=== PATIENT | male | born 1965 | race Caucasian/White ===

== ENCOUNTER → 2016-08-25 | Outpatient (CLI) | payer BC ==
[~2016-08-25] MED LIST: /NITR4TASL SL; /PANT40TA PO; ALTA1CAP2 PO; APIDINJ IJ; APIDINJ2 SC; ASPI81CH PO; ASPI81TA85 PO; CLOP75TA2 PO; CORE25TA PO; CRES40TA PO; CYCL10TA PO; GABA-279 PO; HYDR-3713 PO; INVO300T PO; JANU100T PO; LANTINJ4 SC; LIPI80TA PO; LISI5TAB PO; METF1000 PO; MOME50SP; NEUR300C PO; TYLE325T5 PO; VENTAER IN; VITA10002 PO; VITA200016 PO; XOPEAER INH; ZETI10TA21 PO
[2016-08-25 09:56] LABS: ANION GAP 7 MEQ/L (8-16); BLOOD UREA NITROGEN 10 MG/DL (7-18); CALCIUM LEVEL 9.1 MG/DL (8.5-10.1); CARBON DIOXIDE LEVEL 29 MEQ/L (21-32); CHLORIDE LEVEL 104 MEQ/L (98-107); CHOLESTEROL LEVEL 96 MG/DL (<200); CREATININE FOR GFR 0.88 MG/DL (0.70-1.30); FREE T4 0.91 NG/DL (0.76-1.46); GLOMERULAR FILTRATION RATE > 60.0 (>60); GLUCOSE, FASTING 107 MG/DL (70-105); PHOSPHORUS LEVEL 3.8 MG/DL (2.5-4.9); POTASSIUM SERUM 3.7 MEQ/L (3.5-5.1); SODIUM LEVEL 140 MEQ/L (136-145); TRIGLYCERIDES LEVEL 113 MG/DL (<150)
[2016-08-25 10:26] LABS: VITAMIN B12 LEVEL 637 PG/ML (247-911)
[2016-08-27 11:47] LABS: PRETREATED FOLATE FOR RBCFOL 11.3 NG/ML
== END ==
LOC: M LAB 08:22
PROVIDERS: ATTEND Family Medicine
DX: E78.5 Hyperlipidemia, unspecified (principal); E11.9 Type 2 diabetes mellitus without complications; Z12.5 Encounter for screening for malignant neoplasm of prostate
CPT/HCPCS: 36415; 80061; 80069; 82306; 82607; 82747; 83036; 83970; 84439; 84443; 86140; G0103

== ENCOUNTER → 2016-08-27 | Outpatient (REF) | payer BC | LOC: M SFHCPLAZ 15:42 | PROVIDERS: ATTEND Physician Assistant Medical | DX: N39.0 Urinary tract infection, site not specified (principal) ==

== ENCOUNTER → 2016-08-31 | Outpatient (REF) | payer BC | LOC: M SFHCPLAZ 11:43 | PROVIDERS: ATTEND Physician Assistant Medical | DX: N41.0 Acute prostatitis (principal) ==

== ENCOUNTER → 2016-09-24 | Outpatient (REF) | payer BC | LOC: M SFHCPLAZ 08:57 | PROVIDERS: ATTEND Physician Assistant Medical | DX: N41.9 Inflammatory disease of prostate, unspecified (principal) ==

== ENCOUNTER → 2017-01-28 | Outpatient (REF) | payer BC ==
[~2017-01-28] MED LIST changes: +LEVAINH INH; -XOPEAER INH
[2017-01-28 12:27] LABS: ALBUMIN 4.2 GM/DL (3.2-5.2); ALBUMIN/GLOBULIN RATIO 1.35 (1.00-1.93); ALKALINE PHOSPHATASE 93 U/L (45-117); ALT/SGPT 30 U/L (12-78); ANION GAP 9 MEQ/L (8-16); AST/SGOT 14 U/L (15-37); BILIRUBIN,TOTAL 0.6 MG/DL (0.2-1.0); BLOOD UREA NITROGEN 12 MG/DL (7-18); CARBON DIOXIDE LEVEL 29 MEQ/L (21-32); CHLORIDE LEVEL 103 MEQ/L (98-107); FERRITIN 56 NG/ML (26-388); GLOMERULAR FILTRATION RATE > 60.0 (>60); GLUCOSE, FASTING 85 MG/DL (70-105); PERCENT SATURATION 25.1 % (19.7-50.0); POTASSIUM SERUM 3.7 MEQ/L (3.5-5.1); SODIUM LEVEL 141 MEQ/L (136-145); TOTAL IRON BINDING CAPACITY 367 UG/DL (250-450); TOTAL PROTEIN 7.3 GM/DL (6.4-8.2)
== END ==
LOC: M SFHCPLAZ 09:35
PROVIDERS: ATTEND Family Medicine
DX: E11.9 Type 2 diabetes mellitus without complications (principal); R10.13 Epigastric pain

== ENCOUNTER → 2017-05-26 | Outpatient (REF) | payer BC ==
[2017-05-26 14:37] LABS: BASO % 0.6 % (0.0-1.0); EOS # 0.2 10^3/uL (0.0-0.50); EOS % 2.5 % (0.0-3.0); HEMATOCRIT 45.3 % (42.0-52.0); HEMOGLOBIN 15.8 g/dl (14.0-18.0); IMMATURE GRANULOCYTE % 0.2 % (0-0); LYMPH % 31.4 % (24.0-44.0); MEAN CORPUSCULAR HEMOGLOBIN 28.1 pg (27.0-33.0); MEAN CORPUSCULAR HGB CONC 34.9 g/dl (32.0-36.5); MEAN CORPUSCULAR VOLUME 80.6 fl (80.0-96.0); MONO # 0.4 10^3/uL (0.0-0.8); MONO % 6.1 % (0.0-5.0); NEUTROPHILS # 3.8 10^3/uL (1.8-7.7); NEUTROPHILS % 59.2 % (36.0-66.0); PLATELET COUNT, AUTOMATED 231 10^3/uL (150-450); RED BLOOD COUNT 5.62 10^6/uL (4.30-6.10); RED CELL DISTRIBUTION WIDTH 13.6 % (11.5-14.5); WHITE BLOOD COUNT 6.4 10^3/uL (4.0-10.0)
[2017-05-26 15:14] LABS: PTH INTACT 104.2 PG/ML (14.0-72.0); TOTAL 25(OH) VITAMIN D 45.6 NG/ML (30.0-100.0); VITAMIN B12 LEVEL 1349 PG/ML (247-911)
[2017-05-26 15:54] LABS: ALBUMIN 4.3 GM/DL (3.2-5.2); ALBUMIN/GLOBULIN RATIO 1.43 (1.00-1.93); ALKALINE PHOSPHATASE 103 U/L (45-117); ALT/SGPT 48 U/L (12-78); ANION GAP 7 MEQ/L (8-16); AST/SGOT 25 U/L (7-37); BILIRUBIN,TOTAL 0.6 MG/DL (0.2-1.0); BLOOD UREA NITROGEN 8 MG/DL (7-18); CALCIUM LEVEL 9.1 MG/DL (8.5-10.1); CARBON DIOXIDE LEVEL 29 MEQ/L (21-32); CHLORIDE LEVEL 106 MEQ/L (98-107); GLOMERULAR FILTRATION RATE > 60.0 (>56); GLUCOSE, FASTING 114 MG/DL (70-100); MAGNESIUM LEVEL 2.1 MG/DL (1.8-2.4); POTASSIUM SERUM 3.6 MEQ/L (3.5-5.1); SODIUM LEVEL 142 MEQ/L (136-145); TOTAL PROTEIN 7.3 GM/DL (6.4-8.2)
[2017-05-26 16:42] LABS: ESTIMATED AVERAGE GLUCOSE 278 MG/DL (60-110); HEMOGLOBIN A1c 11.3 %
== END ==
LOC: M SFHCPLAZ 09:37
DX: I10 Essential (primary) hypertension (principal); E53.8 Deficiency of other specified B group vitamins; E55.9 Vitamin D deficiency, unspecified; E11.9 Type 2 diabetes mellitus without complications
CPT/HCPCS: 83735

== ENCOUNTER → 2017-10-28 | Outpatient (REF) | payer BC ==
[2017-10-28 11:46] LABS: BASO % 0.4 % (0.0-1.0); EOS # 0.1 10^3/uL (0.0-0.50); EOS % 1.8 % (0.0-3.0); HEMATOCRIT 46.1 % (42.0-52.0); HEMOGLOBIN 16.2 g/dl (13.5-17.5); IMMATURE GRANULOCYTE % 0.3 % (0-3.0); LYMPH # 2.1 10^3/uL (1.5-4.5); LYMPH % 30.3 % (24.0-44.0); MEAN CORPUSCULAR HEMOGLOBIN 28.7 pg (27.0-33.0); MEAN CORPUSCULAR HGB CONC 35.1 g/dl (32.0-36.5); MEAN CORPUSCULAR VOLUME 81.7 fl (80.0-96.0); MONO # 0.5 10^3/uL (0.0-0.8); NEUTROPHILS # 4.2 10^3/uL (1.8-7.7); NEUTROPHILS % 60.2 % (36.0-66.0); PLATELET COUNT, AUTOMATED 217 10^3/uL (150-450); RED BLOOD COUNT 5.64 10^6/uL (4.30-6.10); RED CELL DISTRIBUTION WIDTH 13.6 % (11.5-14.5); RETICULOCYTE # 72.2 10^9/L (17-77); RETICULOCYTE % 1.3 % (0.5-1.5)
[2017-10-28 13:02] LABS: ALBUMIN 4.2 GM/DL (3.2-5.2); ALBUMIN/GLOBULIN RATIO 1.35 (1.00-1.93); ALKALINE PHOSPHATASE 89 U/L (45-117); ALT/SGPT 66 U/L (12-78); ANION GAP 7 MEQ/L (8-16); AST/SGOT 29 U/L (7-37); BILIRUBIN,TOTAL 0.6 MG/DL (0.2-1.0); BLOOD UREA NITROGEN 16 MG/DL (7-18); C REACTIVE PROTEIN QUANTITATIV < 0.30 MG/DL (0.00-0.30); CALCIUM LEVEL 8.6 MG/DL (8.5-10.1); CARBON DIOXIDE LEVEL 28 MEQ/L (21-32); CHLORIDE LEVEL 107 MEQ/L (98-107); CHOLESTEROL LEVEL 92 MG/DL (<200); CHOLESTEROL RISK RATIO 2.421 (<5); CPK CREATINE PHOSPHOKINASE 255 U/L (39-308); CREATININE FOR GFR 0.98 MG/DL (0.70-1.30); GLOMERULAR FILTRATION RATE > 60.0 (>56); GLUCOSE, FASTING 146 MG/DL (70-100); HDL CHOLESTEROL 38 MG/DL (>40); LDL CHOLESTEROL 27.4 MG/DL (<100); NON-HDL-C 54 MG/DL; POTASSIUM SERUM 3.7 MEQ/L (3.5-5.1); PSA SCREENING 0.65 NG/ML (< 4.0); SODIUM LEVEL 142 MEQ/L (136-145); TOTAL PROTEIN 7.3 GM/DL (6.4-8.2); TRIGLYCERIDES LEVEL 133 MG/DL (<150)
[2017-10-28 13:28] LABS: ESTIMATED AVERAGE GLUCOSE 240 MG/DL (60-110)
[2017-10-28 14:36] LABS: TOTAL 25(OH) VITAMIN D 28.7 NG/ML (30.0-100.0)
[2017-10-28 14:37] LABS: PTH INTACT 123.7 PG/ML (18.5-88.0)
[2017-10-29 14:17] LABS: H PYLORI SERUM QUANT IgG ABY 0.25 (0.00-0.79)
== END ==
LOC: M SFHCPLAZ 09:21
DX: Z12.5 Encounter for screening for malignant neoplasm of prostate (principal); R25.2 Cramp and spasm; E11.9 Type 2 diabetes mellitus without complications; E55.9 Vitamin D deficiency, unspecified; E78.5 Hyperlipidemia, unspecified; Z98.84 Bariatric surgery status
CPT/HCPCS: 82550

== ENCOUNTER 2018-02-16 22:48 | Emergency (ER) | payer BC | END 2018-02-17 01:07 | disposition home or self-care (01) | LOC: M ED 22:48 | DX: S40.012A Contusion of left shoulder, initial encounter (principal); S76.812A Strain of other specified muscles, fascia and tendons at thigh level, left thigh, initial encounter; W50.0XXA Accidental hit or strike by another person, initial encounter; Y92.830 Public park as the place of occurrence of the external cause; Y93.22 Activity, ice hockey; I10 Essential (primary) hypertension; E11.9 Type 2 diabetes mellitus without complications; I25.2 Old myocardial infarction; Z79.899 Other long term (current) drug therapy; Z79.4 Long term (current) use of insulin | CPT/HCPCS: 73030 ==

== ENCOUNTER → 2018-03-13 | Outpatient (REF) | payer BC ==
[2018-03-13 12:26] LABS: BASO % 0.4 % (0.0-1.0); EOS # 0.2 10^3/uL (0.0-0.50); EOS % 3.1 % (0.0-3.0); HEMATOCRIT 47.3 % (42.0-52.0); HEMOGLOBIN 16.6 g/dl (13.5-17.5); IMMATURE GRANULOCYTE % 0.3 % (0-3.0); LYMPH # 1.7 10^3/uL (1.5-4.5); LYMPH % 24.7 % (24.0-44.0); MEAN CORPUSCULAR HEMOGLOBIN 28.4 pg (27.0-33.0); MEAN CORPUSCULAR HGB CONC 35.1 g/dl (32.0-36.5); MEAN CORPUSCULAR VOLUME 80.9 fl (80.0-96.0); MONO # 0.4 10^3/uL (0.0-0.8); MONO % 6.1 % (0.0-5.0); NEUTROPHILS # 4.4 10^3/uL (1.8-7.7); NEUTROPHILS % 65.4 % (36.0-66.0); PLATELET COUNT, AUTOMATED 292 10^3/uL (150-450); RED BLOOD COUNT 5.85 10^6/uL (4.30-6.10); RED CELL DISTRIBUTION WIDTH 13.4 % (11.5-14.5); WHITE BLOOD COUNT 6.7 10^3/uL (4.0-10.0)
[2018-03-13 12:37] LABS: ALBUMIN 4.2 GM/DL (3.2-5.2); ALKALINE PHOSPHATASE 190 U/L (45-117); ALT/SGPT 84 U/L (12-78); ANION GAP 9 MEQ/L (8-16); AST/SGOT 34 U/L (7-37); BILIRUBIN,TOTAL 0.4 MG/DL (0.2-1.0); BLOOD UREA NITROGEN 17 MG/DL (7-18); CALCIUM LEVEL 9.2 MG/DL (8.5-10.1); CARBON DIOXIDE LEVEL 27 MEQ/L (21-32); CHLORIDE LEVEL 106 MEQ/L (98-107); CREATININE FOR GFR 0.99 MG/DL (0.70-1.30); GLOMERULAR FILTRATION RATE > 60.0 (>56); GLUCOSE, FASTING 246 MG/DL (70-100); PTH INTACT 101.8 PG/ML (18.5-88.0); SODIUM LEVEL 142 MEQ/L (136-145); TOTAL 25(OH) VITAMIN D 31.5 NG/ML (30.0-100.0); TOTAL PROTEIN 7.2 GM/DL (6.4-8.2); VITAMIN B12 LEVEL 924 PG/ML (247-911)
[2018-03-13 14:04] LABS: ESTIMATED AVERAGE GLUCOSE 212 MG/DL (60-110)
== END ==
LOC: M SFHCPLAZ 09:18
DX: I10 Essential (primary) hypertension (principal); E11.9 Type 2 diabetes mellitus without complications; E78.5 Hyperlipidemia, unspecified
CPT/HCPCS: 83735

== ENCOUNTER → 2018-04-12 | Outpatient (CLI) | payer BC ==
[~2018-04-12] MED LIST changes: +ACET-683 PO; +D 50CAP PO; +E-Z-GAS II EFFERVESCENT PACKET (SODIUM BICARB./CITRIC ACID/SIMETHICONE) As Ordered ONE; +E-Z-HD 98% w/w 340GM SUSP BTL As Ordered ONE; +E-Z-PAQUE 96% w/w SUSP 176GM BTL As Ordered ONE; +GABA-1171 PO; -GABA-279 PO; +JARD1TAB3 PO; +METF500T13 PO; +MULTIVITAMIN PO; +NITR0.4S14 SL; +OMEP40CA2 PO; +PRAM0.255; +RAMI1CAP21; +RAMI1CAP22 PO; +ROSU40TA3; +STAR120T3 PO; +[UNRECOGNIZED DRUG - OTHER] PO
--- NOTE | 2018-04-12 20:32 | REP ---
Esophagram The procedure was performed under the direct supervision of Dr. Churchill. The images were reviewed with Dr. Churchill. 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 The superior mediastinal structures are midline. The heart size is within normal limits. The lungs are clear. The barium was given in the erect and prone oblique positions in order to perform a single contrast esophagram examination. The oral and pharyngeal stages of deglutition are unremarkable. There is a metallic density in the anterolateral aspect of the left neck. Esophageal transport is prompt and efficient and there is no esophagitis, stricture or mucosal ring. There is a hiatal hernia. There is gastroesophageal reflux demonstrated to above the level of the arminda. The patient is status post gastric bypass. Impression: Postsurgical changes consistent with the patient's history of gastric bypass. There is a hiatal hernia. There is gastroesophageal reflux demonstrated to above the level of the arminda. 0.5 minutes of fluoro time was utilized for this procedure. Reviewed by HELEN Ventura 04/12/2018 04:26 P Electronically Signed by Madhu Churchill MD 04/12/2018 08:22 P
== END ==
LOC: M RAD 08:16
PROVIDERS: ATTEND Physician Assistant Medical
DX: K44.9 Diaphragmatic hernia without obstruction or gangrene (principal); K21.9 Gastro-esophageal reflux disease without esophagitis; Z98.84 Bariatric surgery status

== ENCOUNTER 2018-05-01 06:42 | Day surgery (SDC) | payer BC ==
[~2018-05-01] VITALS: Ht 193 cm; Wt 99.3 kg
[~2018-05-01 06:42] MED LIST changes: -E-Z-GAS II EFFERVESCENT PACKET (SODIUM BICARB./CITRIC ACID/SIMETHICONE) As Ordered ONE; -E-Z-HD 98% w/w 340GM SUSP BTL As Ordered ONE; -E-Z-PAQUE 96% w/w SUSP 176GM BTL As Ordered ONE
[2018-05-01] MEDS ORDERED: LIDOCAINE 2% INJ 100 MG/5 ML SDV (FOR ANES.) As Ordered ONE (06:59)
[2018-05-01] MEDS ORDERED: PROPOFOL 200 MG/20 ML VIAL As Ordered ONE (06:59)
[2018-05-01] MEDS ORDERED: NS 1,000 ML IV ONE (07:15)
--- NOTE | 2018-05-01 07:44 | ROOR ---
Patient Name: Ilya Cornejo Procedure Date: 05/01/2018 7:30 AM Date of : 1965 Age: 53 Room: [facility] Gender: Male Note Status: Finalized Procedure: Upper GI endoscopy Indications: Dysphagia, Suspected esophageal reflux Providers: Jaspal LOZANO MD Referring MD: William Verdin MD Requesting Provider: Medicines: Monitored Anesthesia Care Complications: No immediate complications. Procedure: Pre-Anesthesia Assessment: - The heart rate, respiratory rate, oxygen saturations, blood pressure, adequacy of pulmonary ventilation, and response to care were monitored throughout the procedure. The Endoscope was introduced through the mouth, and advanced to the jejunum. The upper GI endoscopy was accomplished without difficulty. The patient tolerated the procedure well. Findings: The examined esophagus was normal. Evidence of a gastric bypass was found. A gastric pouch with a normal size was found. The gastrojejunal anastomosis was characterized by healthy appearing mucosa. This was traversed. Small Hiatal Hernia. The examined jejunum was normal. No endoscopic abnormality was evident in the esophagus to explain the patient's complaint of dysphagia. It was decided, however, to proceed with dilation of the entire esophagus. The scope was withdrawn. Dilation was performed with a Mccarty dilator with no resistance at 54 Fr. Impression: - Normal esophagus. - Gastric bypass with a normal-sized pouch. Gastrojejunal anastomosis characterized by healthy appearing mucosa. - Small Hiatal Hernia. - Normal examined jejunum. - No endoscopic esophageal abnormality to explain patient's dysphagia. Esophagus dilated. Dilated. - No specimens collected. Recommendation: - Use Prilosec (omeprazole) 40 mg PO daily. - Observe patient's clinical course. - I anticipate no further need for intervention. Jaspal Lozano MD Jaspal LOZANO MD 05/01/2018 7:43:52 AM This report has been signed electronically. Number of Addenda: 0 Note Initiated On: 05/01/2018 7:30 AM Estimated Blood Loss: Estimated blood loss: none.
--- NOTE | 2018-05-01 08:03 | ROOR ---
Patient Name: Ilya Cornejo Procedure Date: 05/01/2018 7:31 AM Date of : 1965 Age: 53 Room: [facility] Gender: Male Note Status: Finalized Procedure: Colonoscopy Indications: Screening for colorectal malignant neoplasm Providers: Jaspal ZELAYA MD Referring MD: William Verdin MD Requesting Provider: Medicines: Monitored Anesthesia Care Complications: No immediate complications. Procedure: Pre-Anesthesia Assessment: - The heart rate, respiratory rate, oxygen saturations, blood pressure, adequacy of pulmonary ventilation, and response to care were monitored throughout the procedure. The Colonoscope was introduced through the anus and advanced to the terminal ileum, with identification of the appendiceal orifice and IC valve. The colonoscopy was performed without difficulty. The patient tolerated the procedure well. The quality of the bowel preparation was adequate and fair. Findings: The perianal and digital rectal examinations were normal. (EXAM: Complete, PREP: Fair/Adequate) The entire examined colon appeared normal on direct and retroflexion views. Impression: - Preparation of the colon was fair. - (EXAM: Complete, PREP: Fair/Adequate) - The entire examined colon is normal on direct and retroflexion views. - No specimens collected. Recommendation: - Repeat colonoscopy in 3 years because the bowel preparation was suboptimal. - Resume Plavix (clopidogrel) at prior dose today. Jaspal Zelaya MD Jaspal ZELAYA MD 05/01/2018 8:02:22 AM This report has been signed electronically. Number of Addenda: 0 Note Initiated On: 05/01/2018 7:31 AM Estimated Blood Loss: Estimated blood loss: none.
[2018-05-01 08:20] VITALS: BP 133/82
== END 2018-05-01 08:26 | disposition home or self-care (01) ==
LOC: M OPP 06:42
PROVIDERS: ATTEND Internal Medicine Gastroenterology
DX: R10.13 Epigastric pain (principal); K44.9 Diaphragmatic hernia without obstruction or gangrene; Z12.11 Encounter for screening for malignant neoplasm of colon; Z98.84 Bariatric surgery status

== ENCOUNTER 2018-05-27 22:02 | Emergency (ER) | payer BC ==
[~2018-05-27] VITALS: Ht 193 cm; Wt 100.0 kg
[2018-05-27] MEDS ORDERED: PROTPAK PO (22:09)
[2018-05-27] MEDS ORDERED: TIZA2CAP PO (22:16)
[2018-05-27] MEDS ORDERED: PERCOCET 5MG/325MG TAB PO ONE (22:45)
[2018-05-28] MEDS ORDERED: PERC5TAB12 PO (00:02)
[2018-05-28 00:11] VITALS: BP 132/58
--- NOTE | 2018-05-28 08:06 | REP ---
Clinical: Trauma. Fall. Technique: AP and frog lateral views of the left femur. Findings: Evidence for prior open reduction and fixation for mid femoral shaft fracture. No acute fracture dislocation appreciated. No subcutaneous emphysema. Age-related degenerative changes at the hip including calcified loose body superior to the femoral neck. Impression: Old healed injury. No acute fracture or dislocation appreciated. Electronically Signed by Edgar Bagley MD 05/28/2018 07:57 A
--- NOTE | 2018-05-28 08:26 | REP ---
Clinical: Left hip pain with prior fall. Technique: Frontal view of the pelvis with neutral and frog lateral views of the left hip. Findings: Osseous structures and joint spaces are intact and normal. Hip joints appear symmetric on frontal pelvic radiograph. No acute fracture dislocation. Calcified loose bodies are identified superior to the left femoral neck. Mild bilateral age-related changes include subtle increase sclerosis to the acetabular roof with minimal marginal spurring. Impression: Calcified loose bodies superior to the left femoral neck appear chronic. Mild symmetric age-related changes. No acute fracture dislocation. Electronically Signed by Edgar Bagley MD 05/28/2018 08:17 A
== END 2018-05-28 00:14 | disposition home or self-care (01) ==
LOC: M ED 22:02
DX: M16.12 Unilateral primary osteoarthritis, left hip (principal); E11.9 Type 2 diabetes mellitus without complications; I10 Essential (primary) hypertension; Z79.899 Other long term (current) drug therapy; Z79.4 Long term (current) use of insulin

== ENCOUNTER → 2018-06-06 | Outpatient (REF) | payer BC ==
[~2018-06-06] MED LIST changes: +PERC5TAB12 PO; +PROTPAK PO; +TIZA2CAP PO
[2018-06-06 13:32] LABS: INR 1.01; PROTHROMBIN TIME 13.4 SECONDS (12.1-14.4)
== END ==
LOC: M LABDRAW1 12:47
PROVIDERS: ATTEND Physician Assistant Surgical
DX: M16.12 Unilateral primary osteoarthritis, left hip (principal)

== ENCOUNTER 2018-08-04 21:27 | Emergency (ER) | payer BC ==
[~2018-08-04] VITALS: Ht 182.9 cm; Wt 92.7 kg
[~2018-08-04 21:27] MED LIST changes: -/NITR4TASL SL; -/PANT40TA PO; +NITR0.4S SL; +PROT1TAB2 PO
[2018-08-04] MEDS ORDERED: GABA-845 PO (21:34)
[2018-08-04] MEDS ORDERED: TRAM1CAP15 PO (21:34)
[2018-08-04] MEDS ORDERED: GABA-843 PO (21:34)
[2018-08-04] MEDS ORDERED: CLEO300C2 PO (23:17)
[2018-08-04 23:20] VITALS: BP 130/76
[2018-08-04] MEDS: CLINDAMYCIN 150 MG CAP PO ONE (23:21)
--- NOTE | 2018-08-05 08:12 | REP ---
Right foot: Four views. History: Right foot injury. Comparison study: November 25, 2007. Findings: Four views of the right foot demonstrate overall normal mineralization. There is no evidence of fracture or subluxation. Small plantar and Achilles calcaneal spurs are noted. There is mild tibiotalar spurring which is unchanged. No fracture or subluxation. Impression: No acute bony abnormality. Electronically Signed by Madhu Churchill MD 08/05/2018 08:03 A
== END 2018-08-04 23:28 | disposition home or self-care (01) ==
LOC: M ED 21:27
DX: S93.601A Unspecified sprain of right foot, initial encounter (principal); L03.115 Cellulitis of right lower limb; J32.9 Chronic sinusitis, unspecified; E10.9 Type 1 diabetes mellitus without complications; G62.9 Polyneuropathy, unspecified; Z95.5 Presence of coronary angioplasty implant and graft; Z98.84 Bariatric surgery status; Z79.899 Other long term (current) drug therapy; Z79.4 Long term (current) use of insulin

== ENCOUNTER → 2018-08-17 | Outpatient (REF) | payer BC ==
[~2018-08-17] MED LIST changes: +CLEO300C2 PO; +GABA-843 PO; +GABA-845 PO; +TRAM1CAP15 PO
[2018-08-17 14:17] LABS: ALBUMIN 4.5 GM/DL (3.2-5.2); ALT/SGPT 57 U/L (12-78); BILIRUBIN,TOTAL 0.7 MG/DL (0.2-1.0); BLOOD UREA NITROGEN 12 MG/DL (7-18); CALCIUM LEVEL 9.4 MG/DL (8.5-10.1); CARBON DIOXIDE LEVEL 30 MEQ/L (21-32); CHLORIDE LEVEL 102 MEQ/L (98-107); CHOLESTEROL LEVEL 97 MG/DL (<200); CHOLESTEROL RISK RATIO 2.204 (<5); CPK CREATINE PHOSPHOKINASE 140 U/L (39-308); CREATININE FOR GFR 0.89 MG/DL (0.70-1.30); FERRITIN 68 NG/ML (26-388); FREE T4 0.99 NG/DL (0.76-1.46); GLOMERULAR FILTRATION RATE > 60.0 (>56); GLUCOSE, FASTING 173 MG/DL (70-100); HDL CHOLESTEROL 44 MG/DL (>40); IRON (FE) 131 UG/DL (65-175); LDL CHOLESTEROL 33.2 MG/DL (<100); NON-HDL-C 53 MG/DL; POTASSIUM SERUM 4.4 MEQ/L (3.5-5.1); SODIUM LEVEL 138 MEQ/L (136-145); TOTAL IRON BINDING CAPACITY 364 UG/DL (250-450); TOTAL PROTEIN 7.3 GM/DL (6.4-8.2); TRIGLYCERIDES LEVEL 99 MG/DL (<150); URIC ACID 4.2 MG/DL (3.5-7.2)
[2018-08-17 14:18] LABS: HEMOGLOBIN A1c 8.4 %
== END ==
LOC: M SFHCPLAZ 09:54
PROVIDERS: ATTEND Family Medicine
DX: E11.9 Type 2 diabetes mellitus without complications (principal); N20.0 Calculus of kidney; I10 Essential (primary) hypertension; K76.0 Fatty (change of) liver, not elsewhere classified; R25.2 Cramp and spasm; E78.5 Hyperlipidemia, unspecified

== ENCOUNTER → 2018-09-06 | Outpatient (CLI) | payer BC ==
--- NOTE | 2018-09-17 23:41 | ECWPNPC ---
PATIENT NAME: VERA PABON : 1965 GENDER: MALE VISIT DATE: 09/06/2018 DISCHARGE DATE: 09/06/18 1156 VISIT LOCKED DATE TIME: PHYSICIAN: MADISON SWAIN MD PHYSICIAN PAGER NO: [phone] RESOURCE: MADISON SWAIN MD REASON FOR APPOINTMENT 1. OSTEOARTHRITIS OF SPINE, LUMBAR REGION HISTORY OF PRESENT ILLNESS PAIN SCREENING: PATIENT HAS A COMPLAINT OF ACUTE OR CHRONIC PAIN :YES 53 YEAR OLD MALE PATIENT WITH A HISTORY OF CHRONIC LOW BACK AND LEG PAIN. THE PATIENT DESCRIBES THE PAIN ACHING, BURNING, STABBING, SHOOTING, SORE, TENDER, SHARP, AND CONTINUOUS WITH A PAIN SCORE OF 7-9/10 DEPENDING ON PHYSICAL ACTIVITY. 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 FROM THE ACCIDENT HE HAD A BROKEN SCAPULA, PULLED GROIN, AND HIP AND THIGH PAIN FROM THE ACCIDENT. THE PATIENT SAYS THE LEFT HIP PAIN IS THE MOST INTENSE. HE IS ALSO EXPERIENCING LEG CRAMPS AND PAIN FIRST THING IN THE MORNING, GOING DOWN STAIRS, AND AT NIGHT WHEN HE IS IMMOBILE. THE PAIN IS AFFECTING HIS ABILITY TO PERFORM HIS DAILY ACTIVITIES SUCH WALKING, WORKING AROUND THE HOUSE, COACHING, AND IS ALSO AFFECTING HIS SLEEP. HE IS CURRENTLY TAKING PLAVIX DUE TO A HEART BYPASS SURGERY, GABAPENTIN AND TRAMADOL FOR PAIN RELIEF, AND TIZANIDINE FOR MUSCLE CRAMPS AND SLEEPING. THE PATIENT REPORTS IN JULY OF 2018, HE HAD LOST CONSCIOUSNESS DUE TO DIABETES AND SUFFERED A RIGHT FOOT TRAUMA AND HAS BEEN EXPERIENCING PAIN IN HIS RIGHT FOOT SINCE THE INCIDENT. PATIENT DENIES UNEXPLAINABLE WEIGHT LOSS, FEVER, CHILLS, NEW CHANGES ON HIS URINARY OR BOWEL CONTROL. FALL RISK SCREENING: SCREENING :NO FALLS REPORTED IN THE LAST YEAR CURRENT MEDICATIONS TAKING VITAMIN D3 5000 CAPSULE 1 TABLET ORALLY QD TAKING RAMIPRIL 2.5 MG CAPSULE 1 CAPSULE ORALLY ONCE A DAY TAKING ROSUVASTATIN CALCIUM 40 MG TABLET 1 TABLET ORALLY ONCE A DAY TAKING TUMS E-X 750 750 MG TABLET CHEWABLE 1 TABLET ORALLY BID TAKING MULTIVITAMIN & MINERAL ` ` 2 TABLS ORALLY DAILY TAKING CYANOCOBALAMIN 1000 MCG TABLET 1 TABLET ORALLY ONCE A DAY TAKING NITROGLYCERIN 0.4 MG TABLET SUBLINGUAL 1 TABLET UNDER THE TONGUE SUBLINGUAL NEEDED CHEST PAIN TAKING CLOPIDOGREL BISULFATE 75 MG TABLET 1 TABLET ORALLY ONCE A DAY TAKING BLOOD GLUCOSE TEST - STRIP ONE TOUCH VERIO IN VITRO FOUR TIMES DAILY - ICD 10 - E11.9 TAKING PANTOPRAZOLE SODIUM 40 MG TABLET DELAYED RELEASE 1 TAB ORALLY EVERY MORNING TAKING ONETOUCH VERIO _ STRIP DIRECTED IN VITRO BID TAKING INSULIN PEN NEEDLE 32G X 5 MM MISCELLANEOUS DIRECTED SUBLINGUALLY MONTHLY TAKING EMPAGLIFLOZIN 25 MG TABLET 1 TABLET ORALLY EVERY MORNING TAKING INSULIN GLARGINE 100 UNIT/ML INJECTION SOLUTION 60 UNITS SUBCUTANEOUS AT 700 TAKING METFORMIN HCL 500 MG TABLET 1 TAB ORALLY AC BID TAKING BD ULTRA-FINE PEN NEEDLES 32G 4MM _ DIRECTED _ QD TAKING ACETAMINOPHEN 500 MG CAPSULE 1-2 CAPSULE NEEDED ORALLY EVERY 6 HRS TAKING TIZANIDINE HCL 2 MG TABLET 1 TABLET NEEDED ORALLY THREE TIMES A DAY TAKING RAMIPRIL 2.5 MG CAPSULE 1 CAPSULE ORALLY ONCE A DAY TAKING ROSUVASTATIN CALCIUM 40MG TABLET TAKE 1 TABLET DAILY TAKING GABAPENTIN 300 MG CAPSULE 1 CAPSULE ORALLY BID TAKING PRAMIPEXOLE DIHYDROCHLORIDE 1 MG TABLET 1 TABLET BEFORE BEDTIME ORALLY AT BEDTIME TAKING VOLTAREN 1 % GEL 4 GM TRANSDERMAL QID TO FEET TAKING MELOXICAM 15 MG TABLET 1 TABLET ORALLY ONCE A DAY TAKING TRAMADOL HCL 50 MG TABLET 1 TABLET NEEDED ORALLY ONCE A DAY MEDICATION LIST REVIEWED AND RECONCILED WITH THE PATIENT PAST MEDICAL HISTORY T2DM WITH MICROALBUMINURIA, PERIPHERAL NEUROPATHY MORBID OBESITY-S/P LAPROSCOPIC GASTRIC BYPASS 11/14/13 DR. KIM OBSTRUCTIVE SLEEP APNEA HYPERLIPIDEMIA 2B HYPERTENSION-05/2013 TTE LAE 38 MM OTHEREWISE NORMAL-SOLIS NONALCOHOLIC FAILURE LIVER DISEASE-NEGATIVE WORKUP JANUARY 2002 FS2 21 HISTORY OF NEPHROLITHIASIS CALCIUM OXALATE TIMES 23 FEBRUARY 2005 GRANULOMA ANNULARE RIGHT PLANTAR FASCITIS CAD, SINGLE VESSEL, STATUS POST MCKENNA TO 80% STENOSIS MID SEGMENT LAD AND 90% STENOSIS AFTER THE SECOND MAJOR DIAGONAL BRANCH-DECEMBER 04, 2010-[facility]//APRIL 15, 2011 REPEAT MCKENNA TO 80% STENOSIS LAD DISTAL TO PREVIOUS STENTS-[facility] CATH STABLE 40% L CIRC DISTAL STENOSIS, MCKENNA TO FOCAL 75% IN STENT STENOSIS OF PROXIMAL LAD-[facility]05/11/2013 MCKENNA TO 70% PROXIMAL LAD STENOSIS AND 75% JUST DISTAL TO PREVIOUS STENT STENOSIS-CHANDNI, S/P CABG BEDOYA TO LAD AND DIAGONAL 11/29/13-[facility]//05/16/15 CATHERIZATION DONE 2 ANGINA-SINGLE VESSEL DISEASE C PATENT BEDOYA GRAFT, FAVORED CP 2 -FISCHI ACUTE SMALL R BASAL GANGLION AND INTERNAL CAPSULE HEMORRHAGIC CVA PROBABLY 2 ASPIRIN 81 QD, PLAVIX 75 QD AND HEPARIN GIVEN DURING 05/11/2013 CATHERIZATION WITH 2 L LATERAL FOOT NUMBNESS, SEEN BY 05/29/2013 MRI, - MRA B CAROTIDS, NO EXTENSION NOR HEMORRHAGE BY CT BRAIN 05/31/2013 LUMBAR SPONDYLOSIS WITH DIFFUSE BULGES L3-5 WITH MINIMAL SAC COMPRESSION, L L4 AND MODERATE B S1 COMPRESSION BY 09/2013 MRI B CTS-DIAGNOSED BY DEVON NAFLD-09/2015 FS 2 21 GERD/CERVICAL DYSPHAGIA/DYSPEPSIA-04/2018 EGD SMALL HH-R LEFT SCAPULA FRACTURE ALLERGIES N.K.D.A. SURGICAL HISTORY LEFT FEMUR SURGERY VASECTOMY GASTRIC BYPASS 11/05 BACK SURGERY @ [facility] 02/2014 COLON-SMALL HH, [facility] PREP-[facility] 04/2018 FAMILY HISTORY FATHER: MOTHER: HBP-FATHER, MOTHER, DM\NMOTHER-STROKE,\N. SOCIAL HISTORY GENERAL: TOBACCO USE ARE YOU A:NONSMOKER ARE YOU A:NONSMOKER HIV / HEP-C SCREENING HIV TEST OFFERED TO PATIENT:YES DATE OFFERED:09/24/2016 TEST ACCEPTED:NO REASON:PATIENT DECLINED HEP-C TEST OFFERED TO PATIENT:YES DATE OFFERED:09/24/2016 TEST ACCEPTED:NO REASON:PATIENT DECLINED HIV TEST OFFERED TO PATIENT:YES DATE OFFERED:09/24/2016 TEST ACCEPTED:NO REASON:PATIENT DECLINED HEP-C TEST OFFERED TO PATIENT:YES DATE OFFERED:09/24/2016 TEST ACCEPTED:NO REASON:PATIENT DECLINED EDUCATION LEVEL OF EDUCATION:FINISHED HIGH SCHOOL LEVEL OF EDUCATION:FINISHED HIGH SCHOOL LANGUAGE LANGUAGES SPOKEN:BENINESE LANGUAGES SPOKEN:BENINESE NEW PATIENT PAIN DIARY PATIENT DESCRIBES PAIN :ACHING, BURNING, HAVE IT ALL THE TIME, SHARP, STABBING, TENDER FROM 0-10, WHAT LEVEL IS YOUR PAIN TODAY?7 NAME OF PERSON DRIVING YOU HOME SELF IS THERE A CHANCE YOU COULD BE ?NO HAVE YOU BEEN SICK IN THE LAST WEEK (COLD, COUGH, FEVER, FLU, ETC)NO DO YOU TAKE ANY BLOOD THINNERS?YES PLAVIX DO YOU HAVE ANY RASHES OR OPEN SORES?NO ANY CHANGE IN BOWEL OR BLADDER CONTROL?NO ARE YOU ALLERGIC TO SHELLFISH OR IV DYE?NO ARE YOU DIABETIC?YES MANAGED WITH INSULIN DO YOU HAVE A PACEMAKER OR DEFIBRILLATOR?NO ANY NEW PROBLEMS WITH MEDICINES OR NEW ALLERGIESNO ANY NEW PATTERNS OF PAIN OR NUMBNESS?YES YES, SINCE FALL IN JANUARY ANY CHANGE IN YOUR MEDICAL CONDITION?NO HAVE YOU FALLEN IN THE LAST 6 MONTHS?YES YES, FELL IN JANUARY, ON ICE, FRACTURED SCAPULA, KNOCKED OUT DO YOU USE ANY TYPE OF TOBACCO (SMOKE, SMOKELESS, CHEW, ETC.)NO ARE YOU ABUSED, NEGLECTED, OR IN AN UNSAFE ENVIRONMENT?NO DO YOU HAVE THOUGHTS OF HURTING YOURSELF OR SOMEONE ELSE?NO DO YOU NEED ANY PRESCRIPTIONS?YES WOULD LIKE PAIN MED MANAGEMENT DO YOU HAVE ANY OTHER QUESTIONS OR CONCERNS?YES HOW SOON FOR RESOLUTION RECREATIONAL DRUG USE DRUG USE?NO DRUG USE?NO EXERCISE: WALKS. LEARNING BARRIERS / SPECIAL NEEDS CHANGE FROM LAST VISIT?YES LEFT SHOULDER, LEFT LEG PAIN BARRIERS TO LEARNING?NO HEARING IMPAIRED?NO VISION IMPAIRED?NO COGNITIVELY IMPAIRED?NO READINESS TO LEARN?YES LEARNING PREFERENCES?NO LEARNING CAPABILITIES PRESENT?YES EMOTIONAL BARRIERS?NO SPECIAL DEVICES?NO STOPPER MAKER HELPER NEEDED?NO CHANGE FROM LAST VISIT?YES LEFT SHOULDER, LEFT LEG PAIN BARRIERS TO LEARNING?NO HEARING IMPAIRED?NO VISION IMPAIRED?NO COGNITIVELY IMPAIRED?NO READINESS TO LEARN?YES LEARNING PREFERENCES?NO LEARNING CAPABILITIES PRESENT?YES EMOTIONAL BARRIERS?NO SPECIAL DEVICES?NO STOPPER MAKER HELPER NEEDED?NO PAIN CLINIC PFS, CLERGY, PUBLIC HEALTH REFERRALS WAS THE PROVIDER NOTIFIED OF ANY PERTINENT INFO?YES HAS THE PATIENT BEEN EDUCATED REGARDING HIS/HER PLAN OF CARE?YES PLEASE DOCUMENT ANY ADDTIONAL DETAILS. NEW PT CONSULT, ORIENTED TO PAIN MANAGEMENT HAS THE PATIENT BEEN EDUCATED REGARDING PAIN, THE RISK FOR PAIN, THE IMPORTANCE OF EFFECTIVE PAIN MANAGEMENT, AND THE PAIN ASSESSMENT PROCESS?YES LATEX QUESTIONNAIRE LATEX ALLERGY : HAVE YOU EVER DEVELOPED ANY TYPE OF REACTION AFTER HANDLING LATEX PRODUCTS SUCH RUBBER GLOVES, CONDOMS, DIAPHRAGMS, BALLOONS, SOCKS, OR UNDERWEAR?NO LATEX ALLERGY : HAVE YOU EVER DEVELOPED ANY TYPE OF REACTION DURING OR AFTER DENTAL APPOINTMENT, VAGINAL/RECTAL EXAMINATION, SURGICAL PROCEDURE, OR ANY OTHER EXPOSURE?NO LATEX RISK : HAVE YOU EVER HAD ANY DIFFICULTY BREATHING OR HIVES AFTER EATING OR HANDLING ANY FRUITS, OR VEGETABLES; SUCH KIWI, BANANAS, STONE FRUITS, OR CHESTNUTSNO LATEX RISK : DO YOU HAVE A PREVIOUS PERSONAL HISTORY OF MORE THAN NINE SURGERIES, SPINA BIFIDA, OR REPEATED CATHERTIZATIONS? NO LATEX RISK : ARE YOU FREQUENTLY EXPOSED TO LATEX PRODUCTS IN YOUR OCCUPATION?NO DATE ASKED : 09/06/2018 CAFFEINE CAFFEINE USE?YES 1-2 BEVERAGES DAILY CAFFEINE USE?YES 1-2 BEVERAGES DAILY ADVANCE DIRECTIVE ADVANCE DIRECTIVE DISCUSSED WITH PATIENT:YES PT STATES THAT HE DOES NOT HAVE HCP AT THIS TIME, DECLINE ASSISTANCE OR INFORMATION. DS CHEONDOISM [id number] [facility] [id number] [facility] MARITAL STATUS: . ALCOHOL SCREENING DID YOU HAVE A DRINK CONTAINING ALCOHOL IN THE PAST YEAR?NO POINTS0 INTERPRETATIONNEGATIVE DID YOU HAVE A DRINK CONTAINING ALCOHOL IN THE PAST YEAR?NO POINTS0 INTERPRETATIONNEGATIVE SEXUAL HX HAD SEX IN THE LAST 12 MONTHS (VAGINAL, ORAL, OR ANAL)?YES WITHWOMEN ONLY USE PROTECTION?NO HAVE YOU EVER HAD AN STD?NO HAD SEX IN THE LAST 12 MONTHS (VAGINAL, ORAL, OR ANAL)?YES WITHWOMEN ONLY USE PROTECTION?NO HAVE YOU EVER HAD AN STD?NO HOSPITALIZATION/MAJOR DIAGNOSTIC PROCEDURE R BASAL GANGLION/IC HEMORRHAGIC CVA 2 ASPIRIN/PLAVIX/HEPARIN FROM 05/11/13 CATH, ARF 2 DEHYDRATION/HYPOTENSION (SBP HIGH 90S) 2 VIRAL GE/MEDS/CATH DYE 05/29-09/2013 GASTRIC BYPASS SURGERY 11/14/2013 OPEN HEART SURGERY 11/29/2013 REVIEW OF SYSTEMS REVIEWED BY: PROVIDER: MADISON SWAIN MD . CONSTITUTIONAL: ANY CHANGE IN YOUR MEDICAL CONDITION? YES, CHRONIC PAIN SINCE FALL IN JANUARY . CHILLS NO . FEVER NO . INFECTION: DO YOU HAVE NEW INFECTIONS? NO . DO YOU HAVE HISTORY OF MRSA? NO . MUSCULOSKELETAL: ANY NEW PATTERNS OF PAIN OR NUMBNESS? YES, PT STATES THAT HE FELL IN JANUARY AND HAS HAD CHRONIC PAIN IN HIP AND GROIN SINCE FALL . SYTEMIC LUPUS NO . GASTROENTEROLOGY: ANY NEW CHANGE IN BOWEL CONTROL? NO . BARRETTS ESOPHAGUS NO . CIRRHOSIS NO . HEPATITIS NO . LIVER FAILURE NO . ACID REFLUX NO . UNEXPLAINED WEIGHT LOSS NO . GENITOURINARY: ANY NEW CHANGE IN BLADDER CONTROL? NO . IS THERE A CHANCE YOU COULD BE ? NO . HEMATOLOGY/LYMPH: DO YOU TAKE ANY BLOOD THINNERS? (FOR EXAMPLE- COUMADIN, PLAVIX, AGGRENOX, PLATEL, PRADAXA, OR XARELTO) YES, PLAVIX . WHEN WAS YOUR LAST DOSE? DATE: TIME: . LOW PLATELET COUNT NO . SICKLE CELL DISEASE NO . VON WILLIEBRANDS NO . FACTOR V LEIDEN NO . THALLASEMIA NO . ANEMIA NO . EASY BRUISING NO . NEUROLOGY: HAVE YOU FALLEN IN THE PAST 12 MONTHS? YES, PT STATES THAT HE FELL WHILE ON ICE, INJURED, FRACTURED SCAPULA, HAS HAD CHRONIC PAIN SINCE FALL. . ANY NEW EXTREMITY NUMBNESS OR WEAKNESS? NO . HEAD INJURY NO . DEMENTIA NO . CEREBRAL PALSY NO . MULTIPLE SCLEROSIS NO . DIZZINESS NO . HEADACHE NO . STROKES NO . VERTIGO NO . CARDIOLOGY: DO YOU HAVE A PACEMAKER OR DEFIBRILLATOR? NO . ANGINA NO . HEART ATTACK NO . HEART SURGERY NO . CONGESTIVE HEART FAILURE/FLUID OVERLOAD NO . CHEST PAIN NO . HIGH BLOOD PRESSURE NO . IRREGULAR HEART BEAT NO . RESPIRATORY: HAVE YOU BEEN SICK IN THE PAST WEEK? NO . FEVER NO . FLU LIKE SYMPTOMS? NO . CPAP NO . BYPAP NO . ASTHMA NO . EMPHYSEMA NO . CHRONIC LUNG DISEASES NO . SHORTNESS OF BREATH ON EXERTION NO . COUGH NO . SNORING NO . INTEGUMENTARY: DO YOU HAVE ANY RASHES OR OPEN SORES? NO . ALLERGIC/IMMUNO: ARE YOU ALLERGIC TO IV DYE? NO . ANY NEW ALLERGIES? NO . PSYCHIATRIC: DO YOU HAVE THOUGHTS OF HURTING YOURSELF OR SOMEONE ELSE? NO . ARE YOU ABUSED, NEGLECTED, OR IN AN UNSAFE ENVIRONMENT? NO . ENDOCRINOLOGY: ARE YOU DIABETIC? NO . THYROID DISORDER NO . OTHER: DO YOU NEED ANY PRESCRIPTIONS? PT STATES THAT HE WOULD LIKE PAIN MANAGEMENT SCRIPTS . IF YES, PLEASE LIST: ____ . ANY NEW PROBLEMS WITH YOUR MEDICATIONS? NO . WHEN DID YOU LAST EAT? ____ . WHEN DID YOU LAST DRINK? ____ . WHAT DID YOU LAST DRINK? ____ . NAME OF PERSON DRIVING YOU HOME? ____ . DO YOU HAVE ANY OTHER QUESTIONS OR CONCERNS NO . VITAL SIGNS WT 203.2 LBS, HT 73.5 IN, BMI 26.44 INDEX, BP 134/77 MM HG, HR 93 /MIN, RR 18 /MIN, TEMP 97.0 F, OXYGEN SAT % 96%, SAFE IN ENV? (Y/N) Y, NA INITIALS IN 09:16, REVIEWED BY: NATALI. EXAMINATION GENERAL EXAMINATION: PATIENT IS ALERT O X 3 AND COOPERATIVE. LUNGS CLEAR, TO AUSCULTATION. HEART: NO MURMURS OR GALLOPS; FACIAL CRANIAL NERVES ARE GROSSLY NORMAL. GOOD SYMMETRY OF FACIAL MUSCLE MOVEMENT. NORMAL VISUAL AU. ANTALGIC WALK. HYPERPATHIA OF THE RIGHT FOOT TO TOUCH. MRI OF THE LUMBAR SPINE DONE ON 07/11/2018 SHOWS LEFT PARACENTRAL DISC EXTRUSION AT L4-L5 AND BULGING DISCS AT L5-S1 LEVELS. 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 PABON'S PAIN MANAGEMENT CASE. THE PATIENT WILL CONSIDER A LUMBAR EPIDURAL STEROID INJECTION, BUT I WILL NEED A CLEARANCE FROM DR. KENDRICK FOR THE PATIENT TO STOP PLAVIX IN ORDER TO MOVE FORWARD WITH ANY INJECTIONS. THE PATIENT IS GOING TO BE SEEN BY A CLINICAL PROVIDER TRAINER. I WANT TO WAIT FOR HIS OPINION ON REGARDS TO THE FOOT PAIN BEFORE PROCEDING WITH AN EPIDURAL. I AM NOT SURE THAT THE BACK IS CAUSING THE FOOT PAIN. IN TERMS OF THE CRAMPING IN BOTH LEGS THIS IS MORE PROBABLY COMING FROM THE BACK, BUT THE PATIENT PRESENT CONCERN IS THE FOOT PAIN. I AM INCREASING THE GABAPENTIN SLOWLY UP TO 300 MG 3 TABLETS DAILY. I WILL REFILL THE PATIENT'S TRAMADOL FOR SOMATIC PAIN, SO THE PATIENT WILL SIGN A NARCOTIC AGREEMENT AND PERFORM A URINE TOXICOLOGY TODAY. I WILL ALSO REQUEST A DOCTOR TO DOCTOR AGREEMENT FROM DR. KENDRICK TO CONTINUE THE TRAMADOL. I DISCUSSED THE RISKS ASSOCIATED WITH THE USE OF OPIOIDS INCLUDING THE POSSIBLE DEVELOPMENT OF ADDICTION OR TOLERANCE AND THE PATIENT VERBALIZED UNDERSTANDING. I WOULD ALSO LIKE DR. KENDRICK'S OPINION TO SEE IF IT WOULD BE SAFE FOR THE PATIENT TO USE NSAIDS DUE TO HIS HEART CONDITION. THE PATIENT WILL FOLLOW UP IN 1 MONTH. INSTRUCTIONS WERE GIVEN, QUESTIONS WERE ANSWERED, PATIENT REPORTS UNDERSTANDING AND AGREES WITH THE PLAN. I, FADY ROGERS, DOCUMENTED THE ABOVE INFORMATION ACTING A SCRIBE FOR DR. SWAIN. I HAVE REVIEWED THE ABOVE DOCUMENT, WRITTEN BY FADY ORTEGA AND I VERIFY THAT IT IS ACCURATE. DEAR DR. NATALIIA KENDRICK: THANK YOU FOR YOUR KIND REFERRAL OF VERA PABON. IF YOU WANT TO DISCUSS HIS CASE WITH ME PLEASE CALL ME AT THE PAIN CENTER AT [phone]. SINCERELY, MADISON SWAIN MD PAIN MEDICINE . OTHERS REFILL TIZANIDINE HCL TABLET, 2 MG, 1 TABLET NEEDED, ORALLY, THREE TIMES A DAY, 30 DAYS, 75, REFILLS 1 REFILL GABAPENTIN CAPSULE, 300 MG, 1 CAPSULE, ORALLY, THREE TIMES DAILY, 30 DAYS, 90, REFILLS 1 REFILL TRAMADOL HCL TABLET, 50 MG, 1 TO 2 TABLET NEEDED, ORALLY FOR PAIN, ONCE A DAY, 30 DAYS, 55, REFILLS 0 NOTES: TEACHING EDUCATION SHEETS GIVEN TO PT FOR GABAPENTIN, TIZANIDINE, AND TRAMADOL. PT ACKNOWLEDGED UNDERSTANDING. PROCEDURE CODES FA211 ESTABILISHED PATIENT [facility] CHARGE [id number] CURRENT MEDS W/DOSAGES DOCUMENTED G8730 PAIN ASSESS POS TOOL F/U PLAN DOC DISPOSITION & COMMUNICATION FOLLOW UP 4 WEEKS (REASON: MEDICATION) ELECTRONICALLY SIGNED BY MADISON SWAIN MD, ON 09/17/2018 AT 06:43 AM EDT DISCLAIMER : THIS IS A VISIT SUMMARY EXTRACTED FROM THE [employer] CHART. IT IS NOT A COPY OF THE [employer] PROGRESS NOTE. JORDEN
== END ==
LOC: M PAIN 09:00
PROVIDERS: ATTEND Anesthesiology
DX: M51.16 Intervertebral disc disorders with radiculopathy, lumbar region (principal); M96.1 Postlaminectomy syndrome, not elsewhere classified; S99.921A Unspecified injury of right foot, initial encounter; W00.0XXA Fall on same level due to ice and snow, initial encounter; Y93.22 Activity, ice hockey; Y92.89 Other specified places as the place of occurrence of the external cause; M79.671 Pain in right foot; M79.2 Neuralgia and neuritis, unspecified; E11.9 Type 2 diabetes mellitus without complications; E78.5 Hyperlipidemia, unspecified; I10 Essential (primary) hypertension; G47.30 Sleep apnea, unspecified; Z79.4 Long term (current) use of insulin; Z79.899 Other long term (current) drug therapy; Z86.79 Personal history of other diseases of the circulatory system; Z98.84 Bariatric surgery status

== ENCOUNTER → 2018-10-09 | Outpatient (CLI) | payer BC ==
--- NOTE | 2018-10-23 00:21 | ECWPNPC ---
PATIENT NAME: VERA PABON : 1965 GENDER: MALE VISIT DATE: 10/09/2018 DISCHARGE DATE: 10/09/18 1002 VISIT LOCKED DATE TIME: PHYSICIAN: MADISON SWAIN MD PHYSICIAN PAGER NO: [phone] RESOURCE: MADISON SWAIN MD REASON FOR APPOINTMENT 1. OSTEOARTHRITIS OF SPINE, LUMBAR REGION HISTORY OF PRESENT ILLNESS HISTORY OF PRESENT ILLNESS: PAIN THE PATIENT DESCRIBES THE PAIN... 53 YEAR OLD MALE PATIENT WITH A HISTORY OF CHRONIC RIGHT FOOT PAIN. THE PATIENT DESCRIBES THE PAIN ACHING, BURNING, STABBING, SHOOTING, TENDER, AND DAILY WITH A PAIN SCORE OF 4-8/10 DEPENDING ON PHYSICAL ACTIVITY. THE PATIENT STATES HE HAS BEEN EXPERIENCING THIS PAIN SINCE JULY 2018 AFTER HE HAD LOST CONSCIOUSNESS DUE TO DIABETES AND SUFFERED A RIGHT FOOT TRAUMA. THE PATIENT SAYS HE HAS BEEN EXPERIENCING PAIN IN HIS RIGHT FOOT SINCE THE INCIDENT. 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 THE PATIENT SAYS HE IS USING GABAPENTIN 300 MG 2-3 TABLETS DAILY THAT IS HELPING WITH THE ACHING PAIN, AND HE IS NOT EXPERIENCING ANY SIDE EFFECTS FROM THE MEDICATION. THE PATIENT SAYS HE IS ALSO USING TRAMADOL 1 TABLET EACH NIGHT THAT HELPS WITH PAIN AND SLEEP. PATIENT DENIES UNEXPLAINABLE WEIGHT LOSS, FEVER, CHILLS, NEW CHANGES ON HIS URINARY OR BOWEL CONTROL. FALL RISK SCREENING: SCREENING :NO FALLS REPORTED IN THE LAST YEAR CURRENT MEDICATIONS TAKING TIZANIDINE HCL 2 MG TABLET 1 TABLET NEEDED ORALLY THREE TIMES A DAY TAKING GABAPENTIN 300 MG CAPSULE 1 CAPSULE ORALLY THREE TIMES DAILY TAKING TRAMADOL HCL 50 MG TABLET 1 TO 2 TABLET NEEDED ORALLY FOR PAIN ONCE A DAY TAKING VITAMIN D3 5000 CAPSULE 1 TABLET ORALLY QD TAKING RAMIPRIL 2.5 MG CAPSULE 1 CAPSULE ORALLY ONCE A DAY TAKING ROSUVASTATIN CALCIUM 40 MG TABLET 1 TABLET ORALLY ONCE A DAY TAKING TUMS E-X 750 750 MG TABLET CHEWABLE 1 TABLET ORALLY BID TAKING CYANOCOBALAMIN 1000 MCG TABLET 1 TABLET ORALLY ONCE A DAY TAKING NITROGLYCERIN 0.4 MG TABLET SUBLINGUAL 1 TABLET UNDER THE TONGUE SUBLINGUAL NEEDED CHEST PAIN TAKING BLOOD GLUCOSE TEST - STRIP ONE TOUCH VERIO IN VITRO FOUR TIMES DAILY - ICD 10 - E11.9 TAKING PANTOPRAZOLE SODIUM 40 MG TABLET DELAYED RELEASE 1 TAB ORALLY EVERY MORNING TAKING ONETOUCH VERIO _ STRIP DIRECTED IN VITRO BID TAKING INSULIN PEN NEEDLE 32G X 5 MM MISCELLANEOUS DIRECTED SUBLINGUALLY MONTHLY TAKING EMPAGLIFLOZIN 25 MG TABLET 1 TABLET ORALLY EVERY MORNING TAKING INSULIN GLARGINE 100 UNIT/ML INJECTION SOLUTION 60 UNITS SUBCUTANEOUS AT 700 TAKING BD ULTRA-FINE PEN NEEDLES 32G 4MM _ DIRECTED _ QD TAKING ACETAMINOPHEN 500 MG CAPSULE 1-2 CAPSULE NEEDED ORALLY EVERY 6 HRS TAKING PRAMIPEXOLE DIHYDROCHLORIDE 1 MG TABLET 1 TABLET BEFORE BEDTIME ORALLY AT BEDTIME TAKING VOLTAREN 1 % GEL 4 GM TRANSDERMAL QID TO FEET TAKING MELOXICAM 15 MG TABLET 1 TABLET ORALLY ONCE A DAY TAKING PROTONIX 40 MG TABLET DELAYED RELEASE 1 TABLET(ON PLAVIX NO OMEP.) ORALLY ONCE A DAY TAKING CLOPIDOGREL BISULFATE 75 MG TABLET TAKE 1 TABLET DAILY TAKING METFORMIN HCL 500 MG TABLET 1 TAB ORALLY AC BID NOT-TAKING MULTIVITAMIN & MINERAL ` ` 2 TABLS ORALLY DAILY NOT-TAKING RAMIPRIL 2.5 MG CAPSULE 1 CAPSULE ORALLY ONCE A DAY, NOTES: DUPLICATE NOT-TAKING ROSUVASTATIN CALCIUM 40MG TABLET TAKE 1 TABLET DAILY , NOTES: DUPLICATE MEDICATION LIST REVIEWED AND RECONCILED WITH THE PATIENT PAST MEDICAL HISTORY T2DM WITH MICROALBUMINURIA, PERIPHERAL NEUROPATHY MORBID OBESITY-S/P LAPROSCOPIC GASTRIC BYPASS 11/14/13 DR. KIM OBSTRUCTIVE SLEEP APNEA HYPERLIPIDEMIA 2B HYPERTENSION-05/2013 TTE LAE 38 MM OTHEREWISE NORMAL-SOLIS NONALCOHOLIC FAILURE LIVER DISEASE-NEGATIVE WORKUP JANUARY 2002 FS2 21 HISTORY OF NEPHROLITHIASIS CALCIUM OXALATE TIMES 23 FEBRUARY 2005 GRANULOMA ANNULARE RIGHT PLANTAR FASCITIS CAD, SINGLE VESSEL, STATUS POST MCKENNA TO 80% STENOSIS MID SEGMENT LAD AND 90% STENOSIS AFTER THE SECOND MAJOR DIAGONAL BRANCH-DECEMBER 04, 2010-[facility]//APRIL 15, 2011 REPEAT MCKENNA TO 80% STENOSIS LAD DISTAL TO PREVIOUS STENTS-[facility] CATH STABLE 40% L CIRC DISTAL STENOSIS, MCKENNA TO FOCAL 75% IN STENT STENOSIS OF PROXIMAL LAD-[facility]/05/11/2013 MCKENNA TO 70% PROXIMAL LAD STENOSIS AND 75% JUST DISTAL TO PREVIOUS STENT STENOSIS-CHANDNI, S/P CABG BEDOYA TO LAD AND DIAGONAL 11/29/13-DR[facility] CORTEZ[facility]//05/16/15 CATHERIZATION DONE 2 ANGINA-SINGLE VESSEL DISEASE C PATENT BEDOYA GRAFT, FAVORED CP 2 -[facility] ACUTE SMALL R BASAL GANGLION AND INTERNAL CAPSULE HEMORRHAGIC CVA PROBABLY 2 ASPIRIN 81 QD, PLAVIX 75 QD AND HEPARIN GIVEN DURING 05/11/2013 CATHERIZATION WITH 2 L LATERAL FOOT NUMBNESS, SEEN BY 05/29/2013 MRI, - MRA B CAROTIDS, NO EXTENSION NOR HEMORRHAGE BY CT BRAIN 05/31/2013 LUMBAR SPONDYLOSIS WITH DIFFUSE BULGES L3-5 WITH MINIMAL SAC COMPRESSION, L L4 AND MODERATE B S1 COMPRESSION BY 09/2013 MRI B CTS-DIAGNOSED BY DEVON NAFLD-09/2015 FS 2 21 GERD/CERVICAL DYSPHAGIA/DYSPEPSIA-04/2018 EGD SMALL HH-R LEFT SCAPULA FRACTURE ALLERGIES N.K.D.A. SURGICAL HISTORY LEFT FEMUR SURGERY VASECTOMY GASTRIC BYPASS 11/05 BACK SURGERY @ [facility] 02/2014 COLON-SMALL HH, [facility] 04/2018 FAMILY HISTORY FATHER: MOTHER: HBP-FATHER, MOTHER, DM\NMOTHER-STROKE,\N. SOCIAL HISTORY GENERAL: TOBACCO USE ARE YOU A:NONSMOKER HIV / HEP-C SCREENING HIV TEST OFFERED TO PATIENT:YES DATE OFFERED:09/24/2016 TEST ACCEPTED:NO HEP-C TEST OFFERED TO PATIENT:YES DATE OFFERED:09/24/2016 REASON:PATIENT DECLINED TEST ACCEPTED:NO REASON:PATIENT DECLINED EDUCATION LEVEL OF EDUCATION:FINISHED HIGH SCHOOL LANGUAGE LANGUAGES SPOKEN:TAMAZIGHT RECREATIONAL DRUG USE DRUG USE?NO EXERCISE: WALKS. LEARNING BARRIERS / SPECIAL NEEDS CHANGE FROM LAST VISIT?YES LEFT SHOULDER, LEFT LEG PAIN BARRIERS TO LEARNING?NO HEARING IMPAIRED?NO VISION IMPAIRED?NO COGNITIVELY IMPAIRED?NO READINESS TO LEARN?YES LEARNING PREFERENCES?NO LEARNING CAPABILITIES PRESENT?YES EMOTIONAL BARRIERS?NO SPECIAL DEVICES?NO APPLIER NEEDED?NO PAIN CLINIC PFS, CLERGY, PUBLIC HEALTH REFERRALS WAS THE PROVIDER NOTIFIED OF ANY PERTINENT INFO?YES HAS THE PATIENT BEEN EDUCATED REGARDING HIS/HER PLAN OF CARE?YES PLEASE DOCUMENT ANY ADDTIONAL DETAILS. NEW PT CONSULT, ORIENTED TO PAIN MANAGEMENT HAS THE PATIENT BEEN EDUCATED REGARDING PAIN, THE RISK FOR PAIN, THE IMPORTANCE OF EFFECTIVE PAIN MANAGEMENT, AND THE PAIN ASSESSMENT PROCESS?YES LATEX QUESTIONNAIRE LATEX ALLERGY : HAVE YOU EVER DEVELOPED ANY TYPE OF REACTION AFTER HANDLING LATEX PRODUCTS SUCH RUBBER GLOVES, CONDOMS, DIAPHRAGMS, BALLOONS, SOCKS, OR UNDERWEAR?NO LATEX ALLERGY : HAVE YOU EVER DEVELOPED ANY TYPE OF REACTION DURING OR AFTER DENTAL APPOINTMENT, VAGINAL/RECTAL EXAMINATION, SURGICAL PROCEDURE, OR ANY OTHER EXPOSURE?NO DATE ASKED : 09/06/2018 LATEX RISK : HAVE YOU EVER HAD ANY DIFFICULTY BREATHING OR HIVES AFTER EATING OR HANDLING ANY FRUITS, OR VEGETABLES; SUCH KIWI, BANANAS, STONE FRUITS, OR CHESTNUTSNO LATEX RISK : DO YOU HAVE A PREVIOUS PERSONAL HISTORY OF MORE THAN NINE SURGERIES, SPINA BIFIDA, OR REPEATED CATHERTIZATIONS? NO LATEX RISK : ARE YOU FREQUENTLY EXPOSED TO LATEX PRODUCTS IN YOUR OCCUPATION?NO CAFFEINE CAFFEINE USE?YES 1-2 BEVERAGES DAILY ADVANCE DIRECTIVE ADVANCE DIRECTIVE DISCUSSED WITH PATIENT:YES PT STATES THAT HE DOES NOT HAVE HCP AT THIS TIME, DECLINE ASSISTANCE OR INFORMATION. 10/09/18 EPISCOPALIAN [id number] JEWISH MARITAL STATUS: . ALCOHOL SCREENING DID YOU HAVE A DRINK CONTAINING ALCOHOL IN THE PAST YEAR?NO POINTS0 INTERPRETATIONNEGATIVE SEXUAL HX HAD SEX IN THE LAST 12 MONTHS (VAGINAL, ORAL, OR ANAL)?YES WITHWOMEN ONLY USE PROTECTION?NO HAVE YOU EVER HAD AN STD?NO REVIEWED WITH PT 10/09/18 BV. HOSPITALIZATION/MAJOR DIAGNOSTIC PROCEDURE R BASAL GANGLION/IC HEMORRHAGIC CVA 2 ASPIRIN/PLAVIX/HEPARIN FROM 05/11/13 CATH, ARF 2 DEHYDRATION/HYPOTENSION (SBP HIGH 90S) 2 VIRAL GE/MEDS/CATH DYE 05/29-09/2013 GASTRIC BYPASS SURGERY 11/14/2013 OPEN HEART SURGERY 11/29/2013 REVIEW OF SYSTEMS REVIEWED BY: PROVIDER: MADISON SWAIN MD . CONSTITUTIONAL: ANY CHANGE IN YOUR MEDICAL CONDITION? YES, DIAGNOSED WITH PLANTAR FASCITIS . CHILLS NO . FEVER NO . INFECTION: DO YOU HAVE NEW INFECTIONS? NO . DO YOU HAVE HISTORY OF MRSA? NO . MUSCULOSKELETAL: ANY NEW PATTERNS OF PAIN OR NUMBNESS? NO . GASTROENTEROLOGY: ANY NEW CHANGE IN BOWEL CONTROL? NO . GENITOURINARY: ANY NEW CHANGE IN BLADDER CONTROL? NO . IS THERE A CHANCE YOU COULD BE ? NO . HEMATOLOGY/LYMPH: DO YOU TAKE ANY BLOOD THINNERS? (FOR EXAMPLE- COUMADIN, PLAVIX, AGGRENOX, PLATEL, PRADAXA, OR XARELTO) YES, PLAVIX . WHEN WAS YOUR LAST DOSE? DATE: TIME: . NEUROLOGY: HAVE YOU FALLEN IN THE PAST 12 MONTHS? NO . ANY NEW EXTREMITY NUMBNESS OR WEAKNESS? NO . CARDIOLOGY: DO YOU HAVE A PACEMAKER OR DEFIBRILLATOR? NO . RESPIRATORY: HAVE YOU BEEN SICK IN THE PAST WEEK? NO . FEVER NO . FLU LIKE SYMPTOMS? NO . COUGH NO . INTEGUMENTARY: DO YOU HAVE ANY RASHES OR OPEN SORES? NO . ALLERGIC/IMMUNO: ARE YOU ALLERGIC TO IV DYE? NO . ANY NEW ALLERGIES? NO . PSYCHIATRIC: DO YOU HAVE THOUGHTS OF HURTING YOURSELF OR SOMEONE ELSE? NO . ARE YOU ABUSED, NEGLECTED, OR IN AN UNSAFE ENVIRONMENT? NO . ENDOCRINOLOGY: ARE YOU DIABETIC? YES, ON MEDICATION . OTHER: DO YOU NEED ANY PRESCRIPTIONS? YES, TRAMADOL, TIZANIDINE, GABAPENTIN . IF YES, PLEASE LIST: ____ . ANY NEW PROBLEMS WITH YOUR MEDICATIONS? NO . WHEN DID YOU LAST EAT? ____ . WHEN DID YOU LAST DRINK? ____ . WHAT DID YOU LAST DRINK? ____ . NAME OF PERSON DRIVING YOU HOME? ____ . DO YOU HAVE ANY OTHER QUESTIONS OR CONCERNS NO . VITAL SIGNS WT 202.2 LBS, HT 73.5 IN, BMI 26.31 INDEX, BP 98/57 MM HG, REPEAT BP 108/68 MM HG, HR 80 /MIN, RR 18 /MIN, TEMP 97.3 F, OXYGEN SAT % 98%, NA INITIALS SC 08:40, REVIEWED BY: BV. EXAMINATION GENERAL EXAMINATION: PATIENT IS ALERT O X 3 AND COOPERATIVE. ASSESSMENTS NEURALGIA OF RIGHT FOOT - M79.2 (PRIMARY) TREATMENT NEURALGIA OF RIGHT FOOT CLINICAL NOTES: WE DISCUSSED SEVERAL ISSUES WITH MR. PABON'S PAIN MANAGEMENT CASE. THE PATIENT IS CURRENTLY USING GABAPENTIN 300 MG 2-3 TABLETS DAILY. THE PATIENT SAYS HE SOMETIMES SKIPS THE AFTERNOON DOSE DUE TO IT CAUSING SLEEPINESS FOR HIM WHILE HE IS AT WORK. I WILL START THE PATIENT ON GRALISE 900 MG TO BE TAKEN EACH NIGHT. I PROVIDED THE PATIENT WITH A SCHEDULE TO SLOWLY START THE MEDICATION TO AVOID POSSIBLE SIDE EFFECTS. I REFILLED THE GABAPENTIN 300 MG AND TRAMADOL 50 MG. THE PATIENT BROUGHT HIS MEDICATIONS TO TODAY'S VISIT AND WAS ADVISED TO CONTINUE BRINGING THEM TO EVERY VISIT. UTOX DONE ON 09/06/2018 SHOWS CONCURRENT RESULTS. ISTOP __# [id number] WAS REVIEWED. I WILL REQUEST A CLEARANCE FROM THE PATIENT'S PRIMARY CARE PHYSICIAN FOR THE PATIENT TO STOP PLAVIX FOR PROCEDURES. THE PATIENT WILL FOLLOW UP IN 1 MONTH. I WAS WITH THE PATIENT FOR MORE THAN 30 MINUTES AND MORE THAN HALF OF THAT TIME WAS SPENT DISCUSSING THE PATIENT'S CARE, MEDICATION MANAGEMENT SCHEDULE, AND ADDRESSING ANY QUESTIONS. INSTRUCTIONS WERE GIVEN, QUESTIONS WERE ANSWERED, PATIENT REPORTS UNDERSTANDING AND AGREES WITH THE PLAN. I, FADY ROGERS, DOCUMENTED THE ABOVE INFORMATION ACTING A SCRIBE FOR DR. SWAIN. I HAVE REVIEWED THE ABOVE DOCUMENT, WRITTEN BY FADY ORTEGA AND I VERIFY THAT IT IS ACCURATE. . OTHERS REFILL GABAPENTIN CAPSULE, 300 MG, 1 CAPSULE, ORALLY, THREE TIMES DAILY, 30 DAYS, 90, REFILLS 1 REFILL TRAMADOL HCL TABLET, 50 MG, 1 TABLET NEEDED, ORALLY FOR PAIN, ONCE A DAY, 30 DAYS, 30, REFILLS 0 START GRALISE TABLET, 300 MG, 1 TABLET, ORALLY, ONCE A DAY, 30 DAY(S), 30, REFILLS 1 START GRALISE TABLET, 600 MG, 1 TABLET, ORALLY, ONCE A DAY, 30 DAY(S), 30, REFILLS 1 NOTES: PT EDUCATION FOR GRALISE GIVEN TO AND EXPLAINED TO PT, VERBALIZED UNDERSTANDING. DS. PROCEDURE CODES FA211 ESTABILISHED PATIENT FORMERLY [facility] CHARGE G8427 CURRENT MEDS W/DOSAGES DOCUMENTED [id number] PAIN ASSESS POS TOOL F/U PLAN DOC DISPOSITION & COMMUNICATION FOLLOW UP 4 WEEKS (REASON: MEDS) ELECTRONICALLY SIGNED BY MADISON SWAIN MD, ON 10/22/2018 AT 07:01 PM EDT DISCLAIMER : THIS IS A VISIT SUMMARY EXTRACTED FROM THE [employer] CHART. IT IS NOT A COPY OF THE [employer] PROGRESS NOTE. ALISAD
== END ==
LOC: M PAIN 08:30
PROVIDERS: ATTEND Anesthesiology
DX: M79.2 Neuralgia and neuritis, unspecified (principal); E11.42 Type 2 diabetes mellitus with diabetic polyneuropathy; E66.01 Morbid (severe) obesity due to excess calories; G47.33 Obstructive sleep apnea (adult) (pediatric); E78.5 Hyperlipidemia, unspecified; I10 Essential (primary) hypertension; L92.0 Granuloma annulare; M72.2 Plantar fascial fibromatosis; I25.10 Atherosclerotic heart disease of native coronary artery without angina pectoris; K21.9 Gastro-esophageal reflux disease without esophagitis; K76.0 Fatty (change of) liver, not elsewhere classified; M51.26 Other intervertebral disc displacement, lumbar region; M47.816 Spondylosis without myelopathy or radiculopathy, lumbar region; Z79.891 Long term (current) use of opiate analgesic; Z79.4 Long term (current) use of insulin; Z86.73 Personal history of transient ischemic attack (TIA), and cerebral infarction without residual deficits; Z79.1 Long term (current) use of non-steroidal anti-inflammatories (NSAID); Z79.899 Other long term (current) drug therapy; Z98.84 Bariatric surgery status

== ENCOUNTER → 2018-11-17 | Outpatient (CLI) | payer BC ==
[~2018-11-17] MED LIST changes: -ROSU40TA3; +ROSU40TA4
--- NOTE | 2018-11-29 01:01 | ECWPNPC ---
PATIENT NAME: VERA PABON : 1965 GENDER: MALE VISIT DATE: 11/17/2018 DISCHARGE DATE: 11/17/18 1025 VISIT LOCKED DATE TIME: PHYSICIAN: MADISON SWAIN MD PHYSICIAN PAGER NO: [phone] RESOURCE: MADISON SWAIN MD REASON FOR APPOINTMENT 1. 4 WEEKS, MEDS HISTORY OF PRESENT ILLNESS HISTORY OF PRESENT ILLNESS: PAIN THE PATIENT DESCRIBES THE PAIN... 53 YEAR OLD MALE PATIENT WITH A HISTORY OF CHRONIC RIGHT FOOT PAIN. THE PATIENT DESCRIBES THE PAIN ACHING, SORE, STABBING, AND INTERMITTENT WITH A PAIN SCORE OF 2-6/10 DEPENDING ON PHYSICAL ACTIVITY. THE PATIENT IS CURRENTLY USING TRAMADOL, TIZANIDINE, AND GABAPENTIN TO AID IN PAIN RELIEF. THE PATIENT SAYS THE USE OF THESE MEDICATIONS HELP HIM REMAIN MOBILE AND FUNCTIONAL. PATIENT DENIES UNEXPLAINABLE WEIGHT LOSS, FEVER, CHILLS, NEW CHANGES ON HIS URINARY OR BOWEL CONTROL. FALL RISK SCREENING: SCREENING :NO FALLS REPORTED IN THE LAST YEAR CURRENT MEDICATIONS TAKING TRAMADOL HCL 50 MG TABLET 1 TABLET NEEDED ORALLY FOR PAIN ONCE A DAY TAKING TIZANIDINE HCL 2 MG TABLET 1 TABLET NEEDED ORALLY THREE TIMES A DAY TAKING VITAMIN D3 5000 CAPSULE 1 TABLET ORALLY QD TAKING RAMIPRIL 1.25 MG CAPSULE 1 CAPSULE ORALLY ONCE A DAY TAKING ROSUVASTATIN CALCIUM 40 MG TABLET 1 TABLET ORALLY ONCE A DAY TAKING TUMS E-X 750 750 MG TABLET CHEWABLE 1 TABLET ORALLY BID TAKING CYANOCOBALAMIN 1000 MCG TABLET 1 TABLET ORALLY ONCE A DAY TAKING NITROGLYCERIN 0.4 MG TABLET SUBLINGUAL 1 TABLET UNDER THE TONGUE SUBLINGUAL NEEDED CHEST PAIN TAKING BLOOD GLUCOSE TEST - STRIP ONE TOUCH VERIO IN VITRO FOUR TIMES DAILY - ICD 10 - E11.9 TAKING PANTOPRAZOLE SODIUM 40 MG TABLET DELAYED RELEASE 1 TAB ORALLY EVERY MORNING TAKING ONETOUCH VERIO _ STRIP DIRECTED IN VITRO BID TAKING INSULIN PEN NEEDLE 32G X 5 MM MISCELLANEOUS DIRECTED SUBLINGUALLY MONTHLY TAKING EMPAGLIFLOZIN 25 MG TABLET 1 TABLET ORALLY EVERY MORNING TAKING INSULIN GLARGINE 100 UNIT/ML INJECTION SOLUTION 60 UNITS SUBCUTANEOUS AT 700 TAKING BD ULTRA-FINE PEN NEEDLES 32G 4MM _ DIRECTED _ QD TAKING ACETAMINOPHEN 500 MG CAPSULE 1-2 CAPSULE NEEDED ORALLY EVERY 6 HRS TAKING PRAMIPEXOLE DIHYDROCHLORIDE 1 MG TABLET 1 TABLET BEFORE BEDTIME ORALLY AT BEDTIME TAKING VOLTAREN 1 % GEL 4 GM TRANSDERMAL QID TO FEET TAKING MELOXICAM 15 MG TABLET 1 TABLET ORALLY ONCE A DAY TAKING PROTONIX 40 MG TABLET DELAYED RELEASE 1 TABLET(ON PLAVIX NO OMEP.) ORALLY ONCE A DAY TAKING CLOPIDOGREL BISULFATE 75 MG TABLET TAKE 1 TABLET DAILY TAKING METFORMIN HCL 500 MG TABLET 1 TAB ORALLY AC BID TAKING GABAPENTIN 400 MG CAPSULE 1 CAPSULE ORALLY THREE TIMES DAILY TAKING JARDIANCE 25 MG TABLET TAKE 1 TABLET EVERY MORNING TAKING LANTUS SOLOSTAR 100 UNIT/ML SOLUTION PEN-INJECTOR INJECT 60 UNITS UNDER THE SKIN AT 700 NOT-TAKING GRALISE 300 MG TABLET 1 TABLET ORALLY ONCE A DAY NOT-TAKING GRALISE 600 MG TABLET 1 TABLET ORALLY ONCE A DAY NOT-TAKING RAMIPRIL 1.25 MG CAPSULE 1 CAPSULE ORALLY ONCE A DAY, NOTES: DUPLICATE NOT-TAKING MULTIVITAMIN & MINERAL ` ` 2 TABLS ORALLY DAILY NOT-TAKING ROSUVASTATIN CALCIUM 40MG TABLET TAKE 1 TABLET DAILY , NOTES: DUPLICATE MEDICATION LIST REVIEWED AND RECONCILED WITH THE PATIENT PAST MEDICAL HISTORY T2DM WITH MICROALBUMINURIA, PERIPHERAL NEUROPATHY MORBID OBESITY-S/P LAPROSCOPIC GASTRIC BYPASS 11/14/13 DR. KIM OBSTRUCTIVE SLEEP APNEA HYPERLIPIDEMIA 2B HYPERTENSION-05/2013 TTE LAE 38 MM OTHEREWISE NORMAL-SOLIS NONALCOHOLIC FAILURE LIVER DISEASE-NEGATIVE WORKUP JANUARY 2002/ FS2 21 HISTORY OF NEPHROLITHIASIS CALCIUM OXALATE TIMES 23 FEBRUARY 2005 GRANULOMA ANNULARE RIGHT PLANTAR FASCITIS CAD, SINGLE VESSEL, STATUS POST MCKENNA TO 80% STENOSIS MID SEGMENT LAD AND 90% STENOSIS AFTER THE SECOND MAJOR DIAGONAL BRANCH-DECEMBER 04, 2010-[facility]//APRIL 15, 2011 REPEAT MCKENNA TO 80% STENOSIS LAD DISTAL TO PREVIOUS STENTS-[facility]/02/2012 CATH STABLE 40% L CIRC DISTAL STENOSIS, MCKENNA TO FOCAL 75% IN STENT STENOSIS OF PROXIMAL LAD-[facility]/05/11/2013 MCKENNA TO 70% PROXIMAL LAD STENOSIS AND 75% JUST DISTAL TO PREVIOUS STENT STENOSIS-CHANDNI, S/P CABG BEDOYA TO LAD AND DIAGONAL 11/29/13-DR. CORTEZ[facility]//05/16/15 CATHERIZATION DONE 2 ANGINA-SINGLE VESSEL DISEASE C PATENT BEDOYA GRAFT, FAVORED CP 2 -[facility] ACUTE SMALL R BASAL GANGLION AND INTERNAL CAPSULE HEMORRHAGIC CVA PROBABLY 2 ASPIRIN 81 QD, PLAVIX 75 QD AND HEPARIN GIVEN DURING 05/11/2013 CATHERIZATION WITH 2 L LATERAL FOOT NUMBNESS, SEEN BY 05/29/2013 MRI, - MRA B CAROTIDS, NO EXTENSION NOR HEMORRHAGE BY CT BRAIN 05/31/2013 LUMBAR SPONDYLOSIS WITH DIFFUSE BULGES L3-5 WITH MINIMAL SAC COMPRESSION, L L4 AND MODERATE B S1 COMPRESSION BY 09/2013 MRI B CTS-DIAGNOSED BY DEVON NAFLD-09/2015 FS 2 21 GERD/CERVICAL DYSPHAGIA/DYSPEPSIA-04/2018 EGD SMALL HH-R LEFT SCAPULA FRACTURE ALLERGIES N.K.D.A. SURGICAL HISTORY LEFT FEMUR SURGERY VASECTOMY GASTRIC BYPASS 11/05 BACK SURGERY @ [facility] 02/2014 COLON-SMALL HH, [facility] 04/2018 FAMILY HISTORY FATHER: MOTHER: HBP-FATHER, MOTHER, DM\NMOTHER-STROKE,\N. SOCIAL HISTORY GENERAL: TOBACCO USE ARE YOU A:NONSMOKER HIV / HEP-C SCREENING HIV TEST OFFERED TO PATIENT:YES DATE OFFERED:09/24/2016 TEST ACCEPTED:NO HEP-C TEST OFFERED TO PATIENT:YES DATE OFFERED:09/24/2016 REASON:PATIENT DECLINED TEST ACCEPTED:NO REASON:PATIENT DECLINED EDUCATION LEVEL OF EDUCATION:FINISHED HIGH SCHOOL LANGUAGE LANGUAGES SPOKEN:[place]IT[place]LANDER RECREATIONAL DRUG USE DRUG USE?NO EXERCISE: WALKS. LEARNING BARRIERS / SPECIAL NEEDS CHANGE FROM LAST VISIT?YES LEFT SHOULDER, LEFT LEG PAIN BARRIERS TO LEARNING?NO HEARING IMPAIRED?NO VISION IMPAIRED?NO COGNITIVELY IMPAIRED?NO READINESS TO LEARN?YES LEARNING PREFERENCES?NO LEARNING CAPABILITIES PRESENT?YES EMOTIONAL BARRIERS?NO SPECIAL DEVICES?NO LABORER CONCRETE PAVING NEEDED?NO PAIN CLINIC PFS, CLERGY, PUBLIC HEALTH REFERRALS WAS THE PROVIDER NOTIFIED OF ANY PERTINENT INFO?YES HAS THE PATIENT BEEN EDUCATED REGARDING HIS/HER PLAN OF CARE?YES PLEASE DOCUMENT ANY ADDTIONAL DETAILS. NEW PT CONSULT, ORIENTED TO PAIN MANAGEMENT HAS THE PATIENT BEEN EDUCATED REGARDING PAIN, THE RISK FOR PAIN, THE IMPORTANCE OF EFFECTIVE PAIN MANAGEMENT, AND THE PAIN ASSESSMENT PROCESS?YES LATEX QUESTIONNAIRE LATEX ALLERGY : HAVE YOU EVER DEVELOPED ANY TYPE OF REACTION AFTER HANDLING LATEX PRODUCTS SUCH RUBBER GLOVES, CONDOMS, DIAPHRAGMS, BALLOONS, SOCKS, OR UNDERWEAR?NO LATEX ALLERGY : HAVE YOU EVER DEVELOPED ANY TYPE OF REACTION DURING OR AFTER DENTAL APPOINTMENT, VAGINAL/RECTAL EXAMINATION, SURGICAL PROCEDURE, OR ANY OTHER EXPOSURE?NO DATE ASKED : 09/06/2018 LATEX RISK : HAVE YOU EVER HAD ANY DIFFICULTY BREATHING OR HIVES AFTER EATING OR HANDLING ANY FRUITS, OR VEGETABLES; SUCH KIWI, BANANAS, STONE FRUITS, OR CHESTNUTSNO LATEX RISK : DO YOU HAVE A PREVIOUS PERSONAL HISTORY OF MORE THAN NINE SURGERIES, SPINA BIFIDA, OR REPEATED CATHERIZATIONS? NO LATEX RISK : ARE YOU FREQUENTLY EXPOSED TO LATEX PRODUCTS IN YOUR OCCUPATION?NO CAFFEINE CAFFEINE USE?YES 1-2 BEVERAGES DAILY ADVANCE DIRECTIVE ADVANCE DIRECTIVE DISCUSSED WITH PATIENT:YES PT STATES THAT HE DOES NOT HAVE HCP AT THIS TIME, DECLINE ASSISTANCE OR INFORMATION. 10/09/18 MORAVIAN [id number] ORIENTAL ORTHODOX MARITAL STATUS: . ALCOHOL SCREENING DID YOU HAVE A DRINK CONTAINING ALCOHOL IN THE PAST YEAR?NO POINTS0 INTERPRETATIONNEGATIVE SEXUAL HX HAD SEX IN THE LAST 12 MONTHS (VAGINAL, ORAL, OR ANAL)?YES WITHWOMEN ONLY USE PROTECTION?NO HAVE YOU EVER HAD AN STD?NO REVIEWED WITH PT 10/09/18 BVREVIEWED WITH PT 11/17/18 0842 BV. HOSPITALIZATION/MAJOR DIAGNOSTIC PROCEDURE R BASAL GANGLION/IC HEMORRHAGIC CVA 2 ASPIRIN/PLAVIX/HEPARIN FROM 05/11/13 CATH, ARF 2 DEHYDRATION/HYPOTENSION (SBP HIGH 90S) 2 VIRAL GE/MEDS/CATH DYE 05/29-09/2013 GASTRIC BYPASS SURGERY 11/14/2013 OPEN HEART SURGERY 11/29/2013 REVIEW OF SYSTEMS REVIEWED BY: PROVIDER: MADISON SWAIN MD . CONSTITUTIONAL: ANY CHANGE IN YOUR MEDICAL CONDITION? NO . CHILLS NO . FEVER NO . INFECTION: DO YOU HAVE NEW INFECTIONS? NO . DO YOU HAVE HISTORY OF MRSA? NO . MUSCULOSKELETAL: ANY NEW PATTERNS OF PAIN OR NUMBNESS? YES, PATIENT STATES PAIN INTENSITY HAS DECREASED A BIT OVER THE PAST MONTH . GASTROENTEROLOGY: ANY NEW CHANGE IN BOWEL CONTROL? NO . GENITOURINARY: ANY NEW CHANGE IN BLADDER CONTROL? NO . IS THERE A CHANCE YOU COULD BE ? NO . HEMATOLOGY/LYMPH: DO YOU TAKE ANY BLOOD THINNERS? (FOR EXAMPLE- COUMADIN, PLAVIX, AGGRENOX, PLATEL, PRADAXA, OR XARELTO) NO . WHEN WAS YOUR LAST DOSE? DATE: TIME: . NEUROLOGY: HAVE YOU FALLEN IN THE PAST 12 MONTHS? PT DENIES ANY FALLS SINCE LAST VISIT. STATES PREVIOUS FALLS HAVE BEEN DOCUMENTED . ANY NEW EXTREMITY NUMBNESS OR WEAKNESS? NO . CARDIOLOGY: DO YOU HAVE A PACEMAKER OR DEFIBRILLATOR? NO . RESPIRATORY: HAVE YOU BEEN SICK IN THE PAST WEEK? NO . FEVER NO . FLU LIKE SYMPTOMS? NO . COUGH NO . INTEGUMENTARY: DO YOU HAVE ANY RASHES OR OPEN SORES? NO . ALLERGIC/IMMUNO: ARE YOU ALLERGIC TO IV DYE? NO . ANY NEW ALLERGIES? NO . PSYCHIATRIC: DO YOU HAVE THOUGHTS OF HURTING YOURSELF OR SOMEONE ELSE? NO . ARE YOU ABUSED, NEGLECTED, OR IN AN UNSAFE ENVIRONMENT? NO . ENDOCRINOLOGY: ARE YOU DIABETIC? NO . OTHER: DO YOU NEED ANY PRESCRIPTIONS? YES, TRAMADOL, GABAPENTIN . IF YES, PLEASE LIST: ____ . ANY NEW PROBLEMS WITH YOUR MEDICATIONS? NO . WHEN DID YOU LAST EAT? ____ . WHEN DID YOU LAST DRINK? ____ . WHAT DID YOU LAST DRINK? ____ . NAME OF PERSON DRIVING YOU HOME? ____ . DO YOU HAVE ANY OTHER QUESTIONS OR CONCERNS NO . VITAL SIGNS WT 203.8 LBS, HT 73.5 IN, BMI 26.52 INDEX, BP 131/67 MM HG, HR 83 /MIN, RR 18 /MIN, TEMP 97.6 F, OXYGEN SAT % 99%, NA INITIALS AW [id number], REVIEWED BY: BV. EXAMINATION GENERAL EXAMINATION: PATIENT IS ALERT O X 3 AND COOPERATIVE. ANTALGIC GAIT. 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 PABON'S PAIN MANAGEMENT CASE. I WILL REDUCE THE GABAPENTIN TO 300MG 2 TIMES PER DAY AND THE PATIENT WILL USE TIZANIDINE AT NIGHT. THE PATIENT WILL CONTINUE USING THE TRAMADOL NEEDED. THE PATIENT WILL FOLLOW UP IN 6 WEEKS. INSTRUCTIONS WERE GIVEN, QUESTIONS WERE ANSWERED, PATIENT REPORTS UNDERSTANDING AND AGREES WITH THE PLAN. I, DARRELL ROSALES, DOCUMENTED THE ABOVE INFORMATION ACTING A SCRIBE FOR DR. SWAIN. I HAVE REVIEWED THE ABOVE DOCUMENT, WRITTEN BY DARRELL SALTERIBEllen AND I VERIFY THAT IT IS ACCURATE. . OTHERS REFILL GABAPENTIN CAPSULE, 300 MG, 1 CAPSULE, ORALLY, THREE TIMES DAILY, 30 DAYS, 90, REFILLS 0 REFILL TIZANIDINE HCL TABLET, 2 MG, 1 TABLET NEEDED, ORALLY FOR SPASMS AND PAIN, BEFORE BEDTIME MAY REPEAT IN 4 HRS MDD2, 30 DAYS, 50, REFILLS 1 PROCEDURE CODES FA211 ESTABILISHED PATIENT [facility] CHARGE [id number] CURRENT MEDS W/DOSAGES DOCUMENTED G8730 PAIN ASSESS POS TOOL F/U PLAN DOC DISPOSITION & COMMUNICATION FOLLOW UP 6 WEEKS (REASON: RIGHT FOOT PAIN) ELECTRONICALLY SIGNED BY MADISON SWAIN MD, MD ON 11/28/2018 AT 01:11 PM EDT DISCLAIMER : THIS IS A VISIT SUMMARY EXTRACTED FROM THE [facility] CHART. IT IS NOT A COPY OF THE [facility] PROGRESS NOTE. ALISAD
== END ==
LOC: M PAIN 08:45
PROVIDERS: ATTEND Anesthesiology
DX: M79.671 Pain in right foot (principal); M79.2 Neuralgia and neuritis, unspecified; G89.29 Other chronic pain; E11.40 Type 2 diabetes mellitus with diabetic neuropathy, unspecified; Z98.84 Bariatric surgery status; G47.33 Obstructive sleep apnea (adult) (pediatric); E78.5 Hyperlipidemia, unspecified; I10 Essential (primary) hypertension; I25.10 Atherosclerotic heart disease of native coronary artery without angina pectoris; K21.9 Gastro-esophageal reflux disease without esophagitis; Z87.81 Personal history of (healed) traumatic fracture; Z79.4 Long term (current) use of insulin; Z79.899 Other long term (current) drug therapy

== ENCOUNTER 2018-12-08 00:41 | Emergency (ER) | payer BC ==
[~2018-12-08] VITALS: Ht 188 cm; Wt 93.2 kg
[2018-12-08] MEDS ORDERED: ADACEL/BOOSTRIX VACCINE (DIPHTH/PERTUSS/ACELL/TETANUS)0.5ML SYR (90715) IM ONE (03:30)
[2018-12-08 03:42] VITALS: BP 139/80
--- NOTE | 2018-12-08 09:12 | REP ---
Left knee: Five views. History: Knee trauma. Findings: Five views of the left knee demonstrate spurring at the superior pole patella at the quadriceps tendon insertion. There is old post-traumatic deformity of the distal diaphysis of the femur as seen at the top of the imaging field of view. Prior knee series shows multiple orthopedic wires and a healed mid shaft fracture. Impression: Mild patellar spurring. Mild medial compartment osteoarthritic spurring is seen. Otherwise negative. No fracture seen. Electronically Signed by Madhu Churchill MD 12/08/2018 09:03 A
== END 2018-12-08 03:40 | disposition home or self-care (01) ==
LOC: M ED 00:41
DX: M25.562 Pain in left knee (principal); Z79.899 Other long term (current) drug therapy; Z79.4 Long term (current) use of insulin; Z79.02 Long term (current) use of antithrombotics/antiplatelets

== ENCOUNTER → 2018-12-28 | Outpatient (CLI) | payer BC ==
--- NOTE | 2019-01-10 01:20 | ECWPNPC ---
PATIENT NAME: VERA PABON : 1965 GENDER: MALE VISIT DATE: 12/28/2018 DISCHARGE DATE: 12/28/18 0000 VISIT LOCKED DATE TIME: PHYSICIAN: MADISON SWAIN MD PHYSICIAN PAGER NO: [phone] RESOURCE: MADISON SWAIN MD REASON FOR APPOINTMENT 1. RIGHT FOOT PAIN HISTORY OF PRESENT ILLNESS HISTORY OF PRESENT ILLNESS: PAIN THE PATIENT DESCRIBES THE PAIN... 53 YEAR OLD MALE PATIENT WITH A HISTORY OF CHRONIC RIGHT FOOT PAIN. THE PATIENT DESCRIBES THE PAIN BURNING, TENDER, DAILY, AND CONTINUOUS WITH A PAIN SCORE OF 3-7/10 DEPENDING ON PHYSICAL ACTIVITY. THE PATIENT SAYS HE HAS BEEN EXPERIENCING THE FOOT PAIN SINCE JULY 2018 AFTER HE HAD LOST CONSCIOUSNESS DUE TO DIABETES THAT RESULTED IN HIS RIGHT FOOT TRAUMA, AND THE PAIN HAS SINCE PERSISTED. THE PATIENT IS USING GABAPENTIN 300 MG UP TO 3 TABLETS DAILY THAT HE SAYS IS HELPING WITH HIS FOOT PAIN AND SHOULDER SORENESS. THE PATIENT SAYS WHEN HE PREVIOUSLY AGREED TO REDUCE THE MEDICATION, HIS PAIN SOON RETURNED AFTERWARD. PATIENT DENIES UNEXPLAINABLE WEIGHT LOSS, FEVER, CHILLS, NEW CHANGES ON HIS URINARY OR BOWEL CONTROL. FALL RISK SCREENING: SCREENING :NO FALLS REPORTED IN THE LAST YEAR CURRENT MEDICATIONS TAKING VITAMIN D3 5000 CAPSULE 1 TABLET ORALLY QD TAKING RAMIPRIL 1.25 MG CAPSULE 1 CAPSULE ORALLY ONCE A DAY TAKING TUMS E-X 750 750 MG TABLET CHEWABLE 1 TABLET ORALLY BID TAKING CYANOCOBALAMIN 1000 MCG TABLET 1 TABLET ORALLY ONCE A DAY TAKING NITROGLYCERIN 0.4 MG TABLET SUBLINGUAL 1 TABLET UNDER THE TONGUE SUBLINGUAL NEEDED CHEST PAIN TAKING BLOOD GLUCOSE TEST - STRIP ONE TOUCH VERIO IN VITRO FOUR TIMES DAILY - ICD 10 - E11.9 TAKING ONETOUCH VERIO _ STRIP DIRECTED IN VITRO BID TAKING INSULIN PEN NEEDLE 32G X 5 MM MISCELLANEOUS DIRECTED SUBLINGUALLY MONTHLY TAKING INSULIN GLARGINE 100 UNIT/ML INJECTION SOLUTION 60 UNITS SUBCUTANEOUS AT 700 TAKING BD ULTRA-FINE PEN NEEDLES 32G 4MM _ DIRECTED _ QD TAKING PRAMIPEXOLE DIHYDROCHLORIDE 1 MG TABLET 1 TABLET BEFORE BEDTIME ORALLY AT BEDTIME TAKING VOLTAREN 1 % GEL 4 GM TRANSDERMAL QID TO FEET TAKING CLOPIDOGREL BISULFATE 75 MG TABLET TAKE 1 TABLET DAILY TAKING METFORMIN HCL 500 MG TABLET 1 TAB ORALLY AC BID TAKING JARDIANCE 25 MG TABLET TAKE 1 TABLET EVERY MORNING TAKING LANTUS SOLOSTAR 100 UNIT/ML SOLUTION PEN-INJECTOR INJECT 60 UNITS UNDER THE SKIN AT 700 TAKING ROSUVASTATIN CALCIUM 40 MG TABLET 1/2 TAB DAILY NOT-TAKING GABAPENTIN 300 MG CAPSULE 1 CAPSULE ORALLY THREE TIMES DAILY, NOTES: PT TOOK HIMSELF OFF NOT-TAKING TIZANIDINE HCL 2 MG TABLET 1 TABLET NEEDED ORALLY FOR SPASMS AND PAIN BEFORE BEDTIME MAY REPEAT IN 4 HRS MDD2 NOT-TAKING TRAMADOL HCL 50 MG TABLET 1 TABLET NEEDED ORALLY FOR PAIN ONCE A DAY NOT-TAKING PANTOPRAZOLE SODIUM 40 MG TABLET DELAYED RELEASE 1 TAB ORALLY EVERY MORNING NOT-TAKING EMPAGLIFLOZIN 25 MG TABLET 1 TABLET ORALLY EVERY MORNING NOT-TAKING ACETAMINOPHEN 500 MG CAPSULE 1-2 CAPSULE NEEDED ORALLY EVERY 6 HRS NOT-TAKING MELOXICAM 15 MG TABLET 1 TABLET ORALLY ONCE A DAY NOT-TAKING PROTONIX 40 MG TABLET DELAYED RELEASE 1 TABLET(ON PLAVIX NO OMEP.) ORALLY ONCE A DAY NOT-TAKING GRALISE 300 MG TABLET 1 TABLET ORALLY ONCE A DAY NOT-TAKING GRALISE 600 MG TABLET 1 TABLET ORALLY ONCE A DAY NOT-TAKING RAMIPRIL 1.25 MG CAPSULE 1 CAPSULE ORALLY ONCE A DAY, NOTES: DUPLICATE NOT-TAKING MULTIVITAMIN & MINERAL ` ` 2 TABLS ORALLY DAILY MEDICATION LIST REVIEWED AND RECONCILED WITH THE PATIENT PAST MEDICAL HISTORY T2DM WITH MICROALBUMINURIA, PERIPHERAL NEUROPATHY MORBID OBESITY-S/P LAPROSCOPIC GASTRIC BYPASS 11/14/13 DR. KIM OBSTRUCTIVE SLEEP APNEA HYPERLIPIDEMIA 2B HYPERTENSION-05/2013 TTE LAE 38 MM OTHEREWISE NORMAL-SOLIS NONALCOHOLIC FAILURE LIVER DISEASE-NEGATIVE WORKUP JANUARY 2002/ FS2 21 HISTORY OF NEPHROLITHIASIS CALCIUM OXALATE TIMES 23 FEBRUARY 2005 GRANULOMA ANNULARE RIGHT PLANTAR FASCITIS CAD, SINGLE VESSEL, STATUS POST MCKENNA TO 80% STENOSIS MID SEGMENT LAD AND 90% STENOSIS AFTER THE SECOND MAJOR DIAGONAL BRANCH-DECEMBER 04, 2010-[facility]//APRIL 15, 2011 REPEAT MCKENNA TO 80% STENOSIS LAD DISTAL TO PREVIOUS STENTS-[facility] CATH STABLE 40% L CIRC DISTAL STENOSIS, MCKENNA TO FOCAL 75% IN STENT STENOSIS OF PROXIMAL LAD-[facility]05/11/2013 MCKENNA TO 70% PROXIMAL LAD STENOSIS AND 75% JUST DISTAL TO PREVIOUS STENT STENOSIS-CHANDNI, S/P CABG BEDOYA TO LAD AND DIAGONAL 11/29/13-DR[facility]//05/16/15 CATHERIZATION DONE 2 ANGINA-SINGLE VESSEL DISEASE C PATENT BEDOYA GRAFT, FAVORED CP 2 -FISCHI ACUTE SMALL R BASAL GANGLION AND INTERNAL CAPSULE HEMORRHAGIC CVA PROBABLY 2 ASPIRIN 81 QD, PLAVIX 75 QD AND HEPARIN GIVEN DURING 05/11/2013 CATHERIZATION WITH 2 L LATERAL FOOT NUMBNESS, SEEN BY 05/29/2013 MRI, - MRA B CAROTIDS, NO EXTENSION NOR HEMORRHAGE BY CT BRAIN 05/31/2013 LUMBAR SPONDYLOSIS WITH DIFFUSE BULGES L3-5 WITH MINIMAL SAC COMPRESSION, L L4 AND MODERATE B S1 COMPRESSION BY 09/2013 MRI B CTS-DIAGNOSED BY DEVON NAFLD-09/2015 FS 2 21 GERD/CERVICAL DYSPHAGIA/DYSPEPSIA-04/2018 EGD SMALL HH-R LEFT SCAPULA FRACTURE ALLERGIES N.K.D.A. SURGICAL HISTORY LEFT FEMUR SURGERY VASECTOMY GASTRIC BYPASS 11/05 BACK SURGERY @ [facility] 02/2014 COLONOSCOPY - SMALL HH, [facility] PREP-REINDL 04/2018 FAMILY HISTORY FATHER: MOTHER: HBP-FATHER, MOTHER, DM\NMOTHER-STROKE,\N. 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 NEW PT CONSULT, ORIENTED TO PAIN MANAGEMENT HAS THE PATIENT BEEN EDUCATED REGARDING PAIN, THE RISK FOR PAIN, THE IMPORTANCE OF EFFECTIVE PAIN MANAGEMENT, AND THE PAIN ASSESSMENT PROCESS?YES LATEX QUESTIONNAIRE LATEX ALLERGY : HAVE YOU EVER DEVELOPED ANY TYPE OF REACTION AFTER HANDLING LATEX PRODUCTS SUCH RUBBER GLOVES, CONDOMS, DIAPHRAGMS, BALLOONS, SOCKS, OR UNDERWEAR?NO LATEX ALLERGY : HAVE YOU EVER DEVELOPED ANY TYPE OF REACTION DURING OR AFTER DENTAL APPOINTMENT, VAGINAL/RECTAL EXAMINATION, SURGICAL PROCEDURE, OR ANY OTHER EXPOSURE?NO DATE ASKED : 09/06/2018 LATEX RISK : HAVE YOU EVER HAD ANY DIFFICULTY BREATHING OR HIVES AFTER EATING OR HANDLING ANY FRUITS, OR VEGETABLES; SUCH KIWI, BANANAS, STONE FRUITS, OR CHESTNUTSNO LATEX RISK : DO YOU HAVE A PREVIOUS PERSONAL HISTORY OF MORE THAN NINE SURGERIES, SPINA BIFIDA, OR REPEATED CATHERIZATIONS? NO LATEX RISK : ARE YOU FREQUENTLY EXPOSED TO LATEX PRODUCTS IN YOUR OCCUPATION?NO CAFFEINE CAFFEINE USE?YES 1-2 BEVERAGES DAILY ADVANCE DIRECTIVE ADVANCE DIRECTIVE DISCUSSED WITH PATIENT:YES PT STATES THAT HE DOES NOT HAVE HCP AT THIS TIME, DECLINE ASSISTANCE OR INFORMATION. 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 ALCOHOL SCREENING DID YOU HAVE A DRINK CONTAINING ALCOHOL IN THE PAST YEAR?NO POINTS0 INTERPRETATIONNEGATIVE SEXUAL HX HAD SEX IN THE LAST 12 MONTHS (VAGINAL, ORAL, OR ANAL)?YES WITHWOMEN ONLY USE PROTECTION?NO HAVE YOU EVER HAD AN STD?NO REVIEWED WITH PT 10/09/18 BVREVIEWED WITH PT 11/17/18 0842 BVREVIEWED WITH PATIENT 12/28/18 1338 NLJ. HOSPITALIZATION/MAJOR DIAGNOSTIC PROCEDURE R BASAL GANGLION/IC HEMORRHAGIC CVA 2 ASPIRIN/PLAVIX/HEPARIN FROM 05/11/13 CATH, ARF 2 DEHYDRATION/HYPOTENSION (SBP HIGH 90S) 2 VIRAL GE/MEDS/CATH DYE 05/29-09/2013 GASTRIC BYPASS SURGERY 11/14/2013 OPEN HEART SURGERY 11/29/2013 REVIEW OF SYSTEMS REVIEWED BY: PROVIDER: MADISON SWAIN MD . CONSTITUTIONAL: ANY CHANGE IN YOUR MEDICAL CONDITION? NO . CHILLS NO . FEVER NO . INFECTION: DO YOU HAVE NEW INFECTIONS? YES- PATIENT STATES HE HAS HAD ALOT OF LOOSE FOUL SWELLING STOOLS LATELY . DO YOU HAVE HISTORY OF MRSA? NO . MUSCULOSKELETAL: ANY NEW PATTERNS OF PAIN OR NUMBNESS? YES- STATES HE HAS HAD INCREASED PAIN AND PAIN IN DIFFERENT AREAS SINCE STOPPING GABAPENTIN- STOPPED ABOUT 3 WEEKS AGO . GASTROENTEROLOGY: ANY NEW CHANGE IN BOWEL CONTROL? NO . GENITOURINARY: ANY NEW CHANGE IN BLADDER CONTROL? NO . IS THERE A CHANCE YOU COULD BE ? NO . HEMATOLOGY/LYMPH: DO YOU TAKE ANY BLOOD THINNERS? (FOR EXAMPLE- COUMADIN, PLAVIX, AGGRENOX, PLATEL, PRADAXA, OR XARELTO) YES- PLAVIX . WHEN WAS YOUR LAST DOSE? DATE:12/27/18 TIME: 2330 . NEUROLOGY: HAVE YOU FALLEN IN THE PAST 12 MONTHS? YES- PREVIOUSLY DOCUMENTED . ANY NEW EXTREMITY NUMBNESS OR WEAKNESS? NO . CARDIOLOGY: DO YOU HAVE A PACEMAKER OR DEFIBRILLATOR? NO . RESPIRATORY: HAVE YOU BEEN SICK IN THE PAST WEEK? NO . FEVER NO . FLU LIKE SYMPTOMS? NO . COUGH NO . INTEGUMENTARY: DO YOU HAVE ANY RASHES OR OPEN SORES? NO . ALLERGIC/IMMUNO: ARE YOU ALLERGIC TO IV DYE? NO . ANY NEW ALLERGIES? NO . PSYCHIATRIC: DO YOU HAVE THOUGHTS OF HURTING YOURSELF OR SOMEONE ELSE? NO . ARE YOU ABUSED, NEGLECTED, OR IN AN UNSAFE ENVIRONMENT? NO . ENDOCRINOLOGY: ARE YOU DIABETIC? YES . OTHER: DO YOU NEED ANY PRESCRIPTIONS? YES . IF YES, PLEASE LIST: ____PATIENT TOOK HIMSLEF OFF GABAPENTIN AND THINKS HE NEEDS TO RESTART IT AGAIN, STATES HE HAS HAD ALOT OF INCREASED NERVE PAIN AND LEG CRAMPS . ANY NEW PROBLEMS WITH YOUR MEDICATIONS? NO . WHEN DID YOU LAST EAT? ____ . WHEN DID YOU LAST DRINK? ____ . WHAT DID YOU LAST DRINK? ____ . NAME OF PERSON DRIVING YOU HOME? ____ . DO YOU HAVE ANY OTHER QUESTIONS OR CONCERNS YES- STATES HE HAS HAD ALOT OF INCREASED NREVE PAIN AND LEG CRAMPS SINCE STOPPING GABAPENTIN ABOUT 3 WEEKS AGO . VITAL SIGNS WT 199 LBS, HT 73.5 IN, BMI 25.90 INDEX, BP 128/72 MM HG, HR 79 /MIN, RR 18 /MIN, TEMP 96.7 F, OXYGEN SAT % 98%, SAFE IN ENV? (Y/N) YES, NA INITIALS SC 15:27, REVIEWED BY: TOLU. EXAMINATION GENERAL EXAMINATION: PATIENT IS ALERT O X 3 AND COOPERATIVE. ANTALGIC GAIT. TENDERNESS IN THE RIGHT AND LEFT SHOULDER AREAS. 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 PABON'S PAIN MANAGEMENT CASE. THE GABAPENTIN 300 MG WAS WORKING GOOD FOR THE PATIENT'S FOOT AND SHOULDER PAIN IN THE PAST, THEREFORE I AM STARTING THE PATIENT ON GABAPENTIN 300 MG TO AID IN PAIN RELIEF. I PROVIDED A SCHEDULE FOR THE PATIENT TO SLOWLY INCREASE THE GABAPENTIN UP TO 3 TABLETS DAILY. I DISCUSSED WITH THE PATIENT THAT I MAY CONSIDER SHOULDER INTERVENTION IN THE FUTURE. THE PATIENT WILL FOLLOW UP WITH THE NURSE PRACTITIONER IN 3 MONTHS. INSTRUCTIONS WERE GIVEN, QUESTIONS WERE ANSWERED, PATIENT REPORTS UNDERSTANDING AND AGREES WITH THE PLAN. I, FADY ROGERS, DOCUMENTED THE ABOVE INFORMATION ACTING A SCRIBE FOR DR. SWAIN. I HAVE REVIEWED THE ABOVE DOCUMENT, WRITTEN BY FADY ORTEGA AND I VERIFY THAT IT IS ACCURATE. . OTHERS REFILL GABAPENTIN CAPSULE, 300 MG, 1 CAPSULE, ORALLY FOR PAIN, THREE TIMES DAILY MDD3, 30 DAYS, 90, REFILLS 1 NOTES: GABAPENTIN MATERIAL WAS PRINTED. PROCEDURE CODES FA211 ESTABILISHED PATIENT [facility] CHARGE G8427 CURRENT MEDS W/DOSAGES DOCUMENTED G8730 PAIN ASSESS POS TOOL F/U PLAN DOC DISPOSITION & COMMUNICATION FOLLOW UP 3 MONTHS ELECTRONICALLY SIGNED BY MADISON SWAIN MD, MD ON 01/09/2019 AT 12:10 PM EDT DISCLAIMER : THIS IS A VISIT SUMMARY EXTRACTED FROM THE [employer] CHART. IT IS NOT A COPY OF THE [employer] PROGRESS NOTE. MTDD
== END ==
LOC: M PAIN 15:30
PROVIDERS: ATTEND Anesthesiology
DX: M79.671 Pain in right foot (principal); G89.29 Other chronic pain; M79.2 Neuralgia and neuritis, unspecified; E11.40 Type 2 diabetes mellitus with diabetic neuropathy, unspecified; G47.33 Obstructive sleep apnea (adult) (pediatric); E78.5 Hyperlipidemia, unspecified; I10 Essential (primary) hypertension; Z98.84 Bariatric surgery status; Z79.4 Long term (current) use of insulin; Z79.899 Other long term (current) drug therapy

== ENCOUNTER → 2019-01-01 | Outpatient (CLI) | payer BC | LOC: M LAB 13:38 | PROVIDERS: ATTEND Internal Medicine Cardiovascular Disease | DX: M79.7 Fibromyalgia (principal) ==

== ENCOUNTER → 2019-01-01 | Outpatient (REF) | payer BC ==
[2019-01-01 15:59] LABS: BASO % 0.6 % (0.0-1.0); EOS # 0.2 10^3/uL (0.0-0.5); EOS % 3.3 % (0.0-3.0); HEMATOCRIT 48.5 % (42.0-52.0); HEMOGLOBIN 16.6 g/dl (13.5-17.5); LYMPH # 1.6 10^3/uL (1.5-5.0); LYMPH % 25.2 % (24.0-44.0); MEAN CORPUSCULAR HEMOGLOBIN 29.1 pg (27.0-33.0); MEAN CORPUSCULAR HGB CONC 34.2 g/dl (32.0-36.5); MEAN CORPUSCULAR VOLUME 85.1 fl (80.0-96.0); MONO # 0.4 10^3/uL (0.0-0.8); MONO % 6.1 % (0.0-5.0); NEUTROPHILS # 4.1 10^3/uL (1.5-8.5); NEUTROPHILS % 64.6 % (36.0-66.0); PLATELET COUNT, AUTOMATED 246 10^3/uL (150-450); WHITE BLOOD COUNT 6.4 10^3/uL (4.0-10.0)
[2019-01-01 16:10] LABS: ALBUMIN 4.2 GM/DL (3.2-5.2); ALT/SGPT 73 U/L (12-78); BILIRUBIN,TOTAL 0.7 MG/DL (0.2-1.0); BLOOD UREA NITROGEN 10 MG/DL (7-18); CALCIUM LEVEL 9.6 MG/DL (8.5-10.1); CARBON DIOXIDE LEVEL 28 MEQ/L (21-32); CHLORIDE LEVEL 105 MEQ/L (98-107); CREATININE FOR GFR 0.98 MG/DL (0.70-1.30); GLOMERULAR FILTRATION RATE > 60.0 (>56); GLUCOSE, FASTING 275 MG/DL (70-100); POTASSIUM SERUM 4.4 MEQ/L (3.5-5.1); SODIUM LEVEL 141 MEQ/L (136-145)
== END ==
LOC: M SFHCPLAZ 12:32
PROVIDERS: ATTEND Physician Assistant Medical
DX: A09 Infectious gastroenteritis and colitis, unspecified (principal)

== ENCOUNTER → 2019-04-23 | Outpatient (REF) | payer BC ==
[~2019-04-23] MED LIST changes: -OMEP40CA2 PO; +OMEP40CA97 PO
[2019-04-27 00:07] LABS: Chitobioside Carbohydrat (ACCA 4 units (0-90); H PYLORI SERUM QUANT IgG ABY 0.35 (0.00-0.79); Laminaribioside Carbohyd (ALCA 20 units (0-60); Mannobioside Carbohydrat (AMCA 75 units (0-100); Saccharomyces cerevisiae IgG A 15 units (0-50); TISSUE TRANSGLUTAMINASE IgA <2 U/mL (0-3)
== END ==
LOC: M SFHCPLAZ 12:51
PROVIDERS: ATTEND Family Medicine
DX: R19.7 Diarrhea, unspecified (principal); R10.13 Epigastric pain

== ENCOUNTER 2019-06-10 19:57 | Emergency (ER) | payer BC ==
[~2019-06-10] VITALS: Ht 193 cm; Wt 100.0 kg
[2019-06-10] MEDS ORDERED: ANEC4CRE3 TOP (21:26)
[2019-06-10] MEDS ORDERED: LIDOCAINE 4% CREAM 5GM (LMX4) TOP ONE (21:30)
[2019-06-10 21:48] VITALS: BP 171/86
--- NOTE | 2019-06-11 08:14 | REP ---
Clinical: Trauma. Pain and swelling. Technique: AP, lateral, bilateral oblique views of the left knee. Comparison: 12/08/2018. Findings: Mild/moderate tricompartmental osteoarthritic degenerative changes along with superficial swelling and possible suprapatellar effusion. No definite acute fracture dislocation. Evidence for prior fixation involving the proximal femur with focal area of myositis ossificans along the lateral aspect of the distal diaphysis. Impression: 1. Tricompartmental arthritic changes. 2. Swelling and possible suprapatellar effusion. 3. No acute fracture or dislocation identified. Electronically Signed by Edgar Bagley MD 06/11/2019 08:05 A
== END 2019-06-10 21:50 | disposition home or self-care (01) ==
LOC: M ED 19:57
DX: S89.92XA Unspecified injury of left lower leg, initial encounter (principal); M25.462 Effusion, left knee; W00.0XXA Fall on same level due to ice and snow, initial encounter; Y92.014 Private driveway to single-family (private) house as the place of occurrence of the external cause; M17.12 Unilateral primary osteoarthritis, left knee; E11.9 Type 2 diabetes mellitus without complications; I25.10 Atherosclerotic heart disease of native coronary artery without angina pectoris; I25.2 Old myocardial infarction; G90.09 Other idiopathic peripheral autonomic neuropathy; Z98.84 Bariatric surgery status; Z79.84 Long term (current) use of oral hypoglycemic drugs; Z79.899 Other long term (current) drug therapy

== ENCOUNTER → 2019-10-25 | Outpatient (REF) | payer BC ==
[~2019-10-25] MED LIST changes: +ANEC4CRE3 TOP; +CYCL-707 PO; -CYCL10TA PO
[2019-10-25 13:29] LABS: BASO % 0.7 % (0.0-1.0); EOS # 0.2 10^3/uL (0.0-0.5); HEMATOCRIT 45.9 % (42.0-52.0); HEMOGLOBIN 15.7 g/dl (13.5-17.5); LYMPH # 1.5 10^3/uL (1.5-5.0); LYMPH % 25.6 % (24.0-44.0); MEAN CORPUSCULAR HEMOGLOBIN 27.9 pg (27.0-33.0); MEAN CORPUSCULAR HGB CONC 34.2 g/dl (32.0-36.5); MEAN CORPUSCULAR VOLUME 81.5 fl (80.0-96.0); MONO # 0.5 10^3/uL (0.0-0.8); MONO % 8.8 % (0.0-5.0); NEUTROPHILS # 3.5 10^3/uL (1.5-8.5); NEUTROPHILS % 61.7 % (36.0-66.0); PLATELET COUNT, AUTOMATED 216 10^3/uL (150-450); RED BLOOD COUNT 5.63 10^6/uL (4.30-6.10); WHITE BLOOD COUNT 5.7 10^3/uL (4.0-10.0)
[2019-10-25 13:56] LABS: HEMOGLOBIN A1c 8.3 %
[2019-10-25 14:00] LABS: ALBUMIN 4.2 GM/DL (3.2-5.2); ALT/SGPT 75 U/L (12-78); BILIRUBIN,TOTAL 0.5 MG/DL (0.2-1.0); BLOOD UREA NITROGEN 13 MG/DL (7-18); CALCIUM LEVEL 9.4 MG/DL (8.5-10.1); CARBON DIOXIDE LEVEL 29 MEQ/L (21-32); CHLORIDE LEVEL 106 MEQ/L (98-107); CREATININE FOR GFR 1.06 MG/DL (0.70-1.30); GLOMERULAR FILTRATION RATE > 60.0 (>56); GLUCOSE, FASTING 123 MG/DL (70-100); POTASSIUM SERUM 4.1 MEQ/L (3.5-5.1); SODIUM LEVEL 141 MEQ/L (136-145); TOTAL PROTEIN 7.1 GM/DL (6.4-8.2)
[2019-10-25 14:07] LABS: PTH INTACT 107.3 PG/ML (18.5-88.0); TOTAL 25(OH) VITAMIN D 21.4 NG/ML (30.0-100.0)
[2019-10-25 14:08] LABS: VITAMIN B12 LEVEL > 2000 PG/ML (247-911)
[2019-10-25 17:23] LABS: APPEARANCE, URINE CLEAR (CLEAR); BACTERIA, URINE AUTO NEGATIVE (NEGATIVE); BILIRUBIN, URINE AUTO NEGATIVE (NEGATIVE); BLOOD, URINE BLOOD NEGATIVE (NEGATIVE); COLOR, URINE STRAW (YELLOW); GLUCOSE, URINE (UA) AUTO 3+ mg/dL (NEGATIVE); KETONE, URINE AUTO NEGATIVE (NEGATIVE); LEUKOCYTE ESTERASE, URINE AUTO NEGATIVE (NEGATIVE); NITRITE, URINE AUTO NEGATIVE (NEGATIVE); PROTEIN, URINE AUTO NEGATIVE (NEGATIVE); RBC, URINE AUTO 0 /HPF (0-3); SQUAMOUS EPITHELIAL CELL UR AU 0 /HPF (0-6); UROBILINOGEN, URINE AUTO 0.2 mg/dL (0.0-2.0); WBC, URINE AUTO 1 /HPF (0-3)
[2019-10-25 17:48] LABS: CREATININE, URINE 42.3 MG/DL; MALB URINE SIEMENS 15.9 MG/L; MAU/CREAT RATIO 37.5 MCG/MG (0.0-30.0)
== END ==
LOC: M PLALAB 12:03
PROVIDERS: ATTEND Family Medicine
DX: E53.8 Deficiency of other specified B group vitamins (principal); E55.9 Vitamin D deficiency, unspecified; E11.9 Type 2 diabetes mellitus without complications; Z12.5 Encounter for screening for malignant neoplasm of prostate
CPT/HCPCS: 36415; 80053; 81001; 82043; 82306; 82607; 83036; 83970; 85025; G0103

== ENCOUNTER → 2019-11-12 | Outpatient (CLI) | payer SELFPAY ==
[~2019-11-12] MED LIST changes: -ASPI81TA85 PO; +ASPI81TA86 PO
== END ==
LOC: M LABSMTC 11:58
PROVIDERS: ATTEND Pediatrics
DX: Z20.828 Contact with and (suspected) exposure to other viral communicable diseases (principal); Z11.59 Encounter for screening for other viral diseases

== ENCOUNTER → 2020-03-03 | Outpatient (CLI) | payer BC ==
--- NOTE | 2020-03-04 07:25 | REP ---
INDICATION: TJ LEG PAIN W/ COLD EXTRE COMPARISON: None. TECHNIQUE: Real time B-mode allen scale and color Doppler evaluation of the bilateral lower extremity arterial vasculature using linear high frequency transducer. FINDINGS: Allen scale and color images demonstrate mild bilateral atheromatous plaquing without significant areas of stenosis or occlusion are identified. Somewhat more pronounced atheromatous plaquing is also identified along the right posterior tibial artery and distal anterior tibial artery where monophasic wave patterns are noted. The remainder of the wave patterns are essentially triphasic bilaterally. Right AMBER: 1.31 Left AMBER: 1.06 Peak systolic velocities (cm/sec) Common femoral artery: Right 135; Left 84 Profunda femoris: Right 126; Left 73 SFA (proximal): Right 96; Left 99 SFA (mid): Right 104; Left 73 SFA (distal): Right 89; Left 95 Popliteal artery: Right 90; Left 80 NAVEED (prox.): Right 30; Left 50 Tibioperoneal trunk: Right 107; Left 68 SHIFT NURSE MANAGER (prox.): Right 102; Left 78 SHIFT NURSE MANAGER (distal): Right 86; Left 71 NAVEED (distal): Right 46; Left 51 IMPRESSION: Atheromatous changes with decreased flow through the left common femoral artery which may represent proximal disease and CT angiography of the aorta through pelvis may be warranted. Monophasic wave patterns are identified through the distal right lower extremity which may be related to focally increased calcified atherosclerotic changes related small-vessel disease and diabetes. <Electronically signed by Edgar Bagley > 03/04/20 0721
== END ==
LOC: M RAD 09:24
PROVIDERS: ATTEND Family Medicine
DX: R68.89 Other general symptoms and signs (principal)

== ENCOUNTER → 2020-04-22 | Outpatient (CLI) | payer BC ==
[~2020-04-22] MED LIST changes: +ISOVUE-300 61% 50ML VIAL As Ordered ONE; +LIDOCAINE 1% MDV 20ML VIAL As Ordered ONE; +MIDAZOLAM INJ 2MG/2ML VIAL (J2250 PER 1MG) As Ordered ONE; +ONE1TAB2 PO; +PRAM0.754 PO; +VOLT1GEL15 TD; +XIFA200T2 PO; +fentaNYL 100 MCG/2 ML INJECTION (J3010) As Ordered ONE
[2020-04-22 07:41] LABS: HEMATOCRIT 45.3 % (42.0-52.0); HEMOGLOBIN 14.7 g/dl (13.5-17.5); MEAN CORPUSCULAR HEMOGLOBIN 26.8 pg (27.0-33.0); MEAN CORPUSCULAR HGB CONC 32.5 g/dl (32.0-36.5); MEAN CORPUSCULAR VOLUME 82.7 fl (80.0-96.0); PLATELET COUNT, AUTOMATED 222 10^3/uL (150-450); RED BLOOD COUNT 5.48 10^6/uL (4.30-6.10); WHITE BLOOD COUNT 5.9 10^3/uL (4.0-10.0)
[2020-04-22 07:49] LABS: BLOOD UREA NITROGEN 13 MG/DL (7-18); CARBON DIOXIDE LEVEL 28 MEQ/L (21-32); CHLORIDE LEVEL 109 MEQ/L (98-107); GLOMERULAR FILTRATION RATE > 60.0 (>56); GLUCOSE, FASTING 133 MG/DL (70-100); POTASSIUM SERUM 3.8 MEQ/L (3.5-5.1); SODIUM LEVEL 141 MEQ/L (136-145)
--- NOTE | 2020-04-22 10:00 | ROOPDOC ---
[facility] Report Of Operation Report of Operation DATE OF PROCEDURE: 04/22/20 PREPROCEDURE DIAGNOSES: Atherosclerosis in the [place] arteries with claudication and leg pain POSTPROCEDURE DIAGNOSES: Same PROCEDURE: 1. Ultrasound-guided access left common femoral artery 2. Aortoiliofemoral arteriogram 3. Selection right common femoral and superficial femoral artery with runoff 4. Selection right popliteal artery with tibial runoff 5. Selection distal right anterior tibial artery with arteriograms 6. Cross chronic total occlusion right anterior tibial artery and angioplasty with 2.5 x 220 Kenneth balloon 7. Completion arteriograms 8. Mynx closure left common femoral artery SURGEON: Darshana Reagan MD ANESTHESIA: Local anesthesia for cc lidocaine. Moderate intravenous conscious sedation was supervised by Dr. Reagan. The patient was independently monitored by registered nurse assigned to the Department of radiology using automated blood pressure, EKG, and pulse oximetry. The detailed sedation record is permanently stored in the hospital information system. The following is a brief sedation record: Start time 08:32, stop time 09:27, Versed 1 mg IV, fentanyl 50 g IV, heparin 4000 units IV. CONTRAST: 55 mL Isovue-300 INDICATION FOR PROCEDURE: This is a very pleasant 55-year-old gentleman with atherosclerosis of the [place] arteries and symptoms of pain, numbness, loss of balance, now worsening in both legs, and abnormal waveforms noted on recent arterial duplex in the right lower extremity. I discussed with the patient that his abnormal waveforms in the tibial vessels may or may not be contributing to any pain in the right lower extremity, but I feel his symptoms are more likely neuropathic in nature, possibly from a history of back issues and possibly also a component of diabetic neuropathy. Nevertheless, he is hopeful we can provide any improvement by improving any limitations in his blood flow. We are happy to help with this. The duplex also mentioned that the patient may have some mild iliac disease on the left due to some abnormal waveforms in the common femoral artery, but I'm not convinced of this based on the arterial study. However, I did discuss with the patient that our initial imaging is an aortoiliofemoral arteriogram which would show both the left and the right iliac vessels. Risks benefits and alternatives to an arteriogram and potential intervention were explained to the patient needs agreeable to proceed. Informed consent was obtained. INTERPRETATION: 1. The distal aorta, common iliac arteries bilaterally, hypogastric arteries bilaterally, and external iliac arteries bilaterally are all widely patent with no ectasia plaque or stenosis noted. 2. The bilateral common femoral arteries are widely patent. 3. The right common femoral artery has excellent runoff into a widely patent profunda and superficial femoral artery, with no stenosis or ectasia noted. The popliteal arteries also widely patent, and there is a high takeoff of the anterior tibial artery at the mid popliteal artery. The anterior tibial artery occludes 5 cm from its origin due to heavy plaque and then intermittently reconstitutes through collaterals throughout the cath and has trickle flow through a diminutive distal anterior tibial artery and dorsal pedis artery. However, he more than makes up for this limitation in tibial flow with widely patent large tibioperoneal trunk, peroneal artery, and posterior tibial artery. The posterior tibial artery is the largest of this tibial vessels with rapid flow all the way to the distal foot. The peroneal artery is also good size, and provides a great deal of flow through the cath, and collateralizes over to the anterior tibial artery intermittently. 4. After crossing the chronic total occlusion in the right anterior tibial artery and repeated angioplasties, it was difficult to get antegrade flow through the vessel from above, but with selection of the distal vessel and injection of contrast throughout, we saw that the vessel was widely patent. However, I suspect there is a component of spasm. Normally we would treat this with nitroglycerin, but the patient's blood pressure is a bit on the low normal side, so I did not want to give a vasodilator. Therefore we accept the spasm at case close as the vessel is patent. Following angioplasty of the anterior tibial artery and the right, the posterior tibial artery and peroneal artery are also still widely patent with no embolization dissection. No extravasation following intervention was noted. REPORT OF OPERATION: Patient was brought to the angiographic suite in stable condition. His bilateral groins were prepped and draped in sterile fashion. A timeout was performed. Local anesthesia was ministered to skin and subcutaneous tissue over the left common femoral artery. A microneedle was used to access the artery under ultrasound guidance. A wire was passed through this access and the needle was removed. 4 [place] sheath was placed and flushed with saline. A Glidewire and flushing catheter were introduced to the distal aorta under fluoroscopic guidance. Aortoiliofemoral arteriograms were performed, please interpretation above. We then went up and over the bifurcation with the Glidewire of the catheter and selected the right common femoral artery and superficial femoral artery proximally. Runoff of the right lower extremity was performed, please interpretation above. We selected the distal right popliteal artery with a Glidewire and exchanges sheath for a 6 [place] by 90 cm destination sheath and flushed the sheath with saline. We then exchange the wire for N018 Glidewire advantage and utilized a quite cath to select the anterior tibial artery. The wire did not advanced easily, so we utilized a Stellarray Crossing catheter to help cross through to the distal artery. There was heavy plaque in the proximal mid sections, but we were eventually able to cross safely to the distal artery and angioplasty with a 2.5 x 220 Kenneth balloon. The balloon did not pass easily distally but didn't pass easily proximally. Three-minute inflations were done along the length of the vessel, but still we did not note good antegrade flow. We repeated angioplasties and were able to advance it slightly distal into the dorsal pedis artery is well to improve our outflow. We still did not know great antegrade flow following this, so we readvanced the balloon to the distal vessel and contrast injection with a distal flexion of the anterior tibial artery showed flow through the dorsal pedis artery and through the entire anterior tibial artery. There was still some heavy plaque proximally, and so a third repeat angioplasty was performed. Despite this, we still did not note great antegrade flow so again a distal selection of the anterior tibial artery was performed and we noted that there was spasm in the vessel. We chose not to treat this with nitroglycerin because the patient's blood pressure was low normal and I did not when I give a large dose of vasodilators. However, I suspect this will open up even more with a bit of time. The vessel is patent throughout aside from the spasm. Following the procedure, the patient had no areas of dissection embolization or extravasation. His posterior tibial and peroneal artery also remained widely patent with excellent rapid flow to the foot. The patient completed the procedure with 3 vessel runoff to the foot. He sheath was exchanged for a short 6 [place] sheath over 035 Glidewire and a Mynx closure device was deployed with good hemostasis. Pressure was held for 5 minutes and sterile dressings were applied. The patient was taken to recovery in stable condition. He tolerated the procedure and the sedation well. ESTIMATED BLOOD LOSS: Approximately 5 mL. COMPLICATIONS: None. PLAN: The patient may resume his home diet and medications. No strenuous exercise or lifting greater than 5-10 pounds for 48 hours. Okay to ambulate and resume light activity. We will see the patient back in a week to check his perfusion. I suspect his lower extremity symptoms are unrelated to his minimal arterial disease noted in the right anterior tibial artery, now improved after angioplasty. I believe his symptoms are likely neuropathic, related to chronic back issues and also possibly diabetic neuropathy. I discussed this with the patient and he will pursue additional neuropathic workup from that standpoint. We appreciate the opportunity to participate in the care of this patient. DARSHANA REAGAN MD Apr 22, 2020 10:00
[2020-04-22 13:30] VITALS: BP 142/79
== END ==
LOC: M IRPRO 06:21
PROVIDERS: ATTEND Surgery Vascular Surgery
DX: I70.211 Atherosclerosis of native arteries of extremities with intermittent claudication, right leg (principal); I70.221 Atherosclerosis of native arteries of extremities with rest pain, right leg; I70.92 Chronic total occlusion of artery of the extremities; E11.51 Type 2 diabetes mellitus with diabetic peripheral angiopathy without gangrene; E78.00 Pure hypercholesterolemia, unspecified; I10 Essential (primary) hypertension; I25.10 Atherosclerotic heart disease of native coronary artery without angina pectoris; Z79.01 Long term (current) use of anticoagulants; Z79.899 Other long term (current) drug therapy
CPT/HCPCS: 37228; 75630; 75774; 80048; 85027; 99152; 99153; C1725; C1729; C1760; C1769; C1887; C1894; J1644; J2250; J3010; Q9967

== ENCOUNTER → 2020-05-30 | Outpatient (CLI) | payer BC ==
[~2020-05-30] MED LIST changes: +GABA-282 PO; -GABA-843 PO; -ISOVUE-300 61% 50ML VIAL As Ordered ONE; -LIDOCAINE 1% MDV 20ML VIAL As Ordered ONE; -MIDAZOLAM INJ 2MG/2ML VIAL (J2250 PER 1MG) As Ordered ONE; -fentaNYL 100 MCG/2 ML INJECTION (J3010) As Ordered ONE
--- NOTE | 2020-05-30 08:35 | REP ---
INDICATION: ATHSCL KARRI ART OF EXTRM W INTRMT KERRY, BILATERAL COMPARISON: None. TECHNIQUE: Real time allen scale and color Doppler evaluation of the bilateral lower extremity arterial vasculature using linear high frequency transducer. FINDINGS: Allen scale and color images demonstrate moderate bilateral atheromatous changes primarily below the level of the knee. Right lower extremity demonstrates focal occlusion at the proximal anterior tibial artery with subsequent downstream revascularization. Triphasic wave patterns are identified with the exception of monophasic wave patterns at the anterior tibial artery and posterior tibial artery. Right AMBER equals 1.33. Left lower extremity demonstrates triphasic wave patterns to the level of the tibioperoneal trunk with monophasic wave patterns involving the posterior tibial and anterior tibial arteries. There is 2:1 stenosis at the level of the proximal posterior tibial artery and 2.4:1 stenosis at the distal anterior tibial artery. Left AMBER equals 1.2 Peak systolic velocities (cm/sec) Common femoral artery: Right 157; Left 122 Profunda femoris: Right 135; Left 114 SFA (proximal): Right 124; Left 132 SFA (mid): Right 109; Left 117 SFA (distal): Right 113; Left 136 Popliteal artery: Right 102; Left 91 NAVEED (prox.): Right 45/occluded; Left 81 Tibioperoneal trunk: Right 121; Left 103 STUFFED CASING TIER (prox.): Right 119; Left 250 STUFFED CASING TIER (distal): Right 128; Left 115 NAVEED (distal): Right 94; Left 58/139 IMPRESSION: Atheromatous changes as described above including focal occlusion in the right proximal anterior tibial artery and areas of stenosis in the left posterior tibial artery and anterior tibial artery. <Electronically signed by Edgar Bagley > 05/30/20 0837
== END ==
LOC: M RAD 07:11
PROVIDERS: ATTEND Physician Assistant
DX: I70.213 Atherosclerosis of native arteries of extremities with intermittent claudication, bilateral legs (principal)

== ENCOUNTER → 2020-06-10 | Outpatient (REF) | payer BC ==
[2020-06-10 15:34] LABS: BASO % 0.2 % (0.0-1.0); EOS % 0.3 % (0.0-3.0); HEMATOCRIT 47.2 % (42.0-52.0); HEMOGLOBIN 15.4 g/dl (13.5-17.5); LYMPH # 0.9 10^3/uL (1.5-5.0); LYMPH % 8.3 % (24.0-44.0); MEAN CORPUSCULAR HEMOGLOBIN 26.9 pg (27.0-33.0); MEAN CORPUSCULAR HGB CONC 32.6 g/dl (32.0-36.5); MEAN CORPUSCULAR VOLUME 82.4 fl (80.0-96.0); MONO # 0.5 10^3/uL (0.0-0.8); MONO % 5.1 % (2.0-8.0); NEUTROPHILS # 8.8 10^3/uL (1.5-8.5); NEUTROPHILS % 85.8 % (36.0-66.0); PLATELET COUNT, AUTOMATED 204 10^3/uL (150-450); RED BLOOD COUNT 5.73 10^6/uL (4.30-6.10); WHITE BLOOD COUNT 10.3 10^3/uL (4.0-10.0)
[2020-06-10 16:09] LABS: ALBUMIN 4.1 GM/DL (3.2-5.2); ALT/SGPT 46 U/L (12-78); BILIRUBIN,TOTAL 0.9 MG/DL (0.2-1.0); BLOOD UREA NITROGEN 11 MG/DL (7-18); CALCIUM LEVEL 9.1 MG/DL (8.5-10.1); CARBON DIOXIDE LEVEL 29 MEQ/L (21-32); CHLORIDE LEVEL 102 MEQ/L (98-107); CREATININE FOR GFR 1.05 MG/DL (0.70-1.30); GLOMERULAR FILTRATION RATE > 60.0 (>56); GLUCOSE, FASTING 148 MG/DL (70-100); POTASSIUM SERUM 4.5 MEQ/L (3.5-5.1); SODIUM LEVEL 137 MEQ/L (136-145); TOTAL PROTEIN 7.2 GM/DL (6.4-8.2)
== END ==
LOC: M SFHCPLAZ 15:01
PROVIDERS: ATTEND Physician Assistant
DX: R30.0 Dysuria (principal); R50.9 Fever, unspecified
CPT/HCPCS: 36415; 80053; 83605; 85025; 87088; 87186; G0103; U0003

== ENCOUNTER 2020-06-12 10:07 | Emergency (ER) | payer BC ==
[~2020-06-12] VITALS: Ht 193 cm; Wt 91.8 kg
--- OUTSIDE RECORDS SUMMARY | 2020-06-12 10:13 | CCD | Continuity of Care Document ---
Author Author Ilya HERNANDEZ M.D. Organization Unknown Address [address] [place] [address] Phone [phone] Care Team Providers Care Driver Starting Gate Name Role Phone William Verdin M.D. AUTM [phone] Problems Active Problems Provider Date Degeneration of lumbar intervertebral disc Aravind Peterson M.D. Onset: 11/02/2013 Carpal tunnel syndrome Aravind Peterson M.D. Onset: 11/02/2013 Ischemic stroke Aravind Peterson M.D. Onset: 11/02/2013 Ulnar neuropathy Aravind Peterson M.D. Onset: 11/02/2013 Cerebral hemorrhage Aravind Peterson M.D. Onset: 06/06/2015 Acquired spondylolisthesis Aravind Peterson M.D. Onset: 2015 Social History Type Date Description Comments Sex Unknown ETOH Use Denies alcohol use Tobacco Use Start: Unknown Patient has never smoked Recreational Drug Use Denies Drug Use Allergies, Adverse Reactions, Alerts Description No Known Drug Allergies Medications Active Medications SIG Qnty Indications Ordering Provide r Date Cymbalta 30mg Caps Part 1 po qday for 2 weeks & then 2 po qday. (for diabetic neuropathy) 180caps Aravind Peterson M.D. 02/27/2016 Neurontin 300mg Capsules 1 by mouth three times a day 90caps Unknown Cyclobenzaprine HCL 10mg Tablets 1 by mouth three times a day as needed for back pain 90tabs Unknown Immunizations Description No Information Available Vital Signs Date Vital Result Comment 11/01/2014 9:06am BP Systolic 105 mmHg BP Diastolic 65 mmHg Heart Rate 66 /min Respiratory Rate 16 /min Height 74 inches 6'2" Weight 217.00 lb BMI (Body Mass Index) 27.9 kg/m2 [place] Body Weight 190 lb 04/05/2014 10:23am BP Systolic 120 mmHg BP Diastolic 75 mmHg Heart Rate 74 /min Respiratory Rate 16 /min Height 74 inches 6'2" Weight 224.00 lb BMI (Body Mass Index) 28.8 kg/m2 [place] Body Weight 190 lb Results Description No Information Available Procedures Description No Information Available Medical Devices Description No Information Available Encounters Description No Information Available Assessments Description No Information Available Plan of Treatment No Information Available Functional Status Description No Information Available Mental Status Description No Information Available Referrals Description No Information Available
--- OUTSIDE RECORDS SUMMARY | 2020-06-12 10:13 | CCD | Continuity of Care Document ---
Author Author Ilya SOLORIO MA Organization Unknown Address [address] [facility] [facility], [address] [place] [address] Phone [phone] Care Team Providers Care Cloth Bin Packer Name Role Phone William Verdin M.D. AUTM [phone] Problems Active Problems Provider Date Essential hypertension DEONDRE Brooks Onset: Social History Type Date Description Comments Sex Unknown ETOH Use Denies alcohol use Recreational Drug Use Denies Drug Use Tobacco Use Start: Unknown Denies Smoking Smoking Status Reviewed: 04/01/20 Denies Smoking Allergies, Adverse Reactions, Alerts Description No Known Drug Allergies Medications Active Medications SIG Qnty Indications Ordering Provide r Date Vitamin D3 5000Unit Capsules 1cap po qd Unknown Multivitamin & Mineral Tablet 2tabs po qd Unknown Nitroglycerin 0.4mg Tablets Sub use as directed prn Unknown Lantus Solostar 100U nit/ML Solution Pen-Inject 43 units sub q qhs Unknown 0 Clopidogrel Bisulfate (Plavix) 75mg Tablets 1tab po qd 30tabs Unknown Gabapentin 300mg Capsules three times a day 60caps Annia Clinton, R.P.A. Levofloxacin 500mg Tablets every day 10tabs Annia Clinton, R.P.A. 000 Mupirocin 2% Ointment every d ay 22gm Annia Clinton, R.P.A. Pantoprazole Sodium 40mg Tablets D R every day William Verdin M.D. Pramipexole Dihydrochloride 1mg Ta blets every day William Verdin M.D. Xifaxan 200mg Tablets 1 by mouth three times a day Unknown Voltaren 1% Gel every day Unknown Viagra 100mg Tablets as neede d Unknown Cyanocobalamin 2500mcg Tablets Sub every day Unknown Jardiance 25mg Tablets every day William Verdin M.D. Rosuvastatin Calcium 40mg Tablets every day William Verdin M.D. Immunizations Description No Information Available Vital Signs Date Vital Result Comment 04/29/2020 9:06am BP Systolic 130 mmHg BP Diastolic 70 mmHg Height 76 inches 6'4" Weight 206.50 lb BMI (Body Mass Index) 25.1 kg/m2 [place] Body Weight 202 lb Weight 93.668 kg BSA (Body Surface Area) 2.25 m2 04/01/2020 9:48am BP Systolic 136 mmHg BP Diastolic 84 mmHg Height 76 inches 6'4" Weight 214.00 lb BMI (Body Mass Index) 26.0 kg/m2 [place] Body Weight 202 lb Weight 97.070 kg BSA (Body Surface Area) 2.28 m2 Results Test Acquired Date Facility Test Result H/L Range Note Complete Blood Count 04/22/2020 [facility] Main Lab [address] [place] [address] [id number] [phone] White Blood Count 5.9 10 Normal 4.0-10.0 Red Blood Count 5.48 10 Normal 4.30-6.10 Hemoglobin 14.7 g/dL Normal 13.5-17.5 Hematocrit 45.3 % Normal 42.0-52.0 Mean Corpuscular Volume 82.7 fl Normal 80.0-96.0 Mean Corpuscular Hemoglobin 26.8 pg Low 27.0-33.0 Mean Corpuscular HGB Conc 32.5 g/dL Normal 32.0-36.5 Red Cell Distribution Width 13.8 % Normal 11.5-14.5 Platelet Count, Automated 222 10 Normal 150-450 Nucleated Red Blood Cell % 0.0 % Normal 0-0 Basic Metabolic Profile 04/22/2020 [facility] Main Lab [address] [place] [address] [phone] Glucose, Fasting 133 mg/dL High 70-100 Blood Urea Nitrogen 13 mg/dL Normal 7-18 Creatinine For GFR 0.90 mg/dL Normal 0.70-1.30 Glomerular Filtration Rate > 60.0 Normal >56 1 Sodium Level 141 mEq/L Normal 136-145 Potassium Serum 3.8 mEq/L Normal 3.5-5.1 Chloride Level 109 mEq/L High 98-107 Carbon Dioxide Level 28 mEq/L Normal 21-32 Anion Gap 4 mEq/L Low 8-16 Calcium Level 9.0 mg/dL Normal 8.5-10.1 1 Units are mL/min/1.73 m2 Chronic Kidney Disease Staging per NKF: Stage I & II GFR >=60 Normal to Mildly Decreased Stage III GFR 30-59 Moderately Decreased Stage IV GFR 15-29 Severely Decreased Stage V GFR <15 Very Little GFR Left ESRD GFR <15 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 Procedures Description No Information Available Medical Devices Description No Information Available Encounters Type Date Location Provider Dx Diagnosis Office Visit 04/01/2020 9:45a [facility] LUCINDA Suazo I70.213 Athscl [place] arteries of extrm w intrmt antwan, bi legs M79.606 Pain in leg, unspecified Assessments Date Code Description Provider 04/29/2020 I70.213 Atherosclerosis of n ative arteries of extremities with intermittent claudication, bilateral legs LUCINDA Bernabe 04/29/2020 M79.606 Pain in leg, unspecified LUCINDA Albert 04/01/2020 I70.213 Atherosclerosis of n ative arteries of extremities with intermittent claudication, bilateral legs LUCINDA Bernabe 04/01/2020 M79.606 Pain in leg, unspecified LUCINDA Albert Plan of Treatment No Information Available Functional Status Description No Information Available Mental Status Description No Information Available Referrals Refer to Reason for Referral Status Appt Date Rosaura Solorio, P.A. PVD Closed 020 [address] [place] [address] [place], [place] [id number] [phone]
--- OUTSIDE RECORDS SUMMARY | 2020-06-12 10:13 | CCD ---
Author Author [facility] Organization [facility] Address Unknown Phone Unavailable Care Team Providers Care Keller Machine Operator Name Role Phone William Verdin Unavailable PROBLEMS Type Condition ICD9-CM Code GCT24-WU Code Onset Dates Condition S tatus SNOMED Code Notes Problem CTS (carpal tunnel syndrome) G56.00 Active 574 88783 Problem Type 2 diabetes mellitus without complication E11.9 Active 78482771 Problem CAD (coronary artery disease) I25.10 Active 53 951479 Problem B12 deficiency E53.8 Active 505745103 Problem Hyperlipidemia E78.5 Active 13026886 Problem Vitamin D deficiency E55.9 Active 32189653 Problem Hypertension I10 Active 76001820 Problem 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 Active 88642879 Problem Cervical dysphagia R13.19 Active 38726058 Problem Osteoarthritis of spine with radiculopathy, lumbar region M47.26 Active 015007014 Problem Nephrolithiasis N20.0 Active 89888674 Problem Prostate cancer screening Z12.5 Active 112546 005 Problem Non morbid obesity due to excess calories E66.09 Active 090405128 Problem Leg cramps R25.2 Active 103603127 Problem Dyspepsia R10.13 Active 283364070 Problem Gastroesophageal reflux disease, esophagitis pre sence not specified K21.9 Active 488795935 Problem Colon cancer screening Z12.11 Active 505681166 Problem Neuralgia of right foot M79.2 Active 51158486 2 Problem Injury of right foot, initial encounter S99.921A Active 608897324 Problem Lumbar radiculopathy, chronic M54.16 Active 12 9734128 Problem ED (erectile dysfunction) N52.9 Active 699570 002 Problem NAFLD (nonalcoholic fatty liver disease) K76.0 Active 325701081 Problem PVD (peripheral vascular disease) I73.9 Active 052772383 Problem Anxiety disorder F41.9 Active 805516804 Problem 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 Active 967261933 Problem Intervertebral disc disorder with radiculopathy of lumbar region M51.16 Active 289387667625169 Problem Lumbar post-laminectomy syndrome M96.1 Active 585328103 Problem Intervertebral disc disorder with radiculopathy of lumbosacral region M51.17 Active 68681225479919625 Problem Right foot pain M79.671 Active 739567779002820 ALLERGIES No Known Allergies ENCOUNTERS from 1965 to 2020-05-06 Encounter Location Date Provider Diagnosis [address] [address] Apr, 021 William Verdin Type 2 diabetes mellitus without complication E11.9 IMMUNIZATIONS Vaccine Route Administration Date Status Influenza (18 yrs & older) Flublok IM Intramuscular Mar 13, 2018 Administered Pneumococcal Adult 0.5mL (Pneumovax 23) IM Intramuscular Apr 09, 2011 Administered Influenza (6mo & up) Fluzone IM Intramuscular Jan 28, 2017 Ad ministered Influenza (6mo & up) Fluzone IM Intramuscular Mar 26, 2016 Ad ministered Influenza (6mo & up) Fluzone IM Intramuscular Feb 05, 2014 Ad ministered Influenza (6mo & up) Fluzone IM Intramuscular Mar 20, 2012 Ad ministered Influenza (6mo & up) Fluzone IM Intramuscular Jan 15, 2011 Ad ministered Influenza (6mo & up) Fluzone IM Intramuscular Jan 23, 2010 Ad ministered SOCIAL HISTORY Tobacco Use: Social History Observation Description Date Details (start date - stop date) Never Smoker Sex Assigned At : Social History Observation Description Sex Assigned At Unknown Education: Question Answer Notes Level of Education: Finished High School Audit Question Answer Notes Interpretation: Alcohol Education Total Score: 0 Language: Question Answer Notes Languages spoken: Sinhala Pentecostal: Question Answer Notes Pentecostal 21 [employer] Sexual Hx: Question Answer Notes Had sex in the last 12 months (vaginal, oral, or anal)? Yes Have you ever had an STD? No with Women only Use protection? No Drug and Alcohol Question Answer Notes Total Score: 0 Interpretation: No problems reported Alcohol Screening: Question Answer Notes Did you have a drink containing alcohol in the past year? No Points 0 Interpretation Negative Tobacco Use: Question Answer Notes Are you a: never smoker REASON FOR REFERRAL No Information VITAL SIGNS No information MEDICATIONS Medication SIG (Take, Route, Frequency, Duration) Notes Start Da te End Date Status Pramipexole Dihydrochloride 1 MG TAKE 1 TABLET BEFORE BEDTIME Active FreeStyle [place] - as directed subcutaneously Daily, E 13.9 for 90 day(s) Oct, Active Empagliflozin 25 mg 1 tablet Orally every morning for 90 day(s) Active FreeStyle [place] 14 Day Sensor - as directed subcutaneously D aily for 90 day(s) Oct, Active Gabapentin 300 MG 1 capsule in am, 2 in pm Orally twice daily for 9 0 day(s) Active Sildenafil Citrate 100 mg TAKE 1 TABLET NEEDED ONCE A DAY Active Pantoprazole Sodium 40 MG 1 tab Orally every morning for 90 day(s) Active Pantoprazole Sodium 40 MG 1 tablet Orally every morning Active Blood Glucose Test - One Touch Verio In Vitro four times montserrat ly - ICD 10 - E11.9 Active Tizanidine HCl 2 mg 1 tablet as needed Orally fo r spasms and pain before bedtime May repeat in 4 hrs MDD2 Active Insulin Pen Needle 32G X 5 MM as directed sublingually monthly f or 90 day(s) Active Cyanocobalamin 250 MCG 1 tablet Orally Once a day for 90 day(s) Active Multivitamin & Mineral ` 2 tabls Orally daily Active Clopidogrel Bisulfate 75 MG 1 tablet Orally Once a day for 90 day(s) Active Viagra 100 MG 1 tablet as needed Orally Once a day prn for 30 day(s) Active Rosuvastatin Calcium 40 MG 1 tablet Orally Once a day for 90 day(s) Active OneTouch Verio _ as directed In Vitro bid for 90 day(s) Active Voltaren 1 % 2 gm Transdermal QID to feet for 1 days Active Duloxetine HCl 30 MG 1 capsule Orally bid for 30 day(s) Mar, Active BD Ultra-fine Pen [place] 32G 4mm as directed subcutan eously once a week DX: E11.9 for 90 day(s) May, Active Nitroglycerin 0.4 MG 1 tablet under the tongue Christine blingual As needed chest pain for 90 day(s) Active Clopidogrel Bisulfate 75MG TAKE 1 TABLET DAILY Active Trulicity 3 MG/0.5ML 1.5 Subcutaneous every 7 days DX: E11.9 for 90 day(s) May, Active Lantus 100 UNIT/ML 43 units Subcutaneous daily for 90 days Active Vitamin D3 5000 2 tablets Orally qd for 90 day(s) Active Insulin Glargine 100 UNIT/ML 38 units Subcutaneous at 700 for 90 day( s) Active BD Ultra-fine Pen [place] 32G 4mm as directed _ qd for 90 day(s) Apr, Active PROCEDURES No Information RESULTS No Results REASON FOR VISIT No Information MEDICAL (GENERAL) HISTORY Type Description Date Medical History T2DM IR with microalbuminuria, periphera l neuropathy Medical History ho morbid obesity-s/p lapros copic gastric bypass 11/14/13 Dr. Grider Medical History DAVID Medical History hyperlipidemia 2B Medical History hypertension-05/2013 TTE LAE 38 mm othere tucker normal-[facility] Medical History nonalcoholic failure liver d isease-negative workup January 2002 FS2 21 Medical History history of nephrolithiasis c alcium oxalate times 23 February 2005 Medical History granuloma annulare Medical History right plantar fascitis Medical History CAD, single vessel, status p ost MCKENNA to 80% stenosis mid segment LAD and 90% stenosis after the second major diagonal branch-December 04, 2010-Dr. Rod Pham [facility]//April 15, 2011 repeat MCKENNA to 80% stenosis LAD distal to previous stents-[facility] cath stable 40% L circ distal stenosis, MCKENNA to focal 75% in stent stenosis of proximal LAD- [facility]/05/11/2013 MCKENNA to 70% proximal LAD stenosis and 75% just distal to previous stent stenosis-Daniel, s/p CABG BEDOYA to LAD and diagonal 11/29/13-Dr. [facility]//05/16/15 catherization done 2 angina-single vessel disease c white nt BEDOYA graft, favored CP 2 -[facility] Medical History acute small R basal ganglion and internal capsule hemorrhagic CVA probably 2 aspirin 81 qd, Plavix 75 qd and heparin given during 05/11/2013 catherization with 2 L lateral foot numbness, seen by 05/29/2013 MRI, - MRA B carotids, no extension nor hemorrhage by CT brain 05/31/2013 Medical History lumbar spondylosis sp L5S1 lami/ectomy C hin 02/2014 Medical History B CTS-diagnosed by [facility] Medical History NAFLD-09/2015 FS 2 21 Medical History GERD/cervical dysphagia/dyspepsia-04/2018 EGD small HH-R Surgical History Left Femur surgery Surgical History vasectomy Surgical History L5/S1 lami/fyxoez-Tbwk-Ygnypjc 02/2014 Surgical History lap gb 11/14/13 Surgical History CABG 11/29/13 Hospitalization History R basal ganglion/IC hemorrha gic CVA 2 aspirin/Plavix/heparin from 05/11/13 cath, ARF 2 dehydration/hypotension (SBP high 90s) 2 viral GE/meds/cath dye 05/29-09/2013 Goals Section No Information Health Concerns No Information MEDICAL EQUIPMENT No Information MENTAL STATUS No Information FUNCTIONAL STATUS No Information ASSESSMENTS Encounter Date Diagnosis Assessment Notes Treatment Notes Treatm ent Clinical Notes Apr, Type 2 diabetes mellitus without complication (I CD-10 - E11.9) PLAN OF TREATMENT Medication Medication Name Sig Start Date Stop Date Vitamin D3 5000 2 tablets Orally qd for 90 day(s) Insulin Glargine 100 UNIT/ML 38 units Subcutaneous at 700 for 90 day(s) Rosuvastatin Calcium 40 MG 1 tablet Orally Once a day for 90 day (s) Trulicity 3 MG/0.5ML 1.5 Subcutaneous every 7 days DX: E11.9 for 90 day(s) May, Gabapentin 300 MG 1 capsule in am, 2 in pm Orally twice daily fo r 90 day(s) Pantoprazole Sodium 40 MG 1 tab Orally every morning for 90 day( s) Tizanidine HCl 2 mg 1 tablet as needed Orally fo r spasms and pain before bedtime May repeat in 4 hrs MDD2 Clopidogrel Bisulfate 75 MG 1 tablet Orally Once a day for 90 da y(s) Cyanocobalamin 250 MCG 1 tablet Orally Once a day for 90 day(s) Empagliflozin 25 mg 1 tablet Orally every morning for 90 day(s) Nitroglycerin 0.4 MG 1 tablet under the tongue Christine blingual As needed chest pain for 90 day(s) Blood Glucose Test - One Touch Verio In Vitro four times montserrat ly - ICD 10 - E11.9 Viagra 100 MG 1 tablet as needed Orally Once a day prn for 30 day(s) Voltaren 1 % 2 gm Transdermal QID to feet for 1 days Sildenafil Citrate 100 mg TAKE 1 TABLET NEEDED ONCE A DAY Duloxetine HCl 30 MG 1 capsule Orally bid for 30 day(s) Mar, Insurance Providers Payer Name Payer Address Payer Phone Insured Name Patient Relati onship to Insured Coverage Start Date Coverage End Date [employer] [facility] [id number] [facility] [place] [id number] VERA PABON self
--- OUTSIDE RECORDS SUMMARY | 2020-06-12 10:13 | CCD ---
Author Author [facility] Organization [facility] Address Unknown Phone Unavailable Care Team Providers Care Candles Pourer Name Role Phone William Verdin Unavailable PROBLEMS Type Condition ICD9-CM Code [id number] Code Onset Dates Condition S tatus SNOMED Code Notes Problem CTS (carpal tunnel syndrome) G56.00 Active 574 06667 Problem Type 2 diabetes mellitus without complication E11.9 Active 45336972 Problem CAD (coronary artery disease) I25.10 Active 53 424036 Problem B12 deficiency E53.8 Active 602044079 Problem Hyperlipidemia E78.5 Active 13377983 Problem Vitamin D deficiency E55.9 Active 14439398 Problem Hypertension I10 Active 73603255 Problem 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 Active 17863574 Problem Cervical dysphagia R13.19 Active 48583896 Problem Osteoarthritis of spine with radiculopathy, lumbar region M47.26 Active 129345863 Problem Nephrolithiasis N20.0 Active 32455774 Problem Prostate cancer screening Z12.5 Active 318405 005 Problem Non morbid obesity due to excess calories E66.09 Active 733324679 Problem Leg cramps R25.2 Active 221666680 Problem Dyspepsia R10.13 Active 385465186 Problem Gastroesophageal reflux disease, esophagitis pre sence not specified K21.9 Active 177226644 Problem Colon cancer screening Z12.11 Active 757594495 Problem Neuralgia of right foot M79.2 Active 51781021 2 Problem Injury of right foot, initial encounter S99.921A Active 679371047 Problem Lumbar radiculopathy, chronic M54.16 Active 12 1121346 Problem ED (erectile dysfunction) N52.9 Active 198337 002 Problem NAFLD (nonalcoholic fatty liver disease) K76.0 Active 138382162 Problem PVD (peripheral vascular disease) I73.9 Active 202956486 Problem Anxiety disorder F41.9 Active 748852698 Problem 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 Active 995004731 Problem Intervertebral disc disorder with radiculopathy of lumbar region M51.16 Active 539066543229693 Problem Lumbar post-laminectomy syndrome M96.1 Active 476798605 Problem Intervertebral disc disorder with radiculopathy of lumbosacral region M51.17 Active 09964048698265361 Problem Right foot pain M79.671 Active [id number] ALLERGIES No Known Allergies ENCOUNTERS from 1965 to 2020-04-29 Encounter Location Date Provider Diagnosis [address] [address] Apr, 021 William Verdin IMMUNIZATIONS Vaccine Route Administration Date Status Influenza [...] Finished [employer] School Audit Question Answer Notes Total Score: 0 Interpretation: Alcohol Education Language: Question Answer Notes Languages spoken: [place] Citizen Catholic: Question Answer Notes Catholic 21 Episcopalian Sexual Hx: Question Answer Notes Had sex [...] Notes Start Da te End Date Status Empagliflozin 25 mg 1 tablet Orally every morning for 90 day(s) Active FreeStyle [place] 14 Day Sensor - as directed subcutaneously D aily for 90 day(s) Oct, Active Nitroglycerin 0.4 MG 1 tablet under the tongue Christine blingual As needed chest pain for 90 day(s) Active Duloxetine HCl 30 MG 1 capsule Orally bid for 30 day(s) Mar, Active Pantoprazole Sodium 40 MG 1 tab Orally every morning for 90 day(s) Active Pantoprazole Sodium 40 MG 1 tablet Orally every morning Active Pramipexole Dihydrochloride 1 MG TAKE 1 TABLET BEFORE BEDTIME Active FreeStyle Elba [place] - as directed subcutaneously Daily, E 13.9 for 90 day(s) Oct, Active Gabapentin 300 MG 1 capsule in am, 2 in pm Orally twice daily for 9 0 day(s) Active Cyanocobalamin 250 MCG 1 tablet Orally Once a day for 90 day(s) Active Clopidogrel Bisulfate 75MG TAKE 1 TABLET DAILY Active Tizanidine HCl 2 MG 1 tablet as needed Orally fo r spasms and pain before bedtime May repeat in 4 hrs MDD2 for 90 day(s) August, Active OneTouch Verio _ as directed In Vitro bid for 90 day(s) Active Voltaren 1 % 2 gm Transdermal QID to feet for 1 days Active BD Ultra-fine Pen [place] 32G 4mm as directed subcutan eously once a week DX: E11.9 for 90 day(s) May, Active Insulin Pen Needle 32G X 5 MM as directed sublingually monthly f or 90 day(s) Active Blood Glucose Test - One Touch Verio In Vitro four times montserrat ly - ICD 10 - E11.9 Active Viagra 100 MG 1 tablet as needed Orally Once a day prn for 30 day(s) Active Multivitamin & Mineral ` 2 tabls Orally daily Active Clopidogrel Bisulfate 75 MG 1 tablet Orally Once a day for 90 day(s) Active Rosuvastatin Calcium 40 MG 1 tablet Orally Once a day for 90 day(s) Active Trulicity 1.5 MG/0.5ML 1.5 Subcutaneous every 7 days DX: E11.9 f or 90 day(s) May, Active Lantus 100 UNIT/ML 43 units Subcutaneous daily for 90 days Active Vitamin D3 5000 2 tablets Orally qd for 90 day(s) Active Insulin Glargine 100 UNIT/ML 38 units Subcutaneous at 700 for 90 day( s) Active BD Ultra-fine Pen [place] 32G 4mm as directed _ qd for [...] major diagonal branch-December 04, 2010-[facility]//April 15, 2011 repeat MCKENNA to 80% stenosis LAD distal to previous stents-[facility] cath stable 40% L circ distal stenosis, MCKENNA to focal 75% in stent stenosis of proximal LAD- [facility]/05/11/2013 MCKENNA to 70% proximal LAD stenosis and 75% just distal to previous stent stenosis-Daniel, s/p CABG BEDOYA to LAD and diagonal 11/29/13-Dr. [facility]//05/16/15 catherization done 2 angina-single vessel disease c white nt BEDOYA graft, favored CP 2 -[facility] Medical History acute small R basal ganglion [...] surgery Surgical History vasectomy Surgical History L5/S1 [id number]/[id number]-[id number]-[id number] 02/2014 Surgical History lap gb 11/14/13 Surgical History CABG 11/29/13 Hospitalization History R basal ganglion/IC hemorrha gic CVA 2 aspirin/Plavix/heparin from 05/11/13 cath, ARF 2 dehydration/hypotension (SBP high 90s) 2 viral GE/meds/cath dye 05/29-09/2013 Goals Section No Information Health Concerns No Information MEDICAL EQUIPMENT No Information MENTAL STATUS No Information FUNCTIONAL STATUS No Information ASSESSMENTS No Information PLAN OF TREATMENT Medication Medication Name Sig Start Date Stop Date Vitamin D3 5000 2 tablets Orally qd for 90 day(s) Insulin Glargine 100 UNIT/ML 38 units Subcutaneous at 700 for 90 day(s) Rosuvastatin Calcium 40 MG 1 tablet Orally Once a day for 90 day (s) Trulicity 1.5 MG/0.5ML 1.5 Subcutaneous every 7 days DX: E11 .9 for 90 day(s) May, Gabapentin 300 MG 1 capsule in am, 2 in pm Orally twice daily fo r 90 day(s) Pantoprazole Sodium 40 MG 1 tab Orally every morning for 90 day( s) Clopidogrel Bisulfate 75 MG 1 tablet Orally [...] Transdermal QID to feet for 1 days Duloxetine HCl 30 MG 1 capsule Orally bid for 30 day(s) Mar, Insurance Providers Payer Name Payer Address Payer Phone Insured Name Patient Relati onship to Insured Coverage Start Date Coverage End Date [employer]OU[employer]V [employer] PPO [phone] [facility] [place] [employer] [place] [id number] [place] self
--- OUTSIDE RECORDS SUMMARY | 2020-06-12 10:13 | CCD ---
Author Author [facility] Organization [facility] Address Unknown Phone Unavailable Care Team Providers Care Manager Of Investigations Name Role Phone William Verdin Unavailable PROBLEMS Type Condition ICD9-CM Code [id number] Code Onset Dates Condition S tatus SNOMED Code Notes Problem CTS (carpal tunnel syndrome) G56.00 Active 575 59608 Problem Type 2 diabetes mellitus without complication E11.9 Active 00527434 Problem CAD (coronary artery disease) I25.10 Active 53 574966 Problem B12 deficiency E53.8 Active 647334955 Problem Hyperlipidemia E78.5 Active 14963318 Problem Vitamin D deficiency E55.9 Active 10509246 Problem Hypertension I10 Active 66651778 Problem 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 Active 70836248 Problem Cervical dysphagia R13.19 Active 64999656 Problem Osteoarthritis of spine with radiculopathy, lumbar region M47.26 Active 401509646 Problem Nephrolithiasis N20.0 Active 98016785 Problem Prostate cancer screening Z12.5 Active 511701 005 Problem Non morbid obesity due to excess calories E66.09 Active 882321142 Problem Leg cramps R25.2 Active 170954847 Problem Dyspepsia R10.13 Active 656877878 Problem Gastroesophageal reflux disease, esophagitis pre sence not specified K21.9 Active 960932952 Problem Colon cancer screening Z12.11 Active 232642974 Problem Neuralgia of right foot M79.2 Active 77780182 2 Problem Injury of right foot, initial encounter S99.921A Active 991867137 Problem Lumbar radiculopathy, chronic M54.16 Active 12 2590911 Problem ED (erectile dysfunction) N52.9 Active 065104 002 Problem NAFLD (nonalcoholic fatty liver disease) K76.0 Active 453266838 Problem PVD (peripheral vascular disease) I73.9 Active 275505032 Problem Anxiety disorder F41.9 Active 952433773 Problem 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 Active 752963808 Problem Intervertebral disc disorder with radiculopathy of lumbar region M51.16 Active 886688791713022 Problem Lumbar post-laminectomy syndrome M96.1 Active 478780687 Problem Intervertebral disc disorder with radiculopathy of lumbosacral region M51.17 Active 82750606763401577 Problem Right foot pain M79.671 Active [id number] ALLERGIES No Known Allergies ENCOUNTERS from 1965 to 2020-04-15 Encounter Location Date Provider Diagnosis [address] [address] Mar, 020 William Verdin IMMUNIZATIONS Vaccine Route Administration Date Status Influenza (18 yrs & older) Flublok IM Intramuscular Mar 13, 2018 Administered Influenza (6mo & up) Fluzone IM Intramuscular Jan 28, 2017 Ad ministered Influenza (6mo & up) Fluzone IM Intramuscular Mar 26, 2016 Ad ministered Pneumococcal Adult 0.5mL (Pneumovax 23) IM Intramuscular [...] 0 Language: Question Answer Notes Languages spoken: [place]ut[place] Mormonism: Question Answer Notes Mormonism 21 Religion Sexual Hx: Question Answer Notes Had sex [...] 1 TABLET BEFORE BEDTIME Active FreeStyle Elba [place] - as directed subcutaneously Daily, E 13.9 [...] for 1 days Active BD Ultra-fine Pen [place] 32G 4mm as directed subcutan eously once [...] 90 day( s) Active BD Ultra-fine Pen [place] 32G 4mm as directed _ qd for 90 day(s) Apr, Active PROCEDURES No Information RESULTS No Results REASON FOR VISIT verify script info MEDICAL (GENERAL) HISTORY Type Description Date Medical [...] major diagonal branch-December 04, 2010-Dr. Rod Pham [facility]//April 15, 2011 repeat MCKENNA to 80% stenosis LAD distal to previous stents-[facility] cath stable 40% L circ distal stenosis, MCKNENA to focal 75% in stent stenosis of proximal LAD- [facility]/05/11/2013 MCKENNA to 70% proximal LAD stenosis and 75% just distal to previous stent stenosis-Daniel, s/p CABG BEDOYA to LAD and diagonal 11/29/13-Dr[facility]//05/16/15 catherization done 2 angina-single vessel disease c white nt BEDOYA graft, favored CP 2 -[facility] Medical History acute small R basal ganglion [...] surgery Surgical History vasectomy Surgical History L5/S1 lami/qnvktt-Sjyz-Zkthpdr 02/2014 Surgical History lap gb 11/14/13 Surgical [...] Insured Coverage Start Date Coverage End Date [employer] PPO [phone] [id number] [facility] [employer] [place] [id number] VERA PABON self
--- OUTSIDE RECORDS SUMMARY | 2020-06-12 10:13 | CCD ---
Author Author [facility] Organization [facility] Address Unknown Phone Unavailable Care Team Providers Care Case Technician Name Role Phone William Verdin Unavailable PROBLEMS Type Condition ICD9-CM Code GYE27-CV Code Onset Dates Condition S tatus SNOMED Code Notes Problem CTS (carpal tunnel syndrome) G56.00 Active 579 12774 Problem Type 2 diabetes mellitus without complication E11.9 Active 82125286 Problem CAD (coronary artery disease) I25.10 Active 53 676092 Problem B12 deficiency E53.8 Active 016246202 Problem Hyperlipidemia E78.5 Active 33649921 Problem Vitamin D deficiency E55.9 Active 82278235 Problem Hypertension I10 Active 36877829 Problem 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 Active 90226024 Problem Cervical dysphagia R13.19 Active 88515493 Problem Osteoarthritis of spine with radiculopathy, lumbar region M47.26 Active 335377735 Problem Nephrolithiasis N20.0 Active 77258796 Problem Prostate cancer screening Z12.5 Active 578396 005 Problem Non morbid obesity due to excess calories E66.09 Active 794983450 Problem Leg cramps R25.2 Active 377450209 Problem Dyspepsia R10.13 Active 510759481 Problem Gastroesophageal reflux disease, esophagitis pre sence not specified K21.9 Active 207668443 Problem Colon cancer screening Z12.11 Active 380572906 Problem Neuralgia of right foot M79.2 Active 60324785 2 Problem Injury of right foot, initial encounter S99.921A Active 644852372 Problem Lumbar radiculopathy, chronic M54.16 Active 12 4438309 Problem ED (erectile dysfunction) N52.9 Active 699491 002 Problem NAFLD (nonalcoholic fatty liver disease) K76.0 Active 037133916 Problem PVD (peripheral vascular disease) I73.9 Active 318730223 Problem Anxiety disorder F41.9 Active 608597240 Problem 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 Active 719582833 Problem Intervertebral disc disorder with radiculopathy of lumbar region M51.16 Active 107964969811813 Problem Lumbar post-laminectomy syndrome M96.1 Active 081996124 Problem Intervertebral disc disorder with radiculopathy of lumbosacral region M51.17 Active 44728008743115045 Problem Right foot pain M79.671 Active [id number] ALLERGIES No Known Allergies ENCOUNTERS from 1965 to 2020-04-11 Encounter Location Date Provider Diagnosis [address] [address] Mar, 020 William Verdin PVD (peripheral vascular disease) I73.9 ; Osteoarthritis of spine with radiculopathy, lumbar region M47.26 ; Type 2 diabetes mellitus without complication E11.9 ; Diarrhea, unspecified type R19.7 ; ED (erectile dysfunction) N52.9 ; 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 ; Leg cramps R25.2 ; Cervical dysphagia R13.19 ; Dyspepsia R10.13 ; Colon cancer screening Z12.11 ; Prostate cancer screening Z12.5 ; 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 ; Vitamin D deficiency E55.9 ; Anxiety disorder F41.9 ; CAD (coronary artery disease) I25.10 ; Hyperlipidemia E78.5 ; Hypertension I10 ; B12 deficiency E53.8 ; CTS (carpal t unnel syndrome) G56.00 ; NAFLD (nonalcoholic fatty liver disease) K76.0 ; Non morbid obesity due to excess calories E66.09 and Nephrolithiasis N20.0 IMMUNIZATIONS Vaccine Route Administration Date Status Influenza (18 yrs & older) Flublok IM Intramuscular Mar 13, 2018 Administered Influenza (6mo & up) Fluzone IM Intramuscular Jan 28, 2017 Ad ministered Pneumococcal Adult 0.5mL (Pneumovax 23) [...] Education Language: Question Answer Notes Languages spoken: Kyrgyz Faith: Question Answer Notes Faith 21 Gnosticist Sexual Hx: Question Answer Notes Had sex [...] REASON FOR REFERRAL No Information VITAL SIGNS Weight 211.4 lbs Mar, Height 73.5 in Mar, BMI 27.51 kg/m2 Mar, Heart Rate 95 /min Mar, Respiratory Rate 18 /min Mar, Temperature 97.5 degrees Fahrenheit Mar, Oximetry 99% Mar, Blood pressure systolic 150 mm Hg Mar, Blood pressure diastolic 80 mm Hg Mar, MEDICATIONS Medication SIG (Take, Route, Frequency, Duration) [...] 1 TABLET BEFORE BEDTIME Active FreeStyle Elba [place] - as directed subcutaneously Daily, E 13.9 [...] for 1 days Active BD Ultra-fine Pen Spring 32G 4mm as directed subcutan eously once [...] 90 day( s) Active BD Ultra-fine Pen Spring 32G 4mm as directed _ qd for 90 day(s) Apr, Active PROCEDURES No Information RESULTS No Results REASON FOR VISIT follow up MEDICAL (GENERAL) HISTORY Type Description Date Medical [...] major diagonal branch-December 04, 2010-Dr. Rod Pham [facility]//April 15, 2011 repeat MCKENNA to 80% stenosis LAD distal to previous stents-[facility]/02/2012 cath stable 40% L circ distal stenosis, MCKENNA to focal 75% in stent stenosis of proximal LAD- [facility]/05/11/2013 MCKENNA to 70% proximal LAD stenosis and 75% just distal to previous stent stenosis-Daniel, s/p CABG BEDOYA to LAD and diagonal 11/29/13-Dr. Rush-[facility]//05/16/15 catherization done 2 angina-single vessel disease c white nt BEDOYA graft, favored CP 2 -[facility] Medical History acute small R [...] surgery Surgical History vasectomy Surgical History L5/S1 lami/jmvgkj-Qqed-Ymselzl 02/2014 Surgical History lap gb 11/14/13 Surgical [...] Notes Treatment Notes Treatm ent Clinical Notes Mar, PVD (peripheral vascular disease) (ICD-10 - I73. 9) 05/17/19 [place] BLE angiogram +/- intervention given 03/04/20 BLE art US c distal RLE monophasic wave (done 2 BLE pain which is more likely neuropathic) Mar, Osteoarthritis of spine with radiculopathy, lumbar region (ICD-10 - M47.26) on adma 300/600, dulox 30 BID C: repeat MRI then Chin opinion for L45 decompression vs LESI/maximize med/PT/gait retraining 04/07/20 + dulox 30 BID, repeat NCS BLE (to deermine extent of radic vs DM peripheral neuropathy) 10/25/19 increased 300 BID to 300/600 04/23/19 increased back to 300 BID given increased BLE radic pain 09/2018 M + adam 300 BID c adequate improvement 07/2018 given persistent LLE radicular pain, refer to Dr. Canada and obtain recent MRI done by [facility] Mar, Type 2 diabetes mellitus without complication (I CD-10 - E11.9) Continue ADA diet/weight loss FSL2-encouraged to check at least 6x daily/use reminders Contingency: dulag to 4.5, fixed aspart SS AC harpreet, din via inpen (plan send back BG via LibreView) Continues at glar 38 at 7 (strongly encouraging br and ~10 complex CBH to prevent low BG sx), dulag 1.5 04/07/20 glar 43 to 38 BUT push dulag 0.75 to 1.5 q7D given post br sx lows to 100-120, BUT BG climbs post harpreet and higher post din,10/25/19 8.3; therefore, +FSL (given rarely compliant c HBG) given otherwise close to IMPOSSIBLE to obtain adequate BG control 06/04- FSLP 4D readings (accidentally ripped off at work) m223, GV 45, TIR 42, TAR 58//37!, TBR 0 c 5-12 BG 80s (of note-NO increase of BG c br!), BUT AC harpreet, diner LARGE spikes often >350; therefore, yris 100 to dulag 0.75 c subjective improvement of BG 06/04/19 given AC br sx hypo (30-60 mins p rising-usually weekends when delays eating); therefore, decreased glar 60 to 45) 01/30/19 restarted glar 50 at 7 (admits only taking ~3x qW!!! 2 ~qM midday hypo to 60s) and + yris 100 qAM and dc met 500 BID 2 diarrhea 07/2018 8.4 02/2018 9.0; therefore, + met 500 BID 10/2017 10; changed glar 60 23 to 7 c cb AC TID/QHS HBGs to reduce QHS hypos 01/2017 9.7; therefore, encouraged Starlix compliance and add AC breakfast if HBG>150 but hard to take and not effective 08/2016 gave new Verio Flex to email HBSs and started Starlix 120 AC lunch/dinner 02/2016 9.8; therefore, Jardiance 25 qAM added and increased L 40 to 60 and advised to c/b BID HBSs in 10D 10/25/19 38 09/2015 32 04/2013 157 06/2012 24 03/2011 ILDA/creatinine 34 [facility] [employer] 14 Mar, 2020 Diarrhea, unspecified type (ICD-10 - R19.7) favor early dumping +/-IBS Encouraged frequent small meals high in protein/fiber (admits poor fiber intake) and LOW in CBH, separate liquid and solids Contingency: Nutrition consult for dumping, UGISBFT, empeic nor 10-25 QHS/SSNI (escitalo 10 improved mood but worsened ED in past) +/- dicyclo 10 (~1x daily lower colonic sudden cramping pain c relief c BM), ostreotide 06/04/19 improved, but still 30% [place] 7, rest 5-6-will correlate glc intake/BG by FSLP c diarrhea sx 04/27/19 emperic rifax 200 TID 10D for SIBO 04/23/19 -PCR GI/TTG/[facility] IBD/stool calpro, borderline pancr elastase 206 (100-200 mild MARGARITA), CRP/ESR <0.3/, - H pylori Ab 01/2019 dc met 500 BID (given restarted 02/2018 and sx worsened ~04/2018) c improvement frequency to baseline ~BID-TID [place] 6 01/01/19 - GI PCR, O/P 05/01/18 colon "suboptimal" prep, but otherwise WNL-R 14 Mar, 2020 ED (erectile dysfunction) (ICD-10 - N52.9) 2 DM +/- MDD 04/23/19 + silden 50/100 14 Mar, 2020 Arthritis of foot (ICD-10 - M19.079) L mid/forefoot 07/2018 to [facility] for orthotic and + dicof 1% QID (no po NSAIDs 2 clopid use) Mar, Leg cramps (ICD-10 - R25.2) Stable off prami 1 QHS Fe as per B12 exacerbated by DM neuropathy and L4/5 radic Stable on prami 1 qhs and stretching prior to retiring 07/2018 increased to 1 and + encouraged stretching 07/2017 0.25 c ~50% improvement; therefore, 10/2017 to 0.5 QHS 05/2017 started prami 0.125 qhs given B alternating severe calf cramps ~qohs-qhs Mar, Cervical dysphagia (ICD-10 - R13.19) Stable on panto as per dyspepsia 04/2018 EGD c small HH sp Mccarty 56F s subjective benefit Mar, Dyspepsia (ICD-10 - R10.13) Stable on panto 40 qAM (no omep/eso on chronic clopid) no po NSAIDs, rare EthOH ~1-2 qM 02/2018 changed panto 40 QHS to 40 qAM (+/- 40 BID) given nausea (omep did work better BUT cannot use c clopid) 10/2017 - H pylori Ab 10/2017 restopped asa 81 given repeat dyspepsia/early satiety since Antecol restarted it again ~07/2017 held asa 81 as per CAD and omeprazole 40 AC dinner and reduce caffeine (~6 8 oz green tea/MD QD) c resolved symptoms Contingency: UGI Mar, Colon cancer screening (ICD-10 - Z12.11) repeat colon 04/2021 normal, but fair prep; therefore, R favored repeat 04/2021Mar, Prostate cancer screening (ICD-10 - Z12.5) 10/25/19 0.6 10/2017 0.7 09/2016 1.3 08/2016 PSA 6.7, UCX NG-VLADIMIR c/w acute prostatitis-levo 21D c resolved sx 04/2015 0.6 09/2012 PSA baseline 0.4 Mar, Gastric bypass status for obesity (ICD-10 - Z98. 84) No dumping symptoms if compliant c diet B12/folate as per B12 vitamin D as per vitamin D Mar, Vitamin D deficiency (ICD-10 - E55.9) 1-2 dietary calcium 10/25/19 21, 9.4, 107; therefore, 04/07/20 D3 5K to 10K 02/2018 32, 9.2, 102 10/2017 29, 8.6, 124; therefore, + Tums 750 BID 05/2017 46, 9.1, 104 08/2016 31, 9.1, 97 on D3 5K QD Mar, Anxiety disorder (ICD-10 - F41.9) Stable off medications 03/2016 quit Lexapro 10 on own 04/2015 Lexapro 10 QD started c improvement per (not patient) and c ED se per patient Mar, CAD (coronary artery disease) (ICD-10 - I25.10) Patient remains asymptomatic 05/03/15 EKG NSR 71 bpm, early repolarization similar to 11/15/14; given recurrent classic anginal pain, case d/w Dr. Pennington who added aspirin 325, and repeat catherization done 05/16/15 revealing singe vessel disease c patent BEDOYA graft, favored CP 2 -Tonja Mar, Hyperlipidemia (ICD-10 - E78.5) HI statin given CAD Contingency: ezit, FKPC5 12/2018 CPK 136 on rosuva 40 07/2018 33/44/99 10/2017 27/38/133, 255, <0.3 08/2016 36/37/113, 0.9 on rosuva 40 LFTs as per NAFLD 12/2018 1.7, 1.0 08/2016 1.5, 0.9 01/2014 1.5 05/2013 TSH 1.8 Mar, Hypertension (ICD-10 - I10) Good control on current regimen K/Mg as per CKD 04/2014 Coreg 6.25 BID stopped 2 hypotension 11/17/13 Marni held ramipril 5-last dose 11/17/1310/2013 increased ramipril 5 qd 05/2013 ramipril 2.5 started 06/04/13 HBPM correlates c our manual 05/2013 hospitalization CTD 12.5 qd and lisinopril 40 qd was held given ARF/hypotension K/Mg as per CKD 02/2012 HCTZ 25 qd changed to CTD 12.5 10/24/2013 EKG NSR 82 bpm Stable off masood 1.25 since 12/2018 (Dr. Debbie bradford) 02/2018 4.8, 2.0, 1.0 01/2017 0.8, 3.7, 2.0 03/2016 0.8, 4.2, Mg 2.0 04/2014 Coreg 6.25 BID stopped 2 hypotension 11/17/13 Marni held ramipril 5-last dose 11/17/1310/2013 increased ramipril 5 qd 05/2013 ramipril 2.5 started 06/04/13 HBPM correlates c our manual 05/2013 hospitalization CTD 12.5 qd and lisinopril 40 qd was held given ARF/hypotension 05/03/15 EKG NSR 71 bpm, early repolarization similar to 11/15/14 Mar, B12 deficiency (ICD-10 - E53.8) 12/2018 16.6, 85 10/2017 16.2, 82, r 34 10/25/19 >2000 on 1000; therefore, decreased to 250 02/2018 924 on 1000 06/2011 B12 296 therefore 1 mg qd started 08/2016 RBC folate 506 07/2018 36%, 68 on MVI Mar, CTS (carpal tunnel syndrome) (ICD-10 - G56.00) R>L CTS, proven by NCS-Ali 04/[address] Cortez Mar, NAFLD (nonalcoholic fatty liver disease) (ICD-10 - K76.0) Continue ADA diet/weight loss 12/2018 normal LFTs 02/2018 84/190 04/2015 AST/ALT up to 40/114 09/2015 PT/PTT 07/2018 FS S0/N0 Mar, Non morbid obesity due to excess calories (ICD-1 0 - E66.09) Encouraged weight los Mar, Nephrolithiasis (ICD-10 - N20.0) No recurrent symptoms 07/2018 UA 4.2 PLAN OF TREATMENT Medication Medication Name Sig [...] capsule Orally bid for 30 day(s) Mar, Treatment Notes Assessment Notes Clinical Notes Anxiety disorder Stable off medicatio ns105/2015 quit Lexapro 10 on Lexapro 10 QD started c improvement per (not patient) and c ED se per patient PVD (peripheral vascular disease) 0 [place] BLE angiogram +/- intervention given 03/04/20 BLE art US c distal RLE monophasic wave (done 2 BLE pain which is more likely neuropathic) Vitamin D deficiency 1-2 dietary calcium 10/25/19 21, 9.4, 107; therefore, 04/07/20 D3 5K to 32, 9.2, 29, 8.6, 124; therefore, + Tums 750 BID05/2017 46, 9.1, 31, 9.1, 97 on D3 5K QD Osteoarthritis of spine with radiculopathy, lumbar region on adam 300/600, dulox 30 BIDC: repeat MRI then Chin opinion for L45 decompression vs LESI/maximize med/PT/gait joizkqdhuw21/14/20 + dulox 30 BID, repeat NCS BLE (to deermine extent of radic vs DM peripheral neuropathy)10/25/19 increased 300 BID to 300/8629104/23/19 increased back to 300 BID given increased BLE radic pain09/2018 M + adam 300 BID c adequate improvement07/2018 given persistent LLE radicular pain, refer to Dr. Canada and obtain recent MRI done by [facility] Hyperlipidemia HI statin given CADC ontingency: ezit, FKPC59 CPK 136 on rosuva 404/2018 33/44/997/2017 27/38/133, 255, <0. 36/37/113, 0.9 on rosuva 40LFTs as per NAFLD12/2018 1.7, 1.08/2016 1.5, 0.910/2013 1. TSH 1.8 Type 2 diabetes mellitus without complication Continue ADA diet/weight lossFSL2-encouraged to check at least 6x daily/use remindersContingency: dulag to 4.5, fixed aspart SS AC harpreet, din via inpen (plan send back BG via LibreView)Continues at glar 38 at 7 (strongly encouraging br and ~10 complex CBH to prevent low BG sx), dulag 1.512 glar 43 to 38 BUT push dulag 0.75 to 1.5 q7D given post br sx lows to 100-120, BUT BG climbs post harpreet and higher post din,10/25/19 8.3; therefore, +FSL (given rarely compliant c HBG) given otherwise close to IMPOSSIBLE to obtain adequate BG control06/04- FSLP 4D readings (accidentally ripped off at work) m223, GV 45, TIR 42, TAR 58//37!, TBR 0 c 5-12 BG 80s (of note-NO increase of BG c br!), BUT AC harpreet, diner LARGE spikes often >350; therefore, yris 100 to dulag 0.75 c subjective improvement of BG06/04/19 given AC br sx hypo (30-60 mins p rising-usually weekends when delays eating); therefore, decreased glar 60 to 45)01/30/19 restarted glar 50 at 7 (admits only taking ~3x qW!!! 2 ~qM midday hypo to 60s) and + yris 100 qAM and dc met 500 BID 2 diarrhea07/2018 8. 9.0; therefore, + met 500 BID10/2017 10; changed glar 60 23 to 7 c cb AC TID/QHS HBGs to reduce QHS hypos1 9.7; therefore, encouraged Starlix compliance and add AC breakfast if HBG>150 but hard to take and not effective08/2016 gave new Verio Flex to email HBSs and started Starlix 120 AC lunch/vqrexp03/2016 9.8; therefore, Jardiance 25 qAM added and increased L 40 to 60 and advised to c/b BID HBSs in 10/25/19 321/2013 15706/2012 24105/2010 ILDA/creatinine 58Rctfa-nfeskjttDvvaiyc-Ifdnmxaosncu CAD (coronary artery disease) Patient re preethi asymptomatic05/03/15 EKG NSR 71 bpm, early repolarization similar to 11/15/14; given recurrent classic anginal pain, case d/w Dr. Pennington who added aspirin 325, and repeat catherization done 05/16/15 revealing singe vessel disease c patent BEDOYA graft, favored CP 2 -Tonja Diarrhea, unspecified type favor early d umping +/-IBSEncouraged frequent small meals high in protein/fiber (admits poor fiber intake) and LOW in CBH, separate liquid and solidsContingency: Nutrition consult for dumping, UGISBFT, empeic nor 10-25 QHS/SSNI (escitalo 10 improved mood but worsened ED in past) +/- dicyclo 10 (~1x daily lower colonic sudden cramping pain c relief c BM), ostreotide06/04/19 improved, but still 30% [place] 7, rest 5-6-will correlate glc intake/BG by FSLP c diarrhea sx1/07/12 emperic rifax 200 TID 10D for SIBO1 -PCR GI/TTG/[facility] IBD/stool calpro, borderline pancr elastase 206 (100-200 mild MARGARITA), CRP/ESR <0.3/, - H pylori Ab01/2019 dc met 500 BID (given restarted 02/2018 and sx worsened ~04/2018) c improvement frequency to baseline ~BID-TID [place] 69/01/11 - GI PCR, O/P1/11/10 colon "suboptimal" prep, but otherwise WNL-R B12 deficiency 12/2018 16.6, 857/201 8 16.2, 82, r 347//20 >2000 on 1000; therefore, decreased to 2268902/2018 924 on B12 296 therefore 1 mg qd started08/2016 RBC folate 50607/2018 36%, 68 on MVI ED (erectile dysfunction) 2 DM +/- MDD / + silden 50/100 Hypertension Good control on current sue menK/Mg as per CKD04/2014 Coreg 6.25 BID stopped 2 hypotension11/17/13 Marni held ramipril 5-last dose increased ramipril 5 qd05/2013 ramipril 2.5 started06/04/13 HBPM correlates c our manual05/2013 hospitalization CTD 12.5 qd and lisinopril 40 qd was held given ARF/hypotensionK/Mg as per CKD02/2012 HCTZ 25 qd changed to CTD 12. EKG NSR 82 bpm Stable off masood 1.25 since 12/2018 (Dr. Debbie bradford)02/2018 4.8, 2.0, 1.010/2016 0.8, 3.7, 2.012/2015 0.8, 4.2, Mg 2.04/2014 Coreg 6.25 BID stopped 2 hypotension11/17/13 Marni held ramipril 5-last dose increased ramipril 5 qd05/2013 ramipril 2.5 started06/04/13 HBPM correlates c our manual05/2013 hospitalization CTD 12.5 qd and lisinopril 40 qd was held given ARF/hypotension05/03/15 EKG NSR 71 bpm, early repolarization similar to 11/15/14 Arthritis of foot L mid/forefoot07/2018 to [facility] for orthotic and + dicof 1% QID (no po NSAIDs 2 clopid use) NAFLD (nonalcoholic fatty liver disease) Continue ADA diet/weight loss12/2018 normal LFTs02/2018 /2016 AST/ALT up to /2016 PT/PTT FS S0/N0 Leg cramps Stable off prami 1 Q HSFe as per C11yejpawohyhc by DM neuropathy and L4/5 radicStable on prami 1 qhs and stretching prior to retiring07/2018 increased to 1 and + encouraged stretching07/2017 0.25 c ~50% improvement; therefore, 10/2017 to 0.5 QHS2 started prami 0.125 qhs given B alternating severe calf cramps ~qohs-qhs CTS (carpal tunnel syndrome) R>L CTS, pr oven by NCS-Ali04/[address] Cortez Non morbid obesity due to excess calories Encouraged weight los Gastric bypass status for obesity No dum ping symptoms if compliant c dietB12/folate as per [id number] D as per vitamin D Prostate cancer screening 10/25/19 0.67 18 0. 1. PSA 6.7, UCX NG-VLADIMIR c/w acute prostatitis-levo 21D c resolved s 0. PSA baseline 0.4 Nephrolithiasis No recurrent symptom UA 4.2 Cervical dysphagia Stable on panto as p er dyspepsia04/2018 EGD c small HH sp Mccarty 56F s subjective benefit Dyspepsia Stable on panto 40 q AM (no omep/eso on chronic clopid)no po NSAIDs, rare EthOH ~1-2 qM02/2018 changed panto 40 QHS to 40 qAM (+/- 40 BID) given nausea (omep did work better BUT cannot use c clopid)10/2017 - H pylori Ab10/2017 restopped asa 81 given repeat dyspepsia/early satiety since Antecol restarted it again ~ held asa 81 as per CAD and omeprazole 40 AC dinner and reduce caffeine (~6 8 oz green tea/MD QD) c resolved symptomsContingency: UGI Colon cancer screening repeat colon 05/14 normal, but fair prep; therefore, R favored repeat 04/2021 Treatment Notes Test Name Order Date NT-PRO BNP 2020-04-11 CBC with Differential 2020-04-11 Comprehensive Metabolic Profile (CMP) 2020-04-11 HEMOGLOBIN A1c 2020-04-11 LIPID PANEL (CARDIAC RISK) 2020-04-11 PTH INTACT 2020-04-11 VITAMIN D 25-HYDROXY 2020-04-11 Next Appt Details 30 minutes, 3-4M, BW NOW Reason: Insurance Providers Payer Name Payer Address Payer Phone Insured Name Patient Relati onship to Insured Coverage Start Date Coverage End Date [place]BS [place] PPO [phone] [facility] [place] [address] [place] self
--- OUTSIDE RECORDS SUMMARY | 2020-06-12 10:13 | CCD ---
Author Author [facility] Organization [facility] Address Unknown Phone Unavailable Care Team Providers Care Burial Vault Deliverer And Installer Name Role Phone William Verdin Unavailable PROBLEMS Type Condition ICD9-CM Code [id number] Code Onset Dates Condition S tatus SNOMED Code Notes Problem CTS (carpal tunnel syndrome) G56.00 Active 574 11346 Problem Type 2 diabetes mellitus without complication E11.9 Active 55844699 Problem CAD (coronary artery disease) I25.10 Active 53 041499 Problem B12 deficiency E53.8 Active 832007567 Problem Hyperlipidemia E78.5 Active 30287576 Problem Vitamin D deficiency E55.9 Active 68945515 Problem Hypertension I10 Active 03230134 Problem 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 Active 81344798 Problem Cervical dysphagia R13.19 Active 89300003 Problem Osteoarthritis of spine with radiculopathy, lumbar region M47.26 Active 577105234 Problem Nephrolithiasis N20.0 Active 14130717 Problem Prostate cancer screening Z12.5 Active 009933 005 Problem Non morbid obesity due to excess calories E66.09 Active 045274310 Problem Leg cramps R25.2 Active 089743470 Problem Dyspepsia R10.13 Active 267334406 Problem Gastroesophageal reflux disease, esophagitis pre sence not specified K21.9 Active 043213601 Problem Colon cancer screening Z12.11 Active 464353540 Problem Neuralgia of right foot M79.2 Active 13020376 2 Problem Injury of right foot, initial encounter S99.921A Active 886806502 Problem Lumbar radiculopathy, chronic M54.16 Active 12 6059683 Problem ED (erectile dysfunction) N52.9 Active 569116 002 Problem NAFLD (nonalcoholic fatty liver disease) K76.0 Active 214826987 Problem PVD (peripheral vascular disease) I73.9 Active 659661943 Problem Anxiety disorder F41.9 Active 796933670 Problem 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 Active 861338588 Problem Intervertebral disc disorder with radiculopathy of lumbar region M51.16 Active 090522449488957 Problem Lumbar post-laminectomy syndrome M96.1 Active 291132951 Problem Intervertebral disc disorder with radiculopathy of lumbosacral region M51.17 Active 15343243957432138 Problem Right foot pain M79.671 Active 080348115944112 ALLERGIES No Known Allergies ENCOUNTERS from 1965 to 2020-05-08 Encounter Location Date Provider Diagnosis [address] [address] Apr, 021 William Verdin Type 2 diabetes [...] 0 Language: Question Answer Notes Languages spoken: Spanish Anglican: Question Answer Notes Anglican 21 Mandaeism Sexual Hx: Question Answer Notes Had sex [...] Notes Start Da te End Date Status Pantoprazole Sodium 40 MG 1 tab Orally every morning for 90 day(s) Active FreeStyle [place] - as directed subcutaneously Daily, E 13.9 for 90 day(s) Oct, Active Pramipexole Dihydrochloride 1 MG TAKE 1 TABLET BEFORE BEDTIME Active Trulicity 3 MG/0.5ML 3 mg Subcutaneous every 7 days DX: E11.9 fo r 90 day(s) May, Active Blood Glucose Test - One Touch Verio In Vitro four times montserrat ly - ICD 10 - E11.9 Active Sildenafil Citrate 100 mg TAKE 1 TABLET NEEDED ONCE A DAY Active Gabapentin 300 MG 1 capsule in am, 2 in pm Orally twice daily for 9 0 day(s) Active Pantoprazole Sodium 40 MG 1 tablet Orally every morning Active Voltaren 1 % 2 gm Transdermal QID to feet for 1 days Active Tizanidine HCl 2 mg 1 tablet as needed Orally fo r spasms and pain before bedtime May repeat in 4 hrs MDD2 Active OneTouch Verio _ as directed In Vitro bid for 90 day(s) Active Insulin Pen Needle 32G X 5 MM as directed sublingually monthly f or 90 day(s) Active BD Ultra-fine Pen [place] 32G 4mm as directed subcutan eously once a week DX: E11.9 for 90 day(s) May, Active Nitroglycerin 0.4 MG 1 tablet under the tongue Christine blingual As needed chest pain for 90 day(s) Active Duloxetine HCl 30 MG 1 capsule Orally bid for 30 day(s) Mar, Active Clopidogrel Bisulfate 75MG TAKE 1 TABLET DAILY Active Clopidogrel Bisulfate 75 MG 1 tablet Orally Once a day for 90 day(s) Active Viagra 100 MG 1 tablet as needed Orally Once a day prn for 30 day(s) Active FreeStyle [place]ba 14 Day Sensor - as directed subcutaneously D aily for 90 day(s) Oct, Active Rosuvastatin Calcium 40 MG 1 tablet Orally Once a day for 90 day(s) Active Empagliflozin 25 mg 1 tablet Orally every morning for 90 day(s) Active Cyanocobalamin 250 MCG 1 tablet Orally Once a day for 90 day(s) Active Multivitamin & Mineral ` 2 tabls Orally daily Active Lantus 100 UNIT/ML 43 units Subcutaneous daily for 90 days Active Vitamin D3 5000 2 tablets Orally qd for 90 day(s) Active Insulin Glargine 100 UNIT/ML 38 units Subcutaneous at 700 for 90 day( s) Active BD Ultra-fine Pen [place] 32G 4mm as directed _ qd for 90 day(s) Apr, Active PROCEDURES No Information RESULTS No Results [facility] MED[facility] (GENERAL) HISTORY Type Description Date Medical [...] major diagonal branch-December 04, 2010-Dr. Rod Pham [facility]//April 15, 2011 repeat MCKENNA to 80% stenosis LAD distal to previous stents-[facility] cath stable 40% L circ distal stenosis, MCKENNA to focal 75% in stent stenosis of proximal LAD- [facility]/05/11/2013 MCKENNA to 70% proximal LAD stenosis and 75% just distal to previous stent stenosis-Daniel, s/p CABG BEDOYA to LAD and diagonal 11/29/13-Dr. [facility]//05/16/15 catherization done 2 angina-single vessel disease c white nt BEDOYA graft, favored CP 2 -[facility] Medical History acute small R basal ganglion [...] surgery Surgical History vasectomy Surgical History L5/S1 lami/jyjbce-Keap-Mwqiumx 02/2014 Surgical History lap gb 11/14/13 Surgical [...] units Subcutaneous at 700 for 90 day(s) Cyanocobalamin 250 MCG 1 tablet Orally Once a day for 90 day(s) Rosuvastatin Calcium 40 MG 1 tablet Orally Once a day for 90 day (s) Blood Glucose Test - One Touch Verio In Vitro four times montserrat ly - ICD 10 - E11.9 Gabapentin 300 MG 1 capsule in am, 2 in pm Orally twice daily fo r 90 day(s) Tizanidine HCl 2 mg 1 tablet as needed Orally fo r spasms and pain before bedtime May repeat in 4 hrs MDD2 Nitroglycerin 0.4 MG 1 tablet under the tongue Christine blingual As needed chest pain for 90 day(s) Clopidogrel Bisulfate 75 MG 1 tablet Orally Once a day for 90 da y(s) Pantoprazole Sodium 40 MG 1 tab Orally every morning for 90 day( s) Empagliflozin 25 mg 1 tablet Orally every morning for 90 day(s) Voltaren 1 % 2 gm Transdermal QID to feet for 1 days Duloxetine HCl 30 MG 1 capsule Orally bid for 30 day(s) Mar, Viagra 100 MG 1 tablet as needed Orally Once a day prn for 30 day(s) Sildenafil Citrate 100 mg TAKE 1 TABLET NEEDED ONCE A DAY Trulicity 3 MG/0.5ML 3 mg Subcutaneous every 7 days DX: E11. 9 for 90 day(s) May, Insurance Providers Payer Name Payer Address Payer Phone Insured Name Patient Relati onship to Insured Coverage Start Date Coverage End Date [employer] PPO [id number] [facility] [id number] VERA PABON self
--- OUTSIDE RECORDS SUMMARY | 2020-06-12 10:13 | CCD | Continuity of Care Document ---
Author Author [facility] Organization Unknown Address [address], [address] [place] [address] Phone [phone] Care Team Providers Care Advertising Copywriter Name Role Phone William Verdin M.D. AUTM [phone] Problems Active Problems Provider Date Essential hypertension DEONDRE Brooks Onset: Social History Type Date Description Comments Sex Unknown ETOH Use Denies alcohol use Recreational Drug Use Denies Drug Use Tobacco Use Start: Unknown Denies Smoking Smoking Status Reviewed: 04/29/20 Denies Smoking Allergies, Adverse Reactions, Alerts Description [...] Available Vital Signs Date Vital Result Comment 06/09/2020 9:21am BP Systolic 120 mmHg BP Diastolic 82 mmHg Height 76 inches 6'4" Weight 210.12 lb BMI (Body Mass Index) 25.6 kg/m2 [place] Body Weight 202 lb Weight 95.313 kg BSA (Body Surface Area) 2.26 m2 04/29/2020 9:06am BP Systolic 130 mmHg BP Diastolic 70 mmHg Height 76 inches 6'4" Weight 206.50 lb BMI (Body Mass Index) 25.1 kg/m2 [place] Body Weight 202 lb Weight 93.668 kg BSA (Body Surface Area) 2.25 m2 Results Test Acquired Date Facility Test Result H/L Range Note Complete Blood Count 04/22/2020 [facility] Main Lab [address] [place] [address] [id number] [phone] White Blood Count 5.9 10 Normal 4.0-10.0 [...] % Normal 0-0 Basic Metabolic Profile 04/22/2020 [facility] Main Lab [address] [place] [address] [phone] Glucose, Fasting 133 mg/dL High 70-100 Blood [...] Little GFR Left ESRD GFR <15 on DATA EXAMINATION CLERK Procedures Date Code Description Status 04/22/2020 61908 Moderate Sedation Se rvices; Same Phys Intl 15 Mins; PT >= 5 Years Completed 04/22/2020 22219 Revascularization,Endovascular W /Transluminal Angioplasty Completed Medical Devices Description No Information Available Encounters Type Date Location Provider Dx Diagnosis Office Visit 04/29/2020 9:15a [facility] LUCINDA Suazo I70.213 Ath[place]cl [place] arteries of extrm w intrmt [place], bi legs M79.606 Pain in leg, unspecified Office Visit 04/01/2020 9:45a [facility] LUCINDA Suazo I70.213 Athscl [place] arteries of extrm w intrmt [place], bi legs M79.606 Pain in leg, unspecified Assessments Date Code Description Provider 04/29/2020 I70.213 Atherosclerosis of n ative arteries of extremities with intermittent claudication, bilateral legs LUCINDA Bernabe 04/29/2020 M79.606 Pain in leg, unspecified LUCINDA Albert 04/22/2020 I70.211 Atherosclerosis of n ative arteries of extremities with intermittent claudication, right leg Chloé Reagan MD 04/22/2020 I70.221 Atherosclerosis of n ative arteries of extremities with rest pain, right leg Chloé Reagan MD 04/01/2020 I70.213 Atherosclerosis of n ative arteries of extremities with intermittent claudication, bilateral legs LUCINDA Bernabe 04/01/2020 M79.606 Pain in leg, unspecified LUCINDA Albert Plan of Treatment No Information Available Functional Status Description No Information Available Mental Status Description No Information Available Referrals Refer to Dr Reason for Referral Status Appt Date Rosaura Solorio, PEliazarAEliazar PVD Closed 020 826 [facility] [address] [place] [address] [place] [address] [phone]
--- OUTSIDE RECORDS SUMMARY | 2020-06-12 10:14 | CCD ---
Author Author [facility] Organization [facility] Address Unknown Phone Unavailable Care Team Providers Care Seamer Operator Name Role Phone Annia Guevara Unavailable PROBLEMS Type Condition ICD9-CM Code SBZ63-SS Code Onset Dates Condition S tatus SNOMED Code Notes Problem CTS (carpal tunnel syndrome) G56.00 Active 574 89585 Problem Type 2 diabetes mellitus without complication E11.9 Active 25985474 Problem CAD (coronary artery disease) I25.10 Active 53 319843 Problem B12 deficiency E53.8 Active 193282419 Problem Hyperlipidemia E78.5 Active 00471434 Problem Vitamin D deficiency E55.9 Active 87884443 Problem Hypertension I10 Active 04779214 Problem 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 Active 97926478 Problem Cervical dysphagia R13.19 Active 40232395 Problem Osteoarthritis of spine with radiculopathy, lumbar region M47.26 Active 710183157 Problem Nephrolithiasis N20.0 Active 57925181 Problem Prostate cancer screening Z12.5 Active 584154 005 Problem Non morbid obesity due to excess calories E66.09 Active 405420771 Problem Leg cramps R25.2 Active 140987018 Problem Dyspepsia R10.13 Active 585433768 Problem Gastroesophageal reflux disease, esophagitis pre sence not specified K21.9 Active 080536698 Problem Colon cancer screening Z12.11 Active 852921613 Problem Neuralgia of right foot M79.2 Active 18674404 2 Problem Injury of right foot, initial encounter S99.921A Active 668586746 Problem Lumbar radiculopathy, chronic M54.16 Active 12 6545207 Problem ED (erectile dysfunction) N52.9 Active 236027 002 Problem NAFLD (nonalcoholic fatty liver disease) K76.0 Active 514446412 Problem PVD (peripheral vascular disease) I73.9 Active 711815915 Problem Anxiety disorder F41.9 Active 764420826 Problem 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 Active 928090969 Problem Intervertebral disc disorder with radiculopathy of lumbar region M51.16 Active 244576155944953 Problem Lumbar post-laminectomy syndrome M96.1 Active 817959518 Problem Intervertebral disc disorder with radiculopathy of lumbosacral region M51.17 Active 68669530593725408 Problem Right foot pain M79.671 Active 892088332440433 ALLERGIES No Known Allergies ENCOUNTERS from 1967 to 2020-03-13 Encounter Location Date Provider Diagnosis [address] [address] Feb, Annia Guevara Cellulitis of right leg L03.115 and Type 2 diabetes mellitus without complication E11.9 [...] 0 Language: Question Answer Notes Languages spoken: Martiniquais Anabaptism: Question Answer Notes Anabaptism 21 Alevism Sexual Hx: Question Answer Notes Had sex [...] FOR REFERRAL No Information VITAL SIGNS Weight 208 lbs Feb, Height 73.5 in Feb, BMI 27.07 kg/m2 Feb, Heart Rate 107 /min Feb, Respiratory Rate 18 /min Feb, Temperature 97.2 degrees Fahrenheit Feb, Oximetry 98 Feb, Blood pressure systolic 134 mm Hg Feb, Blood pressure diastolic 80 mm Hg Feb, MEDICATIONS Medication SIG (Take, Route, Frequency, Duration) Notes Start Da te End Date Status FreeStyle Elba 14 Day Sensor - as directed subcutaneously D aily for 90 day(s) Oct, Active BD Ultra-fine Pen [place] 32G 4mm as directed _ qd for 90 day(s) Apr, Active Empagliflozin 25 mg 1 tablet Orally every morning for 90 day(s) Active Gabapentin 300 MG 1 capsule Orally three times daily for 90 day(s) Active Multivitamin & Mineral ` 2 tabls Orally daily Active Protonix 40 MG 1 tablet(on plavix no omep.) Orally Once a day Active Cyanocobalamin 1000 MCG 1 tablet Orally Once a day for 90 day(s) Active Rosuvastatin Calcium 40 MG 1 tablet Orally Once a day for 90 day(s) Active Xifaxan 200 MG 1 tablet Orally three times daily 06 Apr, 020 Active Levaquin 500 MG 1 tablet Orally Once a day for 5 day(s) Feb, Active Viagra 100 MG 1 tablet as needed Orally Once a day prn for 90 day(s) Active Insulin Glargine 100 UNIT/ML 45 units Subcutaneous at 700 for 90 day( s) Active Pantoprazole Sodium 40 MG 1 tab Orally every morning for 90 day(s) Not-Taking Voltaren 1 % 2 gm Transdermal QID to feet for 1 days Active BD Ultra-fine Pen [place] 32G 4mm as directed subcutan eously once a week DX: E11.9 for 90 day(s) May, Active Lantus 100 UNIT/ML 43 units Subcutaneous daily Active Clopidogrel Bisulfate 75 MG 1 tablet Orally Once a day for 90 day(s) Active Clopidogrel Bisulfate 75MG TAKE 1 TABLET DAILY Active Tums E-X 750 750 MG 1 tablet Orally bid Active FreeStyle Elba [place] - as directed subcutaneously Daily, E 13.9 for 90 day(s) Oct, Active Trulicity 0.75 MG/0.5ML 0.5ml Subcutaneous once a week DX: E11.9 for 90 days May, Active Blood Glucose Test - One Touch Verio In Vitro four times montserrat ly - ICD 10 - E11.9 Active Vitamin D3 5000 1 tablet Orally qd for 90 day(s) Active Tizanidine HCl 2 MG 1 tablet as needed Orally fo r spasms and pain before bedtime May repeat in 4 hrs MDD2 for 90 day(s) August, Active Mupirocin 2 % apply thin layer to affected areas on right leg Externally Three times a day for 7 day(s) Feb, Active Pramipexole Dihydrochloride 1 MG TAKE 1 TABLET BEFORE BEDTIME Active Nitroglycerin 0.4 MG 1 tablet under the tongue Christine blingual As needed chest pain for 90 day(s) Active OneTouch Verio _ as directed In Vitro bid for 90 day(s) Active Insulin Pen Needle 32G X 5 MM as directed sublingually monthly f or 90 day(s) Active PROCEDURES No Information RESULTS No Results REASON FOR VISIT rt leg injury, med refills MEDICAL (GENERAL) HISTORY Type Description Date Medical History T2DM IR with microalbuminuria, periphera l neuropathy Medical History morbid obesity-s/p laproscop ic gastric bypass 11/14/13 Dr. Grider Medical History obstructive sleep apnea Medical History hyperlipidemia 2B Medical History hypertension-05/2013 [...] major diagonal branch-December 04, 2010-Dr. Rod Pham [facility]//April 15, 2011 repeat MCKENNA to 80% stenosis LAD distal to previous stents-[facility] cath stable 40% L circ distal stenosis, MCKENNA to focal 75% in stent stenosis of proximal LAD- [facility]/05/11/2013 MCKENNA to 70% proximal LAD stenosis and 75% just distal to previous stent stenosis-Daniel, s/p CABG BEDOYA to LAD and diagonal 11/29/13-Dr. [facility]//05/16/15 catherization done 2 angina-single vessel disease c white nt BEDOYA graft, favored CP 2 -[facility] Medical History acute small R basal ganglion and internal capsule hemorrhagic CVA probably 2 aspirin 81 qd, Plavix 75 qd and heparin given during 05/11/2013 catherization with 2 L lateral foot numbness, seen by 05/29/2013 MRI, - MRA B carotids, no extension nor hemorrhage by CT brain 05/31/2013 Medical History lumbar spondylosis with diff use bulges L3-5 with minimal sac compression, L L4 and moderate B S1 compression by 09/2013 MRI Medical History B CTS-diagnosed by [facility] Medical History NAFLD-09/2015 FS 2 21 Medical History GERD/cervical dysphagia/dyspepsia-04/2018 EGD small HH-R Medical History LEFT SCAPULA FRACTURE Surgical History Left Femur surgery Surgical History vasectomy Surgical History gastric bypass 11/05 Surgical History Back surgery @ [facility] 02/2014 Hospitalization History R basal ganglion/IC hemorrha gic CVA 2 aspirin/Plavix/heparin from 05/11/13 cath, ARF 2 dehydration/hypotension (SBP high 90s) 2 viral GE/meds/cath dye 05/29-09/2013 Hospitalization History Gastric bypass surgery 11/14/2013 Hospitalization History Open heart surgery 11/29/2013 Goals Section No Information Health Concerns No Information MEDICAL EQUIPMENT No Information MENTAL STATUS No Information FUNCTIONAL STATUS No Information ASSESSMENTS Encounter Date Diagnosis Assessment Notes Treatment Notes Treatm ent Clinical Notes Feb, Cellulitis of right leg (ICD-10 - L03.115) Dr. Verdin examined pt as well. Will start Levaquin. Warm compresses are fine, elevate the leg. Ointment to laceration as directed. F/U 3-4 days; sooner with any worsening of sxs Feb, Type 2 diabetes mellitus without complication (I CD-10 - E11.9) PLAN OF TREATMENT Medication Medication Name Sig Start Date Stop Date FreeStyle Elba 14 Day Sensor - as directed subcutaneously D aily for 90 day(s) Oct, Mupirocin 2 % apply thin layer to affected areas on right leg Externally Three times a day for 7 day(s) Feb, FreeStyle Elba [place] - as directed subcutaneously Daily, E 13.9 for 90 day(s) Oct, Levaquin 500 MG 1 tablet Orally Once a day for 5 day(s) Feb, Gabapentin 300 MG 1 capsule Orally three times daily for 90 day( s) Treatment Notes Assessment Notes Clinical Notes Cellulitis of right leg Dr. Verdin examined pt as wel l. Will start Levaquin. Warm compresses are fine, elevate the leg. Ointment to laceration as directed. F/U 3- 4 days; sooner with any worsening of sxs Next Appt Details or tuesday with Max Reason: Provider Name:Annia Guevara, 2019-04 09:00:00 AM, [address] [place] [address], [phone], Provider Name:William Verdin, 2020-04-01 0 9:45:00 AM, [address] [place] [address], [phone], Insurance Providers Payer Name Payer Address Payer Phone Insured Name Patient Relati onship to Insured Coverage Start Date Coverage End Date BCBS [place] THANH PPO [id number] [facility] [employer] [facility] [place] [id number] VERA PBAON self
--- OUTSIDE RECORDS SUMMARY | 2020-06-12 10:14 | CCD | Continuity of Care Document ---
Author Author [facility] [place] Organization Unknown Address [address] [facility], [address] [place] [address] Phone [phone] Care Team Providers Care Electrocardiograph Repairer Name Role Phone William Verdin M.D. AUTM [phone] Problems Active Problems Provider Date Essential hypertension [...] Available Vital Signs Date Vital Result Comment 04/01/2020 9:48am BP Systolic 136 mmHg BP Diastolic 84 mmHg Height 76 inches 6'4" Weight 214.00 lb BMI (Body Mass Index) 26.0 kg/m2 [place] Body Weight 202 lb Weight 97.070 kg BSA (Body Surface Area) 2.28 m2 2018 9:44am BP Systolic 120 mmHg BP Diastolic 78 mmHg Height 76 inches 6'4" Weight 221.00 lb BMI (Body Mass Index) 26.9 kg/m2 [place] Body Weight 202 lb Weight 100.246 kg BSA (Body Surface Area) 2.31 m2 Results Description No Information Available Procedures Description No Information Available Medical Devices Description No Information Available Encounters Description No Information Available Assessments Description No Information Available Plan of Treatment No Information Available Functional Status Description No Information Available Mental Status Description No Information Available Referrals Refer to Reason for Referral Status Appt Date Rosaura Solorio P.A. PVRoz Scheduled 020 826 [facility] [address] [place] [address] [place] [id number] [phone]
--- OUTSIDE RECORDS SUMMARY | 2020-06-12 10:14 | CCD ---
Author Author [facility] Organization [facility] Address Unknown Phone Unavailable Care Team Providers Care Front Office Help Name Role Phone William Verdin Unavailable PROBLEMS Type Condition ICD9-CM Code [id number] Code Onset Dates Condition S tatus SNOMED Code Notes Problem CTS (carpal tunnel syndrome) G56.00 Active 576 62399 Problem Type 2 diabetes mellitus without complication E11.9 Active 02479904 Problem CAD (coronary artery disease) I25.10 Active 53 534903 Problem B12 deficiency E53.8 Active 451163926 Problem Hyperlipidemia E78.5 Active 98085478 Problem Vitamin D deficiency E55.9 Active 44505778 Problem Hypertension I10 Active 97711867 Problem 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 Active 35793228 Problem Cervical dysphagia R13.19 Active 74913036 Problem Osteoarthritis of spine with radiculopathy, lumbar region M47.26 Active 936434245 Problem Nephrolithiasis N20.0 Active 41700779 Problem Prostate cancer screening Z12.5 Active 606312 005 Problem Non morbid obesity due to excess calories E66.09 Active 507214271 Problem Leg cramps R25.2 Active 408974499 Problem Dyspepsia R10.13 Active 306852479 Problem Gastroesophageal reflux disease, esophagitis pre sence not specified K21.9 Active 948739290 Problem Colon cancer screening Z12.11 Active 807833103 Problem Neuralgia of right foot M79.2 Active 77761979 2 Problem Injury of right foot, initial encounter S99.921A Active 066308275 Problem Lumbar radiculopathy, chronic M54.16 Active 12 2648661 Problem ED (erectile dysfunction) N52.9 Active 682116 002 Problem NAFLD (nonalcoholic fatty liver disease) K76.0 Active 269133451 Problem PVD (peripheral vascular disease) I73.9 Active 467128264 Problem Anxiety disorder F41.9 Active 225946109 Problem 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 Active 307499817 Problem Intervertebral disc disorder with radiculopathy of lumbar region M51.16 Active 302427483186916 Problem Lumbar post-laminectomy syndrome M96.1 Active 335216805 Problem Intervertebral disc disorder with radiculopathy of lumbosacral region M51.17 Active 27819422865216527 Problem Right foot pain M79.671 Active [id number] ALLERGIES No Known Allergies ENCOUNTERS from 1965 to 2020-03-29 Encounter Location Date Provider Diagnosis [address] [address] Feb, 020 William Verdin ED (erectile dysfunction) N52.9 IMMUNIZATIONS Vaccine Route Administration Date Status Influenza [...] Education Language: Question Answer Notes Languages spoken: Greenlandic Anabaptist: Question Answer Notes Anabaptist 23 Yarsani Sexual Hx: Question Answer Notes Had sex [...] Orally every morning for 90 day(s) Not-Taking Insulin Glargine 100 UNIT/ML 45 units Subcutaneous at 700 for 90 day( s) Active Insulin Pen Needle 32G X 5 MM as directed sublingually monthly f or 90 day(s) Active Empagliflozin 25 mg 1 tablet Orally every morning for 90 day(s) Active Protonix 40 MG 1 tablet(on plavix no omep.) Orally Once a day Active Trulicity 0.75 MG/0.5ML 0.5ml Subcutaneous once a week DX: E11.9 for 90 days May, Active Vitamin C 500 MG as directed Orally Active Rosuvastatin Calcium 40 MG 1 tablet Orally Once a day for 90 day(s) Active Multivitamin & Mineral ` 2 tabls Orally daily Active FreeStyle [place] - as directed subcutaneously Daily, E 13.9 for 90 day(s) Oct, Active Cyanocobalamin 1000 MCG 1 tablet Orally Once a day for 90 day(s) Active Tums E-X 750 750 MG 1 tablet Orally bid Active Nitroglycerin 0.4 MG 1 tablet under the tongue Christine blingual As needed chest pain for 90 day(s) Active Blood Glucose Test - One Touch Verio In Vitro four times montserrat ly - ICD 10 - E11.9 Active OneTouch Verio _ as directed In Vitro bid for 90 day(s) Active Vitamin D3 5000 1 tablet Orally qd for 90 day(s) Active Mupirocin 2 % apply thin layer to affected areas on right leg Externally Three times a day for 7 day(s) Feb, Active Clopidogrel Bisulfate 75MG TAKE 1 TABLET DAILY Active BD Ultra-fine Pen [place] 32G 4mm as directed _ qd for 90 day(s) Apr, Active FreeStyle [place] 14 Day Sensor - as directed subcutaneously D aily for 90 day(s) Oct, Active Levaquin 500 MG 1 tablet Orally Once a day for 5 day(s) Feb, Active Gabapentin 300 MG 1 capsule Orally three times daily for 90 day(s) Active Voltaren 1 % 2 gm Transdermal QID to feet for 1 days Active Pramipexole Dihydrochloride 1 MG TAKE 1 TABLET BEFORE BEDTIME Active BD Ultra-fine Pen [place] 32G 4mm as directed subcutan eously once a week DX: E11.9 for 90 day(s) May, Active Clopidogrel Bisulfate 75 MG 1 tablet Orally Once a day for 90 day(s) Active Vitamin C 500 MG 1 tablet Orally Once a day for 90 days Feb, Active Tizanidine HCl 2 MG 1 tablet as needed Orally fo r spasms and pain before bedtime May repeat in 4 hrs MDD2 for 90 day(s) August, Active Viagra 100 MG 1 tablet as needed Orally Once a day prn for 90 day(s) Active Lantus 100 UNIT/ML 43 units Subcutaneous daily for 90 days Active PROCEDURES No Information RESULTS No Results REASON FOR VISIT wrong QTY for Viagra 100 MG Tablet MEDICAL (GENERAL) HISTORY Type Description Date Medical History T2DM IR with microalbuminuria, periphera l neuropathy Medical History morbid obesity-s/p laproscop ic gastric bypass 11/14/13 Dr. Grider Medical History obstructive sleep apnea Medical History hyperlipidemia 2B Medical History hypertension-05/2013 TTE LAE 38 mm othere tucker normal-[facility] Medical History nonalcoholic failure liver d isease-negative workup January 2002/ FS2 21 Medical History history of nephrolithiasis [...] to 80% stenosis LAD distal to previous stents-[facility] cath stable 40% L circ distal stenosis, MCKENNA to focal 75% [facility] MCKEN[facility] to 70% proximal LAD stenosis and 75% just distal to previous stent stenosis-Daniel, s/p CABG BEDOYA to LAD and diagonal 11/29/13-[facility]. [facility]//05/16/15 catherization done 2 angina-single vessel disease c white nt BEDOYA graft, favored CP 2 -[facility] Medical History acute small R basal ganglion [...] bypass 11/05 Surgical History Back surgery @ [facility] 02/2014 Hospitalization History R basal ganglion/IC hemorrha [...] Treatment Notes Treatm ent Clinical Notes Feb, ED (erectile dysfunction) (ICD-10 - N52.9) PLAN OF TREATMENT Medication Medication Name Sig Start Date Stop Date Viagra 100 MG 1 tablet as needed Orally Once a day prn for 90 day(s) Lantus 100 UNIT/ML 43 units Subcutaneous daily for 90 days Tizanidine HCl 2 MG 1 tablet as needed Orally fo r spasms and pain before bedtime May repeat in 4 hrs MDD2 for 90 day(s) August, Vitamin C 500 MG 1 tablet Orally Once a day for 90 days Feb, Vitamin D3 5000 1 tablet Orally qd for 90 day(s) BD Ultra-fine Pen [place] 32G 4mm as directed _ qd for 90 day(s) Apr, Cyanocobalamin 1000 MCG 1 tablet Orally Once a day for 90 day(s) Next Appt Details Provider Name:William Verdin, 2020-04-07 0 3:00:00 PM, [facility] [place], [address], Insurance Providers Payer Name Payer Address Payer Phone Insured Name Patient Relati onship to Insured Coverage Start Date Coverage End Date BCBS JELENA LAW [facility] [id number] [facility] [place] [address] VERA PABON self
--- OUTSIDE RECORDS SUMMARY | 2020-06-12 10:14 | CCD ---
Author Author [facility] Organization [facility] Address Unknown Phone Unavailable Care Team Providers Care Sample Tester Name Role Phone ANTECOL, Christine AZUL MD Unavailable Unavailable ANTECOL, Christine AZUL MD Unavailable Unavailable ANTECOL, Christine AZUL MD Unavailable Unavailable ANTECOL, Christine AZUL MD Unavailable Unavailable ANTECOL, Christine AZUL MD Unavailable Unavailable ANTECOL, Christine AZUL MD Unavailable Unavailable ANTECOL, Christine AZUL MD Unavailable Unavailable ANTECOL, Christine AZUL MD Unavailable Unavailable ANTECOL, Christine AZUL MD Unavailable Unavailable ANTECOLChristine MD Unavailable Unavailable ANTECOL, Christine AZUL MD Unavailable Unavailable ANTECOLChristine MD Unavailable Unavailable ANTECOL, Christine AZUL MD Unavailable Unavailable ANTECOL, Christine AZUL MD Unavailable Unavailable ANTECOLChristine MD Unavailable Unavailable ANTECOLChristine MD Unavailable Unavailable ANTECOLChristine MD Unavailable Unavailable ANTECOLChristine MD Unavailable Unavailable ANTECOLChristine MD Unavailable Unavailable ANTECOLChristine MD Unavailable Unavailable ANTECOLChristine MD Unavailable Unavailable ANTECOLChristine MD Unavailable Unavailable ANTECOLChristine MD Unavailable Unavailable ANTECOLChristine MD Unavailable Unavailable ANTECOLChristine MD Unavailable Unavailable ANTECOLChristine MD Unavailable Unavailable ANTECOLChristine MD Unavailable Unavailable ANTECOLChristine MD Unavailable Unavailable ANTECOLChristine MD Unavailable Unavailable ANTECOLChristine MD Unavailable Unavailable ANTECOLChristine MD Unavailable Unavailable ANTECOLChristine MD Unavailable Unavailable ANTECOLChristine MD Unavailable Unavailable ANTECOL, Christine AZUL MD Unavailable Unavailable ANTECOL, Christine AZUL MD Unavailable Unavailable ANTECOL, Christine AZUL MD Unavailable Unavailable ANTECOL, Christine AZUL MD Unavailable Unavailable ANTECOL, Christine AZUL MD Unavailable Unavailable ANTECOL, Christine AZUL MD Unavailable Unavailable ANTECOL, Christine AZUL MD Unavailable Unavailable ANTECOL, Christine AZUL MD Unavailable Unavailable ANTECOL, Christine AZUL MD Unavailable Unavailable ANTECOL, Christine AZUL MD Unavailable Unavailable ANTECOL, Christine AZUL MD Unavailable Unavailable ANTECOL, Christine AZUL MD Unavailable Unavailable ANTECOL, Christine AZUL MD Unavailable Unavailable ANTECOL, Christine AZUL MD Unavailable Unavailable ANTECOL, Christine AZUL MD Unavailable Unavailable ANTECOL, Christine AZUL MD Unavailable Unavailable ANTECOL, Christine AZUL MD Unavailable Unavailable ANTECOL, Christine AZUL MD Unavailable Unavailable ANTECOL, Christine AZUL MD Unavailable Unavailable ANTECOL, Christine AZUL MD Unavailable Unavailable ANTECOL, Christine AZUL MD Unavailable Unavailable ANTECOL, Christine AZUL MD Unavailable Unavailable Fish, [facility], PA-C Unavailable Unavailabl e Fish, [facility], PA-C Unavailable Unavailabl e Fish, [facility], [facility]C Unavailable Unavailabl e Fish, Chandni [facility], PA-C Unavailable Unavailabl e Fish, Chand[facility], PA-C Unavailable Unavailabl e Fish, [facility], PA-C Unavailable Unavailabl e Fish, [facility], PA-C Unavailable Unavailabl e Fish, [facility], PA-C Unavailable Unavailabl e Fish, Chandni [facility], PA-C Unavailable Unavailabl e Fish, [facility], PA-C Unavailable Unavailabl e Fish, Chandni [facility], PA-C Unavailable Unavailabl e Fish, [facility] Unavailable Unavailabl e Fish, Chandni [facility], PA-C Unavailable Unavailabl e Fish, [facility], PA-C Unavailable Unavailabl e Fish, [facility], PA-C Unavailable Unavailabl e Fish, Chandni [facility], PA-C Unavailable Unavailabl e Fish, [facility], PA-C Unavailable Unavailabl e Fish, [facility], PA-C Unavailable Unavailabl e Fish, [facility], [facility] Unavailable Unavailabl e Fish, [facility], [facility]C Unavailable Unavailabl e Fish, [facility], PA-C Unavailable Unavailabl e Fish, [facility], PA-C Unavailable Unavailabl e Fish, [facility], PA-C Unavailable Unavailabl e Fish, [facility], PA-C Unavailable Unavailabl e Fish, [facility], PA-C Unavailable Unavailabl e Fish, [facility], PA-C Unavailable Unavailabl e Fish, [facility], PA-C Unavailable Unavailabl e Fish, [facility], PA-C Unavailable Unavailabl e Fish, [facility], PA-C Unavailable Unavailabl e Fish, [facility], PA-C Unavailable Unavailabl e Fish, [facility], PA-C Unavailable Unavailabl e Fish, [facility], PA-C Unavailable Unavailabl e Fish, [facility], PA-C Unavailable Unavailabl e Solorio, L Rosaura RPA Unavailable Unavailable Solorio, L Rosaura RPA Unavailable Unavailable Solorio, L Rosaura RPA Unavailable Unavailable Solorio, L Rosaura RPA Unavailable Unavailable Solorio, L Rosaura RPA Unavailable Unavailable Solorio, L Rosaura RPA Unavailable Unavailable Solorio, L Rosaura RPA Unavailable Unavailable Solorio, L Rosaura RPA Unavailable Unavailable Solorio, L Rosaura RPA Unavailable Unavailable Solorio, L Rosaura RPA Unavailable Unavailable Solorio, L Rosaura RPA Unavailable Unavailable Solorio, L Rosaura RPA Unavailable Unavailable Solorio, L Rosaura RPA Unavailable Unavailable Solorio, L Rosaura RPA Unavailable Unavailable Solorio, L Rosaura RPA Unavailable Unavailable Solorio, L Rosaura RPA Unavailable Unavailable Solorio, L Rosaura RPA Unavailable Unavailable Solorio, L Rosaura RPA Unavailable Unavailable Solorio, L Rosaura RPA Unavailable Unavailable Solorio, L Rosaura RPA Unavailable Unavailable Solorio, L Rosaura RPA Unavailable Unavailable Solorio, L Rosaura RPA Unavailable Unavailable Solorio, L Rosaura RPA Unavailable Unavailable Solorio, L Rosaura RPA Unavailable Unavailable Solorio, L Rosaura RPA Unavailable Unavailable Solorio, L Rosaura RPA Unavailable Unavailable Solorio, L Rosaura RPA Unavailable Unavailable Solorio, L Rosaura RPA Unavailable Unavailable Solorio, L Rosaura RPA Unavailable Unavailable Solorio, L Rosaura RPA Unavailable Unavailable Solorio, L Rosaura RPA Unavailable Unavailable Solorio, L Rosaura RPA Unavailable Unavailable Re-disclosure Warning The records that you are about to access may contain information from federally-assisted alcohol or drug abuse programs. If such information is present, then the following federally mandated warning applies: This information has been disclosed to you from records protected by federal confidentiality rules (42 CFR part 2). The federal rules prohibit you from making any further disclosure of this information unless further disclosure is expressly permitted by the written consent of the person to whom it pertains or as otherwise permitted by 42 CFR part 2. A general authorization for the release of medical or other information is NOT sufficient for this purpose. The Federal rules restrict any use of the information to criminally investigate or prosecute any alcohol or drug abuse patient.The records that you are about to access may contain highly sensitive health information, the redisclosure of which is protected by Article 27-F of the [facility] Public Health law. If you continue you may have access to information: Regarding HIV / AIDS; Provided by facilities licensed or operated by the [facility] Office of Mental Health; or Provided by the [facility] Office for People With Developmental Disabilities. If such information is present, then the following [facility] mandated warning applies: This information has been disclosed to you from confidential records which are protected by state law. State law prohibits you from making any further disclosure of this information without the specific written consent of the person to whom it pertains, or as otherwise permitted by law. Any unauthorized further disclosure in violation of state law may result in a fine or snf sentence or both. A general authorization for the release of medical or other information is NOT sufficient authorization for further disc losure. Family History Family Member Name Family Member Gender Family Member Status Date o f Status Description Data Source(s) Unknown Male Problem MEDENT ([facility] Unknown Unknown Problem MEDENT ([facility]) Unknown Unknown Problem MEDENT ([facility]) Unknown Male Problem MEDENT ([facility]) Encounters Encounter Providers Location Date Indications Data Source(s ) [place] [address] [facility] [address] 05/07/2020 12:00:00 AM EST eCW1 ([facility]) [place] [address] [facility] [address] 05/05/2020 12:00:00 AM EST eCW1 ([facility]) Outpatient Attender: Rosaura Brown/Antimony/Setve/R eindl 04/29/2020 08:15:00 AM EST [facility] ([facility] [place] [address] [facility] [address] 04/28/2020 12:00:00 AM EST eCW1 ([facility]) [place] [address] [facility] [address] 04/14/2020 12:00:00 AM EST eCW1 ([facility]) [place] [address] [facility] [address] 04/07/2020 12:00:00 AM EST eCW1 ([facility]) Outpatient Attender: Rosaura Brown/Antimony/Steve/R eindl 04/01/2020 08:45:00 AM EST [facility] ([facility]) [place] [address] [facility] [address] 03/17/2020 12:00:00 AM EST eCW1 ([facility]) [place] [address] [facility] [address] 03/14/2020 12:00:00 AM EST eCW1 ([facility]) [place] [address] [facility] [address] 03/10/2020 12:00:00 AM EST eCW1 ([facility]) [place] [address] [facility] [address] 03/10/2020 12:00:00 AM EST eCW1 ([facility]) [place] [address] [facility] [address] 03/06/2020 12:00:00 AM EST eCW1 ([facility]) [place] [address] [facility] [address] 03/03/2020 12:00:00 AM EST eCW1 ([facility]) [place] [address] [facility] [address] 03/03/2020 12:00:00 AM EST eCW1 ([facility]) [place] [address] [facility] [address] 02/21/2020 12:00:00 AM EDT [facility]CW1 [facility] [place] [place] [address] [facility] [address] 02/18/2020 12:00:00 AM EDT eCW1 ([facility]) [place] [address] [facility] [address] 11/13/2019 12:00:00 AM EDT eCW1 ([facility]) [facility] [address] [facility] [address] 10/25/2019 12:00:00 AM EDT eCW1 ([facility]) [facility] [address] [facility] [address] 09/06/2019 12:00:00 AM EDT eCW1 ([facility]) Outpatient Attender: JORGE ALBERTO LOVING MD Main Office 07/06/2019 08:45:00 AM EDT MEDENT ([facility]) Outpatient Referrer: Gracy MULLER PA-C 06/19/2019 10:0 5:00 AM EST [facility] [address] [facility] [address] 06/19/2019 12:00:00 AM EST eCW1 ([facility]) [facility] [address] [facility] [address] 06/18/2019 12:00:00 AM EST eCW1 ([facility]) [facility] [address] [facility] [address] 06/13/2019 12:00:00 AM EST [facility]CW1 [facility] [address] [facility] [address] 06/11/2019 12:00:00 AM EST [facility] [address] [facility] [address] 06/04/2019 12:00:00 AM EST eCW1 ([facility]) [facility] [address] [place] [address] 05/01/2019 12:00:00 AM EST eCW1 ([facility]) [address] [place] [address] 04/27/2019 12:00:00 AM EST eCW1 ([facility]) [address] [place] [address] 04/24/2019 12:00:00 AM EST eCW1 ([facility]) [address] [place] [address] 04/24/2019 12:00:00 AM EST eCW1 ([facility]) [address] [place] [address] 04/23/2019 12:00:00 AM EST eCW1 ([facility]) Medications Medication Brand Name Start Date Product Form Dose Route Admi nistrative Instructions Pharmacy Instructions Status Indications Reaction Description Data Source(s) 500 mg 06/10/2020 12:00:00 AM EST tablet 21 TAKE ONE TABLET BY MOUTH EVERY DAY FOR 21 DAYS TAKE ONE TABLET BY MOUTH EVERY DAY FOR 21 DAYS SOLD: 021 [facility] duloxetine 30 MG Delayed Release Oral Capsule Duloxeti ne HCl 30 MG Duloxetine HCl 30 MG 04/07/2020 12:00:00 AM EST 1.0 {capsule} a ctive Duloxetine HCl 30 MG eCW1 ([facility]) duloxetine 30 MG Delayed Release Oral Capsule Duloxeti ne HCl 30 MG Duloxetine HCl 30 MG 04/07/2020 12:00:00 AM EST 1.0 {capsule} a ctive Duloxetine HCl 30 MG eCW1 ([facility]) duloxetine 30 MG Delayed Release Oral Capsule Duloxeti ne HCl 30 MG Duloxetine HCl 30 MG 04/07/2020 12:00:00 AM EST 1.0 {capsule} a ctive Duloxetine HCl 30 MG eCW1 ([facility]) duloxetine 30 MG Delayed Release Oral Capsule Duloxeti ne HCl 30 MG Duloxetine HCl 30 MG 04/07/2020 12:00:00 AM EST 1.0 {capsule} a ctive Duloxetine HCl 30 MG eCW1 ([facility]) duloxetine 30 MG Delayed Release Oral Capsule Duloxeti ne HCl 30 MG Duloxetine HCl 30 MG 04/07/2020 12:00:00 AM EST 1.0 {capsule} a ctive Duloxetine HCl 30 MG eCW1 ([facility]) Ascorbic Acid 500 MG Oral Tablet Vitamin C 500 MG Vitamin C 500 MG 03/14/2020 12:00:00 AM EST 1.0 {tablet} active Vi tamin C 500 MG eCW1 ([facility]) Ascorbic Acid 500 MG Oral Tablet Vitamin C 500 MG Vitamin C 500 MG 03/14/2020 12:00:00 AM EST 1.0 {tablet} active Vi tamin C 500 MG eCW1 ([facility]) 32 gauge x 5/32" 03/14/2020 12:00:00 AM EST needle 180 USE DIRECTED ONCE DAILY USE DIRECTED ONCE DAILY SOLD: 03/15/2020 [facility] 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 03/11/2020 12:00:00 AM EST mis c 1 USE DIRECTED DAILY USE DIRECTED DAILY SOLD: 03/11/2020 [facility] Mupirocin 0.02 MG/MG Topical Ointment Mupirocin 2 % Mupiroci n 2 % 03/10/2020 12:00:00 AM EST active Mupiroci n 2 % eCW1 ([facility]) FLASH GLUCOSE SENSOR 03/10/2020 12:00:00 AM EST kit 6 USE DIRECTED USE DIRECTED SOLD: 03/10/2020 [facility] Levofloxacin 500 MG Oral Tablet Levaquin 500 MG Levaquin 500 MG 03/10/2020 12:00:00 AM EST 1.0 {tablet} active Le vaquin 500 MG eCW1 ([facility]) 500 mg 03/10/2020 12:00:00 AM EST tablet 5 TAKE ONE TABLET BY MOUTH EVERY DAY FOR 5 DAYS TAKE ONE TABLET BY MOUTH EVERY DAY FOR 5 DAYS SOLD: 03/10/2020 [facility] Levofloxacin 500 MG Oral Tablet Levaquin 500 MG Levaquin 500 MG 03/10/2020 12:00:00 AM EST 1.0 {tablet} active Le vaquin 500 MG eCW1 ([facility]) Levofloxacin 500 MG Oral Tablet Levaquin 500 MG Levaquin 500 MG 03/10/2020 12:00:00 AM EST 1.0 {tablet} active Le vaquin 500 MG eCW1 ([facility]) Mupirocin 0.02 MG/MG Topical Ointment Mupirocin 2 % Mupiroci n 2 % 03/10/2020 12:00:00 AM EST active Mupiroci n 2 % eCW1 ([facility]) Mupirocin 0.02 MG/MG Topical Ointment Mupirocin 2 % Mupiroci n 2 % 03/10/2020 12:00:00 AM EST active Mupiroci n 2 % eCW1 ([facility]) FLASH GLUCOSE SENSOR 03/10/2020 12:00:00 AM EST kit 6 USE DIRECTED USE DIRECTED SOLD: 06/03/2020 [facility] Mupirocin 0.02 MG/MG Topical Ointment Mupirocin 2 % Mupiroci n 2 % 03/10/2020 12:00:00 AM EST active Mupiroci n 2 % eCW1 ([facility]) Levofloxacin 500 MG Oral Tablet Levaquin 500 MG Levaquin 500 MG 03/10/2020 12:00:00 AM EST 1.0 {tablet} active Le vaquin 500 MG eCW1 ([facility]) 2 % 03/10/2020 12:00:00 AM EST ointment 22 APPLY THIN LAYER TO AFFECTED AREAS ON RIGHT LEG THREE TIMES A DAY FOR 7 DAYS APPLY THIN LAYER TO AFFECTED AREAS ON RIGHT LEG THREE TIMES A DAY FOR 7 DAYS SOLD: 03/10/2020 [facility] FreeStyle Elba Makanda - FreeStyle Elba Makanda - 10/25/2019 12:00: 00 AM EDT active FreeStyle Elba Makanda - eCW1 ([facility]) 1 % 10/25/2019 12:00:00 AM EDT gel 500 APPLY 2 GRAMS TOPICALLY TO BOTH FEET FOUR TIMES A DAY APPLY 2 GRAMS TOPICALLY TO BOTH FEET FOUR TIMES A DAY SOLD: 10/27/2019 [facility] FreeStyle Elba 14 Day Sensor - FreeStyle Elba 14 Day Senso r - 10/25/2019 12:00:00 AM EDT active FreeStyl e Elba 14 Day Sensor - eCW1 ([facility]) FreeStyle Elba 14 Day Sensor - FreeStyle Elba 14 Day Senso r - 10/25/2019 12:00:00 AM EDT active FreeStyl e Elba 14 Day Sensor - eCW1 ([facility]) FreeStyle Elba 14 Day Sensor - FreeStyle Elba 14 Day Senso r - 10/25/2019 12:00:00 AM EDT active FreeStyl e Elba 14 Day Sensor - eCW1 ([facility]) FreeStyle Elba Makanda - FreeStyle Elba Makanda - 10/25/2019 12:00: 00 AM EDT active FreeStyle Elba Makanda - eCW1 ([facility]) FreeStyle Elba Makanda - FreeStyle Elba Makanda - 10/25/2019 12:00: 00 AM EDT active FreeStyle Elba Makanda - eCW1 ([facility]) FreeStyle Elba Makanda - FreeStyle Elba Makanda - 10/25/2019 12:00: 00 AM EDT active FreeStyle Elba Makanda - eCW1 ([facility]) FreeStyle Elba Makanda - FreeStyle Elba Makanda - 10/25/2019 12:00: 00 AM EDT active FreeStyle Elba Makanda - eCW1 ([facility]) FreeStyle Elba Makanda - FreeStyle Elba Makanda - 10/25/2019 12:00: 00 AM EDT active FreeStyle Elba Makanda - eCW1 ([facility]) FreeStyle Elba Makanda - FreeStyle Elba Makanda - 10/25/2019 12:00: 00 AM EDT active FreeStyle Elba Makanda - eCW1 ([facility]) FreeStyle Elba 14 Day Sensor - FreeStyle Elba 14 Day Senso r - 10/25/2019 12:00:00 AM EDT active FreeStyl e Elba 14 Day Sensor - eCW1 ([facility]) FreeStyle Elba Makanda - FreeStyle Elba Makanda - 10/25/2019 12:00: 00 AM EDT active FreeStyle Elba Makanda - eCW1 ([facility]) FreeStyle Elba Makanda - FreeStyle Elba Makanda - 10/25/2019 12:00: 00 AM EDT active FreeStyle Elba Makanda - eCW1 ([facility]) FreeStyle Elba Makanda - FreeStyle Elba Makanda - 10/25/2019 12:00: 00 AM EDT active FreeStyle Elba Makanda - eCW1 ([facility]) FreeStyle Elba 14 Day Sensor - FreeStyle Elba 14 Day Senso r - 10/25/2019 12:00:00 AM EDT active FreeStyl e Elba 14 Day Sensor - eCW1 ([facility]) FreeStyle Elba 14 Day Sensor - FreeStyle Elba 14 Day Senso r - 10/25/2019 12:00:00 AM EDT active FreeStyl e Elba 14 Day Sensor - eCW1 ([facility]) FreeStyle Elba 14 Day Sensor - FreeStyle Elba 14 Day Senso r - 10/25/2019 12:00:00 AM EDT active FreeStyl e Elba 14 Day Sensor - eCW1 ([facility]) FreeStyle Elba 14 Day Sensor - FreeStyle Elba 14 Day Senso r - 10/25/2019 12:00:00 AM EDT active FreeStyl e [place]ba 14 Day Sensor - eCW1 ([facility]) FreeStyle Elba 14 Day Sensor - FreeStyle Elba 14 Day Senso r - 10/25/2019 12:00:00 AM EDT active FreeStyl e [place]ba 14 Day Sensor - eCW1 ([facility]) FreeStyle Elba Makanda - FreeStyle Elba Makanda - 10/25/2019 12:00: 00 AM EDT active FreeStyle Elba Makanda - eCW1 ([facility]) FreeStyle Elba Makanda - FreeStyle Elba Makanda - 10/25/2019 12:00: 00 AM EDT active FreeStyle Elba Makanda - eCW1 ([facility]) FreeStyle Elba Makanda - FreeStyle Elba Makanda - 10/25/2019 12:00: 00 AM EDT active FreeStyle Elba Makanda - eCW1 ([facility]) FreeStyle Elba 14 Day Sensor - FreeStyle Elba 14 Day Senso r - 10/25/2019 12:00:00 AM EDT active FreeStyl e [place]ba 14 Day Sensor - eCW1 ([facility]) FreeStyle Elba 14 Day Sensor - FreeStyle Elba 14 Day Senso r - 10/25/2019 12:00:00 AM EDT active FreeStyl e Elba 14 Day Sensor - eCW1 ([facility]) FreeStyle Elba 14 Day Sensor - FreeStyle Elba 14 Day Senso r - 10/25/2019 12:00:00 AM EDT active FreeStyl e [place]ba 14 Day Sensor - eCW1 ([facility]) FreeStyle Elba Makanda - FreeStyle Elba Makanda - 10/25/2019 12:00: 00 AM EDT active FreeStyle Elba Makanda - eCW1 ([facility]) FreeStyle Elba 14 Day Sensor - FreeStyle Elba 14 Day Senso r - 10/25/2019 12:00:00 AM EDT active FreeStyl e [place]ba 14 Day Sensor - eCW1 ([facility]) FreeStyle Elba 14 Day Sensor - FreeStyle Elba 14 Day Senso r - 10/25/2019 12:00:00 AM EDT active FreeStyl e [place]ba 14 Day Sensor - eCW1 ([facility]) FreeStyle Elba 14 Day Sensor - FreeStyle Elba 14 Day Senso r - 10/25/2019 12:00:00 AM EDT active FreeStyl e [place]ba 14 Day Sensor - eCW1 ([facility]) FreeStyle Elba Makanda - FreeStyle Ebla Makanda - 10/25/2019 12:00: 00 AM EDT active FreeStyle Elba Makanda - eCW1 ([facility]) tizanidine 2 MG Oral Tablet Tizanidine HCl 2 MG Tizanidine H Cl 2 MG 09/06/2019 12:00:00 AM EDT 1.0 {tablet_as_needed} active Tizanidine HCl 2 MG eCW1 ([facility]) tizanidine 2 MG Oral Tablet Tizanidine HCl 2 MG Tizanidine H Cl 2 MG 09/06/2019 12:00:00 AM EDT 1.0 {tablet_as_needed} active Tizanidine HCl 2 MG eCW1 ([facility]) tizanidine 2 MG Oral Tablet Tizanidine HCl 2 MG Tizanidine H Cl 2 MG 09/06/2019 12:00:00 AM EDT 1.0 {tablet_as_needed} active Tizanidine HCl 2 MG W1 ([facility]) tizanidine 2 MG Oral Tablet Tizanidine HCl 2 MG Tizanidine H Cl 2 MG 09/06/2019 12:00:00 AM EDT 1.0 {tablet_as_needed} active Tizanidine HCl 2 MG W1 ([facility]) tizanidine 2 MG Oral Tablet Tizanidine HCl 2 MG Tizanidine H Cl 2 MG 09/06/2019 12:00:00 AM EDT 1.0 {tablet_as_needed} active Tizanidine HCl 2 MG [facility] ([facility]) tizanidine 2 MG Oral Tablet Tizanidine HCl 2 MG Tizanidine H Cl 2 MG 09/06/2019 12:00:00 AM EDT 1.0 {tablet_as_needed} active Tizanidine HCl 2 MG eCW1 ([facility]) tizanidine 2 MG Oral Tablet Tizanidine HCl 2 MG Tizanidine H Cl 2 MG 09/06/2019 12:00:00 AM EDT active 1 tablet as needed W1 ([facility]) tizanidine 2 MG Oral Tablet Tizanidine HCl 2 MG Tizanidine H Cl 2 MG 09/06/2019 12:00:00 AM EDT 1.0 {tablet_as_needed} active Tizanidine HCl 2 MG eCW1 ([facility]) tizanidine 2 MG Oral Tablet Tizanidine HCl 2 MG Tizanidine H Cl 2 MG 09/06/2019 12:00:00 AM EDT 1.0 {tablet_as_needed} active Tizanidine HCl 2 MG eCW1 ([facility]) tizanidine 2 MG Oral Tablet Tizanidine HCl 2 MG Tizanidine H Cl 2 MG 09/06/2019 12:00:00 AM EDT 1.0 {tablet_as_needed} active Tizanidine HCl 2 MG eCW1 ([facility]) tizanidine 2 MG Oral Tablet Tizanidine HCl 2 MG Tizanidine H Cl 2 MG 09/06/2019 12:00:00 AM EDT 1.0 {tablet_as_needed} active Tizanidine HCl 2 MG eCW1 ([facility]) tizanidine 2 MG Oral Tablet Tizanidine HCl 2 MG Tizanidine H Cl 2 MG 09/06/2019 12:00:00 AM EDT 1.0 {tablet_as_needed} active Tizanidine HCl 2 MG eCW1 ([facility]) tizanidine 2 MG Oral Tablet Tizanidine HCl 2 MG Tizanidine H Cl 2 MG 09/06/2019 12:00:00 AM EDT 1.0 {tablet_as_needed} active Tizanidine HCl 2 MG eCW1 ([facility]) tizanidine 2 MG Oral Tablet Tizanidine HCl 2 MG Tizanidine H Cl 2 MG 09/06/2019 12:00:00 AM EDT 1.0 {tablet_as_needed} active Tizanidine HCl 2 MG eCW1 ([facility]) Aspirin 81 MG Delayed Release Oral Tablet Aspirin Ec 2019 12:00:00 AM EDT ORAL active MEDENT ( [facility]) 0.5 ML dulaglutide 1.5 MG/ML Auto-Injector [Trulicity] Trulicity 0.75 MG/0.5ML Trulicity 0.75 MG/0.5ML 06/19/2019 12:00:00 AM EST active Trulicity 0.75 MG/0.5ML eCW1 ([facility]) 0.5 ML dulaglutide 1.5 MG/ML Auto-Injector [Trulicity] Trulicity 0.75 MG/0.5ML Trulicity 0.75 MG/0.5ML 06/19/2019 12:00:00 AM EST active Trulicity 0.75 MG/0.5ML eCW1 ([facility]) BD Ultra-fine Pen [place] 32G 4mm UNK 06/19/2019 12:00:00 AM EST active BD Ultra-fine Pen [place] 32G 4m m eCW1 ([facility]) 0.5 ML dulaglutide 1.5 MG/ML Auto-Injector [Trulicity] Trulicity 0.75 MG/0.5ML Trulicity 0.75 MG/0.5ML 06/19/2019 12:00:00 AM EST active Trulicity 0.75 MG/0.5ML eCW1 ([facility]) BD Ultra-fine Pen [place] 32G 4mm UNK 06/19/2019 12:00:00 AM EST active BD Ultra-fine Pen [place] 32G 4m m eCW1 ([facility]) BD Ultra-fine Pen [place] 32G 4mm UNK 06/19/2019 12:00:00 AM EST active BD Ultra-fine Pen [place] 32G 4m m eCW1 ([facility]) 0.5 ML dulaglutide 1.5 MG/ML Auto-Injector [Trulicity] Trulicity 0.75 MG/0.5ML Trulicity 0.75 MG/0.5ML 06/19/2019 12:00:00 AM EST active Trulicity 0.75 MG/0.5ML eCW1 ([facility]) Trulicity 3 MG/0.5ML Trulicity 3 MG/0.5ML 06/19/2019 12:00:00 AM EST active Trulicity 3 MG/0.5ML eCW1 ([facility]) BD Ultra-fine Pen [place] 32G 4mm UNK 06/19/2019 12:00:00 AM EST active BD Ultra-fine Pen [place] 32G 4m m eCW1 ([facility]) 0.5 ML dulaglutide 3 MG/ML Auto-Injector [Trulicity] T rulicity 1.5 MG/0.5ML Trulicity 1.5 MG/0.5ML 06/19/2019 12:00:00 AM EST active Trulicity 1.5 MG/0.5ML eCW1 ([facility]) 0.5 ML dulaglutide 1.5 MG/ML Auto-Injector [Trulicity] Trulicity 0.75 MG/0.5ML Trulicity 0.75 MG/0.5ML 06/19/2019 12:00:00 AM EST active Trulicity 0.75 MG/0.5ML eCW1 ([facility]) 0.5 ML dulaglutide 1.5 MG/ML Auto-Injector [Trulicity] Trulicity 0.75 MG/0.5ML Trulicity 0.75 MG/0.5ML 06/19/2019 12:00:00 AM EST active Trulicity 0.75 MG/0.5ML eCW1 ([facility]) 0.5 ML dulaglutide 3 MG/ML Auto-Injector [Trulicity] T rulicity 1.5 MG/0.5ML Trulicity 1.5 MG/0.5ML 06/19/2019 12:00:00 AM EST active Trulicity 1.5 MG/0.5ML eCW1 ([facility]) 0.5 ML dulaglutide 1.5 MG/ML Auto-Injector [Trulicity] Trulicity 0.75 MG/0.5ML Trulicity 0.75 MG/0.5ML 06/19/2019 12:00:00 AM EST active Trulicity 0.75 MG/0.5ML eCW1 ([facility]) BD Ultra-fine Pen [place] 32G 4mm UNK 06/19/2019 12:00:00 AM EST active BD Ultra-fine Pen [place] 32G 4m m eCW1 ([facility]) 0.5 ML dulaglutide 1.5 MG/ML Auto-Injector [Trulicity] Trulicity 0.75 MG/0.5ML Trulicity 0.75 MG/0.5ML 06/19/2019 12:00:00 AM EST active Trulicity 0.75 MG/0.5ML eCW1 ([facility]) 0.5 ML dulaglutide 3 MG/ML Auto-Injector [Trulicity] T rulicity 1.5 MG/0.5ML Trulicity 1.5 MG/0.5ML 06/19/2019 12:00:00 AM EST active Trulicity 1.5 MG/0.5ML eCW1 ([facility]) BD Ultra-fine Pen [place] 32G 4mm UNK 06/19/2019 12:00:00 AM EST active BD Ultra-fine Pen [place] 32G 4m m eCW1 ([facility]) BD Ultra-fine Pen [place] 32G 4mm UNK 06/19/2019 12:00:00 AM EST active BD Ultra-fine Pen [place] 32G 4m m eCW1 ([facility]) BD Ultra-fine Pen [place] 32G 4mm UNK 06/19/2019 12:00:00 AM EST active BD Ultra-fine Pen [place] 32G 4m m eCW1 ([facility]) Trulicity 3 MG/0.5ML Trulicity 3 MG/0.5ML 06/19/2019 12:00:00 AM EST active Trulicity 3 MG/0.5ML eCW1 ([facility]) BD Ultra-fine Pen [place] 32G 4mm UNK 06/19/2019 12:00:00 AM EST active as directed eCW1 ([facility]) BD Ultra-fine Pen [place] 32G 4mm UNK 06/19/2019 12:00:00 AM EST active BD Ultra-fine Pen [place] 32G 4m m eCW1 ([facility]) BD Ultra-fine Pen [place] 32G 4mm UNK 06/19/2019 12:00:00 AM EST active BD Ultra-fine Pen [place] 32G 4m m eCW1 ([facility]) 0.5 ML dulaglutide 1.5 MG/ML Auto-Injector [Trulicity] Trulicity 0.75 MG/0.5ML Trulicity 0.75 MG/0.5ML 06/19/2019 12:00:00 AM EST active Trulicity 0.75 MG/0.5ML eCW1 ([facility]) BD Ultra-fine Pen [place] 32G 4mm UNK 06/19/2019 12:00:00 AM EST active BD Ultra-fine Pen [place] 32G 4m m eCW1 ([facility]) BD Ultra-fine Pen [place] 32G 4mm UNK 06/19/2019 12:00:00 AM EST active BD Ultra-fine Pen [place] 32G 4m m eCW1 ([facility]) 0.5 ML dulaglutide 1.5 MG/ML Auto-Injector [Trulicity] Trulicity 0.75 MG/0.5ML Trulicity 0.75 MG/0.5ML 06/19/2019 12:00:00 AM EST active Trulicity 0.75 MG/0.5ML eCW1 ([facility]) BD Ultra-fine Pen [place] 32G 4mm UNK 06/19/2019 12:00:00 AM EST active BD Ultra-fine Pen [place] 32G 4m m eCW1 ([facility]) BD Ultra-fine Pen [place] 32G 4mm UNK 06/19/2019 12:00:00 AM EST active BD Ultra-fine Pen [place] 32G 4m m eCW1 ([facility]) 0.5 ML dulaglutide 1.5 MG/ML Auto-Injector [Trulicity] Trulicity 0.75 MG/0.5ML Trulicity 0.75 MG/0.5ML 06/19/2019 12:00:00 AM EST active 0.5ml eCW1 ([facility]) BD Ultra-fine Pen [place] 32G 4mm UNK 06/19/2019 12:00:00 AM EST active BD Ultra-fine Pen [place] 32G 4m m eCW1 ([facility]) rifaximin 200 MG Oral Tablet [XIFAXAN] Xifaxan 200 MG Xifaxa n 200 MG 04/30/2019 12:00:00 AM EST active 1 tablet eCW1 ([facility]) rifaximin 200 MG Oral Tablet [XIFAXAN] Xifaxan 200 MG Xifaxa n 200 MG 04/30/2019 12:00:00 AM EST 1.0 {tablet} active Xi faxan 200 MG eCW1 ([facility]) rifaximin 200 MG Oral Tablet [XIFAXAN] Xifaxan 200 MG Xifaxa n 200 MG 04/30/2019 12:00:00 AM EST 1.0 {tablet} active Xi faxan 200 MG eCW1 ([facility]) rifaximin 200 MG Oral Tablet [XIFAXAN] Xifaxan 200 MG Xifaxa n 200 MG 04/30/2019 12:00:00 AM EST 1.0 {tablet} active Xi faxan 200 MG eCW1 ([facility]) rifaximin 200 MG Oral Tablet [XIFAXAN] Xifaxan 200 MG Xifaxa n 200 MG 04/30/2019 12:00:00 AM EST 1.0 {tablet} active Xi faxan 200 MG eCW1 ([facility]) rifaximin 200 MG Oral Tablet [XIFAXAN] Xifaxan 200 MG Xifaxa n 200 MG 04/30/2019 12:00:00 AM EST 1.0 {tablet} active Xi faxan 200 MG eCW1 ([facility]) rifaximin 200 MG Oral Tablet [XIFAXAN] Xifaxan 200 MG Xifaxa n 200 MG 04/30/2019 12:00:00 AM EST active 1 tablet eCW1 ([facility]) rifaximin 200 MG Oral Tablet [XIFAXAN] Xifaxan 200 MG Xifaxa n 200 MG 04/30/2019 12:00:00 AM EST 1.0 {tablet} active Xi faxan 200 MG eCW1 ([facility]) 200 mg 04/30/2019 12:00:00 AM EST tablet 90 TAKE ONE TABLET BY MOUTH THREE TIMES A DAY TAKE ONE TABLET BY MOUTH THREE TIMES A DAY SOLD: 05/01/2019 [facility] rifaximin 200 MG Oral Tablet [XIFAXAN] Xifaxan 200 MG Xifaxa n 200 MG 04/30/2019 12:00:00 AM EST 1.0 {tablet} active Xi faxan 200 MG eCW1 ([facility]) rifaximin 200 MG Oral Tablet [XIFAXAN] Xifaxan 200 MG Xifaxa n 200 MG 04/30/2019 12:00:00 AM EST 1.0 {tablet} active Xi faxan 200 MG eCW1 ([facility]) 100 mg 04/24/2019 12:00:00 AM EST tablet 6 TAKE ONE TABLET BY MOUTH NEEDED ONCE A DAY TAKE ONE TABLET BY MOUTH NEEDED ONCE A DAY SOLD: [facility] 100 mg 04/24/2019 12:00:00 AM EST tablet 6 TAKE ONE TABLET BY MOUTH NEEDED ONCE A DAY TAKE ONE TABLET BY MOUTH NEEDED ONCE A DAY SOLD: [facility] 100 mg 04/24/2019 12:00:00 AM EST tablet 6 TAKE ONE TABLET BY MOUTH NEEDED ONCE A DAY TAKE ONE TABLET BY MOUTH NEEDED ONCE A DAY SOLD: [facility] 100 mg 04/24/2019 12:00:00 AM EST tablet 10 TAKE ONE TABLET BY MOUTH NEEDED ONCE A DAY TAKE ONE TABLET BY MOUTH NEEDED ONCE A DAY SOLD: [facility] 100 mg 04/24/2019 12:00:00 AM EST tablet 6 TAKE ONE TABLET BY MOUTH NEEDED ONCE A DAY TAKE ONE TABLET BY MOUTH NEEDED ONCE A DAY SOLD: [facility] 100 mg 04/24/2019 12:00:00 AM EST tablet 6 TAKE ONE TABLET BY MOUTH NEEDED ONCE A DAY TAKE ONE TABLET BY MOUTH NEEDED ONCE A DAY SOLD: [facility] sildenafil 100 MG Oral Tablet [Viagra] Viagra 100 MG Viagra 100 MG 04/23/2019 12:00:00 AM EST active 1 tablet as needed eC1 ([facility]) sildenafil 100 MG Oral Tablet [Viagra] Viagra 100 MG Viagra 100 MG 04/23/2019 12:00:00 AM EST active 1 tablet as needed eC1 ([facility]) sildenafil 100 MG Oral Tablet [Viagra] Viagra 100 MG Viagra 100 MG 04/23/2019 12:00:00 AM EST active 1 tablet as needed eC1 ([facility]) Insurance Providers Payer name Policy type / Coverage type Policy ID Covered republican ID Covered republican's relationship to baker Policy Baker Plan Information ALONDRA LAW PPO 302/307 [id number] SP [id number] [place]/307 [id number] SP [id number] [place]/307 [id number] SP [id number] EXCELLUS BCBS B [id number] S [id number] [id number] [place] PPO 302/307 [id number] SP [id number] SELF PAY ONLY FA2 ANSI-Commercial [id number] ANSI-Commercial [id number] 74syz618-kw4p-[id number]-[id number] ANSI-Commercial [id number] ANSI-Commercial [id number]-[id number]-[id number] [place] [id number] Self [id number] ANSI-Commercial [id number] ANSI-Commercial lbode5je-6ckl-[id number]-[id number] wxwby8gs-3nmb-2q24-[id number] ANSI-Commercial [id number] ANSI-Commercial [id number]-83m5-[id number]-7290-14nu-67m6-[id number] ANSI-Commercial [id number]-285j-897y-[id number] ANSI-Commercial [id number]-284j-00i1-dlc6-38kukx0t2bha n269m5lf-002u-92v8-doi9-95tqwc9y1otc ANSI-Commercial [id number]-768l-c7lw-222053qklymz 5tq93f69-540n-282j-c6rq-798370ysluca ANSI-Commercial r72cgz9o-[id number]-[id number] j70ztg0w-t635-4881-al10-277hk723zr88 ANSI-Commercial [id number]-[id number] ANSI-Commercial [id number]-lu3ia8lyd5qs [id number]-lk5ch2xwt8yx ANSI-Commercial 167bv773-8930-2833-g94h-4kzx0f33w85w [id number]-i90b-2fdt8h54g98m ANSI-Commercial [id number]-[id number] ANSI-Commercial x628jip3-67b0-11x0-g6i5-1kgi0194j8n7 r300wav4-07e1-50c4-o6n0-8muq6294n4a7 ANSI-Commercial i29k33ye-d1p3-8694-9734-74505m34g98f c18x54ly-f7q2-6542-0634-11664l81q73e ANSI-Commercial [id number] 776u2k[id number] ANSI-Commercial 7144j5e9-i261-9e15-o901-omv9279hab4p 5597j9y8-g722-6a91-q885-snc6646rro9c [place] [id number] Self [id number] [place] [id number] Self [id number] ANSI-Commercial [id number] [id number]-g60d-[id number] ANSI-Commercial 39jy167b-w695-0kxy-1s2r-[id number] 49wf736a-x144-8kjy-8i6i-[id number] ANSI-Commercial 3q933mmb-k2kt-[id number] 5d048mqv-m8nx-6z73-2r29-2o47898j77x1 ANSI-Commercial 21x130j2-18k4-5508-rx4z-420380bp2tg0 75g972p2-33y0-1156-ov8x-147968eg4um3 ANSI-Commercial s1m6660m-km00-8200-uz12-3n2v205orgk0 n6g2683r-jz47-9134-ep36-9u7l203ztxw6 ANSI-Commercial 0j1m8j0q-j003-7i71-a4t1-73q48y1x0946 6g0n8v8g-f538-9v93-h9o8-63i97r0o1938 ANSI-Commercial 550bzs5y-6526-50j9-s2x8-2wz84f5xf6ng 000drr1x-7693-73y0-d7w2-3ow13j0mo6pt ANSI-Commercial x715ywu3-ib75-931j-7u04-asig39p8i919 l329ati3-vv71-768y-3m48-zplb16l7p021 ANSI-Commercial 40gz73n1-j873-7856-r5r6-41a4cuze2b46 41wi00n6-z757-6836-p7m3-82t1yzpd3u96 ANSI-Commercial w3j0b1th-[id number] s7o8c1pq-e556-1q48-1077-94l8pw95u081 ANSI-Commercial 724l081y-s20x-4448-681p-n6259f91lz9d 630c478w-t04r-6304-398b-c4919g38bn8g ANSI-Commercial 625xh8lg-k163-3r4i-[id number] 207sr0lw-k342-0u0w-6368-41pm82843573 [place] Medigap Part B [id number] Self [id number] [place] [employer] [id number] Self [id number] [place] Medigap Part B [id number] Self [id number] [place] [id number] Self [id number] ANSI-Commercial 12ov0044-j6zv-74o1-dn5e-i9vdb9v599ve 96mh5320-h5rj-30r0-cu5y-n8xjo4e473xh ANSI-Commercial 169ti706-v87g-2g39-bp9x-0fr9vgy3940q 088xl771-u36r-6x28-bd0t-9yh7wpx0228q BCBS [place] PPO 302/307 [id number] SP [id number] BCBS [place] (Old) Commercial [id number] Self [id number] Blue Preferred Ppo Medigap Part B [id number] Self [id number] Excellus Blue Preferred Ppo Medigap Part B [id number] [place] f [id number] BCBS [employer] [place] Commercial [id number] Self [id number] BCBS [place]Old[place] Commercial [id number] Self [id number] Blue Preferred Ppo Medigap Part B [id number] Self [id number] Excellus Blue Preferred Ppo Medigap Part B [id number] [place] f [id number] BCBS [employer] [place] Commercial [id number] Self [id number] [place] Medigap Part B [id number] Self [id number] [place] [employer] [id number] Self [id number] [place] Medigap Part B [id number] Self [id number] [place] Commercial [id number] Self [id number] ANSI-Commercial [id number]-[id number]-d496-ws77d70pg96e ANSI-Commercial [id number] tu1l15x6-3422-6857-0c89-7t746s6p4u6p [place] Medigap Part B [id number] Self [id number] [place] Commercial [id number] Self [id number] [place] Medigap Part B [id number] Self [id number] [place] Commercial [id number] Self [id number] [place] Medigap Part B [id number] Self [id number] [place] Commercial [id number] Self [id number] [place] Medigap Part B [id number] Self [id number] [place] [employer] [id number] Self [id number] Excell[employer] BCBS [employer] (HMO) [id number] Self [id number] ANSI-Commercial [id number]-[id number] ANSI-Commercial [id number]-[id number] [id number]-[id number] [place] [facility] Part B [id number] Self [id number] [place] Commercial [id number] Self [id number] ANSI-Commercial [id number]-[id number]-[id number]-[id number] ANSI-Commercial 73yv59k6-j0i9-0bc9-93dz-[id number] 05hb07i2-h1i1-0dj4-71ib-53379gf42t18 ANSI-Commercial k6igoqv9-246u-[id number] d0sdgsq4-376b-9759-1462-8zf3372005v8 ANSI-Commercial 09ra545r-ta22-9150-ygpj-vqc7o6d2q6u5 22wv457w-ak01-8056-nzcr-vmz7f3h6r3z2 ANSI-Commercial [id number]-[id number]-ngt7-[id number] 366967cu-8191-8l66-uas2-[id number] ANSI-Commercial [id number]-700d-4g28-hvcg-f37rlda3e0tz 1jr0c13h-689n-0z57-zjee-q91oqzg8h0wp ANSI-Commercial [id number]-[id number]-0867-[id number] ANSI-Commercial s7fi7mf7-2jv5-47k7-[id number] l4an9jg6-0nf0-04j9-[id number] ANSI-Commercial 14n23f30-m601-90m8-0a7g-33p35u0z7677 20x48o22-z741-02t6-2w0c-09h11q6g5333 ANSI-Commercial 88n4ev8k-u7qf-245x-g1q3-931l12x1qymw 68l0xj0d-s2xi-085f-b6e1-718w97e5oazx ANSI-Commercial b58673v3-o46u-8z08-nh29-75ji5gt419xe e99253r0-b44w-1l49-yw14-46nu4dt454wz ANSI-Commercial lw523g5c-[id number] [id number]-[id number] BCBS [facility] (Old) Commercial [id number] Self [id number] Blue Preferred Ppo Medigap Part B [id number] Self [id number] Excellus Blue Preferred Ppo Medigap Part B [id number] Belle f [id number] BCBS [employer] [place] Commercial [id number] Self [id number] BCBS [employer] Ppo U/W Commercial Self BCBS [facility] (Old) Commercial Self Blue Preferred Ppo Medigap Part B Self Excellus Blue Preferred Ppo Commercial Self EXCELLUS BCBS [id number] Belle ASB [id number] STATE INSURANCE FUND [id number] SP [id number] STATE INSURANCE FUND [id number] SP [id number] WORKERS COMPENSATION GENERIC W [id number] Empl [id number] WORKERS COMPENSATION GENERIC W [id number] Empl [id number] STATE INSURANCE FUND P [id number] S [id number] EXCELLUS BCBS [id number] Belle ASB [id number] STATE INSURANCE FUND [id number] SP [id number] OTHER WORKERS COMPENSATION [id number] SP [id number] BC EXC PLANS 1 [id number] EXCELLUS BCBS P [id number] S ASB [id number] EXCELLUS BCBS P UNAVAILABLE S UNAV AILABLE SELF PAY 2 UNAVAILABLE 1 UNAVAILA BLE BC EXC PLANS 1 [id number] Problems, Conditions, and Diagnoses Code Display Name Description Problem Type Effective Dates Data Source(s) I73.9 [id number] PVD (peripheral vascular disease) Problem 03/06/2020 12:00:00 AM EST eCW1 ([facility]) 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 ED (erectile dysfunction) Problem 04/23/2019 12:00:00 AM EST eCW1 ([facility]) 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 ED (erectile dysfunction) Problem 04/23/2019 12:00:00 AM EST eCW1 ([facility]) Surgeries/Procedures Procedure Description Date Indications Data Source(s) REVSC OPN/PRQ TIB/SHYANNE W/ANGIOPLASTY UNI 04/22/2020 12 :00:00 AM EST [facility] ([facility], ) Moderate Sedation Services; Same Phys Intl 15 Mins; PT >= 5 Years 04/22/2020 12:00:00 AM EST [facility] ([facility], ) Immunization: Flublok Quadrivalent (18 years & older) 0.5mL IM (Influenza) 03/14/2020 12:00:00 AM EST eCW1 ([facility]) ECG ROUTINE ECG W/LEAST 12 LDS W/I&R 07/06/2019 12:00: 00 AM EDT [facility]) Arterial Pressure Waveform Analysis For Assessment Of Centra l Art 07/06/2019 12:00:00 AM EDT [facility] ([facility]) Results ID Date Data Source [id number] 04/22/2020 06:37:00 AM EST [facility] Name Value Range Interpretation Code Description Data Madelin rce(s) Supporting Document(s) Blood Urea Nitrogen 13 mg/dL 7-18 Normal (applies to non-nume haydee results) [facility], ) Glucose, Fasting 133 mg/dL 70-100 Above high normal M [facility], ) Glomerular Filtration Rate Laboratory test result Normal (applies to non- numeric results) [facility], ) <content>Units are mL/min/1.73 m2</content>
<content></content>
<content>Chronic Kidney Disease Staging per NKF:</content>
<content></content>
<content>Stage I & II GFR >=60 Normal to Mildly Decreased</content>
<content>Stage III GFR 30- 59 Moderately Decreased</content>
<content>Stage IV GFR 15-29 Severely Decreased</content>
<content>Stage V GFR <15 Very Little GFR Left</content>
<content>ESRD GFR <15 on EDGE ROLLER</content>
<content></content> Creatinine For GFR 0.90 mg/dL 0.70-1.30 Normal (applies to non -numeric results) [facility] ([facility]) Chloride Level 109 meq/L 98-107 Above high normal [facility] ([facility]) Sodium Level 141 meq/L 136-145 Normal (applies to non-numeric res ults) [facility]) Potassium Serum 3.8 meq/L 3.5-5.1 Normal (applies to non-numeric results) [facility] ([facility]) Anion Gap 4 meq/L 8-16 Below low normal [facility] ( [facility]) Carbon Dioxide Level 28 meq/L 21-32 Normal (applies to non-num keaton results) [facility]) Calcium Level 9.0 mg/dL 8.5-10.1 Normal (applies to non-numeric re sults) [facility]) ID Date Data Source [id number] 04/22/2020 06:37:00 AM EST [facility] ([facility]) Name Value Range Interpretation Code Description Data Madelin rce(s) Supporting Document(s) White Blood Count 5.9 10 4.0-10.0 Normal (applies to non-numeri c results) [facility]) Red Blood Count 5.48 10 4.30-6.10 Normal (applies to non-numeric results) [facility] ([facility]) Hemoglobin 14.7 g/dL 13.5-17.5 Normal (applies to non-numeric resul ts) [facility] ([facility]) Mean Corpuscular Hemoglobin 26.8 pg 27.0-33.0 Below low normal [facility] ([facility]) Mean Corpuscular Volume 82.7 fl 80.0-96.0 Normal ( applies to non-numeric results) [facility] ([facility]) Hematocrit 45.3 % 42.0-52.0 Normal (applies to non-numeric resul ts) [facility] ([facility]) Mean Corpuscular HGB Conc 32.5 g/dL 32.0-36.5 Normal (applies to non-numeric results) [facility] ([facility]) Red Cell Distribution Width 13.8 % 11.5-14.5 Norm al (applies to non-numeric results) [facility] ([facility]) Nucleated Red Blood Cell % 0.0 % 0-0 Normal (applies to n on-numeric results) [facility] ([facility]) Platelet Count, Automated 222 10 150-450 Normal (applies to non-numeric results) [facility] ([facility]) ID Date Data Source [id number] 11/12/2019 12:00:00 AM EDT [facility] Name Value Range Interpretation Code Description Data Madelin rce(s) Supporting Document(s) 2019-nCoV RNA XXX RADHA+probe-Imp [facility] This lab was ordered by [facility] and reported by [employer] ID Date Data Source H PYLORI SERUM QUANT IgG BEAR 04/23/2019 12:00:00 AM EST eCW1 ([facility]) Name Value Range Interpretation Code Description Data Madelin rce(s) Supporting Document(s) 0.35 0.00-0.79 H PYLORI SERUM QUANT IgG BEAR eCW1 ([facility]) ID Date Data Source t-Transglutaminase (tTG) IgA 04/23/2019 12:00:00 AM EST eCW1 ([facility]) Name Value Range Interpretation Code Description Data Madelin rce(s) Supporting Document(s) Tissue transglutaminase IgA Ab [Units/volume] in Serum <2 0-3 TISSUE TRANSGLUTAMINASE IgA eCW1 ([facility]) ID Date Data Source GASTROINTESTINAL GI PANEL (GIPANEL) 04/23/2019 12:00:00 AM EST eCW1 ([facility]) Name Value Range Interpretation Code Description Data Madelin rce(s) Supporting Document(s) This Gastrointestinal PCR Panel detects the following bacteria, GASTROINTESTINAL (GI) PANEL eCW1 ([facility]) ID Date Data Source ERYTHROCYTE SEDIMENTATION RATE 04/23/2019 12:00:00 AM EST eC W1 ([facility]) Name Value Range Interpretation Code Description Data Madelin rce(s) Supporting Document(s) 1 0-20 ERYTHROCYTE SEDIMENTATION RATE eCW1 ([facility]) ID Date Data Source C REACTIVE PROTEIN QUANTITATIV (At [facility]) 04/23/2019 12:00 :00 AM EST eCW1 ([facility]) Name Value Range Interpretation Code Description Data Madelin rce(s) Supporting Document(s) < 0.30 0.00-0.30 C REACTIVE PROTEIN QUANTI TATIV eCW1 ([facility]) Procedure Social History Code Duration Value Status Description Data Source(s ) Smoking 04/07/2020 12:00:00 AM EST Never Smoker completed Never S moker eCW1 ([facility]) Smoking 04/07/2020 12:00:00 AM EST Never Smoker completed Never S moker eCW1 ([facility]) Smoking 04/07/2020 12:00:00 AM EST Never Smoker completed Never S moker eCW1 ([facility]) Smoking 04/07/2020 12:00:00 AM EST Never Smoker completed Never S moker eCW1 ([facility]) Smoking 04/07/2020 12:00:00 AM EST Never Smoker completed Never S moker eCW1 ([facility]) Smoking 03/14/2020 12:00:00 AM EST Never Smoker completed Never S moker eCW1 ([facility]) Smoking 03/14/2020 12:00:00 AM EST Never Smoker completed Never S moker eCW1 ([facility]) Smoking 03/10/2020 12:00:00 AM EST Never Smoker completed Never S moker eCW1 ([facility]) Smoking 03/10/2020 12:00:00 AM EST Never Smoker completed Never S moker eCW1 ([facility]) Smoking 10/24/2019 12:00:00 AM EDT Never Smoker completed Never S moker eCW1 ([facility]) Smoking 10/24/2019 12:00:00 AM EDT Never Smoker completed Never S moker eCW1 ([facility]) Smoking 10/24/2019 12:00:00 AM EDT Never Smoker completed Never S moker eCW1 ([facility]) Smoking 10/24/2019 12:00:00 AM EDT Never Smoker completed Never S moker eCW1 ([facility]) Smoking 10/24/2019 12:00:00 AM EDT Never Smoker completed Never S moker eCW1 ([facility]) Smoking 10/24/2019 12:00:00 AM EDT Never Smoker completed Never S moker eCW1 ([facility]) Vital Signs ID Date Data Source UNK Name Value Range Interpretation Code Description Data Source(s) Body surface area Derived from formula 2.26 m2 2.26 m2 [facility] ([facility]) Body weight 95.313 kg 95.313 kg [facility] ([facility]) [place] body weight 202 [lb_av] 202 [facility]_av[facility] Body mass index (BMI) [Ratio] 25.6 kg/m2 25.6 k g/m2 [facility] ([facility]) Body weight 210.12 [lb_av] 210.12 [lb_av] [facility] Body height 76 [in_i] 76 [in_i] [facility] ([facility]) 6'4" Diastolic blood pressure 82 mm[Hg] 82 mm[Hg] [facility] ([facility]) Systolic blood pressure 120 mm[Hg] 120 mm[Hg] [facility] Body surface area Derived from formula 2.25 m2 2.25 m2 [facility] ([facility]) Body weight 93.668 kg 93.668 kg [facility] ([facility]) [place] body weight 202 [lb_av] 202 [lb_av] [facility] Body mass index (BMI) [Ratio] 25.1 kg/m2 25.1 k g/m2 [facility] ([facility]) Body weight 206.50 [lb_av] 206.50 [lb_av] MED[facility] T ([facility]) Body height 76 [in_i] 76 [in_i] [facility] ([facility]) 6'4" Diastolic blood pressure 70 mm[Hg] 70 mm[Hg] [facility] Systolic blood pressure 130 mm[Hg] 130 mm[Hg] M EDENT ([facility]) Diastolic blood pressure 80 mm[Hg] 80 mm[Hg] eCW1 ([facility]) Systolic blood pressure 150 mm[Hg] 150 mm[Hg] e CW1 ([facility]) Body temperature 97.5 [degF] 97.5 [degF] eCW1 ( [facility]) Respiratory rate 18 /min 18 /min eCW1 ([facility]) Heart rate 95 /min 95 /min eCW1 ([facility]) Body mass index (BMI) [Ratio] 27.51 kg/m2 27.51 kg/m2 W1 ([facility]) Body height 73.5 [in_i] 73.5 [in_i] eCW1 ([facility]) Body weight 211.4 [lb_av] 211.4 [lb_av] eCW1 ([facility]) Body surface area Derived from formula 2.28 m2 2.28 m2 [facility] ([facility]) Body weight 97.070 kg 97.070 kg [facility] ([facility]) [place] body weight 202 [lb_av] 202 [lb_av] MEDEN T ([facility]) Body mass index (BMI) [Ratio] 26.0 kg/m2 26.0 k g/m2 [facility] ([facility]) Body weight 214.00 [lb_av] 214.00 [lb_av] MEDEN T ([facility]) Body height 76 [in_i] 76 [in_i] MEDENT ([facility], ) 6'4" Diastolic blood pressure 84 mm[Hg] 84 mm[Hg] MEDKATE ([facility], ) Systolic blood pressure 136 mm[Hg] 136 mm[Hg] M EDENT ([facility], ) Diastolic blood pressure 70 mm[Hg] 70 mm[Hg] eCW1 ([facility]) Systolic blood pressure 118 mm[Hg] 118 mm[Hg] e CW1 ([facility]) Body temperature 98 [degF] 98 [degF] eCW1 ([facility]) Respiratory rate 18 /min 18 /min eCW1 ([facility]) Heart rate 97 /min 97 /min eCW1 ([facility]) Body mass index (BMI) [Ratio] 27.16 kg/m2 27.16 kg/m2 eCW1 ([facility]) Body height 73.5 [in_i] 73.5 [in_i] eCW1 ([facility]) Body weight 208.75 [lb_av] 208.75 [lb_av] eCW1 ([facility]) Diastolic blood pressure 80 mm[Hg] 80 mm[Hg] eCW1 ([facility]) Systolic blood pressure 134 mm[Hg] 134 mm[Hg] e CW1 ([facility]) Body temperature 97.2 [degF] 97.2 [degF] eCW1 ( [facility]) Respiratory rate 18 /min 18 /min eCW1 ([facility]) Heart rate 107 /min 107 /min eCW1 ([facility]) Body mass index (BMI) [Ratio] 27.07 kg/m2 27.07 kg/m2 eCW1 ([facility]) Body height 73.5 [in_i] 73.5 [in_i] eCW1 ([facility]) Body weight 208 [lb_av] 208 [lb_av] eCW1 ([facility]) Diastolic blood pressure--sitting 83 mm[Hg] 83 mm[Hg] LUIZA ([facility]) CBP, large cuff/Ra Systolic blood pressure--sitting 139 mm[Hg] 139 mm[Hg] MEDENT ([facility]) CBP, large cuff/Ra Heart rate 77 /min 77 /min MEDENT ([facility]) Body mass index (BMI) [Ratio] 25.8 kg/m2 25.8 k g/m2 MEDENT ([facility]) Body height 76 [in_i] 76 [in_i] MEDENT ([facility] 6'4" Body weight 212.00 [lb_av] 212.00 [lb_av] MEDEN T ([facility]) Diastolic blood pressure 82 mm[Hg] 82 mm[Hg] eCW1 ([facility]) Systolic blood pressure 126 mm[Hg] 126 mm[Hg] e CW1 ([facility]) Body temperature 98.2 [degF] 98.2 [degF] eCW1 ( [facility]) Respiratory rate 20 /min 20 /min eCW1 ([facility]) Heart rate 88 /min 88 /min eCW1 ([facility]) Body mass index (BMI) [Ratio] 28.47 kg/m2 28.47 kg/m2 W1 ([facility]) Body height 73.5 [in_us] 73.5 [in_us] eCW1 ([facility]) Body weight Measured 218.8 [lb_av] 218.8 [lb_av ] eCW1 ([facility]) Diastolic blood pressure 90 mm[Hg] 90 mm[Hg] eCW1 ([facility]) Systolic blood pressure 138 mm[Hg] 138 mm[Hg] e CW1 ([facility]) Body temperature 97.8 [degF] 97.8 [degF] eCW1 ( [facility]) Respiratory rate 18 /min 18 /min eCW1 ([facility]) Heart rate 86 /min 86 /min eCW1 ([facility]) Body mass index (BMI) [Ratio] 26.86 kg/m2 26.86 kg/m2 eCW1 ([facility]) Body height 73.5 [in_us] 73.5 [in_us] eCW1 ([facility]) Body weight Measured 206.4 [lb_av] 206.4 [lb_av ] eCW1 ([facility]) Diastolic blood pressure 90 mm[Hg] 90 mm[Hg] eCW1 ([facility]) Systolic blood pressure 138 mm[Hg] 138 mm[Hg] e CW1 ([facility]) Body temperature 97.8 [degF] 97.8 [degF] eCW1 ( [facility]) Respiratory rate 18 /min 18 /min eCW1 ([facility]) Heart rate 86 /min 86 /min eCW1 ([facility]) Body mass index (BMI) [Ratio] 26.86 kg/m2 26.86 kg/m2 eCW1 ([facility]) Body height 73.5 [in_us] 73.5 [in_us] eCW1 ([facility]) Body weight Measured 206.4 [lb_av] 206.4 [lb_av ] eCW1 ([facility]) Patient Treatment Plan of Care Planned Activity Planned Date Details Description Data Source (s) duloxetine 30 MG Delayed Release Oral Capsule 04/07/2020 12:00:00 A M EST eCW1 ([facility]) duloxetine 30 MG Delayed Release Oral Capsule 04/07/2020 12:00:00 A M EST eCW1 ([facility]) duloxetine 30 MG Delayed Release Oral Capsule 04/07/2020 12:00:00 A M EST eCW1 ([facility]) duloxetine 30 MG Delayed Release Oral Capsule 04/07/2020 12:00:00 A M EST eCW1 ([facility]) duloxetine 30 MG Delayed Release Oral Capsule 04/07/2020 12:00:00 A M EST eCW1 ([facility]) Ascorbic Acid 500 MG Oral Tablet 03/14/2020 12:00:00 AM EST eCW1 ([facility]) Ascorbic Acid 500 MG Oral Tablet 03/14/2020 12:00:00 AM EST eCW1 ([facility]) Mupirocin 0.02 MG/MG Topical Ointment 03/10/2020 12:00:00 AM EST eCW1 ([facility]) Levofloxacin 500 MG Oral Tablet 03/10/2020 12:00:00 AM EST eCW1 ([facility]) Mupirocin 0.02 MG/MG Topical Ointment 03/10/2020 12:00:00 AM EST eCW1 ([facility]) Levofloxacin 500 MG Oral Tablet 03/10/2020 12:00:00 AM EST eCW1 ([facility]) FreeStyle Elba [place] - 10/25/2019 12:00:00 AM EDT eCW1 ([facility]) FreeStyle [place] 14 Day Sensor - 10/25/2019 12:00:00 AM EDT eCW1 ([facility]) FreeStyle Elba [place] - 10/25/2019 12:00:00 AM EDT eCW1 ([facility]) FreeStyle [place] 14 Day Sensor - 10/25/2019 12:00:00 AM EDT eCW1 ([facility]) FreeStyle [place] 14 Day Sensor - 10/25/2019 12:00:00 AM EDT eCW1 ([facility]) FreeStyle Elba [place] - 10/25/2019 12:00:00 AM EDT eCW1 ([facility]) FreeStyle Elba [place] - 10/25/2019 12:00:00 AM EDT eCW1 ([facility]) FreeStyle [place] 14 Day Sensor - 10/25/2019 12:00:00 AM EDT eCW1 ([facility]) FreeStyle Elba [place] - 10/25/2019 12:00:00 AM EDT eCW1 ([facility]) FreeStyle [place] 14 Day Sensor - 10/25/2019 12:00:00 AM EDT eCW1 ([facility]) FreeStyle Elba [place] - 10/25/2019 12:00:00 AM EDT eCW1 ([facility]) FreeStyle [place] 14 Day Sensor - 10/25/2019 12:00:00 AM EDT eCW1 ([facility]) FreeStyle Elba [place] - 10/25/2019 12:00:00 AM EDT eCW1 ([facility]) FreeStyle [place] 14 Day Sensor - 10/25/2019 12:00:00 AM EDT eCW1 ([facility]) FreeStyle Elba [place] - 10/25/2019 12:00:00 AM EDT eCW1 ([facility]) FreeStyle [place] 14 Day Sensor - 10/25/2019 12:00:00 AM EDT eCW1 ([facility]) tizanidine 2 MG Oral Tablet 09/06/2019 12:00:00 AM EDT eCW1 ([facility]) tizanidine 2 MG Oral Tablet 09/06/2019 12:00:00 AM EDT eCW1 ([facility]) tizanidine 2 MG Oral Tablet 09/06/2019 12:00:00 AM EDT eCW1 ([facility]) Trulicity 3 MG/0.5ML 06/19/2019 12:00:00 AM EST eCW1 ([facility]) Trulicity 3 MG/0.5ML 06/19/2019 12:00:00 AM EST eCW1 ([facility]) 0.5 ML dulaglutide 3 MG/ML Auto-Injector [Trulicity] 12:00:00 AM EST eCW1 ([facility]) 0.5 ML dulaglutide 3 MG/ML Auto-Injector [Trulicity] 12:00:00 AM EST eCW1 ([facility]) 0.5 ML dulaglutide 3 MG/ML Auto-Injector [Trulicity] 12:00:00 AM EST eCW1 ([facility]) 0.5 ML dulaglutide 1.5 MG/ML Auto-Injector [Trulicity] 06/19/2019 12:00:00 AM EST eCW1 ([facility]) 0.5 ML dulaglutide 1.5 MG/ML Auto-Injector [Trulicity] 06/19/2019 12:00:00 AM EST eCW1 ([facility]) 0.5 ML dulaglutide 1.5 MG/ML Auto-Injector [Trulicity] 06/19/2019 12:00:00 AM EST eCW1 ([facility]) 0.5 ML dulaglutide 1.5 MG/ML Auto-Injector [Trulicity] 06/19/2019 12:00:00 AM EST eCW1 ([facility]) 0.5 ML dulaglutide 1.5 MG/ML Auto-Injector [Trulicity] 06/19/2019 12:00:00 AM EST eCW1 ([facility]) 0.5 ML dulaglutide 1.5 MG/ML Auto-Injector [Trulicity] 06/19/2019 12:00:00 AM EST eCW1 ([facility]) BD Ultra-fine Pen [place] 32G 4mm 06/19/2019 12:00:00 AM EST eCW1 ([facility]) 0.5 ML dulaglutide 1.5 MG/ML Auto-Injector [Trulicity] 06/19/2019 12:00:00 AM EST eCW1 ([facility]) rifaximin 200 MG Oral Tablet [XIFAXAN] 04/30/2019 12:00:00 AM EST eCW1 ([facility]) rifaximin 200 MG Oral Tablet [XIFAXAN] 04/30/2019 12:00:00 AM EST eCW1 ([facility]) rifaximin 200 MG Oral Tablet [XIFAXAN] 04/30/2019 12:00:00 AM EST eCW1 ([facility]) rifaximin 200 MG Oral Tablet [XIFAXAN] 04/30/2019 12:00:00 AM EST eCW1 ([facility]) rifaximin 200 MG Oral Tablet [XIFAXAN] 04/30/2019 12:00:00 AM EST eCW1 ([facility]) rifaximin 200 MG Oral Tablet [XIFAXAN] 04/30/2019 12:00:00 AM EST eCW1 ([facility]) rifaximin 200 MG Oral Tablet [XIFAXAN] 04/30/2019 12:00:00 AM EST eCW1 ([facility]) rifaximin 200 MG Oral Tablet [XIFAXAN] 04/30/2019 12:00:00 AM EST eCW1 ([facility]) sildenafil 100 MG Oral Tablet [Viagra] 04/23/2019 12:00:00 AM EST eCW1 ([facility]) sildenafil 100 MG Oral Tablet [Viagra] 04/23/2019 12:00:00 AM EST eCW1 ([facility]) sildenafil 100 MG Oral Tablet [Viagra] 04/23/2019 12:00:00 AM EST eCW1 ([facility])
--- OUTSIDE RECORDS SUMMARY | 2020-06-12 10:14 | CCD ---
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 Name Role Phone Annia Guevara Unavailable PROBLEMS Type Condition ICD9-CM Code [id number] Code Onset Dates Condition S tatus SNOMED Code Notes Problem CTS (carpal tunnel syndrome) G56.00 Active 574 80310 Problem Type 2 diabetes mellitus without complication E11.9 Active 72379564 Problem CAD (coronary artery disease) I25.10 Active 53 924309 Problem B12 deficiency E53.8 Active 236098073 Problem Hyperlipidemia E78.5 Active 54411761 Problem Vitamin D deficiency E55.9 Active 09988273 Problem Hypertension I10 Active 33085865 Problem 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 Active 72916318 Problem Cervical dysphagia R13.19 Active 33347831 Problem Osteoarthritis of spine with radiculopathy, lumbar region M47.26 Active 523289742 Problem Nephrolithiasis N20.0 Active 19307620 Problem Prostate cancer screening Z12.5 Active 312194 005 Problem Non morbid obesity due to excess calories E66.09 Active 658287676 Problem Leg cramps R25.2 Active 694360762 Problem Dyspepsia R10.13 Active 451310090 Problem Gastroesophageal reflux disease, esophagitis pre sence not specified K21.9 Active 786275663 Problem Colon cancer screening Z12.11 Active 045655129 Problem Neuralgia of right foot M79.2 Active 52678151 2 Problem Injury of right foot, initial encounter S99.921A Active 065565738 Problem Lumbar radiculopathy, chronic M54.16 Active 12 1810477 Problem ED (erectile dysfunction) N52.9 Active 237198 002 Problem NAFLD (nonalcoholic fatty liver disease) K76.0 Active 550354414 Problem PVD (peripheral vascular disease) I73.9 Active 143264958 Problem Anxiety disorder F41.9 Active 328900829 Problem 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 Active 707962980 Problem Intervertebral disc disorder with radiculopathy of lumbar region M51.16 Active 635729407189757 Problem Lumbar post-laminectomy syndrome M96.1 Active 014402498 Problem Intervertebral disc disorder with radiculopathy of lumbosacral region M51.17 Active 00889782761786575 Problem Right foot pain M79.671 Active [id number] ALLERGIES No Known Allergies ENCOUNTERS from 1965 to 2020-03-18 Encounter Location Date Provider Diagnosis [address] [id number] Feb, Annia Guevara Type 2 diabetes mellitus without complic ation E11.9 ; B12 deficiency E53.8 ; ED (erectile dysfunction) N52.9 ; Vitamin D deficiency E55.9 and Encounter for immunization Z23 IMMUNIZATIONS Vaccine Route Administration Date Status Influenza [...] 0 Language: Question Answer Notes Languages spoken: [place] Catholic: Question Answer Notes Catholic 21 Mormonism Sexual Hx: Question Answer Notes Had sex [...] FOR REFERRAL No Information VITAL SIGNS Weight 208.75 lbs Feb, Height 73.5 in Feb, BMI 27.16 kg/m2 Feb, Heart Rate 97 /min Feb, Respiratory Rate 18 /min Feb, Temperature 98 degrees Fahrenheit Feb, Oximetry 97 Feb, Blood pressure systolic 118 mm Hg Feb, Blood pressure diastolic 70 mm Hg Feb, MEDICATIONS Medication SIG (Take, Route, Frequency, Duration) Notes Start Da te End Date Status Pantoprazole Sodium 40 MG 1 tab Orally every morning for 90 day(s) Not-Taking Insulin Glargine 100 UNIT/ML 45 units Subcutaneous at 700 for 90 day( s) Active Insulin Pen Needle 32G X 5 MM as directed sublingually monthly f or day(s) Active Empagliflozin 25 mg 1 tablet [...] 2 tabls Orally daily Active FreeStyle Elba [place] - as directed subcutaneously Daily, E 13.9 for 90 day(s) Oct, Active Cyanocobalamin 1000 MCG 1 tablet Orally Once a day for 90 day(s) Active Tums E-X 750 750 MG 1 tablet Orally bid Active BD Ultra-fine Pen [place] 32G 4mm as directed _ qd for 90 day(s) Apr, Active Nitroglycerin 0.4 MG 1 tablet under the tongue Christine blingual As needed chest pain for 90 day(s) Active Voltaren 1 % 2 gm Transdermal QID to feet for 1 days Active Viagra 100 MG 1 tablet as needed Orally Once a day prn for 90 day(s) Active Mupirocin 2 % apply thin layer to affected areas on right leg Externally Three times a day for 7 day(s) Feb, Active BD Ultra-fine Pen [place] 32G 4mm as directed subcutan eously once a week DX: E11.9 for 90 day(s) May, Active Vitamin D3 5000 1 tablet Orally qd for 90 day(s) Active FreeStyle El[place] 14 Day Sensor - as directed subcutaneously D aily for 90 day(s) Oct, Active Levaquin 500 MG 1 tablet Orally Once a day for 5 day(s) Feb, Active Gabapentin 300 MG 1 capsule Orally three times daily for 90 day(s) Active Clopidogrel Bisulfate 75MG TAKE 1 TABLET DAILY Active Pramipexole Dihydrochloride 1 MG TAKE 1 TABLET BEFORE BEDTIME Active Blood Glucose Test - One Touch Verio In Vitro four times montserrat ly - ICD 10 - E11.9 Active OneTouch Verio _ as directed In Vitro bid for 90 day(s) Active Tizanidine HCl 2 MG 1 tablet as needed Orally fo r spasms and pain before bedtime May repeat in 4 hrs MDD2 for 90 day(s) August, Active Clopidogrel Bisulfate 75 MG 1 tablet Orally Once a day for 90 day(s) Active Vitamin C 500 MG 1 tablet Orally Once a day for 90 days Feb, Active Lantus 100 UNIT/ML 43 units Subcutaneous daily for 90 days Active PROCEDURES Procedure Date Ordered Result Body Site Immunization: Flublok Quadrivalent (18 years & older) 0.5mL IM (Influenza) 2020-03-14 N/A RESULTS No Results REASON FOR VISIT PER ABIGAIL TUESDAY FOLLOW UP MEDICAL (GENERAL) HISTORY Type Description Date Medical [...] major diagonal branch-December 04, 2010-Dr. Rod Pham [facility]//April 15, 2011 repeat MCKENNA to 80% stenosis LAD distal to previous stents-[facility] cath stable 40% L circ distal stenosis, MCKENNA to focal 75% in stent stenosis of proximal LAD- [facility]/05/11/2013 MCKENNA to 70% proximal LAD stenosis and 75% just distal to previous stent stenosis-Daniel, s/p CABG BEDOYA to LAD and diagonal 11/29/13-Dr. Rush[facility]//05/16/15 catherization done 2 angina-single vessel disease c white nt BEDOYA graft, favored CP 2 -[facility] Medical History acute small R basal ganglion [...] bypass 11/05 Surgical History Back surgery @ [facility] 02/2014 Hospitalization History R basal ganglion/IC hemorrha [...] Treatment Notes Treatm ent Clinical Notes Feb, Type 2 diabetes mellitus without complication (I CD-10 - E11.9) Feb, B12 deficiency (ICD-10 - E53.8) Feb, ED (erectile dysfunction) (ICD-10 - N52.9) Feb, Vitamin D deficiency (ICD-10 - E55.9) Feb, Encounter for immunization (ICD-10 - Z23) Feb, Other Meds refilled, F/U as schedu led with Dr. Verdin PLAN OF TREATMENT Medication Medication Name Sig Start Date Stop Date Vitamin C 500 MG 1 tablet Orally Once a day for 90 days Feb, Lantus 100 UNIT/ML 43 units Subcutaneous daily for 90 days BD Ultra-fine Pen [place] 32G 4mm as directed _ qd for 90 day(s) Apr, Tizanidine HCl 2 MG 1 tablet as needed Orally fo r spasms and pain before bedtime May repeat in 4 hrs MDD2 for 90 day(s) August, Viagra 100 MG 1 tablet as needed Orally Once a day prn for 90 day(s) Vitamin D3 5000 1 tablet Orally qd for 90 day(s) Cyanocobalamin 1000 MCG 1 tablet Orally Once a day for 90 day(s) Next Appt Details Provider Name:William Verdin, 2020-04-01 0 9:45:00 AM, [address] [place] [address], [phone], Insurance Providers Payer Name Payer Address Payer Phone Insured Name Patient Relati onship to Insured Coverage Start Date Coverage End Date BCBS UTI[employer] LAW [phone] [facility] [employer] [place] [address] VERA PABON self
--- OUTSIDE RECORDS SUMMARY | 2020-06-12 11:02 | CCD ---
Author Author [facility] Organization [facility] Address Unknown Phone Unavailable Care Team Providers Care Buttoner Name Role Phone ANTECOL, Christine AZUL MD [...] Christine AZUL MD Unavailable Unavailable ANTECOL, Christine AUZL MD Unavailable Unavailable ANTECOL, Christine AZUL MD Unavailable Unavailable ANTECOL, Christine AZUL MD Unavailable Unavailable ANTECOL, Christine AZUL MD Unavailable Unavailable ANTECOL, Christine AZUL MD Unavailable Unavailable ANTECOL, Christine AZUL MD Unavailable Unavailable Fish, [facility], [facility] Unavailable Unavailabl e Fish, [facility], [facility]C Unavailable Unavailabl e Fish, [facility] Unavailable Unavailabl e Fish, [facility], [facility]C Unavailable Unavailabl e Fish, [facility], PA-C Unavailable Unavailabl e Fish, [facility], [facility] Unavailable Unavailabl e Fish, [facility], [facility]C Unavailable Unavailabl e Fish, [facility], [facility]C Unavailable Unavailabl e Fish, [facility], [facility]C Unavailable Unavailabl e Fish, [facility], [facility]C Unavailable Unavailabl e Fish, [facility], PA[facility]C Unavailable Unavailabl e Fish, [facility] Unavailable Unavailabl e Fish, [facility], PA-C Unavailable Unavailabl e Fish, [facility], [facility]C Unavailable Unavailabl e Fish, [facility], PA-C Unavailable Unavailabl e Fish, [facility], PA-C Unavailable Unavailabl e Fish, [facility], [facility]C Unavailable Unavailabl e Fish, [facility], PA-C Unavailable Unavailabl e Fish, [facility], [facility] Unavailable Unavailabl e Fish, [facility], [facility]C Unavailable Unavailabl e Fish, [facility], PA-C Unavailable Unavailabl e Fish, [facility], [facility]C Unavailable Unavailabl e Fish, [facility], PA-C Unavailable Unavailabl e Fish, [facility], PA-C Unavailable Unavailabl e Fish, [facility], PA-C Unavailable Unavailabl e Fish, [facility], PA-C Unavailable Unavailabl e Fish, [facility], PA-C Unavailable Unavailabl e Fish, [facility], PA-C Unavailable Unavailabl e Fish, [facility], PA-C Unavailable Unavailabl e Fish, [facility], PA-C Unavailable Unavailabl e Fish, [facility], PA-C Unavailable Unavailabl e Fish, [facility], PA[facility]C Unavailable Unavailabl e Fish, [facility], PA-C Unavailable Unavailabl e Solorio, L [...] is protected by Article 27-F of the [facility] Public Health law. If you continue you may have access to information: Regarding HIV / AIDS; Provided by facilities licensed or operated by the [facility] Office of Mental Health; or Provided by the [facility] Office for People With Developmental Disabilities. If such information is present, then the following [facility] mandated warning applies: This information has [...] law may result in a fine or skilled nursing sentence or both. A general authorization for the release of medical or other information is NOT sufficient authorization for further disc losure. Family History Family Member Name Family Member Gender Family Member Status Date o f Status Description Data Source(s) Unknown Male Problem MEDENT ([facility] Unknown Unknown Problem MEDENT ([facility]) Unknown Unknown Problem MEDENT ([facility]) Unknown Male Problem MEDENT ([facility]) Encounters Encounter Providers Location Date Indications Data Source(s ) [place] [address] [facility] [address] 05/07/2020 12:00:00 AM EST eCW1 ([facility]) [place] [address] [facility] [address] 05/05/2020 12:00:00 AM EST eCW1 ([facility]) Outpatient Attender: Rosaura Brown/[place]/Steve/R eindl 04/29/2020 08:15:00 AM EST MEDENT ([facility] [place] [address] [facility] [address] 04/28/2020 12:00:00 AM EST eCW1 ([facility]) [place] [address] [facility] [address] 04/14/2020 12:00:00 AM EST eCW1 ([facility]) Outpatient [address] [facility] [address] 04/07/2020 12:00:00 AM EST eCW1 ([facility]) Outpatient Attender: Rosaura Brown/[place]/Steve/R eindl 04/01/2020 08:45:00 AM EST MEDENT ([facility]) [place] [address] [facility] [address] 03/17/2020 12:00:00 AM EST eCW1 ([facility]) Out[place] [address] [facility] [address] 03/14/2020 12:00:00 AM EST eCW1 ([facility]) [place] [address] [facility] [address] 03/10/2020 12:00:00 AM EST eCW1 ([facility]) Unknown [address] [facility] [address] 03/10/2020 12:00:00 AM EST eCW1 ([facility]) Unknown [address] [facility] [address] 03/06/2020 12:00:00 AM EST eCW1 ([facility]) Unknown [address] [facility] [address] 03/03/2020 12:00:00 AM EST eCW1 ([facility]) Unknown [address] [facility] [address] 03/03/2020 12:00:00 AM EST [facility] [place] [address] [facility] [address] 02/21/2020 12:00:00 AM EDT [facility]CW[facility] [place] [place] [address] [facility] [address] 02/18/2020 12:00:00 AM EDT eCW1 [facility]) Unknown [address] [facility] [address] 11/13/2019 12:00:00 AM EDT eCW1 ([facility] [address] [facility] [address] 10/25/2019 12:00:00 AM EDT eCW1 ([facility]) [facility] [address] [facility] [address] 09/06/2019 12:00:00 AM EDT eCW1 ([facility]) Outpatient Attender: JORGE ALBERTO LOVING MD Main Office 07/06/2019 08:45:00 AM EDT MEDENT ([facility]) Outpatient Referrer: Gracy MULLER PA-C 06/19/2019 10:0 5:00 AM EST [facility] [address] [facility] [address] 06/19/2019 12:00:00 AM EST eCW1 ([facility] [address] [facility] [address] 06/18/2019 12:00:00 AM EST eCW1 ([facility] [address] [facility] [address] 06/13/2019 12:00:00 AM EST eCW1 [facility] [address] [facility] [address] 06/11/2019 12:00:00 AM EST eCW1 ([facility] [address] [facility] [address] 06/04/2019 12:00:00 AM EST eCW1 ([facility]) [facility] [address] [place] [address] 05/01/2019 12:00:00 AM EST eCW1 ([facility]) [address] [place] [address] 04/27/2019 12:00:00 AM EST eCW1 ([facility]) [address] [place] [address] 04/24/2019 12:00:00 AM EST eCW1 ([facility]) [address] [place] [address] 04/24/2019 12:00:00 AM EST eCW1 ([facility]) [address] [place] [address] 04/23/2019 12:00:00 AM EST eCW1 ([facility]) Medications Medication Brand Name Start Date Product [...] a ctive Duloxetine HCl 30 MG eCW1 ([facility]) duloxetine 30 MG Delayed Release Oral Capsule Duloxeti ne HCl 30 MG Duloxetine HCl 30 MG 04/07/2020 12:00:00 AM EST 1.0 {capsule} a ctive Duloxetine HCl 30 MG eCW1 ([facility]) duloxetine 30 MG Delayed Release Oral Capsule Duloxeti ne HCl 30 MG Duloxetine HCl 30 MG 04/07/2020 12:00:00 AM EST 1.0 {capsule} a ctive Duloxetine HCl 30 MG eCW1 ([facility]) duloxetine 30 MG Delayed Release Oral Capsule Duloxeti ne HCl 30 MG Duloxetine HCl 30 MG 04/07/2020 12:00:00 AM EST 1.0 {capsule} a ctive Duloxetine HCl 30 MG eCW1 ([facility]) duloxetine 30 MG Delayed Release Oral Capsule Duloxeti ne HCl 30 MG Duloxetine HCl 30 MG 04/07/2020 12:00:00 AM EST 1.0 {capsule} a ctive Duloxetine HCl 30 MG eCW1 ([facility]) Ascorbic Acid 500 MG Oral Tablet Vitamin C 500 MG Vitamin C 500 MG 03/14/2020 12:00:00 AM EST 1.0 {tablet} active Vi tamin C 500 MG eCW1 ([facility]) Ascorbic Acid 500 MG Oral Tablet Vitamin C 500 MG Vitamin C 500 MG 03/14/2020 12:00:00 AM EST 1.0 {tablet} active Vi tamin C 500 MG eCW1 ([facility]) 32 gauge x 5/32" 03/14/2020 12:00:00 AM EST needle 180 USE DIRECTED ONCE DAILY USE DIRECTED ONCE DAILY SOLD: 03/15/2020 [facility] [employer] 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 03/11/2020 12:00:00 AM EST mis c 1 USE DIRECTED DAILY USE DIRECTED DAILY SOLD: 03/11/2020 [facility] Mupirocin 0.02 MG/MG Topical Ointment Mupirocin 2 % Mupiroci n 2 % 03/10/2020 12:00:00 AM EST active Mupiroci n 2 % eCW1 ([facility]) FLASH GLUCOSE SENSOR 03/10/2020 12:00:00 AM EST kit 6 USE DIRECTED USE DIRECTED SOLD: 03/10/2020 [facility] Levofloxacin 500 MG Oral Tablet Levaquin 500 MG Levaquin 500 MG 03/10/2020 12:00:00 AM EST 1.0 {tablet} active Le vaquin 500 MG eCW1 ([facility]) 500 mg 03/10/2020 12:00:00 AM EST tablet 5 TAKE ONE TABLET BY MOUTH EVERY DAY FOR 5 DAYS TAKE ONE TABLET BY MOUTH EVERY DAY FOR 5 DAYS SOLD: 03/10/2020 [facility] Levofloxacin 500 MG Oral Tablet Levaquin 500 MG Levaquin 500 MG 03/10/2020 12:00:00 AM EST 1.0 {tablet} active Le vaquin 500 MG eCW1 ([facility]) Levofloxacin 500 MG Oral Tablet Levaquin 500 MG Levaquin 500 MG 03/10/2020 12:00:00 AM EST 1.0 {tablet} active Le vaquin 500 MG eCW1 ([facility]) Mupirocin 0.02 MG/MG Topical Ointment Mupirocin 2 % Mupiroci n 2 % 03/10/2020 12:00:00 AM EST active Mupiroci n 2 % eCW1 ([facility]) Mupirocin 0.02 MG/MG Topical Ointment Mupirocin 2 % Mupiroci n 2 % 03/10/2020 12:00:00 AM EST active Mupiroci n 2 % eCW1 ([facility]) FLASH GLUCOSE SENSOR 03/10/2020 12:00:00 AM EST kit 6 USE DIRECTED USE DIRECTED SOLD: 06/03/2020 [facility] Mupirocin 0.02 MG/MG Topical Ointment Mupirocin 2 % Mupiroci n 2 % 03/10/2020 12:00:00 AM EST active Mupiroci n 2 % eCW1 ([facility]) Levofloxacin 500 MG Oral Tablet Levaquin 500 MG Levaquin 500 MG 03/10/2020 12:00:00 AM EST 1.0 {tablet} active Le vaquin 500 MG eCW1 ([facility]) 2 % 03/10/2020 12:00:00 AM EST ointment 22 APPLY THIN LAYER TO AFFECTED AREAS ON RIGHT LEG THREE TIMES A DAY FOR 7 DAYS APPLY THIN LAYER TO AFFECTED AREAS ON RIGHT LEG THREE TIMES A DAY FOR 7 DAYS SOLD: 03/10/2020 [facility] [employer] [place] - [employer] [place] - 10/25/2019 12:00: 00 AM EDT active [employer] [place] - eCW1 ([facility]) 1 % 10/25/2019 12:00:00 AM EDT gel 500 APPLY 2 GRAMS TOPICALLY TO BOTH FEET FOUR TIMES A DAY APPLY 2 GRAMS TOPICALLY TO BOTH FEET FOUR TIMES A DAY SOLD: 10/27/2019 [facility] [employer]ba 14 Day Sensor - [employer] [place] 14 Day Senso r - 10/25/2019 12:00:00 AM EDT active FreeSty[employer] [place] 14 Day Sensor - eCW1 ([facility]) [employer] [place] 14 Day Sensor - [employer] [place] 14 Day Senso r - 10/25/2019 12:00:00 AM EDT active [employer] [place] 14 Day Sensor - eCW1 ([facility]) [employer] [place] 14 Day Sensor - [employer] [place] 14 Day Senso r - 10/25/2019 12:00:00 AM EDT active [employer]Sty[employer] [place] 14 Day Sensor - eCW1 ([facility]) [employer] [place] - [employer] [place] - 10/25/2019 12:00: 00 AM EDT active [employer] [place] - eCW1 ([facility]) [employer] [place] - [employer] [place] - 10/25/2019 12:00: 00 AM EDT active [employer] [place] - eCW1 ([facility]) [employer] [place] - [employer] [place] - 10/25/2019 12:00: 00 AM EDT active [employer] [place] - eCW1 ([facility]) [employer] [place] - [employer] [place] - 10/25/2019 12:00: 00 AM EDT active [employer] [place] - eCW1 ([facility]) [employer] [place] - [employer] [place] - 10/25/2019 12:00: 00 AM EDT active [employer] [place] - eCW1 ([facility]) [employer] [place] - [employer] [place] - 10/25/2019 12:00: 00 AM EDT active [employer] [place] - eCW1 ([facility]) [employer]Style [place] 14 Day Sensor - [employer] [place] 14 Day Senso r - 10/25/2019 12:00:00 AM EDT active [employer] [place] 14 Day Sensor - eCW1 ([facility]) [employer] [place] - [employer] [place] - 10/25/2019 12:00: 00 AM EDT active [employer]Style [place] - eCW1 ([facility]) [employer] [place] - [employer] [place] - 10/25/2019 12:00: 00 AM EDT active [employer] [place] - eCW1 ([facility]) [employer] [place] - [employer] [place] - 10/25/2019 12:00: 00 AM EDT active [employer]Style [place] - eCW1 ([facility]) [employer] [place] 14 Day Sensor - Free[employer] [place] 14 Day Senso r - 10/25/2019 12:00:00 AM EDT active FreeStyl [employer] [place] 14 Day Sensor - eCW1 ([facility]) FreeStyle [place] 14 Day Sensor - [employer] [place] 14 Day Senso r - 10/25/2019 12:00:00 AM EDT active [employer]Sty[employer] [place] 14 Day Sensor - eCW1 ([facility]) [employer] [place] 14 Day Sensor - [employer] [place] 14 Day Senso r - 10/25/2019 12:00:00 AM EDT active FreeSty[employer] [place] 14 Day Sensor - eCW1 ([facility]) [employer] [place] 14 Day Sensor - [employer] [place] 14 Day Senso r - 10/25/2019 12:00:00 AM EDT active [employer]Sty[employer] [place] 14 Day Sensor - eCW1 ([facility]) [employer] [place] 14 Day Sensor - [employer] [place] 14 Day Senso r - 10/25/2019 12:00:00 AM EDT active [employer]Sty[employer] [place] 14 Day Sensor - eCW1 ([facility]) [employer] [place] - [employer] [place] - 10/25/2019 12:00: 00 AM EDT active [employer] [place] - eCW1 ([facility]) [employer] [place] - [employer] [place] - 10/25/2019 12:00: 00 AM EDT active [employer] [place] - eCW1 ([facility]) [employer] [place] - [employer] [place] - 10/25/2019 12:00: 00 AM EDT active [employer] [place] - eCW1 ([facility]) FreeStyle [place] 14 Day Sensor - [employer] [place] 14 Day Senso r - 10/25/2019 12:00:00 AM EDT active FreeSty[employer] [place] 14 Day Sensor - eCW1 ([facility]) [employer] [place] 14 Day Sensor - [employer] [place] 14 Day Senso r - 10/25/2019 12:00:00 AM EDT active [employer]Sty[employer] [place] 14 Day Sensor - eCW1 ([facility]) [employer] [place] 14 Day Sensor - [employer] [place] 14 Day Senso r - 10/25/2019 12:00:00 AM EDT active FreeStyl e [place] 14 Day Sensor - eCW1 ([facility]) [employer] [place] - [employer] [place] - 10/25/2019 12:00: 00 AM EDT active [employer] [place] - eCW1 ([facility]) [employer] [place] 14 Day Sensor - [employer] [place] 14 Day Senso r - 10/25/2019 12:00:00 AM EDT active [employer] [place] 14 Day Sensor - eCW1 ([facility]) [employer] [place] 14 Day Sensor - [employer] [place] 14 Day Senso r - 10/25/2019 12:00:00 AM EDT active [employer] [place] 14 Day Sensor - eCW1 ([facility]) [employer] [place] 14 Day Sensor - [employer] [place] 14 Day Senso r - 10/25/2019 12:00:00 AM EDT active [employer]Sty[employer] [place] 14 Day Sensor - eCW1 ([facility]) [employer] [place] - [employer] [place] - 10/25/2019 12:00: 00 AM EDT active [employer] [place] - eCW1 ([facility]) tizanidine 2 MG Oral Tablet Tizanidine HCl 2 MG Tizanidine H Cl 2 MG 09/06/2019 12:00:00 AM EDT 1.0 {tablet_as_needed} active Tizanidine HCl 2 MG eCW1 ([facility]) tizanidine 2 MG Oral Tablet Tizanidine HCl 2 MG Tizanidine H Cl 2 MG 09/06/2019 12:00:00 AM EDT 1.0 {tablet_as_needed} active Tizanidine HCl 2 MG eCW1 ([facility]) tizanidine 2 MG Oral Tablet Tizanidine HCl 2 MG Tizanidine H Cl 2 MG 09/06/2019 12:00:00 AM EDT 1.0 {tablet_as_needed} active Tizanidine HCl 2 MG W1 ([facility]) tizanidine 2 MG Oral Tablet Tizanidine HCl 2 MG Tizanidine H Cl 2 MG 09/06/2019 12:00:00 AM EDT 1.0 {tablet_as_needed} active Tizanidine HCl 2 MG W1 ([facility]) tizanidine 2 MG Oral Tablet Tizanidine HCl 2 MG Tizanidine H Cl 2 MG 09/06/2019 12:00:00 AM EDT 1.0 {tablet_as_needed} active Tizanidine HCl 2 MG [facility] ([facility]) tizanidine 2 MG Oral Tablet Tizanidine HCl 2 MG Tizanidine H Cl 2 MG 09/06/2019 12:00:00 AM EDT 1.0 {tablet_as_needed} active Tizanidine HCl 2 MG eCW1 ([facility]) tizanidine 2 MG Oral Tablet Tizanidine HCl 2 MG Tizanidine H Cl 2 MG 09/06/2019 12:00:00 AM EDT active 1 tablet as needed W1 ([facility]) tizanidine 2 MG Oral Tablet Tizanidine HCl 2 MG Tizanidine H Cl 2 MG 09/06/2019 12:00:00 AM EDT 1.0 {tablet_as_needed} active Tizanidine HCl 2 MG eCW1 ([facility]) tizanidine 2 MG Oral Tablet Tizanidine HCl 2 MG Tizanidine H Cl 2 MG 09/06/2019 12:00:00 AM EDT 1.0 {tablet_as_needed} active Tizanidine HCl 2 MG eCW1 ([facility]) tizanidine 2 MG Oral Tablet Tizanidine HCl 2 MG Tizanidine H Cl 2 MG 09/06/2019 12:00:00 AM EDT 1.0 {tablet_as_needed} active Tizanidine HCl 2 MG eCW1 ([facility]) tizanidine 2 MG Oral Tablet Tizanidine HCl 2 MG Tizanidine H Cl 2 MG 09/06/2019 12:00:00 AM EDT 1.0 {tablet_as_needed} active Tizanidine HCl 2 MG eCW1 ([facility]) tizanidine 2 MG Oral Tablet Tizanidine HCl 2 MG Tizanidine H Cl 2 MG 09/06/2019 12:00:00 AM EDT 1.0 {tablet_as_needed} active Tizanidine HCl 2 MG eCW1 ([facility]) tizanidine 2 MG Oral Tablet Tizanidine HCl 2 MG Tizanidine H Cl 2 MG 09/06/2019 12:00:00 AM EDT 1.0 {tablet_as_needed} active Tizanidine HCl 2 MG eCW1 ([facility]) tizanidine 2 MG Oral Tablet Tizanidine HCl 2 MG Tizanidine H Cl 2 MG 09/06/2019 12:00:00 AM EDT 1.0 {tablet_as_needed} active Tizanidine HCl 2 MG eCW1 ([facility]) Aspirin 81 MG Delayed Release Oral Tablet Aspirin Ec 2019 12:00:00 AM EDT ORAL active MEDENT ( [facility]) 0.5 ML dulaglutide 1.5 MG/ML Auto-Injector [Trulicity] Trulicity 0.75 MG/0.5ML Trulicity 0.75 MG/0.5ML 06/19/2019 12:00:00 AM EST active Trulicity 0.75 MG/0.5ML eCW1 ([facility]) 0.5 ML dulaglutide 1.5 MG/ML Auto-Injector [Trulicity] Trulicity 0.75 MG/0.5ML Trulicity 0.75 MG/0.5ML 06/19/2019 12:00:00 AM EST active Trulicity 0.75 MG/0.5ML eCW1 ([facility]) BD Ultra-fine Pen Blain 32G 4mm UNK 06/19/2019 12:00:00 AM EST active BD Ultra-fine Pen [place]ain 32G 4m m eCW1 ([facility]) 0.5 ML dulaglutide 1.5 MG/ML Auto-Injector [Trulicity] Trulicity 0.75 MG/0.5ML Trulicity 0.75 MG/0.5ML 06/19/2019 12:00:00 AM EST active Trulicity 0.75 MG/0.5ML eCW1 ([facility]) BD Ultra-fine Pen [place]ain 32G 4mm UNK 06/19/2019 12:00:00 AM EST active BD Ultra-fine Pen Blain 32G 4m m eCW1 ([facility]) BD Ultra-fine Pen Blain 32G 4mm UNK 06/19/2019 12:00:00 AM EST active BD Ultra-fine Pen Blain 32G 4m m eCW1 ([facility]) 0.5 ML dulaglutide 1.5 MG/ML Auto-Injector [Trulicity] Trulicity 0.75 MG/0.5ML Trulicity 0.75 MG/0.5ML 06/19/2019 12:00:00 AM EST active Trulicity 0.75 MG/0.5ML eCW1 ([facility]) Trulicity 3 MG/0.5ML Trulicity 3 MG/0.5ML 06/19/2019 12:00:00 AM EST active Trulicity 3 MG/0.5ML eCW1 ([facility]) BD Ultra-fine Pen Blain 32G 4mm UNK 06/19/2019 12:00:00 AM EST active BD Ultra-fine Pen Blain 32G 4m m eCW1 ([facility]) 0.5 ML dulaglutide 3 MG/ML Auto-Injector [Trulicity] T rulicity 1.5 MG/0.5ML Trulicity 1.5 MG/0.5ML 06/19/2019 12:00:00 AM EST active Trulicity 1.5 MG/0.5ML eCW1 ([facility]) 0.5 ML dulaglutide 1.5 MG/ML Auto-Injector [Trulicity] Trulicity 0.75 MG/0.5ML Trulicity 0.75 MG/0.5ML 06/19/2019 12:00:00 AM EST active Trulicity 0.75 MG/0.5ML eCW1 ([facility]) 0.5 ML dulaglutide 1.5 MG/ML Auto-Injector [Trulicity] Trulicity 0.75 MG/0.5ML Trulicity 0.75 MG/0.5ML 06/19/2019 12:00:00 AM EST active Trulicity 0.75 MG/0.5ML eCW1 ([facility]) 0.5 ML dulaglutide 3 MG/ML Auto-Injector [Trulicity] T rulicity 1.5 MG/0.5ML Trulicity 1.5 MG/0.5ML 06/19/2019 12:00:00 AM EST active Trulicity 1.5 MG/0.5ML eCW1 ([facility]) 0.5 ML dulaglutide 1.5 MG/ML Auto-Injector [Trulicity] Trulicity 0.75 MG/0.5ML Trulicity 0.75 MG/0.5ML 06/19/2019 12:00:00 AM EST active Trulicity 0.75 MG/0.5ML eCW1 ([facility]) BD Ultra-fine Pen Blain 32G 4mm UNK 06/19/2019 12:00:00 AM EST active BD Ultra-fine Pen Blain 32G 4m m eCW1 ([facility]) 0.5 ML dulaglutide 1.5 MG/ML Auto-Injector [Trulicity] Trulicity 0.75 MG/0.5ML Trulicity 0.75 MG/0.5ML 06/19/2019 12:00:00 AM EST active Trulicity 0.75 MG/0.5ML eCW1 ([facility]) 0.5 ML dulaglutide 3 MG/ML Auto-Injector [Trulicity] T rulicity 1.5 MG/0.5ML Trulicity 1.5 MG/0.5ML 06/19/2019 12:00:00 AM EST active Trulicity 1.5 MG/0.5ML eCW1 ([facility]) BD Ultra-fine Pen Blain 32G 4mm UNK 06/19/2019 12:00:00 AM EST active BD Ultra-fine Pen Blain 32G 4m m eCW1 ([facility]) BD Ultra-fine Pen Blain 32G 4mm UNK 06/19/2019 12:00:00 AM EST active BD Ultra-fine Pen Blain 32G 4m m eCW1 ([facility]) BD Ultra-fine Pen Blain 32G 4mm UNK 06/19/2019 12:00:00 AM EST active BD Ultra-fine Pen Blain 32G 4m m eCW1 ([facility]) Trulicity 3 MG/0.5ML Trulicity 3 MG/0.5ML 06/19/2019 12:00:00 AM EST active Trulicity 3 MG/0.5ML eCW1 ([facility]) BD Ultra-fine Pen Blain 32G 4mm UNK 06/19/2019 12:00:00 AM EST active as directed eCW1 ([facility]) BD Ultra-fine Pen Blain 32G 4mm UNK 06/19/2019 12:00:00 AM EST active BD Ultra-fine Pen Blain 32G 4m m eCW1 ([facility]) BD Ultra-fine Pen Blain 32G 4mm UNK 06/19/2019 12:00:00 AM EST active BD Ultra-fine Pen Blain 32G 4m m eCW1 ([facility]) 0.5 ML dulaglutide 1.5 MG/ML Auto-Injector [Trulicity] Trulicity 0.75 MG/0.5ML Trulicity 0.75 MG/0.5ML 06/19/2019 12:00:00 AM EST active Trulicity 0.75 MG/0.5ML eCW1 ([facility]) BD Ultra-fine Pen Blain 32G 4mm UNK 06/19/2019 12:00:00 AM EST active BD Ultra-fine Pen Blain 32G 4m m eCW1 ([facility]) BD Ultra-fine Pen Blain 32G 4mm UNK 06/19/2019 12:00:00 AM EST active BD Ultra-fine Pen Blain 32G 4m m eCW1 ([facility] [facility] 0.5 ML dulaglutide 1.5 MG/ML Auto-Injector [Trulicity] Trulicity 0.75 MG/0.5ML Trulicity 0.75 MG/0.5ML 06/19/2019 12:00:00 AM EST active Trulicity 0.75 MG/0.5ML eCW1 ([facility]) BD Ultra-fine Pen Blain 32G 4mm UNK 06/19/2019 12:00:00 AM EST active BD Ultra-fine Pen Blain 32G 4m m eCW1 ([facility]) BD Ultra-fine Pen Blain 32G 4mm UNK 06/19/2019 12:00:00 AM EST active BD Ultra-fine Pen Blain 32G 4m m eCW1 ([facility]) 0.5 ML dulaglutide 1.5 MG/ML Auto-Injector [Trulicity] Trulicity 0.75 MG/0.5ML Trulicity 0.75 MG/0.5ML 06/19/2019 12:00:00 AM EST active 0.5ml eCW1 ([facility]) BD Ultra-fine Pen Blain 32G 4mm UNK 06/19/2019 12:00:00 AM EST active BD Ultra-fine Pen Blain 32G 4m m eCW1 ([facility]) rifaximin 200 MG Oral Tablet [XIFAXAN] Xifaxan 200 MG Xifaxa n 200 MG 04/30/2019 12:00:00 AM EST active 1 tablet eCW1 ([facility]) rifaximin 200 MG Oral Tablet [XIFAXAN] Xifaxan 200 MG Xifaxa n 200 MG 04/30/2019 12:00:00 AM EST 1.0 {tablet} active Xi faxan 200 MG eCW1 ([facility]) rifaximin 200 MG Oral Tablet [XIFAXAN] Xifaxan 200 MG Xifaxa n 200 MG 04/30/2019 12:00:00 AM EST 1.0 {tablet} active Xi faxan 200 MG eCW1 ([facility]) rifaximin 200 MG Oral Tablet [XIFAXAN] Xifaxan 200 MG Xifaxa n 200 MG 04/30/2019 12:00:00 AM EST 1.0 {tablet} active Xi faxan 200 MG eCW1 ([facility]) rifaximin 200 MG Oral Tablet [XIFAXAN] Xifaxan 200 MG Xifaxa n 200 MG 04/30/2019 12:00:00 AM EST 1.0 {tablet} active Xi faxan 200 MG eCW1 ([facility]) rifaximin 200 MG Oral Tablet [XIFAXAN] Xifaxan 200 MG Xifaxa n 200 MG 04/30/2019 12:00:00 AM EST 1.0 {tablet} active Xi faxan 200 MG eCW1 ([facility]) rifaximin 200 MG Oral Tablet [XIFAXAN] Xifaxan 200 MG Xifaxa n 200 MG 04/30/2019 12:00:00 AM EST active 1 tablet eCW1 ([facility]) rifaximin 200 MG Oral Tablet [XIFAXAN] Xifaxan 200 MG Xifaxa n 200 MG 04/30/2019 12:00:00 AM EST 1.0 {tablet} active Xi faxan 200 MG eCW1 ([facility]) 200 mg 04/30/2019 12:00:00 AM EST tablet 90 TAKE ONE TABLET BY MOUTH THREE TIMES A DAY TAKE ONE TABLET BY MOUTH THREE TIMES A DAY SOLD: 05/01/2019 [facility] rifaximin 200 MG Oral Tablet [XIFAXAN] Xifaxan 200 MG Xifaxa n 200 MG 04/30/2019 12:00:00 AM EST 1.0 {tablet} active Xi faxan 200 MG eCW1 ([facility]) rifaximin 200 MG Oral Tablet [XIFAXAN] Xifaxan 200 MG Xifaxa n 200 MG 04/30/2019 12:00:00 AM EST 1.0 {tablet} active Xi faxan 200 MG eCW1 ([facility]) 100 mg 04/24/2019 12:00:00 AM [...] EST active 1 tablet as needed eC1 ([facility]) sildenafil 100 MG Oral Tablet [Viagra] Viagra 100 MG Viagra 100 MG 04/23/2019 12:00:00 AM EST active 1 tablet as needed eC1 ([facility]) sildenafil 100 MG Oral Tablet [Viagra] Viagra 100 MG Viagra 100 MG 04/23/2019 12:00:00 AM EST active 1 tablet as needed eC1 ([facility]) Insurance Providers Payer name Policy type / Coverage type Policy ID Covered republican ID Covered republican's relationship to baker Policy Baker Plan Information ALONDRA LAW PPO 302/307 [id number] SP [id number] [place]/307 [id number] SP [id number] [place]/307 [id number] SP [id number] EXCELLUS BCBS B [id number] S ASB [id number] [place]BS [place] PPO 302/307 [id number] SP [id number] SELF PAY ONLY FA2 ANSI-Commercial [id number] ANSI-Commercial [id number]-ez6v-[id number]-[id number] ANSI-Commercial [id number] [id number]-[id number]-auc11f388hhs ANSI-Commercial [id number]-p596-1206-e8as-[id number] [place] Commercial [id number] Self [id number] ANSI-Commercial [id number] ANSI-Commercial uvlbz4ld-8crn-4y07-[id number] mggto2sx-9bqh-7f55-[id number] ANSI-Commercial [id number]-6j40-3u57-[id number] [id number]-9m41-8m36-[id number] ANSI-Commercial [id number]-2163-92ad-31s3-mxe7559wj5s0 [id number]-3455-91if-19g5-ans9826ri6k8 ANSI-Commercial [id number]-[id number]-534p-800d-[id number] ANSI-Commercial [id number]-[id number]-71c2-sjr2-67nabt7r7obt a615z9ez-120j-95q3-wkp3-88vjyp8l6och ANSI-Commercial 0mf69c79-099b-883f-b1qx-250218yzuhcl [id number]-780r-t4ka-578283rhrbim ANSI-Commercial t61oig5n-k156-5929-[id number] v50atf0a-s261-5023-pi60-953ln136rz80 ANSI-Commercial [id number]-[id number]-f901-[id number] ANSI-Commercial [id number]-ul6wn5xlg5qo [id number]-pm1iz5cwn3hm ANSI-Commercial [id number]-k65r-3ahn5x37r47c 074ce088-0375-2844-e13o-7pbn2c11a90f ANSI-Commercial [id number]-[id number] [id number]-41l9-7418-18c8-83188060y409 ANSI-Commercial o732akb4-58a8-63g0-y7u5-9hdd4962x7w7 p129cqx5-03y6-92j7-l9z8-6cnh0990y1y2 ANSI-Commercial n61w36bv-h6k5-4952-1446-35166t61b16a o77v08vn-u8o1-5679-9839-22934x46p69l ANSI-Commercial [id number] 268l[id number] ANSI-Commercial 9460q2r4-u221-9k89-j125-xpq2843kqa4f 5858x7a9-h240-9n42-q334-yfg8789fly0v [place] [id number] Self [id number] [place] [id number] Self [id number] ANSI-Commercial [id number]-c11g-[id number] [id number]-b17t-[id number] ANSI-Commercial 80bg404f-b309-6vnw-7p8x-[id number] 40ml487t-p495-7egy-3c2w-w5471c7285b7 ANSI-Commercial 8k056igw-s0od-[id number] 8a898wcm-y8jm-2g74-8j62-8v78868x55x4 ANSI-Commercial 61s259m8-54y7-3391-ax1g-006268gm1zy2 73v158x4-78k0-0541-xo5s-516072og8ln8 ANSI-Commercial u8w8343k-dt93-0860-vr22-0o1i787mqdv1 o3n4176k-fj69-1249-re10-6o6n513pucy0 ANSI-Commercial 4z4c1c7z-h496-2j41-i7z6-92c53f0f8185 0a9x6x6z-s262-7s76-z4l5-78m68f5a2655 ANSI-Commercial 434bvn4r-2801-66z6-b6f5-0nt96v1jd0dj 423vnv3v-2737-16d6-i4i6-2ky42p3ai8pv ANSI-Commercial n759gqo2-gq57-932e-2s86-ytuh51h1w246 a534gpu6-ww55-092d-7t13-ccej83w8o398 ANSI-Commercial 67fm55t9-d044-7548-u2l3-63b8mzmi5s44 98bh03p8-t488-8112-p5u4-72u8ztgr8o49 ANSI-Commercial q1o4q4tw-f626-7c67-2217-46w5fc06o034 a8g0n5it-t708-3b23-3372-92v9mt93g256 ANSI-Commercial 019y350k-b39z-0467-566j-v5396s23xn6g 023v410v-u01r-7198-978j-b1975m22lt5z ANSI-Commercial 474gq9kk-k930-5j2p-[id number] 713ok6bg-v193-0q3d-9796-22uv74444709 BS [place] Medigap Part B [id number] Self [id number] BS [place] Commercial [id number] Self [id number] BS [place] Medigap Part B [id number] Self [id number] BS [place] Commercial [id number] Self [id number] ANSI-Commercial 42hz1587-b7jz-63u8-wz5y-d1eoz1m221af 41he4852-q2af-26q3-ch0r-t2vuv3s209bv ANSI-Commercial 776ko619-p37w-6q48-sr2v-8fy0bna5197c 232rz925-h04o-4d66-ua2c-4vc6rox0170i BCBS [place] PPO 302/307 [id number] SP [id number] BCBS [place] (Old) Commercial [id number] Self [id number] Blue Preferred Ppo Medigap Part B [id number] Self [id number] Excellus Blue Preferred Ppo Medigap Part B [id number] [place] f [id number] BCBS [employer] [place] Commercial [id number] Self [id number] BCBS [place] (Old) Commercial [id number] Self [id number] Blue Preferred Ppo Medigap Part B [id number] Self [id number] Excellus Blue Preferred Ppo Medigap Part B [id number] [place] f [id number] BCBS [employer] [place] Commercial [id number] Self [id number] BS [place] Medigap Part B [id number] Self [id number] BS [place] Commercial [id number] Self [id number] BS [place] Medigap Part B [id number] Self [id number] BS [place] Commercial [id number] Self [id number] ANSI-Commercial [id number]-d792-ki84z86pe73b [id number]-y610-zo69p31zt51e ANSI-Commercial [id number] wj2g31m9-8719-3260-3t89-7c685l8v5s8l BS [place] Medigap Part B [id number] Self [id number] BS [place] Commercial [id number] Self [id number] BS [place] Medigap Part B [id number] Self [id number] BS [place] Commercial [id number] Self [id number] BS [place] Medigap Part B [id number] Self [id number] BS [place] Commercial [id number] Self [id number] BS [place] Medigap Part B [id number] Self [id number] BS [place] [id number] Self [id number] Excellus BCBS Health Maintenance Organization (HMO) [id number] Self [id number] ANSI-Commercial [id number]-[id number] ANSI-Commercial 5k4tsy81-5f83-32fg-[id number] 4q9yqv45-4r35-44wt-[id number] [place] [facility] Part B [id number] Self [id number] BS [place] Commercial [id number] Self [id number] ANSI-Commercial [id number]-[id number]-iz51l1j4m7i7 ANSI-Commercial 20zl77d0-u8i6-6of8-79vs-[id number] 48rr87p5-s6o0-3hu0-58un-15147pw96v21 ANSI-Commercial j9ywtki5-644h-[id number] j5pahyf1-640j-[id number] ANSI-Commercial 76mf948m-we66-6999-fdni-bri9s2w1p1q7 21bd900i-ej98-3279-vuzf-toa0m6x5w9q0 ANSI-Commercial [id number]-7804-6r95-anh5-[id number] [id number]-8420-5t85-zxp0-[id number] ANSI-Commercial [id number]-806a-9d89-ietr-m63igoi7a3cn 0ch5r54s-832v-4m64-zeha-f75qcpf5p1cc ANSI-Commercial [id number]-2295-[id number]-8938-[id number] ANSI-Commercial d9uh9vh8-6lu1-01t3-[id number]-[id number] ANSI-Commercial 83r25c80-e538-15p6-7q9m-91s37p9p5719 68j59f92-c175-03w2-5o3n-69o58w1f6421 ANSI-Commercial 54i9qr4s-b2bn-023z-p2n5-480s97s3bkaa 01x4kj7b-q6vu-664q-f6q4-702s43h4tiok ANSI-Commercial z08526r3-w02p-6a22-wy01-65cj6qy132zk [id number]-i24l-1r51-ms62-44yk3fa076gj ANSI-Commercial id950y4n-[id number] vy189t2t-[id number] BCBS [facility] (Old) Commercial [id number] Self [id number] Blue Preferred Ppo Medigap Part B [id number] Self [id number] Excellus Blue Preferred Ppo Medigap Part B [id number] Belle f [id number] BCBS [employer] [place] Commercial [id number] Self [id number] BCBS Excell[employer] Ppo U/W Commercial Self BCBS [facility] (Old) Commercial Self Blue Preferred Ppo Medigap Part B Self Excellus Blue Preferred Ppo Commercial Self EXCELLUS BCBS [id number] Belle ASB [id number] STATE INSURANCE FUND [id number] SP [id number] STATE INSURANCE FUND [id number] SP [id number] WORKERS COMPENSATION GENERIC W [id number] Empl [id number] WORKERS COMPENSATION GENERIC W [id number] Empl [id number] STATE INSURANCE FUND P [id number] S [id number] EXCELLUS BCBS [id number] Belle ASB [id number] STATE INSURANCE FUND [id number] SP [id number] OTHER WORKERS COMPENSATION [id number] SP [id number] BC EXC PLANS 1 [id number] EXCELLUS BCBS P [id number] S ASB [id number] EXCELLUS BCBS P UNAVAILABLE S UNAV AILABLE SELF PAY 2 UNAVAILABLE 1 UNAVAILA BLE BC EXC PLANS 1 [id number] 1 [id number] Problems, Conditions, and Diagnoses Code Display Name Description Problem Type Effective Dates Data Source(s) I73.9 [id number] PVD (peripheral vascular disease) Problem 03/06/2020 12:00:00 AM EST eCW1 ([facility]) 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 ED (erectile dysfunction) Problem 04/23/2019 12:00:00 AM EST eCW1 ([facility]) 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 ED (erectile dysfunction) Problem 04/23/2019 12:00:00 AM EST eCW1 ([facility]) Surgeries/Procedures Procedure Description Date Indications Data Source(s) REVSC OPN/PRQ TIB/SHYANNE W/ANGIOPLASTY UNI 04/22/2020 12 :00:00 AM EST [facility] ([facility], ) Moderate Sedation Services; Same Phys Intl 15 Mins; PT >= 5 Years 04/22/2020 12:00:00 AM EST [facility] ([facility], ) Immunization: Flublok Quadrivalent (18 years & older) 0.5mL IM (Influenza) 03/14/2020 12:00:00 AM EST eCW1 ([facility], 1928–1983) ECG ROUTINE ECG W/LEAST 12 LDS W/I&R 07/06/2019 12:00: 00 AM EDT [facility] ([facility]) Arterial Pressure Waveform Analysis For Assessment Of Centra l Art 07/06/2019 12:00:00 AM EDT [facility] ([facility]) Results ID Date Data Source [id number] 04/22/2020 06:37:00 AM EST [facility] Name Value Range Interpretation Code Description Data Madelin rce(s) Supporting Document(s) Blood Urea Nitrogen 13 mg/dL 7-18 Normal (applies to non-nume haydee results) [facility] ([facility], ) Glucose, Fasting 133 mg/dL 70-100 Above high normal [facility], ) Glomerular Filtration Rate Laboratory test result Normal (applies to non- numeric results) [facility] ([facility], ) <content>Units are mL/min/1.73 m2</content>
<content></content>
<content>Chronic Kidney Disease Staging per NKF:</content>
<content></content>
<content>Stage I & II GFR >=60 Normal to Mildly Decreased</content>
<content>Stage III GFR 30- 59 Moderately Decreased</content>
<content>Stage IV GFR 15-29 Severely Decreased</content>
<content>Stage V GFR <15 Very Little GFR Left</content>
<content>ESRD GFR <15 on PROPERTY MASTER</content>
<content></content> Creatinine For GFR 0.90 mg/dL 0.70-1.30 Normal (applies to non -numeric results) [facility] ([facility]) Chloride Level 109 meq/L 98-107 Above high normal [facility] ([facility]) Sodium Level 141 meq/L 136-145 Normal (applies to non-numeric res ults) [facility]) Potassium Serum 3.8 meq/L 3.5-5.1 Normal (applies to non-numeric results) [facility] ([facility]) Anion Gap 4 meq/L 8-16 Below low normal [facility] ( [facility]) Carbon Dioxide Level 28 meq/L 21-32 Normal (applies to non-num keaton results) [facility]) Calcium Level 9.0 mg/dL 8.5-10.1 Normal (applies to non-numeric re sults) [facility]) ID Date Data Source [id number] 04/22/2020 06:37:00 AM EST [facility] ([facility]) Name Value Range Interpretation Code Description Data Madelin rce(s) Supporting Document(s) White Blood Count 5.9 10 4.0-10.0 Normal (applies to non-numeri c results) [facility]) Red Blood Count 5.48 10 4.30-6.10 Normal (applies to non-numeric results) [facility] ([facility]) Hemoglobin 14.7 g/dL 13.5-17.5 Normal (applies to non-numeric resul ts) [facility] ([facility]) Mean Corpuscular Hemoglobin 26.8 pg 27.0-33.0 Below low normal [facility] ([facility]) Mean Corpuscular Volume 82.7 fl 80.0-96.0 Normal ( applies to non-numeric results) [facility] ([facility]) Hematocrit 45.3 % 42.0-52.0 Normal (applies to non-numeric resul ts) [facility] ([facility]) Mean Corpuscular HGB Conc 32.5 g/dL 32.0-36.5 Normal (applies to non-numeric results) [facility] ([facility]) Red Cell Distribution Width 13.8 % 11.5-14.5 Norm al (applies to non-numeric results) [facility] ([facility]) Nucleated Red Blood Cell % 0.0 % 0-0 Normal (applies to n on-numeric results) [facility] ([facility]) Platelet Count, Automated 222 10 150-450 Normal (applies to non-numeric results) [facility] ([facility]) ID Date Data Source [id number] 11/12/2019 12:00:00 AM [facility]T [facility] Name Value Range Interpretation Code Description Data Madelin rce(s) Supporting Document(s) 2019-nCoV RNA XXX RADHA+probe-Imp [facility] This lab was ordered by [facility] and reported by [employer] ID Date Data Source H PYLORI SERUM QUANT IgG BEAR 04/23/2019 12:00:00 AM EST eCW1 ([facility]) Name Value Range Interpretation Code Description Data Madelin rce(s) Supporting Document(s) 0.35 0.00-0.79 H PYLORI SERUM QUANT IgG BEAR eCW1 ([facility]) ID Date Data Source t-Transglutaminase (tTG) IgA 04/23/2019 12:00:00 AM EST eCW1 ([facility]) Name Value Range Interpretation Code Description Data Madelin rce(s) Supporting Document(s) Tissue transglutaminase IgA Ab [Units/volume] in Serum <2 0-3 TISSUE TRANSGLUTAMINASE IgA eCW1 ([facility]) ID Date Data Source GASTROINTESTINAL GI PANEL (GIPANEL) 04/23/2019 12:00:00 AM EST eCW1 ([facility]) Name Value Range Interpretation Code Description Data Madelin rce(s) Supporting Document(s) This Gastrointestinal PCR Panel detects the following bacteria, GASTROINTESTINAL (GI) PANEL eCW1 ([facility]) ID Date Data Source ERYTHROCYTE SEDIMENTATION RATE 04/23/2019 12:00:00 AM EST eC W1 ([facility]) Name Value Range Interpretation Code Description Data Madelin rce(s) Supporting Document(s) 1 0-20 ERYTHROCYTE SEDIMENTATION RATE eCW1 ([facility]) ID Date Data Source C REACTIVE PROTEIN QUANTITATIV (At [facility]) 04/23/2019 12:00 :00 AM EST eCW1 ([facility]) Name Value Range Interpretation Code Description Data Madelin rce(s) Supporting Document(s) < 0.30 0.00-0.30 C REACTIVE PROTEIN QUANTI TATIV eCW1 ([facility]) Procedure Social History Code Duration Value Status Description Data Source(s ) Smoking 04/07/2020 12:00:00 AM EST Never Smoker completed Never S moker eCW1 ([facility]) Smoking 04/07/2020 12:00:00 AM EST Never Smoker completed Never S moker eCW1 ([facility]) Smoking 04/07/2020 12:00:00 AM EST Never Smoker completed Never S moker eCW1 ([facility]) Smoking 04/07/2020 12:00:00 AM EST Never Smoker completed Never S moker eCW1 ([facility]) Smoking 04/07/2020 12:00:00 AM EST Never Smoker completed Never S moker eCW1 ([facility]) Smoking 03/14/2020 12:00:00 AM EST Never Smoker completed Never S moker eCW1 ([facility]) Smoking 03/14/2020 12:00:00 AM EST Never Smoker completed Never S moker eCW1 ([facility]) Smoking 03/10/2020 12:00:00 AM EST Never Smoker completed Never S moker eCW1 ([facility]) Smoking 03/10/2020 12:00:00 AM EST Never Smoker completed Never S moker eCW1 ([facility]) Smoking 10/24/2019 12:00:00 AM EDT Never Smoker completed Never S moker eCW1 ([facility]) Smoking 10/24/2019 12:00:00 AM EDT Never Smoker completed Never S moker eCW1 ([facility]) Smoking 10/24/2019 12:00:00 AM EDT Never Smoker completed Never S moker eCW1 ([facility]) Smoking 10/24/2019 12:00:00 AM EDT Never Smoker completed Never S moker eCW1 ([facility]) Smoking 10/24/2019 12:00:00 AM EDT Never Smoker completed Never S moker eCW1 ([facility]) Smoking 10/24/2019 12:00:00 AM EDT Never Smoker completed Never S moker eCW1 ([facility]) Vital Signs ID Date Data Source UNK Name Value Range Interpretation Code Description Data Source(s) Body surface area Derived from formula 2.26 m2 2.[address] [facility] ([facility]) Body weight 95.313 kg 95.[address] [facility] ([facility]) [place] body weight 202 [lb_av] 202 [lb_av] [facility]) Body mass index (BMI) [Ratio] 25.6 kg/m2 25.6 k g/m2 [facility] ([facility]) Body weight 210.12 [lb_av] 210.12 [lb_av] [facility] Body height 76 [in_i] 76 [in_i] [facility] ([facility]) 6'4" Diastolic blood pressure 82 mm[Hg] 82 mm[Hg] [facility] ([facility]) Systolic blood pressure 120 mm[Hg] 120 mm[Hg] [facility] ([facility]) Body surface area Derived from formula 2.25 m2 2.[address] [facility] ([facility]) Body weight 93.668 kg 93.[address] [facility] ([facility]) [place] body weight 202 [lb_av] 202 [lb_av] [facility] ([facility]) Body mass index (BMI) [Ratio] 25.1 kg/m2 25.1 k g/m2 [facility] ([facility]) Body weight 206.50 [lb_av] 206.50 [lb_av] [facility] ([facility]) Body height 76 [in_i] 76 [in_i] [facility] ([facility]) 6'4" Diastolic blood pressure 70 mm[Hg] 70 mm[Hg] [facility] ([facility]) Systolic blood pressure 130 mm[Hg] 130 mm[Hg] M EDENT ([facility]) Diastolic blood pressure 80 mm[Hg] 80 mm[Hg] eCW1 ([facility]) Systolic blood pressure 150 mm[Hg] 150 mm[Hg] e CW1 ([facility]) Body temperature 97.5 [degF] 97.5 [degF] eCW1 ( [facility]) Respiratory rate 18 /min 18 /min eCW1 ([facility]) Heart rate 95 /min 95 /min eCW1 ([facility]) Body mass index (BMI) [Ratio] 27.51 kg/m2 27.51 kg/m2 W1 ([facility]) Body height 73.5 [in_i] 73.5 [in_i] eCW1 ([facility]) Body weight 211.4 [lb_av] 211.4 [lb_av] eCW1 ([facility]) Body surface area Derived from formula 2.28 m2 2.[address] [facility] ([facility]) Body weight 97.070 kg 97.[address] [facility] ([facility]) [place] body weight 202 [lb_av] 202 [lb_av] MEDEN T ([facility]) Body mass index (BMI) [Ratio] 26.0 kg/m2 26.0 k g/m2 [facility] ([facility]) Body weight 214.00 [lb_av] 214.00 [lb_av] MED[facility] T ([facility]) Body height 76 [in_i] 76 [in_i] MEDENT ([facility], ) 6'4" Diastolic blood pressure 84 mm[Hg] 84 mm[Hg] MEDKATE ([facility], ) Systolic blood pressure 136 mm[Hg] 136 mm[Hg] M EDENT ([facility], ) Diastolic blood pressure 70 mm[Hg] 70 mm[Hg] eCW1 ([facility]) Systolic blood pressure 118 mm[Hg] 118 mm[Hg] e CW1 ([facility]) Body temperature 98 [degF] 98 [degF] eCW1 ([facility]) Respiratory rate 18 /min 18 /min eCW1 ([facility]) Heart rate 97 /min 97 /min eCW1 ([facility]) Body mass index (BMI) [Ratio] 27.16 kg/m2 27.16 kg/m2 eCW1 ([facility]) Body height 73.5 [in_i] 73.5 [in_i] eCW1 ([facility]) Body weight 208.75 [lb_av] 208.75 [lb_av] eCW1 ([facility]) Diastolic blood pressure 80 mm[Hg] 80 mm[Hg] eCW1 ([facility]) Systolic blood pressure 134 mm[Hg] 134 mm[Hg] e CW1 ([facility]) Body temperature 97.2 [degF] 97.2 [degF] eCW1 ( [facility]) Respiratory rate 18 /min 18 /min eCW1 ([facility]) Heart rate 107 /min 107 /min eCW1 ([facility]) Body mass index (BMI) [Ratio] 27.07 kg/m2 27.07 kg/m2 eCW1 ([facility]) Body height 73.5 [in_i] 73.5 [in_i] eCW1 ([facility]) Body weight 208 [lb_av] 208 [lb_av] eCW1 ([facility]) Diastolic blood pressure--sitting 83 mm[Hg] 83 mm[Hg] LUIZA ([facility]) CBP, large cuff/Ra Systolic blood pressure--sitting 139 mm[Hg] 139 mm[Hg] MEDENT ([facility]) CBP, large cuff/Ra Heart rate 77 /min 77 /min MEDENT ([facility]) Body mass index (BMI) [Ratio] 25.8 kg/m2 25.8 k g/m2 MEDENT ([facility]) Body height 76 [in_i] 76 [in_i] MEDENT ([facility]) 6'4" Body weight 212.00 [lb_av] 212.00 [lb_av] MEDEN T ([facility]) Diastolic blood pressure 82 mm[Hg] 82 mm[Hg] eCW1 ([facility]) Systolic blood pressure 126 mm[Hg] 126 mm[Hg] e CW1 ([facility]) Body temperature 98.2 [degF] 98.2 [degF] eCW1 ( [facility]) Respiratory rate 20 /min 20 /min eCW1 ([facility]) Heart rate 88 /min 88 /min eCW1 ([facility]) Body mass index (BMI) [Ratio] 28.47 kg/m2 28.47 kg/m2 W1 ([facility]) Body height 73.5 [in_us] 73.5 [in_us] eCW1 ([facility]) Body weight Measured 218.8 [lb_av] 218.8 [lb_av ] eCW1 ([facility]) Diastolic blood pressure 90 mm[Hg] 90 mm[Hg] eCW1 ([facility]) Systolic blood pressure 138 mm[Hg] 138 mm[Hg] e CW1 ([facility]) Body temperature 97.8 [degF] 97.8 [degF] eCW1 ( [facility]) Respiratory rate 18 /min 18 /min eCW1 ([facility]) Heart rate 86 /min 86 /min eCW1 ([facility]) Body mass index (BMI) [Ratio] 26.86 kg/m2 26.86 kg/m2 eCW1 ([facility]) Body height 73.5 [in_us] 73.5 [in_us] eCW1 ([facility]) Body weight Measured 206.4 [lb_av] 206.4 [lb_av ] eCW1 ([facility]) Diastolic blood pressure 90 mm[Hg] 90 mm[Hg] eCW1 ([facility]) Systolic blood pressure 138 mm[Hg] 138 mm[Hg] e CW1 ([facility]) Body temperature 97.8 [degF] 97.8 [degF] eCW1 ( [facility]) Respiratory rate 18 /min 18 /min eCW1 ([facility]) Heart rate 86 /min 86 /min eCW1 ([facility]) Body mass index (BMI) [Ratio] 26.86 kg/m2 26.86 kg/m2 eCW1 ([facility]) Body height 73.5 [in_us] 73.5 [in_us] eCW1 ([facility]) Body weight Measured 206.4 [lb_av] 206.4 [lb_av ] eCW1 ([facility]) Patient Treatment Plan of Care Planned Activity Planned Date Details Description Data Source (s) duloxetine 30 MG Delayed Release Oral Capsule 04/07/2020 12:00:00 A M EST eCW1 ([facility]) duloxetine 30 MG Delayed Release Oral Capsule 04/07/2020 12:00:00 A M EST eCW1 ([facility]) duloxetine 30 MG Delayed Release Oral Capsule 04/07/2020 12:00:00 A M EST eCW1 ([facility]) duloxetine 30 MG Delayed Release Oral Capsule 04/07/2020 12:00:00 A M EST eCW1 ([facility]) duloxetine 30 MG Delayed Release Oral Capsule 04/07/2020 12:00:00 A M EST eCW1 ([facility]) Ascorbic Acid 500 MG Oral Tablet 03/14/2020 12:00:00 AM EST eCW1 ([facility]) Ascorbic Acid 500 MG Oral Tablet 03/14/2020 12:00:00 AM EST eCW1 ([facility]) Mupirocin 0.02 MG/MG Topical Ointment 03/10/2020 12:00:00 AM EST eCW1 ([facility]) Levofloxacin 500 MG Oral Tablet 03/10/2020 12:00:00 AM EST eCW1 ([facility]) Mupirocin 0.02 MG/MG Topical Ointment 03/10/2020 12:00:00 AM EST eCW1 ([facility]) Levofloxacin 500 MG Oral Tablet 03/10/2020 12:00:00 AM EST eCW1 ([facility]) FreeStyle [place] - 10/25/2019 12:00:00 AM EDT eCW1 ([facility]) FreeStyle [place] 14 Day Sensor - 10/25/2019 12:00:00 AM EDT eCW1 ([facility]) FreeStyle [place] - 10/25/2019 12:00:00 AM EDT eCW1 ([facility]) FreeStyle [place] 14 Day Sensor - 10/25/2019 12:00:00 AM EDT eCW1 ([facility]) FreeStyle [place] 14 Day Sensor - 10/25/2019 12:00:00 AM EDT eCW1 ([facility]) FreeStyle [place] - 10/25/2019 12:00:00 AM EDT eCW1 ([facility]) FreeStyle [place] - 10/25/2019 12:00:00 AM EDT eCW1 ([facility]) FreeStyle [place] 14 Day Sensor - 10/25/2019 12:00:00 AM EDT eCW1 ([facility]) FreeStyle [place] - 10/25/2019 12:00:00 AM EDT eCW1 ([facility]) FreeStyle [place] 14 Day Sensor - 10/25/2019 12:00:00 AM EDT eCW1 ([facility]) FreeStyle [place] - 10/25/2019 12:00:00 AM EDT eCW1 ([facility]) FreeStyle [place] 14 Day Sensor - 10/25/2019 12:00:00 AM EDT eCW1 ([facility]) FreeStyle [place] - 10/25/2019 12:00:00 AM EDT eCW1 ([facility]) FreeStyle [place] 14 Day Sensor - 10/25/2019 12:00:00 AM EDT eCW1 ([facility]) FreeStyle [place] - 10/25/2019 12:00:00 AM EDT eCW1 ([facility]) FreeStyle [place] 14 Day Sensor - 10/25/2019 12:00:00 AM EDT eCW1 ([facility]) tizanidine 2 MG Oral Tablet 09/06/2019 12:00:00 AM EDT eCW1 ([facility]) tizanidine 2 MG Oral Tablet 09/06/2019 12:00:00 AM EDT eCW1 ([facility]) tizanidine 2 MG Oral Tablet 09/06/2019 12:00:00 AM EDT eCW1 ([facility]) Trulicity 3 MG/0.5ML 06/19/2019 12:00:00 AM EST eCW1 ([facility]) Trulicity 3 MG/0.5ML 06/19/2019 12:00:00 AM EST eCW1 ([facility]) 0.5 ML dulaglutide 3 MG/ML Auto-Injector [Trulicity] 12:00:00 AM EST eCW1 ([facility]) 0.5 ML dulaglutide 3 MG/ML Auto-Injector [Trulicity] 12:00:00 AM EST eCW1 ([facility]) 0.5 ML dulaglutide 3 MG/ML Auto-Injector [Trulicity] 12:00:00 AM EST eCW1 ([facility]) 0.5 ML dulaglutide 1.5 MG/ML Auto-Injector [Trulicity] 06/19/2019 12:00:00 AM EST eCW1 ([facility]) 0.5 ML dulaglutide 1.5 MG/ML Auto-Injector [Trulicity] 06/19/2019 12:00:00 AM EST eCW1 ([facility]) 0.5 ML dulaglutide 1.5 MG/ML Auto-Injector [Trulicity] 06/19/2019 12:00:00 AM EST eCW1 ([facility]) 0.5 ML dulaglutide 1.5 MG/ML Auto-Injector [Trulicity] 06/19/2019 12:00:00 AM EST eCW1 ([facility]) 0.5 ML dulaglutide 1.5 MG/ML Auto-Injector [Trulicity] 06/19/2019 12:00:00 AM EST eCW1 ([facility]) 0.5 ML dulaglutide 1.5 MG/ML Auto-Injector [Trulicity] 06/19/2019 12:00:00 AM EST eCW1 ([facility]) BD Ultra-fine Pen Blain 32G 4mm 06/19/2019 12:00:00 AM EST eCW1 ([facility]) 0.5 ML dulaglutide 1.5 MG/ML Auto-Injector [Trulicity] 06/19/2019 12:00:00 AM EST eCW1 ([facility]) rifaximin 200 MG Oral Tablet [XIFAXAN] 04/30/2019 12:00:00 AM EST eCW1 ([facility]) rifaximin 200 MG Oral Tablet [XIFAXAN] 04/30/2019 12:00:00 AM EST eCW1 ([facility]) rifaximin 200 MG Oral Tablet [XIFAXAN] 04/30/2019 12:00:00 AM EST eCW1 ([facility]) rifaximin 200 MG Oral Tablet [XIFAXAN] 04/30/2019 12:00:00 AM EST eCW1 ([facility]) rifaximin 200 MG Oral Tablet [XIFAXAN] 04/30/2019 12:00:00 AM EST eCW1 ([facility]) rifaximin 200 MG Oral Tablet [XIFAXAN] 04/30/2019 12:00:00 AM EST eCW1 ([facility]) rifaximin 200 MG Oral Tablet [XIFAXAN] 04/30/2019 12:00:00 AM EST eCW1 ([facility]) rifaximin 200 MG Oral Tablet [XIFAXAN] 04/30/2019 12:00:00 AM EST eCW1 ([facility]) sildenafil 100 MG Oral Tablet [Viagra] 04/23/2019 12:00:00 AM EST eCW1 ([facility]) sildenafil 100 MG Oral Tablet [Viagra] 04/23/2019 12:00:00 AM EST eCW1 ([facility]) sildenafil 100 MG Oral Tablet [Viagra] 04/23/2019 12:00:00 AM EST eCW1 ([facility])
[2020-06-12 11:04] LABS: BASO % 0.3 % (0.0-1.0); EOS # 0.1 10^3/uL (0.0-0.5); EOS % 0.6 % (0.0-3.0); HEMATOCRIT 45.2 % (42.0-52.0); HEMOGLOBIN 14.9 g/dl (13.5-17.5); LYMPH # 1.2 10^3/uL (1.5-5.0); LYMPH % 11.6 % (24.0-44.0); MEAN CORPUSCULAR HEMOGLOBIN 27.1 pg (27.0-33.0); MEAN CORPUSCULAR VOLUME 82.3 fl (80.0-96.0); MONO # 0.7 10^3/uL (0.0-0.8); NEUTROPHILS # 8.2 10^3/uL (1.5-8.5); NEUTROPHILS % 80.1 % (36.0-66.0); PLATELET COUNT, AUTOMATED 210 10^3/uL (150-450); RED BLOOD COUNT 5.49 10^6/uL (4.30-6.10); WHITE BLOOD COUNT 10.2 10^3/uL (4.0-10.0)
[2020-06-12 11:19] LABS: INR 1.03; PROTHROMBIN TIME 13.7 SECONDS (12.5-14.3)
[2020-06-12 11:20] LABS: PARTIAL THROMBOPLASTIN TIME 31.5 SECONDS (24.2-38.5)
[2020-06-12 11:32] LABS: ERYTHROCYTE SEDIMENTATION RATE 41 mm/hr (0-20)
[2020-06-12 11:40] LABS: ALBUMIN 3.5 GM/DL (3.2-5.2); ALT/SGPT 37 U/L (12-78); BILIRUBIN,DIRECT 0.2 MG/DL (0.0-0.2); BILIRUBIN,TOTAL 0.7 MG/DL (0.2-1.0); BLOOD UREA NITROGEN 13 MG/DL (7-18); CALCIUM LEVEL 9.2 MG/DL (8.5-10.1); CARBON DIOXIDE LEVEL 26 MEQ/L (21-32); CHLORIDE LEVEL 104 MEQ/L (98-107); CK-MB VALUE MASS < 1.0 NG/ML (<3.6); CPK CREATINE PHOSPHOKINASE 95 U/L (39-308); CREATININE FOR GFR 0.88 MG/DL (0.70-1.30); FERRITIN 133 NG/ML (26-388); FREE T4 0.97 NG/DL (0.76-1.46); GLOMERULAR FILTRATION RATE > 60.0 (>56); GLUCOSE, FASTING 180 MG/DL (70-100); LDH LACTATE DEHYDROGENASE 205 U/L (87-241); LIPASE 786 U/L (73-393); MB/CK RELATIVE INDEX 1.05 (< OR =4); NT-PRO BNP 11 PG/ML (<125); POTASSIUM SERUM 3.8 MEQ/L (3.5-5.1); SODIUM LEVEL 139 MEQ/L (136-145); TOTAL PROTEIN 7.1 GM/DL (6.4-8.2); TROPONIN I < 0.02 NG/ML (< 0.10)
--- NOTE | 2020-06-12 12:29 | REP ---
INDICATION: CHEST PAIN. COMPARISON: Comparison chest x-ray 24 February 2005. TECHNIQUE: Portable upright AP chest radiograph. FINDINGS: The lungs are well inflated and free of infiltrate. Pleural angles are sharp. Heart size is normal. Pulmonary vasculature is not increased. Monitoring electrodes are visible. IMPRESSION: No active disease. <Electronically signed by Richard Churchill > 06/12/20 [id number]
[2020-06-12] MEDS ORDERED: ISOVUE-370 76% 100ML VIAL As Ordered ONE (14:40)
[2020-06-12 15:35] LABS: CK-MB VALUE MASS < 1.0 NG/ML (<3.6); CPK CREATINE PHOSPHOKINASE 75 U/L (39-308); MB/CK RELATIVE INDEX 1.33 (< OR =4); TROPONIN I < 0.02 NG/ML (< 0.10)
--- NOTE | 2020-06-12 16:35 | REP ---
INDICATION: chest pain/fever/ elevated liapse. COMPARISON: Comparison CT angiography of the chest November 20, 2013.. TECHNIQUE: Contrast dose: 100 ML of Isovue [address] technique: Helical scanning is acquired and overlapping 1.5 mm and contiguous 3 mm axial images are reformatted. In addition, maximum intensity projection and multiplanar re-formation images are generated in sagittal and coronal imaging projections. FINDINGS: There is good opacification in the pulmonary arterial tree. There is no evidence of vessel cut off or filling defect to suggest pulmonary embolus. Homogeneous opacity is seen in the thoracic aorta. There is no evidence of aneurysm or dissection. Lung window settings demonstrate clear well inflated lungs. No evidence of infiltrate or lung mass. There is a linear density at the left base in the lingula which may be platelike atelectasis. Lung marin are otherwise clear. No pleural or pericardial effusion is seen. No hilar or mediastinal mass or adenopathy is observed. In the upper abdomen, normal adrenal glands are seen. Visualized upper abdominal structures are otherwise unremarkable. The patient is status post gastric bypass. There is calcification and/or stent material in the distribution of the left coronary artery as before. IMPRESSION: No CT evidence of pulmonary embolus. No active cardiopulmonary disease. <Electronically signed by Richard Churchill > 06/12/20 [id number]
--- NOTE | 2020-06-12 16:38 | REP ---
INDICATION: chest pain/fever/ elevated liapse. COMPARISON: Comparison abdominal CT study is from October 17, 2015.. TECHNIQUE: Helical scanning was acquired and 4 mm axial images are re-formatted. Coronal and sagittal MPR images were generated and reviewed. The contrast enhancement dose is 100 mL of intravenous Isovue 370. 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 The liver shows mild diffuse fatty infiltration. No focal liver lesion is seen. The spleen is normal in size and homogeneous in texture. No abnormality is noted in the pancreas. The gallbladder is unremarkable. There is a small benign left adrenal adenoma, 1.1 cm in greatest diameter unchanged. This nodule is fat density on CT images. No retroperitoneal mass or adenopathy is seen. The kidneys enhance symmetrically. No renal abnormality is observed. Small and large bowel loops are unremarkable in the abdomen and pelvis. No obstructive lesion is seen. Prostate is somewhat enlarged. Urinary bladder perea are slightly thickened. No pelvic mass or adenopathy is seen. IMPRESSION: Fatty infiltration of the liver. Status post gastric bypass surgery. Enlarged prostate. Stable 1.1 cm benign adenoma left adrenal gland. <Electronically signed by Richard Churchill > 06/12/20 [id number]
[2020-06-12 17:42] VITALS: BP 148/82
--- NOTE | 2020-06-13 07:53 | ED PDOC ---
Post-Departure Follow-Up radiology report faxed to Saray Lilly MD Jun 13, 2020 07:53
--- NOTE | 2020-06-13 08:14 | ECGEPIP ---
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
--- NOTE | 2020-06-13 08:17 | ECGEPIP ---
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
== END 2020-06-12 17:40 | disposition home or self-care (01) ==
LOC: M ED 10:07
DX: R07.89 Other chest pain (principal); N39.0 Urinary tract infection, site not specified; R74.8 Abnormal levels of other serum enzymes; R51.9 Headache, unspecified; R05 Cough; K76.0 Fatty (change of) liver, not elsewhere classified; N40.1 Benign prostatic hyperplasia with lower urinary tract symptoms; D35.00 Benign neoplasm of unspecified adrenal gland; Z98.84 Bariatric surgery status; E11.9 Type 2 diabetes mellitus without complications; E78.5 Hyperlipidemia, unspecified; I25.10 Atherosclerotic heart disease of native coronary artery without angina pectoris; Z95.1 Presence of aortocoronary bypass graft; Z79.899 Other long term (current) drug therapy
CPT/HCPCS: 36415; 71045; 71275; 74177; 80048; 80076; 81001; 82550; 82553; 82728; 83605; 83615; 83690; 83880; 84439; 84443; 84484; 85025; 85610; 85652; 85730; 86140; 87040; 87798; 93005; 93041; 94760; 99285; Q9967

== ENCOUNTER → 2020-07-03 | Outpatient (REF) | payer BC ==
[2020-07-03 17:42] LABS: APPEARANCE, URINE CLEAR (CLEAR); BACTERIA, URINE AUTO NEGATIVE (NEGATIVE); BILIRUBIN, URINE AUTO NEGATIVE (NEGATIVE); BLOOD, URINE BLOOD NEGATIVE (NEGATIVE); COLOR, URINE YELLOW (YELLOW); GLUCOSE, URINE (UA) AUTO 3+ mg/dL (NEGATIVE); KETONE, URINE AUTO NEGATIVE (NEGATIVE); LEUKOCYTE ESTERASE, URINE AUTO NEGATIVE (NEGATIVE); NITRITE, URINE AUTO NEGATIVE (NEGATIVE); PROTEIN, URINE AUTO NEGATIVE (NEGATIVE); RBC, URINE AUTO 0 /HPF (0-3); SPECIFIC GRAVITY URINE AUTO 1.031 (1.002-1.035); SQUAMOUS EPITHELIAL CELL UR AU 0 /HPF (0-6); UROBILINOGEN, URINE AUTO 0.2 mg/dL (0.0-2.0); WBC, URINE AUTO 0 /HPF (0-3)
== END ==
LOC: M SFHCPLAZ 16:57
PROVIDERS: ATTEND Family Medicine
DX: N39.0 Urinary tract infection, site not specified (principal)

== ENCOUNTER → 2020-07-12 | Outpatient (REF) | payer BC | LOC: M LAB REF 14:13 | PROVIDERS: ATTEND Nurse Practitioner Family | DX: R19.7 Diarrhea, unspecified (principal) ==

== ENCOUNTER → 2020-07-21 | Outpatient (REF) | payer BC ==
[2020-07-21 11:29] LABS: ALBUMIN 3.7 GM/DL (3.2-5.2); BLOOD UREA NITROGEN 11 MG/DL (7-18); CALCIUM LEVEL 8.8 MG/DL (8.5-10.1); CARBON DIOXIDE LEVEL 30 MEQ/L (21-32); CHLORIDE LEVEL 103 MEQ/L (98-107); CREATININE FOR GFR 0.91 MG/DL (0.70-1.30); GLOMERULAR FILTRATION RATE > 60.0 (>56); GLUCOSE, FASTING 295 MG/DL (70-100); PHOSPHORUS LEVEL 2.7 MG/DL (2.5-4.9); POTASSIUM SERUM 4.5 MEQ/L (3.5-5.1); SODIUM LEVEL 137 MEQ/L (136-145)
== END ==
LOC: M SFHCPLAZ 08:40
PROVIDERS: ATTEND Nurse Practitioner Family
DX: N39.0 Urinary tract infection, site not specified (principal)
CPT/HCPCS: 36415; 80069; 83519; G0103

== ENCOUNTER → 2020-09-03 | Outpatient (CLI) | payer BC ==
[~2020-09-03] MED LIST changes: +GABA-283 PO; -GABA-845 PO
--- NOTE | 2020-09-03 15:11 | REPVR ---
PROCEDURE INFORMATION: Exam: MR Lumbar Spine Without Contrast Exam date and time: 09/03/2020 2:43 PM Age: 55 years old Clinical indication: Low back pain; Prior surgery; Surgery date: 6+ months; Surgery type: PT states he had SX to "widen the holes where his nereves are to help with impingment"; Patient HX: Oa w/ lumbar radiculopathy TECHNIQUE: Imaging protocol: Multiplanar magnetic resonance images of the lumbar spine without intravenous contrast. COMPARISON: MRI-Spine, L.S. without con 02/14/2014 10:34 AM FINDINGS: Vertebrae: No acute compression fracture is seen. There is 4 mm of retrolisthesis of L5 on S1. Spinal cord: The conus medullaris terminates at the L1 level. There is no evidence of arachnoiditis or cauda equina compression. T12-L1: There is mild diffuse circumferential disc bulging. There is no significant spinal canal or neural foraminal stenosis. L1-L2: There is mild facet arthropathy. There is no significant spinal canal or neural foraminal stenosis. L2-L3: There is mild facet arthropathy. There is no significant spinal canal or neural foraminal stenosis. L3-L4: There is mild facet arthropathy. There is no significant spinal canal or neural foraminal stenosis. L4-L5: There is mild diffuse circumferential disc bulging with a superimposed shallow left subarticular and foraminal disc protrusion. Moderate facet arthropathy and thickening of the ligamentum flavum is also present. This is causing mild spinal canal stenosis, severe narrowing of the left subarticular recess, moderate left neural foraminal narrowing, and minimal right neural foraminal narrowing. L5-S1: There is disc dehydration, mild disc space narrowing, marked diffuse circumferential disc bulging, and a superimposed central disc protrusion. Central disc material is migrating caudally roughly 5 mm from the level of the disc. A left extraforaminal and far left lateral disc osteophyte complex is also present. Mild facet arthropathy is noted. There is mild spinal canal stenosis, moderate narrowing of the subarticular recesses, moderate left neural foraminal narrowing, and mild right neural foraminal narrowing. The findings appear similar to the prior exam. Soft tissues: Unremarkable. IMPRESSION: Stable degenerative changes of the lumbar spine as discussed above Electronically signed by: Emerson Gloria On 09/03/2020 15:11:38 PM
== END ==
LOC: M RAD 13:12
PROVIDERS: ATTEND Family Medicine
DX: M47.27 Other spondylosis with radiculopathy, lumbosacral region (principal)

== ENCOUNTER → 2020-12-03 | Outpatient (REF) | payer BC ==
[~2020-12-03] MED LIST changes: +OMEP40CA4 PO; -OMEP40CA97 PO
== END ==
LOC: M LAB REF 15:53
PROVIDERS: ATTEND Family Medicine
DX: R19.7 Diarrhea, unspecified (principal)

== ENCOUNTER → 2021-03-04 | Outpatient (CLI) | payer OTHER ==
[2021-03-04 15:44] LABS: BASO # 0.1 10^3/uL (0.0-0.2); EOS # 0.1 10^3/uL (0.0-0.5); EOS % 2.1 % (0.0-3.0); HEMATOCRIT 43.8 % (42.0-52.0); HEMOGLOBIN 14.9 g/dl (13.5-17.5); LYMPH # 1.8 10^3/uL (1.5-5.0); LYMPH % 33.9 % (24.0-44.0); MEAN CORPUSCULAR HEMOGLOBIN 28.6 pg (27.0-33.0); MEAN CORPUSCULAR VOLUME 84.1 fl (80.0-96.0); MONO # 0.4 10^3/uL (0.0-0.8); MONO % 6.9 % (2.0-8.0); NEUTROPHILS # 2.9 10^3/uL (1.5-8.5); NEUTROPHILS % 55.9 % (36.0-66.0); PLATELET COUNT, AUTOMATED 195 10^3/uL (150-450); RED BLOOD COUNT 5.21 10^6/uL (4.30-6.10); WHITE BLOOD COUNT 5.3 10^3/uL (4.0-10.0)
[2021-03-04 16:14] LABS: CHOLESTEROL RISK RATIO 1.9 (<5); FREE T4 0.85 NG/DL (0.76-1.46); PTH INTACT 128.4 PG/ML (18.5-88.0); THYROID STIMULATING HORMONE 1.15 uIU/ML (0.358-3.740); TOTAL 25(OH) VITAMIN D 18.7 NG/ML (30.0-100.0)
[2021-03-04 17:03] LABS: HEMOGLOBIN A1c 9.9 %
[2021-03-05 07:45] LABS: HEMATOCRIT 43.8 % (42.0-52.0)
== END ==
LOC: M PLALAB 12:28
PROVIDERS: ATTEND Family Medicine
DX: E11.9 Type 2 diabetes mellitus without complications (principal); E55.9 Vitamin D deficiency, unspecified; G56.00 Carpal tunnel syndrome, unspecified upper limb; E78.5 Hyperlipidemia, unspecified

== ENCOUNTER → 2021-03-11 | Outpatient (CLI) | payer OTHER ==
[2021-03-11 16:57] LABS: BASO % 0.4 % (0.0-1.0); EOS # 0.1 10^3/uL (0.0-0.5); EOS % 0.6 % (0.0-3.0); HEMATOCRIT 33.9 % (42.0-52.0); HEMOGLOBIN 11.9 g/dl (13.5-17.5); LYMPH # 1.7 10^3/uL (1.5-5.0); LYMPH % 21.7 % (24.0-44.0); MEAN CORPUSCULAR HEMOGLOBIN 29.1 pg (27.0-33.0); MEAN CORPUSCULAR HGB CONC 35.1 g/dl (32.0-36.5); MEAN CORPUSCULAR VOLUME 82.9 fl (80.0-96.0); MONO # 0.7 10^3/uL (0.0-0.8); MONO % 8.6 % (2.0-8.0); NEUTROPHILS # 5.3 10^3/uL (1.5-8.5); NEUTROPHILS % 68.2 % (36.0-66.0); PLATELET COUNT, AUTOMATED 215 10^3/uL (150-450); RED BLOOD COUNT 4.09 10^6/uL (4.30-6.10); WHITE BLOOD COUNT 7.8 10^3/uL (4.0-10.0)
--- NOTE | 2021-03-11 16:58 | REP ---
INDICATION: LEFT THIGH HEMATOMA. COMPARISON: None. TECHNIQUE: Real-time sonographic evaluation of the left thigh anterior subjacent to ecchymosis FINDINGS: There is a 10.3 x 3.1 x 7 cm sized area of mixed echoes subjacent to skin ecchymosis and possibly intramuscular. There is an additional 11.1 x 3.6 x 5.4 cm sized area of similar ultrasonographic appearance adjacent to this. IMPRESSION: Likely 2 areas of intramuscular hematoma, however, follow-up with MRI is recommended. <Electronically signed by Norberto Johnson > 03/11/21 [id number]
== END ==
LOC: M RAD 16:13
PROVIDERS: ATTEND Physician Assistant
DX: S70.12XA Contusion of left thigh, initial encounter (principal); X58.XXXA Exposure to other specified factors, initial encounter; Y92.9 Unspecified place or not applicable; Z79.01 Long term (current) use of anticoagulants

== ENCOUNTER → 2021-03-13 | Outpatient (CLI) | payer OTHER ==
--- NOTE | 2021-03-13 09:14 | REP ---
INDICATION: LT THIGH HEMATOMA COMPARISON: 03/11/2021 TECHNIQUE: Real time nice scale ultrasound examination using linear high-frequency transducer. FINDINGS: Directed ultrasound examination along the thigh at the site of visible bruising again demonstrates 2 complex intramuscular collections measuring 7.6 x 3.3 x 4.0 cm and 8.8 x 3.9 x 4.3 cm consistent with areas of intramuscular hematoma. Findings are decreased in size when compared to prior examination. IMPRESSION: Presumed areas of intramuscular hematoma decreased in size from prior examination. <Electronically signed by Edgar Bagley > 03/13/21 0939
[2021-03-13 10:21] LABS: BASO % 0.5 % (0.0-1.0); EOS # 0.1 10^3/uL (0.0-0.5); EOS % 1.3 % (0.0-3.0); HEMATOCRIT 29.6 % (42.0-52.0); LYMPH # 1.3 10^3/uL (1.5-5.0); MEAN CORPUSCULAR HEMOGLOBIN 28.3 pg (27.0-33.0); MEAN CORPUSCULAR HGB CONC 33.8 g/dl (32.0-36.5); MEAN CORPUSCULAR VOLUME 83.9 fl (80.0-96.0); MONO # 0.6 10^3/uL (0.0-0.8); MONO % 9.7 % (2.0-8.0); NEUTROPHILS % 67.3 % (36.0-66.0); PLATELET COUNT, AUTOMATED 183 10^3/uL (150-450); RED BLOOD COUNT 3.53 10^6/uL (4.30-6.10)
[2021-03-13 10:40] LABS: ALBUMIN 3.5 GM/DL (3.2-5.2); ALT/SGPT 32 U/L (12-78); BILIRUBIN,TOTAL 0.5 MG/DL (0.2-1.0); BLOOD UREA NITROGEN 11 MG/DL (7-18); CALCIUM LEVEL 8.8 MG/DL (8.5-10.1); CARBON DIOXIDE LEVEL 33 MEQ/L (21-32); CHLORIDE LEVEL 99 MEQ/L (98-107); GLOMERULAR FILTRATION RATE > 60.0 (>56); GLUCOSE, FASTING 244 MG/DL (70-100); POTASSIUM SERUM 3.8 MEQ/L (3.5-5.1); SODIUM LEVEL 138 MEQ/L (136-145); TOTAL PROTEIN 6.4 GM/DL (6.4-8.2)
== END ==
LOC: M RAD 08:28
PROVIDERS: ATTEND Physician Assistant
DX: S70.12XA Contusion of left thigh, initial encounter (principal); X58.XXXA Exposure to other specified factors, initial encounter; Y92.9 Unspecified place or not applicable; Y93.9 Activity, unspecified; Y99.9 Unspecified external cause status; R71.0 Precipitous drop in hematocrit; Z79.01 Long term (current) use of anticoagulants

== ENCOUNTER → 2021-03-16 | Outpatient (REF) | payer OTHER ==
[2021-03-16 11:19] LABS: BASO % 0.4 % (0.0-1.0); EOS # 0.1 10^3/uL (0.0-0.5); EOS % 0.8 % (0.0-3.0); HEMATOCRIT 34.4 % (42.0-52.0); HEMOGLOBIN 11.5 g/dl (13.5-17.5); LYMPH # 1.2 10^3/uL (1.5-5.0); MEAN CORPUSCULAR HEMOGLOBIN 28.3 pg (27.0-33.0); MEAN CORPUSCULAR HGB CONC 33.4 g/dl (32.0-36.5); MEAN CORPUSCULAR VOLUME 84.5 fl (80.0-96.0); MONO # 0.7 10^3/uL (0.0-0.8); MONO % 8.1 % (2.0-8.0); NEUTROPHILS # 6.2 10^3/uL (1.5-8.5); NEUTROPHILS % 75.5 % (36.0-66.0); PLATELET COUNT, AUTOMATED 276 10^3/uL (150-450); RED BLOOD COUNT 4.07 10^6/uL (4.30-6.10); WHITE BLOOD COUNT 8.2 10^3/uL (4.0-10.0)
== END ==
LOC: M SFHCCLAY 08:00
PROVIDERS: ATTEND Physician Assistant
DX: S70.12XA Contusion of left thigh, initial encounter (principal); X58.XXXA Exposure to other specified factors, initial encounter; Y92.9 Unspecified place or not applicable

== ENCOUNTER → 2021-03-23 | Outpatient (REF) | payer OTHER ==
[2021-03-23 11:34] LABS: BASO % 0.4 % (0.0-1.0); EOS # 0.1 10^3/uL (0.0-0.5); HEMATOCRIT 37.1 % (42.0-52.0); HEMOGLOBIN 12.4 g/dl (13.5-17.5); LYMPH # 1.2 10^3/uL (1.5-5.0); LYMPH % 11.1 % (24.0-44.0); MEAN CORPUSCULAR HEMOGLOBIN 28.4 pg (27.0-33.0); MEAN CORPUSCULAR HGB CONC 33.4 g/dl (32.0-36.5); MEAN CORPUSCULAR VOLUME 84.9 fl (80.0-96.0); MONO # 0.6 10^3/uL (0.0-0.8); MONO % 6.1 % (2.0-8.0); NEUTROPHILS # 8.4 10^3/uL (1.5-8.5); PLATELET COUNT, AUTOMATED 425 10^3/uL (150-450); RED BLOOD COUNT 4.37 10^6/uL (4.30-6.10); WHITE BLOOD COUNT 10.4 10^3/uL (4.0-10.0)
== END ==
LOC: M SFHCCLAY 09:04
PROVIDERS: ATTEND Physician Assistant
DX: S70.12XA Contusion of left thigh, initial encounter (principal); X58.XXXA Exposure to other specified factors, initial encounter; Y92.9 Unspecified place or not applicable; Y93.9 Activity, unspecified; Y99.9 Unspecified external cause status

== ENCOUNTER → 2021-03-26 | Outpatient (REF) | payer OTHER, SELFPAY ==
[2021-03-26 11:20] LABS: HEMATOCRIT 37.3 % (42.0-52.0); HEMOGLOBIN 12.5 g/dl (13.5-17.5); MEAN CORPUSCULAR HEMOGLOBIN 28.3 pg (27.0-33.0); MEAN CORPUSCULAR HGB CONC 33.5 g/dl (32.0-36.5); MEAN CORPUSCULAR VOLUME 84.4 fl (80.0-96.0); PLATELET COUNT, AUTOMATED 382 10^3/uL (150-450); RED BLOOD COUNT 4.42 10^6/uL (4.30-6.10); WHITE BLOOD COUNT 8.4 10^3/uL (4.0-10.0)
== END ==
LOC: M SFHCCLAY 09:16
PROVIDERS: ATTEND Physician Assistant
DX: S70.12XA Contusion of left thigh, initial encounter (principal); X58.XXXA Exposure to other specified factors, initial encounter; Y92.9 Unspecified place or not applicable

== ENCOUNTER → 2021-09-28 | Outpatient (CLI) | payer OTHER ==
[2021-09-28 14:15] LABS: BASO % 0.6 % (0.0-1.0); EOS # 0.1 10^3/uL (0.0-0.5); EOS % 1.5 % (0.0-3.0); HEMATOCRIT 42.7 % (42.0-52.0); HEMATOCRIT 43.2 % (42.0-52.0); HEMOGLOBIN 14.7 g/dl (13.5-17.5); LYMPH # 1.4 10^3/uL (1.5-5.0); LYMPH % 30.1 % (24.0-44.0); MEAN CORPUSCULAR HEMOGLOBIN 29.1 pg (27.0-33.0); MEAN CORPUSCULAR HGB CONC 34.4 g/dl (32.0-36.5); MEAN CORPUSCULAR VOLUME 84.4 fl (80.0-96.0); MONO # 0.4 10^3/uL (0.0-0.8); MONO % 7.6 % (2.0-8.0); NEUTROPHILS # 2.8 10^3/uL (1.5-8.5); NEUTROPHILS % 59.8 % (36.0-66.0); PLATELET COUNT, AUTOMATED 202 10^3/uL (150-450); RED BLOOD COUNT 5.06 10^6/uL (4.30-6.10); WHITE BLOOD COUNT 4.8 10^3/uL (4.0-10.0)
[2021-09-28 14:53] LABS: ALBUMIN 4.2 GM/DL (3.2-5.2); ALT/SGPT 108 U/L (12-78); BILIRUBIN,TOTAL 0.8 MG/DL (0.2-1.0); BLOOD UREA NITROGEN 13 MG/DL (7-18); CALCIUM LEVEL 8.5 MG/DL (8.5-10.1); CARBON DIOXIDE LEVEL 27 MEQ/L (21-32); CHLORIDE LEVEL 105 MEQ/L (98-107); CREATININE FOR GFR 0.86 MG/DL (0.70-1.30); FERRITIN 49 NG/ML (26-388); GLOMERULAR FILTRATION RATE > 60.0 (>56); GLUCOSE, FASTING 258 MG/DL (70-100); POTASSIUM SERUM 4.2 MEQ/L (3.5-5.1); SODIUM LEVEL 137 MEQ/L (136-145); TOTAL PROTEIN 6.7 GM/DL (6.4-8.2)
[2021-09-28 14:57] LABS: MAU/CREAT RATIO 123.3 MCG/MG (0.0-30.0); PTH INTACT 136.7 PG/ML (18.5-88.0); TOTAL 25(OH) VITAMIN D 16.2 NG/ML (30.0-100.0); VITAMIN B12 LEVEL 381 PG/ML (247-911)
== END ==
LOC: M PLALAB 10:57
PROVIDERS: ATTEND Family Medicine
DX: E53.8 Deficiency of other specified B group vitamins

== ENCOUNTER 2021-11-30 11:33 | Emergency (ER) | payer OTHER ==
[~2021-11-30] VITALS: Ht 193 cm; Wt 92.0 kg
[2021-11-30 11:34] VITALS: BP 161/90
[2021-11-30] MEDS ORDERED: FERR325T3 PO (12:22)
[2021-11-30] MEDS ORDERED: DULO1CAP5 (12:22)
[2021-11-30] MEDS ORDERED: FLOM0.4C39 PO (12:22)
[2021-11-30] MEDS ORDERED: ONDANSETRON 4MG ORAL DISINTEGRATING TAB PO ONE (15:35)
[2021-11-30] MEDS ORDERED: MORPHINE 10 MG/ML 1ML VIAL IM ONE (15:35)
[2021-11-30] MEDS ORDERED: TLSO BRACE TOP (16:38)
[2021-11-30] MEDS ORDERED: ONDA4TAB6 PO (16:43)
[2021-11-30] MEDS ORDERED: METH-1165 PO (16:43)
[2021-11-30] MEDS ORDERED: PERC5TAB12 PO (16:43)
== END 2021-11-30 17:05 | disposition home or self-care (01) ==
LOC: M ED 11:33
DX: S32.020A Wedge compression fracture of second lumbar vertebra, initial encounter for closed fracture (principal); S80.811A Abrasion, right lower leg, initial encounter; W01.0XXA Fall on same level from slipping, tripping and stumbling without subsequent striking against object, initial encounter; E11.9 Type 2 diabetes mellitus without complications; K21.9 Gastro-esophageal reflux disease without esophagitis; I10 Essential (primary) hypertension; Z87.442 Personal history of urinary calculi; Z86.73 Personal history of transient ischemic attack (TIA), and cerebral infarction without residual deficits; Z95.5 Presence of coronary angioplasty implant and graft; Z79.51 Long term (current) use of inhaled steroids; Z79.899 Other long term (current) drug therapy; Y92.9 Unspecified place or not applicable; Y93.9 Activity, unspecified; Y99.9 Unspecified external cause status
CPT/HCPCS: 72131; 96372; 99282; J2270

== ENCOUNTER → 2022-01-22 | Outpatient (CLI) | payer OTHER ==
[~2022-01-22] MED LIST changes: +DULO1CAP5; +FERR325T3 PO; +FLOM0.4C39 PO; +METH-1165 PO; +ONDA4TAB6 PO; +TLSO BRACE TOP
== END ==
LOC: M PLALAB 10:19
PROVIDERS: ATTEND Family Medicine
DX: S32.029S Unspecified fracture of second lumbar vertebra, sequela (principal)

== ENCOUNTER 2022-11-18 16:00 | Emergency (ER) | payer OTHER ==
[~2022-11-18] VITALS: Ht 190.5 cm; Wt 96.4 kg
[2022-11-18 17:04] LABS: VENOUS BASE EXCESS -4.6 (-2.0-2.0); VENOUS HCO3 20.3 MMOL/L (23.0-27.0); VENOUS O2 SATURATION 91.1 % (60.0-80.0); VENOUS PARTIAL PRESSURE CO2 36.9 mmHg (38.0-50.0); VENOUS PH 7.358 UNITS (7.330-7.430); VENOUS STANDARD HCO3 20.6 MMOL/L; VENOUS TOTAL CO2 21.4 MMOL/L (24.0-28.0)
[2022-11-18 17:07] LABS: BASO % 0.6 % (0.0-1.0); EOS # 0.1 10^3/uL (0.0-0.5); EOS % 1.5 % (0.0-3.0); HEMATOCRIT 41.5 % (42.0-52.0); HEMOGLOBIN 14.4 g/dl (13.5-17.5); LYMPH # 1.4 10^3/uL (1.5-5.0); MEAN CORPUSCULAR HEMOGLOBIN 28.5 pg (27.0-33.0); MEAN CORPUSCULAR HGB CONC 34.7 g/dl (32.0-36.5); MONO # 0.3 10^3/uL (0.0-0.8); MONO % 6.5 % (2.0-8.0); NEUTROPHILS # 3.4 10^3/uL (1.5-8.5); NEUTROPHILS % 64.4 % (36.0-66.0); PLATELET COUNT, AUTOMATED 214 10^3/uL (150-450); RED BLOOD COUNT 5.06 10^6/uL (4.30-6.10); WHITE BLOOD COUNT 5.2 10^3/uL (4.0-10.0)
[2022-11-18 17:34] LABS: ACETONE/KETONE 0.14 MMOL/L (0.02-0.27); ALBUMIN 3.8 G/DL (3.2-5.2); BILIRUBIN,DIRECT 0.2 MG/DL (<0.4); BILIRUBIN,TOTAL 0.5 MG/DL (0.3-1.2); HEMOGLOBIN A1c 10.8 % (4.0-6.0); TOTAL PROTEIN 6.3 G/DL (5.7-8.2)
[2022-11-18] MEDS ORDERED: LEVEMIR (INSULIN DETEMIR) 1 UNITS/0.01ML SC ONE (18:35)
[2022-11-18] MEDS ORDERED: CEPHALEXIN 500 MG CAP PO ONE (18:35)
[2022-11-18] MEDS ORDERED: CEPH250T PO (19:07)
[2022-11-18] MEDS ORDERED: LANTINJ4 SC (19:07)
[2022-11-18] MEDS ORDERED: BD I1MIS14 SC (19:07)
[2022-11-18 19:36] VITALS: BP 134/82; TEMP 97; O2SAT 99
== END 2022-11-18 19:47 | disposition home or self-care (01) ==
LOC: M ED 16:00
DX: E10.65 Type 1 diabetes mellitus with hyperglycemia (principal); I10 Essential (primary) hypertension; Z79.891 Long term (current) use of opiate analgesic; Z79.899 Other long term (current) drug therapy
CPT/HCPCS: 80047; 80076; 81001; 82010; 82803; 83036; 83690; 83930; 85025; 87088; 87186; 93005; 93041; 94760; 96372; 99284; J1815

== ENCOUNTER → 2023-02-16 | Outpatient (REF) | payer OTHER ==
[~2023-02-16] MED LIST changes: +BD I1MIS14 SC; +CEPH250T PO; -GABA-283 PO; +GABA-284 PO
[2023-02-16 18:26] LABS: BASO % 0.4 % (0.0-1.0); EOS # 0.2 10^3/uL (0.0-0.5); EOS % 2.9 % (0.0-3.0); HEMATOCRIT 46.2 % (42.0-52.0); HEMOGLOBIN 15.4 g/dl (13.5-17.5); LYMPH # 1.7 10^3/uL (1.5-5.0); LYMPH % 24.6 % (24.0-44.0); MEAN CORPUSCULAR HEMOGLOBIN 28.1 pg (27.0-33.0); MEAN CORPUSCULAR HGB CONC 33.3 g/dl (32.0-36.5); MEAN CORPUSCULAR VOLUME 84.3 fl (80.0-96.0); MONO # 0.5 10^3/uL (0.0-0.8); NEUTROPHILS # 4.4 10^3/uL (1.5-8.5); NEUTROPHILS % 64.7 % (36.0-66.0); PLATELET COUNT, AUTOMATED 228 10^3/uL (150-450); RED BLOOD COUNT 5.48 10^6/uL (4.30-6.10); WHITE BLOOD COUNT 6.9 10^3/uL (4.0-10.0)
[2023-02-16 18:48] LABS: FERRITIN 34.5 NG/ML (10.5-307.3)
[2023-02-16 18:49] LABS: ALBUMIN 3.8 G/DL (3.2-5.2); BLOOD UREA NITROGEN 12 MG/DL (9-23); CALCIUM LEVEL 8.4 MG/DL (8.5-10.1); CARBON DIOXIDE LEVEL 31 MMOL/L (20-31); CHLORIDE LEVEL 104 MMOL/L (98-107); CHOLESTEROL LEVEL 169 MG/DL (<200); CHOLESTEROL RISK RATIO 2.88 (<5); CREATININE FOR GFR 0.73 MG/DL (0.70-1.30); GLOMERULAR FILTRATION RATE > 60.0 (>56); GLUCOSE, FASTING 129 MG/DL (60-100); HDL CHOLESTEROL 58.6 MG/DL (>40); LDL CHOLESTEROL 93.6 MG/DL (<100); NON-HDL-C 110.4 MG/DL; PHOSPHORUS LEVEL 3.4 MG/DL (2.5-4.9); POTASSIUM SERUM 4.7 MMOL/L (3.5-5.1); PTH INTACT 152.8 PG/ML (18.5-88.0); SODIUM LEVEL 142 MMOL/L (136-145); TOTAL 25(OH) VITAMIN D 8.7 NG/ML (20.0-100.0); TRIGLYCERIDES LEVEL 84 MG/DL (<150); VITAMIN B12 LEVEL 307 PG/ML (211-911)
[2023-02-16 19:59] LABS: HEMOGLOBIN A1c 9.7 % (4.0-6.0)
== END ==
LOC: M SFHCPLAZ 08:43
PROVIDERS: ATTEND Family Medicine
DX: E55.9 Vitamin D deficiency, unspecified (principal); E11.9 Type 2 diabetes mellitus without complications; D50.9 Iron deficiency anemia, unspecified; E78.5 Hyperlipidemia, unspecified; Z98.84 Bariatric surgery status

== ENCOUNTER → 2023-06-28 | Outpatient (REF) | payer BC | LOC: M SFHCPLAZ 11:15 | PROVIDERS: ATTEND Family Medicine | DX: Z53.9 Procedure and treatment not carried out, unspecified reason (principal) ==

== ENCOUNTER → 2023-07-27 | Outpatient (CLI) | payer BC ==
[~2023-07-27] MED LIST changes: +GLUCAGON INJ 1MG VIAL As Ordered ONE; +ISOVUE-370 76% 100ML VIAL As Ordered ONE; +NEULUMEX 0.1% SUSPENSION 450ML BOTTLE (FORMERLY VOLUMEN) As Ordered ONE
[2023-07-27 08:56] LABS: BASO # 0.1 10^3/uL (0.0-0.2); BASO % 1.1 % (0.0-1.0); EOS # 0.1 10^3/uL (0.0-0.5); HEMOGLOBIN 14.8 g/dl (13.5-17.5); LYMPH # 1.5 10^3/uL (1.5-5.0); LYMPH % 34.5 % (24.0-44.0); MEAN CORPUSCULAR HGB CONC 34.4 g/dl (32.0-36.5); MEAN CORPUSCULAR VOLUME 84.1 fl (80.0-96.0); MONO # 0.3 10^3/uL (0.0-0.8); MONO % 5.7 % (2.0-8.0); NEUTROPHILS # 2.4 10^3/uL (1.5-8.5); NEUTROPHILS % 55.5 % (36.0-66.0); PLATELET COUNT, AUTOMATED 199 10^3/uL (150-450); RED BLOOD COUNT 5.11 10^6/uL (4.30-6.10); WHITE BLOOD COUNT 4.4 10^3/uL (4.0-10.0)
[2023-07-27 09:15] LABS: CHOLESTEROL RISK RATIO 2.09 (<5); HDL CHOLESTEROL 50.6 MG/DL (>40); LDL CHOLESTEROL 38.4 MG/DL (<100); NON-HDL-C 55.4 MG/DL
[2023-07-27 09:19] LABS: FERRITIN 46.8 NG/ML (10.5-307.3); THYROID STIMULATING HORMONE 2.378 uIU/ML (0.55-4.78); TOTAL 25(OH) VITAMIN D 12.3 NG/ML (20.0-100.0)
[2023-07-27 09:20] LABS: INR 0.99; PARTIAL THROMBOPLASTIN TIME 28.4 SECONDS (24.8-34.2); PROTHROMBIN TIME 12.8 SECONDS (12.5-14.5)
[2023-07-27 09:21] LABS: FREE T4 0.78 NG/DL (0.89-1.76)
[2023-07-27 09:22] LABS: PTH INTACT 147.3 PG/ML (18.5-88.0)
== END ==
LOC: M RAD 07:33
PROVIDERS: ATTEND Family Medicine
DX: Z12.11 Encounter for screening for malignant neoplasm of colon (principal); R19.7 Diarrhea, unspecified
CPT/HCPCS: 36415; 74177; 80061; 82105; 82172; 82306; 82607; 82728; 83010; 83883; 83970; 84439; 84443; 85025; 85610; 85730; J1610; Q9967

== ENCOUNTER 2023-09-11 11:41 | Emergency (ER) | payer BC ==
[~2023-09-11] VITALS: Ht 193 cm; Wt 95.0 kg
[~2023-09-11 11:41] MED LIST changes: -GLUCAGON INJ 1MG VIAL As Ordered ONE; -ISOVUE-370 76% 100ML VIAL As Ordered ONE; -NEULUMEX 0.1% SUSPENSION 450ML BOTTLE (FORMERLY VOLUMEN) As Ordered ONE; +RAMI1.258; -RAMI1CAP21; -RAMI1CAP22 PO; +RAMI2.5C42 PO; -ROSU40TA4; +ROSU40TA63
[2023-09-11 12:21] LABS: BASO % 0.4 % (0.0-1.0); EOS # 0.1 10^3/uL (0.0-0.5); HEMATOCRIT 38.9 % (42.0-52.0); HEMOGLOBIN 13.9 g/dl (13.5-17.5); MEAN CORPUSCULAR HEMOGLOBIN 28.8 pg (27.0-33.0); MEAN CORPUSCULAR HGB CONC 35.7 g/dl (32.0-36.5); MEAN CORPUSCULAR VOLUME 80.5 fl (80.0-96.0); MONO # 0.5 10^3/uL (0.0-0.8); MONO % 5.9 % (2.0-8.0); NEUTROPHILS # 6.1 10^3/uL (1.5-8.5); NEUTROPHILS % 79.6 % (36.0-66.0); PLATELET COUNT, AUTOMATED 208 10^3/uL (150-450); RED BLOOD COUNT 4.83 10^6/uL (4.30-6.10); WHITE BLOOD COUNT 7.6 10^3/uL (4.0-10.0)
[2023-09-11 12:29] LABS: ERYTHROCYTE SEDIMENTATION RATE 8 mm/hr (0-20)
[2023-09-11 12:41] LABS: INR 1.07; PARTIAL THROMBOPLASTIN TIME 27.3 SECONDS (24.8-34.2); PROTHROMBIN TIME 13.6 SECONDS (12.5-14.5)
[2023-09-11 12:45] LABS: C REACTIVE PROTEIN QUANTITATIV < 0.40 MG/DL (<1.0)
[2023-09-11 12:55] LABS: ALBUMIN 3.5 G/DL (3.2-5.2); ALKALINE PHOSPHATASE 137 U/L (46-116); ALT/SGPT 51 U/L (7.0-40); AST/SGOT 16 U/L (<34); BILIRUBIN,DIRECT 0.2 MG/DL (<0.4); BILIRUBIN,TOTAL 0.5 MG/DL (0.3-1.2); BLOOD UREA NITROGEN 11 MG/DL (9-23); CALCIUM LEVEL 8.6 MG/DL (8.5-10.1); CARBON DIOXIDE LEVEL 24 MMOL/L (20-31); CHLORIDE LEVEL 104 MMOL/L (98-107); CREATININE FOR GFR 0.69 MG/DL (0.70-1.30); GLOMERULAR FILTRATION RATE > 60.0 (>56); GLUCOSE, FASTING 463 MG/DL (60-100); POTASSIUM SERUM 3.8 MMOL/L (3.5-5.1); SODIUM LEVEL 134 MMOL/L (136-145); TOTAL PROTEIN 6.3 G/DL (5.7-8.2)
[2023-09-11] MEDS: NS 1,000 ML IV ONE (13:28)
[2023-09-11] MEDS: ceFAZolin SOD 2 GM in IV 1 EA IV ONE (14:18)
[2023-09-11] MEDS: HumuLIN R (REGULAR) INSULIN (NovoLIN R) **100U/ML** PER UNIT IV ONE (14:19)
[2023-09-11] MEDS ORDERED: CEPH500C PO (14:54)
[2023-09-11 15:15] VITALS: BP 133/75; TEMP 97.9; O2SAT 99
== END 2023-09-11 15:18 | disposition home or self-care (01) ==
LOC: M ED 11:41
DX: L03.116 Cellulitis of left lower limb (principal); S90.852A Superficial foreign body, left foot, initial encounter; E11.9 Type 2 diabetes mellitus without complications; K21.9 Gastro-esophageal reflux disease without esophagitis; Z86.79 Personal history of other diseases of the circulatory system; Z86.73 Personal history of transient ischemic attack (TIA), and cerebral infarction without residual deficits; Z79.1 Long term (current) use of non-steroidal anti-inflammatories (NSAID); Z79.2 Long term (current) use of antibiotics; Z79.4 Long term (current) use of insulin; Z79.899 Other long term (current) drug therapy; Y92.9 Unspecified place or not applicable; Y93.9 Activity, unspecified
CPT/HCPCS: 73620; 80048; 80076; 83605; 85025; 85610; 85652; 85730; 86140; 87040; 87641; 96374; 96375; 99284; J0690; J1815

== ENCOUNTER → 2023-10-06 | Outpatient (CLI) | payer BC ==
[~2023-10-06] MED LIST changes: +CEPH500C PO; +ONDA-282 PO; -ONDA4TAB6 PO
[2023-10-06 19:26] LABS: IMMUNOGLOBULIN A 101.5 MG/DL (40-350); THYROID STIMULATING HORMONE 1.231 uIU/ML (0.55-4.78)
[2023-10-06 19:27] LABS: FREE T4 0.97 NG/DL (0.89-1.76)
== END ==
LOC: M LRY 11:57
PROVIDERS: ATTEND Physician Assistant Medical
DX: R19.7 Diarrhea, unspecified (principal)

== ENCOUNTER → 2023-12-05 | Outpatient (REF) | payer BC | LOC: M SFHCPLAZ 12:35 | PROVIDERS: ATTEND Family Medicine | DX: E53.8 Deficiency of other specified B group vitamins (principal); D50.9 Iron deficiency anemia, unspecified; E55.9 Vitamin D deficiency, unspecified; I10 Essential (primary) hypertension; Z12.5 Encounter for screening for malignant neoplasm of prostate ==

== ENCOUNTER → 2023-12-05 | Outpatient (CLI) | payer BC ==
[2023-12-05 15:37] LABS: ALBUMIN 4.5 G/DL (3.2-5.2); ALKALINE PHOSPHATASE 111 U/L (46-116); ALT/SGPT 64 U/L (7.0-40); AST/SGOT 31 U/L (<34); BILIRUBIN,TOTAL 0.7 MG/DL (0.3-1.2); BLOOD UREA NITROGEN 8 MG/DL (9-23); CALCIUM LEVEL 9.5 MG/DL (8.5-10.1); CARBON DIOXIDE LEVEL 28 MMOL/L (20-31); CHLORIDE LEVEL 107 MMOL/L (98-107); CREATININE FOR GFR 0.79 MG/DL (0.70-1.30); GLOMERULAR FILTRATION RATE > 60.0 (>56); GLUCOSE, FASTING 124 MG/DL (60-100); POTASSIUM SERUM 3.7 MMOL/L (3.5-5.1); PSA SCREENING 0.27 NG/ML (< 4.00); PTH INTACT 151.4 PG/ML (18.5-88.0); SODIUM LEVEL 140 MMOL/L (136-145); TOTAL PROTEIN 7.3 G/DL (5.7-8.2)
[2023-12-05 15:38] LABS: TOTAL 25(OH) VITAMIN D 19.6 NG/ML (20.0-100.0)
[2023-12-05 15:39] LABS: FERRITIN 30.6 NG/ML (10.5-307.3); VITAMIN B12 LEVEL 367 PG/ML (211-911)
[2023-12-05 15:42] LABS: BASO % 0.5 % (0.0-1.0); EOS # 0.1 10^3/uL (0.0-0.5); EOS % 2.1 % (0.0-3.0); HEMATOCRIT 46.9 % (42.0-52.0); HEMOGLOBIN 16.1 g/dl (13.5-17.5); LYMPH # 1.8 10^3/uL (1.5-5.0); LYMPH % 29.1 % (24.0-44.0); MEAN CORPUSCULAR HEMOGLOBIN 28.5 pg (27.0-33.0); MEAN CORPUSCULAR HGB CONC 34.3 g/dl (32.0-36.5); MEAN CORPUSCULAR VOLUME 83.2 fl (80.0-96.0); MONO # 0.4 10^3/uL (0.0-0.8); NEUTROPHILS # 3.7 10^3/uL (1.5-8.5); NEUTROPHILS % 61.1 % (36.0-66.0); PLATELET COUNT, AUTOMATED 243 10^3/uL (150-450); RED BLOOD COUNT 5.64 10^6/uL (4.30-6.10); WHITE BLOOD COUNT 6.1 10^3/uL (4.0-10.0)
[2023-12-07 17:37] LABS: COPPER PLASMA 80 mcg/dL (70-175)
== END ==
LOC: M PLALAB 13:06
PROVIDERS: ATTEND Family Medicine
DX: D50.9 Iron deficiency anemia, unspecified (principal); E55.9 Vitamin D deficiency, unspecified; E53.8 Deficiency of other specified B group vitamins; I10 Essential (primary) hypertension
CPT/HCPCS: 36415; 80053; 82306; 82525; 82607; 82728; 83735; 83880; 83970; 84425; 85025; G0103

== ENCOUNTER 2023-12-21 15:14 | Outpatient (CLI) | payer BC ==
[~2023-12-21 15:14] MED LIST changes: +ALBUTEROL SULFATE 2.5MG/0.5ML INH NEB SOLN INH PRN; +EPINEPHrine INJ 1 MG/ML 1ML AMP IM PRN; +NS 1,000 ML IV SCH; +diphenhydrAMINE 50MG/ML VIAL IV PRN; +methylPREDNISolone 125MG 2ML VIAL IV PRN
[2023-12-21] MEDS: FERRIC CARBOXYMALTOSE INJ 750 MG in NS 250 ML (>50kg) IV ONE (15:25)
[2023-12-21 15:30] VITALS: BP 119/67; O2SAT 99
[2023-12-21 16:14] VITALS: BP 124/69; O2SAT 98
== END 2023-12-21 16:15 ==
LOC: M INFU 15:14
PROVIDERS: ATTEND Family Medicine
DX: D50.9 Iron deficiency anemia, unspecified (principal)
CPT/HCPCS: 96365; J1439

== ENCOUNTER 2024-01-19 07:01 | Day surgery (SDC) | payer BC ==
[~2024-01-19] VITALS: Ht 190.5 cm; Wt 96.6 kg
[~2024-01-19 07:01] MED LIST changes: -ALBUTEROL SULFATE 2.5MG/0.5ML INH NEB SOLN INH PRN; -DULO1CAP5; +DULO1CAP5 PO; -EPINEPHrine INJ 1 MG/ML 1ML AMP IM PRN; +FINA5TAB2 PO; -NS 1,000 ML IV SCH; +PRAM1TAB7 PO; +RAMI5CAP60 PO; +ROCA0.5C PO; -ROSU40TA63; +ROSU40TA81; +VITA100093 PO; -diphenhydrAMINE 50MG/ML VIAL IV PRN; -methylPREDNISolone 125MG 2ML VIAL IV PRN
[2024-01-19] MEDS: NS 1,000 ML IV ONE (07:14)
[2024-01-19] MEDS ORDERED: propofoL 200 MG/20 ML VIAL As Ordered ONE (08:00)
[2024-01-19 08:35] VITALS: BP 124/80; TEMP 97.6; O2SAT 98
== END 2024-01-19 08:48 | disposition home or self-care (01) ==
LOC: M OPP 07:01
PROVIDERS: ATTEND Internal Medicine Gastroenterology
DX: K52.9 Noninfective gastroenteritis and colitis, unspecified (principal); K62.89 Other specified diseases of anus and rectum; K21.9 Gastro-esophageal reflux disease without esophagitis; E11.40 Type 2 diabetes mellitus with diabetic neuropathy, unspecified; I10 Essential (primary) hypertension; C61 Malignant neoplasm of prostate; I25.10 Atherosclerotic heart disease of native coronary artery without angina pectoris; E78.00 Pure hypercholesterolemia, unspecified; Z79.02 Long term (current) use of antithrombotics/antiplatelets; Z79.899 Other long term (current) drug therapy; G47.30 Sleep apnea, unspecified; Z86.73 Personal history of transient ischemic attack (TIA), and cerebral infarction without residual deficits; Z95.5 Presence of coronary angioplasty implant and graft; Z95.1 Presence of aortocoronary bypass graft; Z98.84 Bariatric surgery status

== ENCOUNTER → 2024-03-12 | Outpatient (CLI) | payer BC ==
[~2024-03-12] MED LIST changes: +GABA-1172 PO; -GABA-282 PO; +LEVA15HF2 INH; -LEVAINH INH
== END ==
LOC: M WHC 06:43
PROVIDERS: ATTEND Family Medicine
DX: K74.00 Hepatic fibrosis, unspecified (principal)

== ENCOUNTER → 2025-04-03 | Outpatient (REF) | payer OTHER ==
[~2025-04-03] MED LIST changes: -FLOM0.4C39 PO; +TAMS-18 PO
[2025-04-03 12:22] LABS: BASO # 0.1 10^3/uL (0.0-0.2); BASO % 0.8 % (0.0-1.0); EOS # 0.3 10^3/uL (0.0-0.5); EOS % 4.4 % (0.0-3.0); LYMPH # 2.3 10^3/uL (1.5-5.0); LYMPH % 30.2 % (24.0-44.0); MONO # 0.4 10^3/uL (0.0-0.8); MONO % 5.7 % (2.0-8.0); NEUTROPHILS # 4.5 10^3/uL (1.5-8.5); NEUTROPHILS % 58.6 % (36.0-66.0); PLATELET COUNT, AUTOMATED 290 10^3/uL (150-450)
[2025-04-03 12:24] LABS: PSA SCREENING 0.60 NG/ML (< 4.00)
[2025-04-03 12:27] LABS: ALT/SGPT 36 U/L (7.0-40); AST/SGOT 23 U/L (<34); CALCIUM LEVEL 8.9 MG/DL (8.5-10.1); CARBON DIOXIDE LEVEL 31 MMOL/L (20-31); CHLORIDE LEVEL 105 MMOL/L (98-107); CREATININE FOR GFR 0.87 MG/DL (0.70-1.30); GLOMERULAR FILTRATION RATE > 90.0 (>56); MAGNESIUM LEVEL 1.7 MG/DL (1.8-2.4); POTASSIUM SERUM 4.2 MMOL/L (3.5-5.1); SODIUM LEVEL 143 MMOL/L (136-145)
[2025-04-03 12:28] LABS: PTH INTACT 134.4 PG/ML (18.5-88.0)
[2025-04-03 12:29] LABS: FREE T4 0.86 NG/DL (0.89-1.76); VITAMIN B12 LEVEL 302 PG/ML (211-911)
[2025-04-03 12:42] LABS: ESTIMATED AVERAGE GLUCOSE 189.0 MG/DL (60-110)
[2025-04-03 12:44] LABS: CREATININE, URINE 138.1 MG/DL; MALB URINE SIEMENS 30.0 MG/L; MAU/CREAT RATIO 21.7 MCG/MG (0.0-30.0)
== END ==
LOC: M SFHCPLAZ 07:49
PROVIDERS: ATTEND Family Medicine
DX: E53.8 Deficiency of other specified B group vitamins (principal); D50.9 Iron deficiency anemia, unspecified; E55.9 Vitamin D deficiency, unspecified; I50.32 Chronic diastolic (congestive) heart failure; Z12.5 Encounter for screening for malignant neoplasm of prostate; E11.8 Type 2 diabetes mellitus with unspecified complications; E78.5 Hyperlipidemia, unspecified; Z98.84 Bariatric surgery status; R19.7 Diarrhea, unspecified
CPT/HCPCS: 80053; 81479; 82043; 82607; 82728; 82747; 83036; 83520; 83735; 83880; 83970; 84439; 84443; 84591; 85025; G0103